=== PATIENT | female | born 1955 | race Caucasian/White ===

== ENCOUNTER → 2016-08-30 | Outpatient (CLI) | payer OTHER ==
[~2016-08-30] MED LIST: BACL10TA PO; BUPR100T4 PO; BUPR1TAB29 PO; CHOL50006 PO; DIAZ5TAB PO; DICL50TA PO; DILA2TAB2 PO; DOCU100C PO; ESCI10TA PO; FLUT50SP EACH NARE; GABA100C4 PO; GABA300C5 PO; HYDR-3583 PO; INVA1INJ IV; LACT PO; LOPE2CAP92 PO; LURA40; LURA40 PO; PANT40TA3 PO; PROP10TA6 PO; TIZA2TAB PO
== END ==
LOC: CPRE 14:42
PROVIDERS: ATTEND Neurological Surgery
DX: Z01.812 Encounter for preprocedural laboratory examination (principal)

== ENCOUNTER 2016-09-07 09:01 | Observation (INO) | payer OTHER ==
[~2016-09-07] VITALS: Ht 172.7 cm; Wt 92.1 kg
[~2016-09-07 09:01] MED LIST changes: -BACL10TA PO; +BUPIVACAINE/EPINEPHRINE 0.5% PF 30 ML VIAL ONE; -BUPR100T4 PO; -BUPR1TAB29 PO; -CHOL50006 PO; -DICL50TA PO; -DILA2TAB2 PO; -DOCU100C PO; -FLUT50SP EACH NARE; -GABA100C4 PO; +GELFOAM SIZE 100 ONE; +GENTAMICIN SULFATE 80 MG/2 ML VIAL ONE; -INVA1INJ IV; -LACT PO; -LOPE2CAP92 PO; -LURA40 PO; -PROP10TA6 PO; +THROMBIN (TOPICAL) 5,000 UNIT VIAL ONE; +ceFAZolin 2 GM PREMIX 50 ML ONE; +methylPREDNISolone ACETATE 40 MG/ML VIAL ONE
[2016-09-07] MEDS ORDERED: SODIUM CHLORID 0.9% 500 ML IV PRN (09:45)
[2016-09-07] MEDS ORDERED: INSULIN HUMAN REGULAR 1,000 UNITS/10 ML VIAL SQ PRN (09:45)
[2016-09-07] MEDS ORDERED: VANCOMYCIN HCL 1000 MG ON-CALL/NS 250 ML IV SCH ×2 (09:45)
[2016-09-07] MEDS ORDERED: METOPROLOL TARTRATE 25 MG TAB PO PRN (09:45)
[2016-09-07] MEDS ORDERED: LACTATED RINGER'S 1000 ML IV PRN (09:45)
[2016-09-07] MEDS ORDERED: SODIUM CHLOR 0.9% 1000 ML INJ 1,000 ML IV SCH (09:45)
[2016-09-07] MEDS ORDERED: CHLORHEXIDINE GLUCONATE 2 % 1 PACK (2 CLOTHS) TOPICAL PRN (09:45)
[2016-09-07] MEDS ORDERED: POVIDONE IODINE 5% (ANTISEPSIS KIT) 4 APPLICATIONS EACH NARE PRN (09:45)
[2016-09-07] MEDS ORDERED: CHOL50006 PO (09:53)
[2016-09-07] MEDS ORDERED: LURA40 PO (09:53)
[2016-09-07] MEDS ORDERED: DOCU100C PO (09:53)
[2016-09-07] MEDS ORDERED: FLUT50SP EACH NARE (09:53)
[2016-09-07] MEDS ORDERED: PROP10TA6 PO (09:53)
[2016-09-07 09:54] VITALS: BP 115/83; PULSE 58; RESP 16; TEMP 98.7; O2SAT 95
[2016-09-07] MEDS ORDERED: HYDROmorphone HCL PF 2 MG/ML VIAL ONE ×2 (10:22→11:17)
[2016-09-07] MEDS ORDERED: FAMOTIDINE 20 MG/2 ML VIAL ONE (10:23)
[2016-09-07] MEDS ORDERED: MIDAZOLAM HCL 2 MG/2 ML VIAL ONE (11:12)
[2016-09-07] MEDS ORDERED: fentaNYL CITRATE 250 MCG/5 ML AMP ONE (11:17)
[2016-09-07] MEDS ORDERED: ACETAMINOPHEN 1000 MG/100 ML VIAL IV ONE (11:35)
[2016-09-07] MEDS ORDERED: ePHEDrine/NS 25 MG/5 ML SYR IV ONE (12:00)
[2016-09-07] MEDS ORDERED: LACTATED RINGER'S 1000 ML INJ 1,000 ML IV ONE (12:00)
[2016-09-07] MEDS ORDERED: PROPOFOL 200 MG/20 ML AMP IV ONE (12:00)
[2016-09-07] MEDS ORDERED: ONDANSETRON HCL 4 MG/2 ML VIAL IV PUSH ONE (12:00)
[2016-09-07] MEDS ORDERED: DO NOT ADM ANY ANTICOAGULANT DRUGS PRN (14:08)
[2016-09-07] MEDS ORDERED: ACETAMINOPHEN 325 MG TAB PO PRN (14:15)
[2016-09-07] MEDS ORDERED: SODIUM CHLORIDE 0.9% FLUSH 5 ML FLUSH IVF PRN (14:15)
[2016-09-07] MEDS ORDERED: DIAZEPAM 5 MG TAB PO PRN ×2 (14:15→14:30)
[2016-09-07] MEDS ORDERED: ACETAMINOPHEN/HYDROcodone 325 MG/10 MG TAB PO PRN ×3 (14:15→14:30)
[2016-09-07] MEDS ORDERED: MORPHINE SULFATE 4 MG/ML INJ IV PUSH PRN ×2 (14:15)
[2016-09-07] MEDS ORDERED: *morphine SULFATE 8 MG/ML PERIprocedure ONLY ONE ×2 (14:16→14:25)
[2016-09-07] MEDS ORDERED: HYDR-3583 PO (14:18)
--- NOTE | 2016-09-07 14:32 | PD.OP ---
Operative Report Date of Surgery: September 07, 2016 Preoperative Diagnosis: Lumbar spinal stenosis Postoperative Diagnosis: Lumbar spinal stenosis Procedure: L3-4, L4-5 left hemilaminectomy, mesiofacetectomy, foraminotomy with microsurgical resection of the disk Anesthesia: general Surgeon: London Desouza Supervisor Paint Roller Covers(s): tadeo bliss Operation and Findings: INDICATIONS FOR THE SURGICAL PROCEDURE Ms Smith is a 60 year-old female who presented with intractable mechanical back pain and clinical evidence of left L4 and L5 lower extremity radiculopathy. She was found to have significant focal spinal stenosis with a disk protusion causing stenosis with significant mass effect on the neural structures which correlated with her clinical symptoms. She failed maximum nonsurgical management including multiple modalities of conservative treatment as well as pain management interventions by an interventional pain specialist. A surgical decompression were indicated as a last resort. The [id number] details of the procedure, indications, alternatives, risks and potential complications were fully discussed with the patient. The patient fully understood. All the questions were answered. No guarantees were given. The patient voiced requesting the procedure and signed informed consents. He was offered the alternative of delaying the procedure and continuing with nonsurgical management. DETAILS OF THE SURGICAL PROCEDURE After the induction of general anesthesia, endotracheal intubation was performed. A [place] catheter, bilateral TRACEY hose and sequential compression devices were placed and kept throughout the procedure. The patient was positioned prone on a Guevara table over a Eligio frame. All pressure points were carefully padded with eggcrate mattress. The eyes were tapped shut after ointment was applied by the anesthesiologist to prevent corneal abrasion. A Omi hugger was placed over the exposed lower body to maintain control of the core body temperature. The lower lumbar region was prepped and draped in the usual sterile fashion. A spinal needle was placed for localization and an x- ray performed with a C-arm. A skin incision was made in the midline over the spinous processes L3-L4, L4-L5 with a #10 blade. Small subcutaneous bleeders were controlled with a bipolar and the dissection was carried out through the lumbar fascia exposing the spinous processes. A subperiostial dissection was performed with a Sánchez elevator and a Bovie over the left L3-L4, L4-L5 spinous process lamina and facets. A microdiscectomy self-retaining retractor was placed on the incision and an x-ray was obtained with an instrument placed underneath the lamina. At this point in the procedure the operating microscope was draped in the usual sterile fashion and brought to the field. The rest of the surgical procedure was performed using microsurgical dissection technique with exception of the closure. Once the level was confirmed, a left decompressive laminectomy was performed at L3-L4, L4-L5 using the TPS drill with an 4mm drill bit. A medial facetectomy was performed and the superior free border of the ligamentum flavum was dissected with a ligament dissector and removed with a thin footplate 2 mm Kerrison. The medial facetectomy was done and the L5 nerve root was identified and followed towards its exit in the foramen. Epidural veins located laterally to the dural sac were coagulated with a bipolar and incised with microscissors. Gentle medial retraction of the dural sac allowed inspection of the disc space. The patient had severe facet arthropathy with hypertrhopy of the joint facets and ligamentum flavum resulting in mass effect over the dural sac and nerve roots. In addition, there was a broad-based disc protusion, contributing to the stenosis. The annulus fibrosus at L3-L4, L4-L5 were coagulated with the bipolar and incised with an 11 blade. The disc was carefully dissected from the surrounding tissue and removed with pituitary forceps. Then, a microdiscectomy was carried out at L3-L4, L4-L5 in the standard fashion using straight and up- biting pituitary forceps. A good decompression of the dural sac and nerve root was achieved. The exit of the nerve root was inspected for residual disc fragments and hemostasis was secured with the bipolar. The incision was irrigated with a large amount of saline solution. A Valsalva maneuver failed to show any cerebrospinal fluid leak or bleeding. The decompression was assessed again and found to be satisfactory. The incision was then closed in layers. The fascia was closed with 0 Vicryl sutures in an interrupted fashion. The superficial fascia was closed with 0 Vicryl sutures. The fascia was infiltrated with 0.5% Marcaine with epinephrine 1:100,000 dilution. The subcutaneous tissue was irrigated then closed with 0 Vicryl and 3 -0 Vicryl. The skin was closed with 4-0 running subcuticular Vicryl. A sterile dressing was applied. At the end of the procedure, the sponge, needle and instrument counts were all correct. Estimated blood loss was less than 100 cc. No blood transfusion was given. No intraoperative complications occurred. The patient received prophylactic antibiotics. The patient was then extubated and transferred to the recovery room in stable condition. London Desouza MD September 07, 2016 14:32
[2016-09-07] MEDS ORDERED: *HYDROmorphone PF 1 MG VIAL PERIprocedural Use ONLY ONE (14:45)
[2016-09-07] MEDS: NS + KCL 20 MEQ INJ 1,000 ML IV SCH (14:45)
--- NOTE | 2016-09-07 15:11 | RADRPT ---
EXAM DATE/TIME: 09/07/2016 11:50 [facility] COMPARISON: No previous studies available for comparison. INDICATIONS : Herniated disk, microdiskectomy. MEDICAL HISTORY : SURGICAL HISTORY : None. ENCOUNTER: Initial ACUITY: 1 day PAIN SCORE: 0/10 LOCATION: Right lumbar spine FINDINGS: The examination was hardware entering L4-5 intervertebral disc space. No significant disc space narro wing at L5-S1 also noted. Visualized alignment is grossly satisfactory. CONCLUSION: Hardware L4-5 Jacob Kellogg MD on September 07, 2016 at 15:08 Board Certified Radiologist. This report was verified electronically.
[2016-09-07] MEDS ORDERED: PILL SPLITTER OTHER PRN (15:30)
--- NOTE | 2016-09-07 15:42 | HHI.DCPOC ---
Discharge Care Plan Diagnosis: (1) S/P lumbar laminectomy Goals to Promote Your Health * To prevent worsening of your condition and complications * To maintain your health at the optimal level Directions to Meet Your Goals Take your medications as prescribed Follow your dietary instruction Follow activity as directed Keep your appointments as scheduled Take your immunizations and boosters as scheduled If your symptoms worsen call your PCP, if no PCP go to Urgent Care Center or Emergency Room Smoking is Dangerous to Your Health. Avoid second hand smoke Call the 24-hour hour crisis hotline for domestic abuse at Tania Carrillo September 07, 2016 15:42
[2016-09-07 15:50] VITALS: BP 114/73; PULSE 64; RESP 18; TEMP 97.1; O2SAT 96
[2016-09-07] MEDS: CHOLECALCIFEROL (VIT D3) 5000 UNIT CAP PO SCH (16:03)
[2016-09-07] MEDS: ACETAMINOPHEN/HYDROcodone 325 MG/10 MG TAB PO PRN (17:03)
[2016-09-07] MEDS: GABAPENTIN 300 MG CAP PO SCH (17:51)
[2016-09-07] MEDS ORDERED: GABAPENTIN 300 MG CAP PO SCH (18:00)
[2016-09-07 20:00] VITALS: BP 105/74; PULSE 73; RESP 20; TEMP 96.6; O2SAT 94
[2016-09-07] MEDS ORDERED: LURASIDONE 40 MG TAB PO SCH (21:00)
[2016-09-07] MEDS ORDERED: PROPRANOLOL HCL 10 MG TAB PO SCH (21:00)
[2016-09-07] MEDS ORDERED: DOCUSATE SODIUM 100 MG CAP PO SCH ×2 (21:00)
[2016-09-07] MEDS: PROPRANOLOL HCL 10 MG TAB PO SCH (21:33)
[2016-09-07] MEDS: LURASIDONE 40 MG TAB PO SCH (21:33)
[2016-09-07] MEDS: DOCUSATE SODIUM 100 MG CAP PO SCH (21:33)
[2016-09-07] MEDS: ceFAZolin 2 GM PREMIX 50 ML IV SCH (21:34)
[2016-09-07] MEDS: SODIUM CHLORIDE 0.9% FLUSH 5 ML FLUSH IVF SCH (21:34)
[2016-09-08] VITALS: BP_SYST 137; BP_SYST 98; BP_DIAS 68; BP_DIAS 81; BP_DIAS 82; PULSE 60; PULSE 67; RESP 18; RESP 22; TEMP 96.3; TEMP 96.8; O2SAT 94; O2SAT 96
[2016-09-08] MEDS: NS + KCL 20 MEQ INJ 1,000 ML IV SCH ×2 (00:30→08:26)
[2016-09-08] MEDS: ACETAMINOPHEN/HYDROcodone 325 MG/10 MG TAB PO PRN ×5 (03:43→20:06)
[2016-09-08] MEDS: ceFAZolin 2 GM PREMIX 50 ML IV SCH ×2 (03:44→11:41)
[2016-09-08 04:00] VITALS: BP 99/57; PULSE 72; RESP 20; TEMP 96.7; O2SAT 93
[2016-09-08 07:40] VITALS: BP 117/67; PULSE 72; RESP 18; TEMP 96.9; O2SAT 93
[2016-09-08] MEDS: GABAPENTIN 300 MG CAP PO SCH ×3 (08:22→18:27)
[2016-09-08] MEDS: PANTOPRAZOLE SOD 40 MG DELAYED RELEASE TAB PO SCH (08:22)
[2016-09-08] MEDS: PROPRANOLOL HCL 10 MG TAB PO SCH ×2 (08:22→20:06)
[2016-09-08] MEDS: DOCUSATE SODIUM 100 MG CAP PO SCH ×2 (08:23→20:05)
[2016-09-08] MEDS: SODIUM CHLORIDE 0.9% FLUSH 5 ML FLUSH IVF SCH ×2 (08:23→20:06)
[2016-09-08] MEDS: CHOLECALCIFEROL (VIT D3) 5000 UNIT CAP PO SCH (08:23)
[2016-09-08] MEDS: ESCITALOPRAM OXALATE 10 MG TAB PO SCH (08:23)
[2016-09-08] MEDS: FLUTICASONE PROPIONATE 50 MCG/ACT 16 GM NASAL SPRAY EACH NARE SCH (08:30)
[2016-09-08] MEDS ORDERED: FLUTICASONE PROPIONATE 50 MCG/ACT 16 GM NASAL SPRAY EACH NARE SCH (09:00)
[2016-09-08] MEDS ORDERED: ESCITALOPRAM OXALATE 10 MG TAB PO SCH (09:00)
[2016-09-08] MEDS ORDERED: PANTOPRAZOLE SOD 40 MG DELAYED RELEASE TAB PO SCH ×2 (09:00)
[2016-09-08] MEDS ORDERED: NON-FORMULARY DRUG (Cholecalciferol (Vitamin D) 1 TAB) PO SCH (09:00)
[2016-09-08 11:54] VITALS: BP 100/65; PULSE 59; RESP 18; TEMP 97.4; O2SAT 94
[2016-09-08] MEDS: DEXAMETHASONE SOD PHOS 4 MG/ML VIAL IV PUSH SCH ×2 (12:21→18:28)
--- NOTE | 2016-09-08 12:29 | HHI.DS ---
Discharge Summary Admission Date September 07, 2016 at 14:11 Discharge Date: September 09, 2016 Admitting Diagnosis s/p lumbar laminectomy (1) S/P lumbar laminectomy ICD Code: Z98.890 Brief History Ms Smith is a 60 year-old female who presented with intractable mechanical back pain and clinical evidence of left L4 and L5 lower extremity radiculopathy. She was found to have significant focal spinal stenosis with a disk protrusion causing stenosis with significant mass effect on the neural structures which correlated with her clinical symptoms. She failed maximum nonsurgical management including multiple modalities of conservative treatment as well as pain management interventions by an interventional pain specialist. A surgical decompression were indicated as a last resort. Imaging Last Impressions Lumbar Spine MRI 09/09/16 0000 Signed Impressions: Service Date/Time: Friday, September 09, 2016 11:12 - CONCLUSION: 1. Status post left kristin-laminotomy at the L3-4 and L4-5 levels with mild postsurgical change and small fluid collection in the adjacent overlying subcutaneous fat is normal. 2. Mild disc bulges at the L3-4, L4-5 and L5-S1 levels. 3. Degenerative disc change at the L5-S1 level. 4. Mild degenerative joint changes. Ja Payton MD Lumbar Spine X-Ray 09/07/16 0000 Signed Impressions: Service Date/Time: Wednesday, September 07, 2016 11:50 - CONCLUSION: Hardware L4-5 Jacob Kellogg MD Hospital Course Ms. Smith underwent a L3-4, L4-5 left hemilaminectomy, mesiofacetectomy, foraminotomy with microsurgical resection of the disk on September 07, 2016. Her surgery went well. POD 1 later that morning she had complained of left foot weakness. She underwent an MRI L spine follow up which was reviewed by Dr. Desouza and cleared for discharge. She was sent home with Home Health Care PT. Wound care and activity restrictions were discussed. Pt Condition on Discharge: Stable Discharge Disposition: Disch w/ Home Health Serv Discharge Instructions DIET: Follow Instructions for: Heart Healthy Diet ACTIVITIES You can perform: Weight Bearing As Adria ADDITIONAL Activity Instructio: Avoid strenuous activities, heavy lifting, overhead activities, repetitive bending, twisting, pushing, pulling or any activities which might result in stress over the spine. Avoid situtation that will put at risk for falls. Use assistive device as needed for walking. Wear lumbar brace when out of bed. New Medications: Hydrocodone-Acetaminophen (Hydrocodone-Acetaminophen) 10-325 mg Tab 1 TAB PO Q8HR PRN PAIN SCALE 1 TO 10 #90 Ref 0 TAB Continued Medications: Cholecalciferol (Vitamin D) 5,000 Unit Tab 1 TAB PO DAILY Diazepam (Diazepam) 5 Mg Tab 5 MG PO HS PRN ANXIETY Ref 0 TAB Docusate Sodium (Docusate Sodium) 100 Mg Cap 200 MG PO HS Prevent Constipation #60 Ref 0 CAP Escitalopram (Escitalopram) 10 Mg Tab 10 MG PO DAILY #30 Ref 0 TAB Fluticasone Nasal Spencer (Fluticasone Nasal Spencer) 50 Mcg/Act Naspr 50 MCG EACH NARE DAILY 50 mcg/spray Allergy Management #1 Ref 0 BOTTLE Gabapentin (Gabapentin) 300 Mg Cap 300 MG PO TID #60 Ref 0 CAP Hydrocodone-Acetaminophen (Hydrocodone-Acetaminophen) 10-325 mg Tab 1 TAB PO Q6H PRN PAIN Ref 0 TAB Lurasidone (Latuda) 40 Mg Tab 40 MG PO HS #30 Ref 0 TAB Pantoprazole (Pantoprazole) 40 Mg Tab 40 MG PO DAILY Reflux #30 Ref 0 TAB Propranolol (Propranolol) 10 Mg Tab 10 MG PO Q12HR #60 Ref 0 TAB Tizanidine (Tizanidine) 2 Mg Tab 2 MG PO TID Muscle Spasm Ref 0 TAB Tania Carrillo September 08, 2016 12:29
[2016-09-08 15:50] VITALS: BP 98/58; PULSE 67; RESP 18; TEMP 97.9; O2SAT 95
[2016-09-08] MEDS: LURASIDONE 40 MG TAB PO SCH (20:05)
[2016-09-08 21:48] VITALS: BP 133/75; PULSE 70; RESP 22; TEMP 97; O2SAT 97
[2016-09-09] VITALS: BP 137/82; PULSE 60; RESP 22; TEMP 96.8; O2SAT 96
[2016-09-09] MEDS: DEXAMETHASONE SOD PHOS 4 MG/ML VIAL IV PUSH SCH ×3 (00:04→12:00)
[2016-09-09] MEDS: ACETAMINOPHEN/HYDROcodone 325 MG/10 MG TAB PO PRN ×3 (01:25→09:30)
[2016-09-09 03:13] VITALS: BP 134/81; PULSE 60; RESP 22; TEMP 98.6; O2SAT 96
[2016-09-09 04:00] VITALS: BP 147/83; PULSE 62; RESP 18; TEMP 97.9; O2SAT 98
[2016-09-09] MEDS: NS + KCL 20 MEQ INJ 1,000 ML IV SCH (06:30)
[2016-09-09 08:00] VITALS: BP 134/89; PULSE 70; RESP 18; TEMP 97.7; O2SAT 95
[2016-09-09] MEDS: SODIUM CHLORIDE 0.9% FLUSH 5 ML FLUSH IVF SCH (09:00)
[2016-09-09] MEDS: FLUTICASONE PROPIONATE 50 MCG/ACT 16 GM NASAL SPRAY EACH NARE SCH (09:00)
[2016-09-09] MEDS: CHOLECALCIFEROL (VIT D3) 5000 UNIT CAP PO SCH (09:11)
[2016-09-09] MEDS: ESCITALOPRAM OXALATE 10 MG TAB PO SCH (09:11)
[2016-09-09] MEDS: PROPRANOLOL HCL 10 MG TAB PO SCH (09:11)
[2016-09-09] MEDS: DOCUSATE SODIUM 100 MG CAP PO SCH (09:11)
[2016-09-09] MEDS: PANTOPRAZOLE SOD 40 MG DELAYED RELEASE TAB PO SCH (09:11)
[2016-09-09] MEDS: GABAPENTIN 300 MG CAP PO SCH (09:11)
--- NOTE | 2016-09-09 11:39 | HHI.NSPN ---
(Tania Carrillo) Note Status Status: Progress Note (Tania Carrillo) Interval History Interval History 60 y/o female s/p L3-4, L4-5 left hemilaminectomy, mesiofacetectomy, foraminotomy with microsurgical resection of the disk on 09/07/16. She reported new onset left foot drop yesterday afternoon and discharge was held. (Tania Carrillo) Labs, Micro, & Vital Signs Results Date Time Temp Pulse Resp B/P Pulse Ox O2 Delivery O2 Flow Rate FiO2 09/09/16 08:00 97.7 70 18 134/89 95 09/09/16 04:00 97.9 62 18 147/83 98 09/09/16 00:00 96.8 60 22 137/82 96 09/08/16 21:48 97.0 70 22 133/75 97 09/08/16 15:50 97.9 67 18 98/58 95 09/08/16 11:54 97.4 59 18 100/65 94 09/09/16 07:00 Intake Total 1980 ml Balance 1980 ml Constitutional Vital Signs Date Time Temp Pulse Resp B/P Pulse Ox O2 Delivery O2 Flow Rate FiO2 09/09/16 08:00 97.7 70 18 134/89 95 09/09/16 04:00 97.9 62 18 147/83 98 09/09/16 00:00 96.8 60 22 137/82 96 09/08/16 21:48 97.0 70 22 133/75 97 09/08/16 15:50 97.9 67 18 98/58 95 09/08/16 11:54 97.4 59 18 100/65 94 09/09/16 07:00 Intake Total 1980 ml Balance 1980 ml (Tania Carrillo) Review of Systems/Exam Exam Ms. Smith is alert, awake and oriented to time, place and person. Speech is appropriate. Cranial nerve examination: pupils equal, round and reactive to light. Extra- ocular movements are intact. Facial motor are normal and symmetrical. Neck is soft and supple with a good range of motion without pain. Muscle strength is normal in all muscle groups of both upper extremities and lower extremities except 0/5 left dorsiflexion, 2-3/5 left EHL There is a bilateral plantar flexion response. (Tania Carrillo) Medications Current Medications Current Medications Medications (Trade) Dose Ordered Sig/Sen Route PRN Reason Start Time Stop Time Status Last Admin Dose Admin Potassium Chloride/Sodium Chloride (NS + KCl 20 Meq Inj) 1,000 ml @ 100 mls/hr Q10H IV 09/07/16 14:30 09/07/16 14:45 IV Flush (NS Flush) 2 ml UNSCH PRN IVF FLUSH AFTER USING IV ACCESS 09/07/16 14:15 IV Flush (NS Flush) 2 ml BID IVF 09/07/16 21:00 09/09/16 09:00 Docusate Sodium (Colace) 100 mg BID PO 09/07/16 21:00 09/09/16 09:11 Pantoprazole Sodium (Protonix) 40 mg DAILY PO 09/08/16 09:00 09/09/16 09:11 Acetaminophen/ Hydrocodone Bitart ([place] 10-325 Mg) 1 tab Q4H PRN PO PAIN SCALE 1 TO 5 09/07/16 14:15 09/08/16 16:32 Acetaminophen/ Hydrocodone Bitart ([place] 10-325 Mg) 2 tab Q4H PRN PO PAIN SCALE 6 TO 10 09/07/16 14:15 09/09/16 09:30 Morphine Sulfate (Morphine Inj) 2 mg Q2H PRN IV PUSH PAIN SCALE 1 TO 6 09/07/16 14:15 Morphine Sulfate (Morphine Inj) 4 mg Q2H PRN IV PUSH PAIN SCALE 7 TO 10 09/07/16 14:15 Acetaminophen (Tylenol) 650 mg Q4H PRN PO TEMPERATURE > 101.5 F 09/07/16 14:15 Gabapentin (Neurontin) 300 mg TID PO 09/07/16 18:00 09/09/16 09:11 Diazepam (Valium) 5 mg HS PRN PO ANXIETY 09/07/16 14:30 Escitalopram Oxalate (Lexapro) 10 mg DAILY PO 09/08/16 09:00 09/09/16 09:11 Fluticasone Propionate (Flonase Eagle Spr) 1 spray DAILY EACH NARE 09/08/16 09:00 Lurasidone HCl (Latuda) 40 mg HS PO 09/07/16 21:00 09/08/16 20:05 Propranolol HCl (Inderal) 10 mg Q12HR PO 09/07/16 21:00 09/09/16 09:11 Tizanidine HCl (Zanaflex) 2 mg TID PO 09/07/16 18:00 09/08/16 08:23 Cholecalciferol (Vitamin D3) 5,000 units DAILY PO 09/07/16 16:00 09/09/16 09:11 Miscellaneous (Pill Splitter) 1 ea UNSCH PRN OTHER SEE LABEL COMMENTS 09/07/16 15:30 Dexamethasone Sodium Phosphate (Decadron Inj) 4 mg Q6HR IV PUSH 09/08/16 12:30 09/09/16 05:25 (Tania Carrillo) Medical Decision Making MDM Remarks 60 y/o female s/p L3-4, L4-5 laminectomy and microdiscectomy 09/07/16, new onset left foot drop (Tania Carrillo) Plan Plan Remarks stat MRI L spine, cont physical therapy (Tania Carrillo) Attending Statement MRI was done. No acute pathology The exam, history, and the medical decision-making described in the above note were completed with the assistance of the mid-level provider. I reviewed and agree with the findings presented. I attest that I had a [id number] encounter with the patient on the same day, and personally performed and documented my assessment and findings in the medical record. (London Desouza MD) Tania Carrillo September 09, 2016 11:39 London Desouza MD September 09, 2016 21:41
--- NOTE | 2016-09-09 11:43 | HHI.FF ---
Face to Face Verification Diagnosis: (1) S/P lumbar laminectomy Physical Therapy Order: Improve ambulation, Strength and gait training (left foot drop) Home Health Nursing Order: Signs/symptoms of disease process Wound care and dressing changes I have seen patient Lynn Smith on 09/09/16. My clinical findings support the need for the requested home health care services because: Deconditioned w/ increased weakness High risk of falls I certify that my clinical findings support that this patient is homebound because: Post-op weakness Unsteady gait/balance Tania Carrillo September 09, 2016 11:43
--- NOTE | 2016-09-09 11:52 | RADRPT ---
EXAM DATE/TIME: 09/09/2016 11:12 [facility] COMPARISON: SPINE LUMBAR LATERAL ONLY, September 07, 2016, 11:50. INDICATIONS : Extremity weakness. Left lower extremity weakness s/p L3/4 L4/5 hemilaminectomy 09/07/16. MEDICAL HISTORY : None. SURGICAL HISTORY : Cholecystectomy. Hemorrhoidectomy. Lumbar hemilaminectomy. ENCOUNTER: Subsequent ACUITY: 3 day PAIN SCORE: 2/10 LOCATION: [facility] TECHNIQUE: Multiplanar multisequence MRI of the lumbar spine was performed without contrast. FINDINGS: The most caudal appearing lumbar vertebra is numbered as L5. VERTEBRAE: Homogeneous signal. Normal alignment. DISCS: There is mild desiccation at the L5-S1 level with disc space narrowing and anterior extradural defect . There is a small anterior extradural defect at the L3-4 level noted as well. There are small high-i ntensity zones and both of these regions which could indicate small annular tears. CONUS: Normal level and configuration. T12-L1: The thecal sac has a normal diameter. No evidence of disc bulge or protrusion. The neural foramina are patent bilaterally. L1-L2: The thecal sac has a normal diameter. No evidence of disc bulge or protrusion. The neural foramina are patent bilaterally. L2-L3: The thecal sac has a normal diameter. No evidence of disc bulge or protrusion. The neural foramina are patent bilaterally. L3-L4: Patient is status post left kristin-laminotomy with mild postsurgical change. There is a mild annular di sc bulge with mild flattening of the anterior thecal sac and no focal protrusion. The neural foramina are patent. There are mild degenerative changes involving facets there is a small fluid collection i n the overlying subcutaneous fat. This measures approximately 1.9 x 1.8 cm and contains a fluid heme level. L4-L5: Status post left kristin-laminotomy with mild postsurgical changes. There is mild disc bulge with no foc al protrusion. The neural foramina are patent. There are mild degenerative changes involving the face ts. L5-S1: There is a mild annular disc bulge with mild flattening of the anterior thecal sac. The neural forami na are patent. There are mild degenerative changes involving facets. CONCLUSION: 1. Status post left kristin-laminotomy at the L3-4 and L4-5 levels with mild postsurgical change and sma ll fluid collection in the adjacent overlying subcutaneous fat is normal. 2. Mild disc bulges at the L3-4, L4-5 and L5-S1 levels. 3. Degenerative disc change at the L5-S1 level. 4. Mild degenerative joint changes. Ja Payton MD on September 09, 2016 at 11:34 Board Certified Radiologist. This report was verified electronically.
== END 2016-09-09 12:59 | disposition home health service (06) ==
LOC: HSDC 09:01 → HSDI 14:11 → N06B 15:16
PROVIDERS: ADMIT Neurological Surgery; ATTEND Neurological Surgery
DX: M51.16 Intervertebral disc disorders with radiculopathy, lumbar region (principal); M48.06 Spinal stenosis, lumbar region; K21.9 Gastro-esophageal reflux disease without esophagitis; E66.9 Obesity, unspecified; Z88.2 Allergy status to sulfonamides; Z68.30 Body mass index [BMI] 30.0-30.9, adult
CPT/HCPCS: 63030; 63035; 72020; 72148; 76000; 94150; 97110; 97162; 97530; G0378; J0131; J0690; J1030; J1100; J1170; J1580; J2250; J2270; J2405; J3010; J3370; J3480; J7050; J7120; L0627

== ENCOUNTER 2016-09-14 09:34 | Inpatient (IN) | payer OTHER, MEDICARE ==
[2016-09-14] VITALS (8 sets, daily range): BP systolic 100–136; BP diastolic 61–95; PULSE 64–82; RESP 16–20; TEMP 98.8–102.3; O2SAT 94–96
[~2016-09-14] VITALS: Ht 172.7 cm; Wt 88.5 kg
[~2016-09-14 09:34] MED LIST changes: -BUPIVACAINE/EPINEPHRINE 0.5% PF 30 ML VIAL ONE; +CHOL50006 PO; +DOCU100C PO; +FLUT50SP EACH NARE; -GELFOAM SIZE 100 ONE; -GENTAMICIN SULFATE 80 MG/2 ML VIAL ONE; -LURA40; +LURA40 PO; +PROP10TA6 PO; -THROMBIN (TOPICAL) 5,000 UNIT VIAL ONE; -ceFAZolin 2 GM PREMIX 50 ML ONE; -methylPREDNISolone ACETATE 40 MG/ML VIAL ONE
[2016-09-14] MEDS ORDERED: PIPERACIL-TAZO 3.375 GM PREMIX 50 ML IV ONE (10:30)
[2016-09-14] MEDS ORDERED: VANCOMYCIN INJ 1,000 MG in SODIUM CHLOR 0.9% 250 ML INJ 250 ML IV ONE (10:30)
[2016-09-14 10:50] LABS: AUTOMATED NEUTROPHIL # 6.9 TH/MM3 (1.8-7.7); BASOPHIL % 0.2 % (0.0-2.0); EOSINOPHIL # 0.1 TH/MM3 (0-0.4); EOSINOPHIL % 0.6 % (0.0-4.0); HEMATOCRIT 41.8 % (35.0-46.0); HEMO FLAGS DIFF FINAL; LYMPH % 12.2 % (9.0-44.0); LYMPHOCYTE # 1.2 TH/MM3 (1.0-4.8); MEAN CELL VOLUME 91.2 FL (80.0-100.0); MEAN CORPUSCULAR HGB CONC 32.9 % (32.0-36.0); MONO % 14.7 % (0.0-8.0); NEUT % 72.3 % (16.0-70.0); PLATELET COUNT 111 TH/MM3 (150-450); RED BLOOD COUNT 4.58 MIL/MM3 (4.00-5.30); RED CELL DISTRIBUTION WIDTH 13.6 % (11.6-17.2); WHITE BLOOD COUNT 9.5 TH/MM3 (4.0-11.0)
[2016-09-14 11:08] LABS: BICARBONATE 30.5 MEQ/L (21.0-32.0); POTASSIUM 4.3 MEQ/L (3.5-5.1)
[2016-09-14] MEDS ORDERED: HYDROmorphone HCL PF 1 MG/ML VIAL IV PUSH ONE ×2 (11:15→13:30)
[2016-09-14] MEDS ORDERED: GADODIAMIDE PF 287 MG/ML 20 ML VIAL (for RAD MRI) IV ONE (13:18)
--- NOTE | 2016-09-14 13:53 | PD ---
HPI Chief Complaint: Fever Time Seen by Provider: 10:05 Travel History International Travel<30 days: No Contact w/Intl Traveler<30days: No Traveled to known affect area: No History of Present Illness HPI 60-year-old female complains of pain in the back steadily increasing since yesterday. She underwent left L3-4 and L4 5 hemilaminectomy about [address] Desouza. Yesterday had a fever and felt discharge on her gown. She notes that today her left lower extremity feels weaker than it had been initially following surgery and prior to the surgery. Temperature maximum was well 1. She reports that aspirin was minimally helpful with the fever temporarily. The hemilaminectomy was performed secondary to nerve impingement secondary to an old injury. She denies overflow urinary incontinence. She's had no change in bowel habits. PFSH Past Medical History Arthritis: Yes Cancer: No Cardiovascular Problems: No Diabetes: No Endocrine: No GERD: Yes (GERD) Genitourinary: No Hepatitis: Yes (C) Hiatal Hernia: Yes Immune Disorder: Yes (FIBROMYALGIA) Musculoskeletal: Yes (ARTHRITIS) Neurologic: No Psychiatric: Yes (SCHIZOID AFFECT DISORDER) Reproductive: No Respiratory: No Thyroid Disease: No Past Surgical History Abdominal Surgery: Yes (JOHN.,) AICD: No Genitourinary Surgery: Yes (HEMMORHOIDS,) Gynecologic Surgery: Yes (RIGHT FALLOPIAN TUBE) Joint Replacement: No Pacemaker: No Thoracic Surgery: Yes (RIGHT BREAST BX,) Social History Alcohol Use: No Tobacco Use: Yes Substance Use: Yes Allergies-Medications (Allergen,Severity, Reaction): Coded Allergies: Sulfa (Verified Allergy, Unknown, Swelling, 08/30/16) Reported Meds & Prescriptions Reported Meds & Active Scripts Active Hydrocodone-Acetaminophen 10-325 mg Tab 1 Tab PO Q8HR PRN Reported Vitamin D (Cholecalciferol) 5,000 Unit Tab 1 Tab PO DAILY Fluticasone Nasal [place] 50 Mcg/Act Naspr 50 Mcg EACH NARE DAILY 50 mcg/spray Docusate Sodium 100 Mg Cap 200 Mg PO HS Latuda (Lurasidone) 40 Mg Tab 40 Mg PO HS Propranolol (Propranolol HCl) 10 Mg Tab 10 Mg PO Q12HR Gabapentin 300 Mg Cap 300 Mg PO TID Tizanidine (Tizanidine HCl) 2 Mg Tab 2 Mg PO TID Diazepam 5 Mg Tab 5 Mg PO HS PRN Hydrocodone-Acetaminophen 10-325 mg Tab 1 Tab PO Q6H PRN Escitalopram (Escitalopram Oxalate) 10 Mg Tab 10 Mg PO DAILY Pantoprazole (Pantoprazole Sodium) 40 Mg Tab 40 Mg PO DAILY Review of Systems Except as stated in HPI: all other systems reviewed are Neg General / Constitutional: Positive: Fever Neurologic: Positive: Weakness Physical Exam Narrative GENERAL: 60-year-old female well-nourished well-developed pleasant SKIN: Focused skin assessment warm/dry. Overlying the midline lumbar vertebral bodies there is a 10 cm vertical incision with adjacent swelling and tenderness. There is no discharge with palpation about the area of swelling. HEAD: Atraumatic. Normocephalic. EYES: Pupils equal and round. No scleral icterus. No injection or drainage. ENT: No nasal bleeding or discharge. Mucous membranes pink and moist. NECK: Trachea midline. No JVD. CARDIOVASCULAR: Regular rate and rhythm. No murmur appreciated. RESPIRATORY: No accessory muscle use. Clear to auscultation. Breath sounds equal bilaterally. GASTROINTESTINAL: Abdomen soft, non-tender, nondistended. Hepatic and splenic margins not palpable. MUSCULOSKELETAL: No obvious deformities. No clubbing. No cyanosis. No edema. NEUROLOGICAL: Awake and alert. No obvious cranial nerve deficit. The left lower extremity demonstrates weakness with ankle dorsiflexion and plantarflexion and hip flexion in comparison to the right side. PSYCHIATRIC: Appropriate mood and affect; insight and judgment normal. Data Data Last Documented VS Vital Signs Date Time Temp Pulse Resp B/P Pulse Ox O2 Delivery O2 Flow Rate FiO2 09/14/16 15:03 69 16 101/61 94 Room Air 09/14/16 09:37 98.8 Vital signs reviewed Orders Basic Metabolic Panel (Bmp) (09/14/16 10:17) Complete Blood Count With Diff (09/14/16 10:17) Blood Culture (09/14/16 10:17) Wound Culture And Gram Stain (09/14/16 10:17) Iv Access Insert/Monitor (09/14/16 10:17) Wound Care (09/14/16 10:17) Vancomycin Inj (Vancomycin Inj) (09/14/16 10:30) Piperacil-Tazo 3.375 Gm Premix (Zosyn 3. (09/14/16 10:30) Mri L Spine W&W/O Contrast (09/14/16 ) Hydromorphone Pf Inj (Dilaudid Pf Inj) (09/14/16 11:15) Gadodiamide Pf Inj (Omniscan Pf Inj) (09/14/16 13:18) Hydromorphone Pf Inj (Dilaudid Pf Inj) (09/14/16 13:30) Metronidazole 500 Mg Inj (Flagyl 500 Mg (09/14/16 14:15) Ceftriaxone Inj (Rocephin Inj) (09/14/16 14:15) Ct Guided Aspiration (09/14/16 ) Invasive Rad Dept Consult (09/14/16 ) Act Partial Throm Time (Ptt) (09/14/16 14:25) Prothrombin Time / Inr (Pt) (09/14/16 14:25) Admit To Inpatient (09/14/16 ) Vital Signs (Adult) Q4H (09/14/16 14:33) Activity Oob With Assistance (09/14/16 14:33) Intake + Output BEATA.QSHIFT (09/14/16 14:33) Diet Npo (09/14/16 Dinner) Sodium Chlor 0.9% 1000 Ml Inj (Ns 1000 M (09/14/16 15:00) Sodium Chloride 0.9% Flush (Ns Flush) (09/14/16 14:45) Sodium Chloride 0.9% Flush (Ns Flush) (09/14/16 21:00) Acetaminophen (Tylenol) (09/14/16 14:45) Ondansetron Inj (Zofran Inj) (09/14/16 14:45) Docusate Sodium (Colace) (09/14/16 18:00) Magnesium Hydroxide Liq (Milk Of Magnesi (09/14/16 14:45) Temazepam (Restoril) (09/14/16 14:45) Basic Metabolic Panel (Bmp) (09/15/16 06:00) Complete Blood Count With Diff (09/15/16 06:00) Resp Oxygen [place] C [place] 1-4 L (09/14/16 ) Pt Request For Service (09/14/16 14:33) Ot Request For Service (09/14/16 14:33) Case Management Consult (09/14/16 14:33) Scd Bilateral/Knee High BEATA.BID (09/14/16 14:33) Clarke Bilateral/Knee High BEATA.QSHIFT (09/14/16 14:33) Inpatient Certification (09/14/16 ) Vancomycin Consult Pharmacy (Vancomycin (09/14/16 14:45) Vancomycin Inj (Vancomycin Inj) (09/14/16 14:45) Piperacil-Tazo 4.5 Gm Premix (Zosyn 4.5 (09/14/16 14:45) Consult Infectious Disease (09/14/16 ) Add Patient To Providers List (09/14/16 ) Admit Order (Ed Use Only) (09/14/16 15:09) Labs Laboratory Tests Test 09/14/16 10:30 White Blood Count 9.5 TH/MM3 Red Blood Count 4.58 MIL/MM3 Hemoglobin 13.7 GM/DL Hematocrit 41.8 % Mean Corpuscular Volume 91.2 FL Mean Corpuscular Hemoglobin 30.0 PG Mean Corpuscular Hemoglobin 32.9 % Concent Red Cell Distribution Width 13.6 % Platelet Count 111 TH/MM3 Mean Platelet Volume 7.6 FL Neutrophils (%) (Auto) 72.3 % Lymphocytes (%) (Auto) 12.2 % Monocytes (%) (Auto) 14.7 % Eosinophils (%) (Auto) 0.6 % Basophils (%) (Auto) 0.2 % Neutrophils # (Auto) 6.9 TH/MM3 Lymphocytes # (Auto) 1.2 TH/MM3 Monocytes # (Auto) 1.4 TH/MM3 Eosinophils # (Auto) 0.1 TH/MM3 Basophils # (Auto) 0.0 TH/MM3 CBC Comment DIFF FINAL Differential Comment Sodium Level 138 MEQ/L Potassium Level 4.3 MEQ/L Chloride Level 103 MEQ/L Carbon Dioxide Level 30.5 MEQ/L Anion Gap 5 MEQ/L Blood Urea Nitrogen 13 MG/DL Creatinine 0.68 MG/DL Estimat Glomerular Filtration 89 ML/MIN Rate Random Glucose 87 MG/DL Calcium Level 8.8 MG/DL [facility] Medical Decision Making Medical Screen Exam Complete: Yes Emergency Medical Condition: Yes Medical Record Reviewed: Yes Differential Diagnosis Paraspinal abscess, epidural abscess, cellulitis, osteomyelitis, skin abscess Narrative Course CBC & BMP Diagram 09/14/16 10:30 Antibiotics started on arrival: Vanco and Zosyn followed by Rocephin and Flagyl. Stat MRI ordered which reveals an epidural abscess. Case discussed with of neurosurgery who arrived to the ER at about 15: 15 shortly following our conversation. Case discussed with Dr Stewart for [facility]. Case discussed with Dr. Watson of radiology and also invasive radiology for CT guided aspiration. Diagnosis Primary Impression: Spinal epidural abscess Admitting Information Admitting Physician Requests: Admit Beto Garcia MD September 14, 2016 13:53
--- NOTE | 2016-09-14 13:54 | RADRPT ---
EXAM DATE/TIME: 09/14/2016 12:54 [facility] COMPARISON: No previous studies available for comparison. INDICATIONS : Abscess. CONTRAST: 18 cc Omniscan (gadodiamide) IV MEDICAL HISTORY : None. SURGICAL HISTORY : Discectomy, lumbar. ENCOUNTER: Initial ACUITY: 2 day PAIN SCORE: 6/10 LOCATION: Paraspinal TECHNIQUE: Multiplanar multisequence MRI of the lumbar spine was performed with and without contrast. FINDINGS: There is a large subcutaneous fluid collection present measuring 4.5 cm. There is enhancement in the subcutaneous tissues. On the post contrast images there is a small epidural component at L3-4 causi ng minimal impression on the thecal sac. Marrow signal appears homogeneous and normal. There is marked loss of disc space height at L5-S1. T here is nothing to suggest an diskitis or osteomyelitis at this point. CONCLUSION: Fluid collection as described above showing intense enhancement with an epidural component at the L3- 4 level. This is suspicious for an inflammatory process with an epidural component. Best seen on im age 6, series 28. Vishal Watson MD FACR on September 14, 2016 at 13:37 Board Certified Radiologist. This report was verified electronically.
[2016-09-14] MEDS ORDERED: cefTRIAXone INJ 1,000 MG in SODIUM CHLORIDE 0.9% INJ 100 ML IV ONE (14:15)
[2016-09-14] MEDS ORDERED: metroNIDAZOLE 500 MG INJ 100 ML IV ONE (14:15)
[2016-09-14] MEDS ORDERED: ONDANSETRON HCL 4 MG/2 ML VIAL IVP PRN (14:45)
[2016-09-14] MEDS ORDERED: Vancomycin Consult Pharmacy 1 EA OTHER SCH (14:45)
[2016-09-14] MEDS ORDERED: ACETAMINOPHEN 325 MG TAB PO PRN (14:45)
[2016-09-14] MEDS ORDERED: SODIUM CHLORIDE 0.9% FLUSH 10 ML FLUSH IV FLUSH PRN (14:45)
[2016-09-14] MEDS ORDERED: PIPERACIL-TAZO 4.5 GM PREMIX 100 ML IV SCH (14:45)
[2016-09-14] MEDS ORDERED: MAGNESIUM HYDROXIDE SUSP 30 ML CUP PO PRN (14:45)
[2016-09-14] MEDS ORDERED: VANCOMYCIN INJ 1,000 MG in SODIUM CHLOR 0.9% 250 ML INJ 250 ML IV SCH (14:45)
[2016-09-14] MEDS ORDERED: TEMAZEPAM 15 MG CAP PO PRN (14:45)
--- NOTE | 2016-09-14 14:55 | HHI.HP ---
HPI Service [facility] Primary Care Physician Claribel Rebollar M.D. Admission Diagnosis Diagnoses: Chief Complaint: worsening wound discharge and worsening back pain at the surgical site Travel History International Travel<30 Days: No Contact w/Intl Traveler <30 Da: No Traveled to Known Affected Are: No History of Present Illness Pleasant 60 y/o female s/p L3-4, L4-5 left hemilaminectomy, medial facetectomy, foraminotomy with microsurgical resection of the disk on 09/07/[address] Desouza. The patient came to the emergency room for evaluation of worsening back pain and increasing warmth discharge. She is complaining of fevers, spikes 101 at home. He had left from foods after the surgery no new motor or sensory deficit. There is no bowel or bladder incontinence. She reported new onset left foot drop immediately postoperatively and was monitored for a few days as of his postoperative MRI scan lumbar spine without contrast obtained did not show any significant spinal stenosis with postoperative changes and a subcutaneous fluid collection was also noted. She was discharged subsequently and relates that she noticed some bloody and serous serosanguineous drainage of lumbar incision site yesterday along with the low-grade fever. She is brought to [facility] emergency room this morning for further evaluation. MRI scan of the lumbar spine with and without contrast revealed enhancement in the epidural space but no significant spinal stenosis. The subcutaneous lumbar soft tissue fluid collection has enlarged. She denies any incontinence or any right lower extremity symptoms. Was evaluated in the emergency room by Dr. Salinas surgery. He recommends CT guidance incision and drainage. Patient had already IV antibiotics administered in the ED. Preferably patient will have aspiration of fluid first. Patient is started on IV antibiotics, also infectious diseases consulted for further recommendations. Review of Systems Except as stated in HPI: all other systems reviewed are Neg Past Family Social History Past Medical History Hep C cured, was treated Fibromyalgia Schizoid affective disorder Past Surgical History Breast sx Cindi Right fallopian tube removal Fistula repair CBD -stomach Reported Medications Reported Meds & Active Scripts Active Hydrocodone-Acetaminophen 10-325 mg Tab 1 Tab PO Q8HR PRN Reported Vitamin D (Cholecalciferol) 5,000 Unit Tab 1 Tab PO DAILY Fluticasone Nasal [place] 50 Mcg/Act Naspr 50 Mcg EACH NARE DAILY 50 mcg/spray Docusate Sodium 100 Mg Cap 200 Mg PO HS Latuda (Lurasidone) 40 Mg Tab 40 Mg PO HS Propranolol (Propranolol HCl) 10 Mg Tab 10 Mg PO Q12HR Gabapentin 300 Mg Cap 300 Mg PO TID Tizanidine (Tizanidine HCl) 2 Mg Tab 2 Mg PO TID Diazepam 5 Mg Tab 5 Mg PO HS PRN Hydrocodone-Acetaminophen 10-325 mg Tab 1 Tab PO Q6H PRN Escitalopram (Escitalopram Oxalate) 10 Mg Tab 10 Mg PO DAILY Pantoprazole (Pantoprazole Sodium) 40 Mg Tab 40 Mg PO DAILY Allergies: Coded Allergies: Sulfa (Verified Allergy, Unknown, Swelling, 08/30/16) Family History Brother bipolar disorder Mother without mental illness Father dementia Social History Tobacco occasionally 3-5 cig/day No EtOH , illicit drug use. Physical Exam Vital Signs Vital Signs Date Time Temp Pulse Resp B/P Pulse Ox O2 Delivery O2 Flow Rate FiO2 09/14/16 14:20 18 09/14/16 13:58 73 18 111/64 Room Air 09/14/16 12:01 16 09/14/16 11:04 66 16 110/78 94 Room Air 09/14/16 09:52 97 Room Air 09/14/16 09:37 98.8 64 20 100/72 95 Room Air Physical Exam GENERAL: This is a well-nourished, well-developed patient, in no apparent distress. SKIN: No rashes, ecchymoses or lesions. Cool and dry. HEAD: Atraumatic. Normocephalic. No temporal or scalp tenderness. EYES: Pupils equal round and reactive. Extraocular motions intact. No scleral icterus. No injection or drainage. ENT: Nose without bleeding, purulent drainage or septal hematoma. Throat without erythema, tonsillar hypertrophy or exudate. Uvula midline. Airway patent. NECK: Trachea midline. No JVD or lymphadenopathy. Supple, nontender, no meningeal signs. CARDIOVASCULAR: Regular rate and rhythm without murmurs, gallops, or rubs. RESPIRATORY: Clear to auscultation. Breath sounds equal bilaterally. No wheezes , rales, or rhonchi. GASTROINTESTINAL: Abdomen soft, non-tender, nondistended. No hepato-splenomegaly , or palpable masses. No guarding. MUSCULOSKELETAL: Lower back with dressing on semisaturated serosanguinous fluid. Extremities without clubbing, cyanosis, or edema. No joint tenderness, effusion, or edema noted. No calf tenderness. Negative Homans sign bilaterally. NEUROLOGICAL: Awake and alert. Cranial nerves II through XII intact. Motor and sensory grossly within normal limits except left drop foot. Strength normal except weak dorsiflexion left foot. Normal speech. Laboratory Laboratory Tests Test 09/14/16 10:30 White Blood Count 9.5 Red Blood Count 4.58 Hemoglobin 13.7 Hematocrit 41.8 Mean Corpuscular Volume 91.2 Mean Corpuscular Hemoglobin 30.0 Mean Corpuscular Hemoglobin 32.9 Concent Red Cell Distribution Width 13.6 Platelet Count 111 Mean Platelet Volume 7.6 Neutrophils (%) (Auto) 72.3 Lymphocytes (%) (Auto) 12.2 Monocytes (%) (Auto) 14.7 Eosinophils (%) (Auto) 0.6 Basophils (%) (Auto) 0.2 Neutrophils # (Auto) 6.9 Lymphocytes # (Auto) 1.2 Monocytes # (Auto) 1.4 Eosinophils # (Auto) 0.1 Basophils # (Auto) 0.0 CBC Comment DIFF FINAL Differential Comment Sodium Level 138 Potassium Level 4.3 Chloride Level 103 Carbon Dioxide Level 30.5 Anion Gap 5 Blood Urea Nitrogen 13 Creatinine 0.68 Estimat Glomerular Filtration 89 Rate Random Glucose 87 Calcium Level 8.8 Date/Time Procedure Status Source Growth 09/14/16 10:45 Aerobic Blood Culture Received Blood Peripheral Pending 09/14/16 10:45 Anaerobic Blood Culture Received Blood Peripheral Pending 09/14/16 10:20 Gram Stain Received Wound Back Pending 09/14/16 10:20 Wound Culture Received Wound Back Pending Result Diagram: 09/14/16 1030 09/14/16 1030 Assessment and Plan Assessment and Plan Patient is a very pleasant 60-year-old female who is status post a left L3-5 decompressive laminotomy with medial facetectomy and discectomy by Dr. Desouza, now complaining of fevers, pain and increase discharge form surgical site. Poss lumbar spine abscess, postsurgical. Patient is 1 week status post a left L3-5 decompressive laminotomy with medial facetectomy and discectomy by Dr. Desouza MRI of lumbar spine reviewed personally and with Dr Lora ED physician: Lillian large subcutaneous fluid collection 4.5 cm. Small the patient will complement 3 L4 causing minimal impression thecal sac. No discitis or osteomyelitis No fevers or leuk on admission Blood cultures obtained and pending Patient received IV abx in the ED. Continue IV abx after CT guided aspiration is done, will ask ID on consult Neurosurgery is consulted, preferably CT guided before abx administration, however patient already received abx in the ED Plan for CT-guided aspiration of his subcutaneous soft tissue fluid collection to ensure this is not infected and subsequently initiate antibiotics for the possible superficial wound infection. If there is a deeper wound infection then she'll need an incision and debridement. I would also recommend DVT prophylaxis as well as physical therapy and pain management as needed. Neurochecks PT consult Pain meds per pain scale. Might need pain management as OP Chronic medical problems appear stable at this time. Monitor. Restart home meds. DVT prophylaxis SCD/teds Discussed Condition With Patient, nurse, ED physician Physician Certification 2 Midnight Certification Type: Admission for Inpatient Services Order for Inpatient Services The services are ordered in accordance with Medicare regulations or non- Medicare payer requirements, as applicable. In the case of services not specified as inpatient-only, they are appropriately provided as inpatient services in accordance with the 2-midnight benchmark. Estimated LOS (days): 3 days is the estimated time the patient will need to remain in the hospital, assuming treatment plan goals are met and no additional complications. Post-Hospital Plan: Home Brittany Stewart MD September 14, 2016 14:55
--- NOTE | 2016-09-14 15:36 | HHI.NSPN ---
MD London Zhang MD History Interval History 60 y/o female s/p L3-4, L4-5 left hemilaminectomy, medial facetectomy, foraminotomy with microsurgical resection of the disk on 09/07/[address] Desouza. She reported new onset left foot drop immediately postoperatively and was monitored for a few days after a postoperative MRI scan lumbar spine without contrast obtained did not show any significant spinal stenosis with postoperative changes and a subcutaneous fluid collection was also noted. She was discharged subsequently and relates that she noticed some bloody and serous serosanguineous drainage of lumbar incision site yesterday along with the low- grade fever. She is brought to [facility] emergency room this morning. MRI scan of the lumbar spine with and without contrast revealed enhancement in the epidural space but no significant spinal stenosis. The subcutaneous lumbar soft tissue fluid collection has enlarged. She denies any incontinence or any right lower extremity symptoms. Exam Results Vital Signs Date Time Temp Pulse Resp B/P Pulse Ox O2 Delivery O2 Flow Rate FiO2 09/14/16 15:03 69 16 101/61 94 Room Air 09/14/16 09:37 98.8 Physical Examination Lumbar incision site some erythematous areas and small amount of serosanguineous bloody fluid on the dressing. I do not appreciate any fluctuant fluid collection She has a left foot drop 0/5 dorsiflexion along with numbness in the left L5 dermatome but otherwise good strength in the lower extremities. Lab, Micro, Other Results Laboratory Tests Test 09/14/16 10:30 White Blood Count 9.5 Red Blood Count 4.58 Hemoglobin 13.7 Hematocrit 41.8 Mean Corpuscular Volume 91.2 Mean Corpuscular Hemoglobin 30.0 Mean Corpuscular Hemoglobin 32.9 Concent Red Cell Distribution Width 13.6 Platelet Count 111 Mean Platelet Volume 7.6 Neutrophils (%) (Auto) 72.3 Lymphocytes (%) (Auto) 12.2 Monocytes (%) (Auto) 14.7 Eosinophils (%) (Auto) 0.6 Basophils (%) (Auto) 0.2 Neutrophils # (Auto) 6.9 Lymphocytes # (Auto) 1.2 Monocytes # (Auto) 1.4 Eosinophils # (Auto) 0.1 Basophils # (Auto) 0.0 CBC Comment DIFF FINAL Differential Comment Sodium Level 138 Potassium Level 4.3 Chloride Level 103 Carbon Dioxide Level 30.5 Anion Gap 5 Blood Urea Nitrogen 13 Creatinine 0.68 Estimat Glomerular Filtration 89 Rate Random Glucose 87 Calcium Level 8.8 Date/Time Procedure Status Source Growth 09/14/16 10:45 Aerobic Blood Culture Received Blood Peripheral Pending 09/14/16 10:45 Anaerobic Blood Culture Received Blood Peripheral Pending 09/14/16 10:20 Gram Stain Received Wound Back Pending 09/14/16 10:20 Wound Culture Received Wound Back Pending Medical Decision Making Impression and Plan 60-year-old lady who is 1 week status post a left L3-5 decompressive laminotomy with medial facetectomy and discectomy by Dr. Desouza. She is noted to have a immediate postop left foot drop along with the subcutaneous soft tissue fluid collection on MRI scan 5 days ago. On the current MRI scan there is enhancement noticed in the postoperative epidural space but the previous study likely did not show this since it was a noncontrast study. The spinal canal essentially remains patent. The lumbar subcutaneous soft tissue collection does appear to have increased in size. She has no fever currently or any elevation in her white count. I recommended holding off on the antibiotics but unfortunately she has received a few antibiotics prior to neurosurgery consultation. I also recommended a CT-guided aspiration of this subcutaneous soft tissue fluid collection to ensure this is not infected and subsequently initiate antibiotics for the superficial wound infection. If there is a deeper wound infection then she'll need an incision and debridement. I've discussed with the patient and her sister who understand and are in agreement. I would also recommend DVT prophylaxis as well as physical therapy and pain management as needed. Kenny Salinas MD September 14, 2016 15:36
[2016-09-14 15:40] LABS: APTT (PATIENT) 29.5 SEC (24.3-30.1); INTERNATIONAL NORMALIZED RATIO 1.1 RATIO; PROTHROMBIN TIME - PATIENT 12.5 SEC (9.8-11.6)
[2016-09-14] MEDS: SODIUM CHLOR 0.9% 1000 ML INJ 1,000 ML IV SCH (15:53)
[2016-09-14] MEDS ORDERED: LIDOCAINE 1%/EPINEPHrine 1:100,000 SOLN 20 ML VIAL ONE (15:57)
[2016-09-14] MEDS ORDERED: MIDAZOLAM HCL 5 MG/5 ML VIAL ONE (16:08)
[2016-09-14] MEDS ORDERED: fentaNYL CITRATE 250 MCG/5 ML AMP ONE (16:09)
[2016-09-14] MEDS ORDERED: BUPR100T4 PO (17:34)
[2016-09-14] MEDS: DOCUSATE SODIUM 100 MG CAP PO SCH ×2 (19:38→20:23)
[2016-09-14] MEDS: PIPERACIL-TAZO 4.5 GM PREMIX 100 ML IV SCH (19:39)
[2016-09-14] MEDS: SODIUM CHLORIDE 0.9% FLUSH 10 ML FLUSH IV FLUSH SCH (19:42)
[2016-09-14] MEDS ORDERED: DIAZEPAM 5 MG TAB PO PRN (20:00)
[2016-09-14] MEDS ORDERED: PILL SPLITTER OTHER PRN (20:15)
[2016-09-14] MEDS: PROPRANOLOL HCL 10 MG TAB PO SCH (20:43)
[2016-09-14] MEDS: ACETAMINOPHEN/HYDROcodone 325 MG/10 MG TAB PO PRN (20:43)
[2016-09-14] MEDS: LURASIDONE 40 MG TAB PO SCH (22:29)
[2016-09-15] VITALS (7 sets, daily range): BP systolic 87–139; BP diastolic 55–77; PULSE 63–79; RESP 18–20; TEMP 98.9–101.4; O2SAT 92–95
[2016-09-15] MEDS: PIPERACIL-TAZO 4.5 GM PREMIX 100 ML IV SCH ×4 (00:45→17:02)
[2016-09-15] MEDS: SODIUM CHLOR 0.9% 1000 ML INJ 1,000 ML IV SCH ×2 (00:45→11:06)
[2016-09-15] MEDS: ACETAMINOPHEN/HYDROcodone 325 MG/10 MG TAB PO PRN ×4 (03:39→21:43)
[2016-09-15] MEDS: DOCUSATE SODIUM 100 MG CAP PO SCH ×3 (05:29→21:46)
--- NOTE | 2016-09-15 07:22 | RADRPT ---
EXAM DATE/TIME: 09/14/2016 16:30 [facility] COMPARISON: No previous studies available for comparison. INDICATIONS : Fluid around lumbar area; postsurgical fluid collection SEDATION TIME: 10 minutes MEDICATION(S): 1.) 100 mcg fentanyl (Sublimaze) IV DEVICE(S): 1.) 18 gauge Shannon blunt needle Total volume of 18 cc of clear, red fluid was removed. Fluid was sent for laboratory ordered studies. MEDICAL HISTORY : Arthritis. Hernia, hiatal. Hepatitis C. fibromyalgia SURGICAL HISTORY : Hemorrhoidectomy. Cholecystectomy. Right fallopian tube removed ENCOUNTER: Initial ACUITY: 1 week PAIN SCORE: 3/10 LOCATION: Lumbar PROCEDURE : CT guided aspiration of fluid in the posterior soft tissues posterior to lumbar spine at L34 level The risks, benefits and alternatives to the procedure were explained and verbal and written consent w as obtained. Using automated exposure control and adjustment of the mA and/or kV according to patien t size, radiation dose was kept as low as reasonably achievable to obtain optimal diagnostic quality images. The site was prepped in sterile fashion. Full sterile technique was used, including cap, ma sk, sterile gloves and gown and a large sterile sheet. Hand hygiene and 2% chlorhexidine and/or beta dine/alcohol prep was utilized per protocol for cutaneous antisepsis. The skin and subcutaneous tiss ues were infiltrated with local anesthetic solution. Shannon needle was placed within the fluid collection in the posterior soft tissues at L3-4 level. Ap proximately 20 cc of serosanguineous fluid aspirated. No drain placed. Fluid sent to laboratory for e valuation. CONCLUSION: Uncomplicated aspiration as above. Osman Antonio MD on September 15, 2016 at 7:18 Board Certified Radiologist. This report was verified electronically.
[2016-09-15] MEDS: GABAPENTIN 300 MG CAP PO SCH ×3 (08:28→17:01)
[2016-09-15] MEDS: SODIUM CHLORIDE 0.9% FLUSH 10 ML FLUSH IV FLUSH SCH ×2 (08:29→21:00)
[2016-09-15] MEDS: PANTOPRAZOLE SOD 40 MG DELAYED RELEASE TAB PO SCH (08:29)
[2016-09-15] MEDS: buPROPion HCL 100 MG TAB PO SCH (08:29)
[2016-09-15] MEDS: ESCITALOPRAM OXALATE 10 MG TAB PO SCH (08:29)
[2016-09-15] MEDS: PROPRANOLOL HCL 10 MG TAB PO SCH ×2 (08:29→21:42)
--- NOTE | 2016-09-15 09:29 | HHI.PR ---
Subjective Remarks Patient is medicines back pain has improved significantly after aspiration yesterday. She doesn't have any fever or chills. Denies nausea or vomiting. No constipation. Feels improved today. Complaints of dry mouth and painfull , als there is some white discharge Objective Vitals Vital Signs Date Time Temp Pulse Resp B/P Pulse Ox O2 Delivery O2 Flow Rate FiO2 09/15/16 08:18 98.9 65 18 121/76 95 09/15/16 04:00 99.7 66 20 115/68 92 09/15/16 00:49 93 09/15/16 00:00 100.5 65 20 103/66 92 09/15/16 00:00 100.5 65 20 103/66 92 09/14/16 20:00 102.3 82 20 125/70 94 09/14/16 20:00 102.3 82 20 125/70 94 09/14/16 18:17 99.6 82 18 127/72 95 09/14/16 17:03 80 16 136/95 95 Room Air 09/14/16 15:31 96 21 09/14/16 15:03 69 16 101/61 94 Room Air 09/14/16 14:20 18 09/14/16 13:58 73 18 111/64 Room Air 09/14/16 12:01 16 09/14/16 11:04 66 16 110/78 94 Room Air 09/14/16 09:52 97 Room Air 09/14/16 09:37 98.8 64 20 100/72 95 Room Air I/O 09/14/16 09/14/16 09/14/16 09/15/16 09/15/16 09/15/16 07:00 15:00 23:00 07:00 15:00 23:00 Intake Total 120 ml Balance 120 ml Intake Oral 120 ml # Voids 1 1 # Bowel Movements 0 0 Result Diagram: 09/14/16 1030 09/14/16 1030 Imaging Last Impressions Needle Aspiration CT 09/14/16 0000 Signed Impressions: Service Date/Time: Wednesday, September 14, 2016 16:30 - CONCLUSION: Uncomplicated aspiration as above. Osman Antonio MD Lumbar Spine MRI 09/14/16 0000 Signed Impressions: Service Date/Time: Wednesday, September 14, 2016 12:54 - CONCLUSION: Fluid collection as described above showing intense enhancement with an epidural component at the L3-4 level. This is suspicious for an inflammatory process with an epidural component. Best seen on image 5, series 28. Vishal Watson MD FACR Objective Remarks GENERAL: This is a well-nourished, well-developed patient, in no apparent distress. SKIN: No rashes, ecchymoses or lesions. Cool and dry. HEAD: Atraumatic. Normocephalic. No temporal or scalp tenderness. EYES: Pupils equal round and reactive. Extraocular motions intact. No scleral icterus. No injection or drainage. ENT: Thrush. Nose without bleeding, purulent drainage or septal hematoma. Throat without erythema, tonsillar hypertrophy or exudate. Uvula midline. Airway patent. NECK: Trachea midline. No JVD or lymphadenopathy. Supple, nontender, no meningeal signs. CARDIOVASCULAR: Regular rate and rhythm without murmurs, gallops, or rubs. RESPIRATORY: Clear to auscultation. Breath sounds equal bilaterally. No wheezes , rales, or rhonchi. GASTROINTESTINAL: Abdomen soft, non-tender, nondistended. No hepato-splenomegaly , or palpable masses. No guarding. MUSCULOSKELETAL: Lower back with dressing on semisaturated serosanguinous fluid. Extremities without clubbing, cyanosis, or edema. No joint tenderness, effusion, or edema noted. No calf tenderness. Negative Homans sign bilaterally. NEUROLOGICAL: Awake and alert. Cranial nerves II through XII intact. Motor and sensory grossly within normal limits except left drop foot. Strength normal except weak dorsiflexion left foot. Normal speech. A/P Assessment and Plan Patient is a very pleasant 60-year-old female who is status post a left L3-5 decompressive laminotomy with medial facetectomy and discectomy by Dr. Desouza, now complaining of fevers, pain and increase discharge form surgical site. Poss lumbar spine abscess, postsurgical. Patient is 1 week status post a left L3-5 decompressive laminotomy with medial facetectomy and discectomy by Dr. Desouza MRI of lumbar spine reviewed personally and with Dr Lora ED physician: Lillian large subcutaneous fluid collection 4.5 cm. Small the patient will complement 3 L4 causing minimal impression thecal sac. No discitis or osteomyelitis No fevers or leuk on admission Blood cultures obtained and pending Patient received IV abx in the ED. Continue IV abx after CT guided aspiration is done, will ask ID on consult Neurosurgery is consulted, seen by Dr Salinas, preferably CT guided before abx administration, however patient already received abx in the ED. Continue IV abx after aspiration of fluid S/p CT-guided aspiration of subcutaneous soft tissue fluid collection. ~ 100cc fluid sent for analysis, pending. If there is a deeper wound infection then she'll need an incision and debridement. Neurochecks PT consult Pain meds per pain scale. Might need pain management as OP Oral Candidiasis/Thrush: [place] wash qid Chronic medical problems appear stable at this time. Monitor. Restart home meds. DVT prophylaxis SCD/teds, lovenox Discussed Condition With Patient, nurse Brittany Stewart MD September 15, 2016 09:29
--- NOTE | 2016-09-15 09:57 | HHI.NSPN ---
(Osman Mcclellan) History Chief Complaint: lumbar wound dehiscence and possible seroma. (Osman Mcclellan) Interval History 60 y/o female s/p L3-4, L4-5 left hemilaminectomy, medial facetectomy, foraminotomy with microsurgical resection of the disk on 09/07/[address] Desouza. She reported new onset left foot drop immediately postoperatively and was monitored for a few days after a postoperative MRI scan lumbar spine without contrast obtained did not show any significant spinal stenosis with postoperative changes and a subcutaneous fluid collection was also noted. She was discharged subsequently and relates that she noticed some bloody and serous serosanguineous drainage of lumbar incision site yesterday along with the low- grade fever. She is brought to [facility] emergency room this morning. MRI scan of the lumbar spine with and without contrast revealed enhancement in the epidural space but no significant spinal stenosis. The subcutaneous lumbar soft tissue fluid collection has enlarged. She denies any incontinence or any right lower extremity symptoms. 09/15/16: Patient awake and alert. She states her lumbar pain is slightly improved today after her aspiration. She denies any fever or chills. He states she has weakness in her left foot but this is stable. (Osman Mcclellan) Review of Systems General: Negative for: fever, chills, insomnia Respiratory: Negative for: shortness of breath, cough, sputum Cardiovascular: Negative for: chest pain Gastrointestinal: Negative for: nausea, vomitting, diarrhea, constipation ( Osman Mcclellan) Exam Results Vital Signs Date Time Temp Pulse Resp B/P Pulse Ox O2 Delivery O2 Flow Rate FiO2 09/15/16 08:18 98.9 65 18 121/76 95 09/14/16 17:03 Room Air 09/14/16 15:31 21 Intake and Output 09/14/16 09/14/16 09/15/16 08:00 16:00 00:00 Intake Total 120 ml Balance 120 ml (Osman Mcclellan) Physical Examination Resp: CTA bilaterally Heart: NSR no murmurs Abd: Soft positive bs Skin: Incision with wound dehiscence and mild drainage on bandage. Muscle: Pt moves all 4 extremities. She has some EHL strength today 2/5 but has dorsiflexion foot weakness 1-2/5. Neuro: Pt awake and alert. Follows commands well. Speech clear and appropriate. (Osman Mcclellan) Lab, Micro, Other Results Last Impressions Needle Aspiration CT 09/14/16 0000 Signed Impressions: Service Date/Time: Wednesday, September 14, 2016 16:30 - CONCLUSION: Uncomplicated aspiration as above. Osman Antonio MD Lumbar Spine MRI 09/14/16 0000 Signed Impressions: Service Date/Time: Wednesday, September 14, 2016 12:54 - CONCLUSION: Fluid collection as described above showing intense enhancement with an epidural component at the L3-4 level. This is suspicious for an inflammatory process with an epidural component. Best seen on image 5, series 28. Vishal Watson MD FACR Laboratory Tests Test 09/14/16 09/14/16 10:30 14:45 White Blood Count 9.5 TH/MM3 Red Blood Count 4.58 MIL/MM3 Hemoglobin 13.7 GM/DL Hematocrit 41.8 % Mean Corpuscular Volume 91.2 FL Mean Corpuscular Hemoglobin 30.0 PG Mean Corpuscular Hemoglobin 32.9 % Concent Red Cell Distribution Width 13.6 % Platelet Count 111 TH/MM3 Mean Platelet Volume 7.6 FL Neutrophils (%) (Auto) 72.3 % Lymphocytes (%) (Auto) 12.2 % Monocytes (%) (Auto) 14.7 % Eosinophils (%) (Auto) 0.6 % Basophils (%) (Auto) 0.2 % Neutrophils # (Auto) 6.9 TH/MM3 Lymphocytes # (Auto) 1.2 TH/MM3 Monocytes # (Auto) 1.4 TH/MM3 Eosinophils # (Auto) 0.1 TH/MM3 Basophils # (Auto) 0.0 TH/MM3 CBC Comment DIFF FINAL Differential Comment Sodium Level 138 MEQ/L Potassium Level 4.3 MEQ/L Chloride Level 103 MEQ/L Carbon Dioxide Level 30.5 MEQ/L Anion Gap 5 MEQ/L Blood Urea Nitrogen 13 MG/DL Creatinine 0.68 MG/DL Estimat Glomerular Filtration 89 ML/MIN Rate Random Glucose 87 MG/DL Calcium Level 8.8 MG/DL Prothrombin Time 12.5 SEC Prothromb Time International 1.1 RATIO Ratio Activated Partial 29.5 SEC Thromboplast Time 09/14/16 09/14/16 09/15/16 15:00 23:00 07:00 Intake Total 120 ml Balance 120 ml Intake Oral 120 ml # Voids 1 1 # Bowel Movements 0 0 (Osman Mcclellan) Medical Decision Making Impression and Plan A: 60-year-old lady who is 1 week status post a left L3-5 decompressive laminotomy with medial facetectomy and discectomy by Dr. Desouza. She is noted to have a immediate postop left foot drop along with the subcutaneous soft tissue fluid collection on MRI scan 5 days ago. On the current MRI scan there is enhancement noticed in the postoperative epidural space but the previous study likely did not show this since it was a noncontrast study. The spinal canal essentially remains patent. The lumbar subcutaneous soft tissue collection does appear to have increased in size. She has no fever currently or any elevation in her white count. P: Follow cultures if there is a deeper wound infection then she'll need an incision and debridement. continue with pain control Continue with PT. (Osman Mcclellan) Attending Statement The exam, history, and the medical decision-making described in the above note were completed with the assistance of the mid-level provider. I reviewed and agree with the findings presented. I attest that I had a [id number] encounter with the patient on the same day, and personally performed and documented my assessment and findings in the medical record. Lumbar subcutaneous fluid aspiration by radiology revealed serosanguineous fluid and Gram stain is negative for organisms. Continue with antibiotics and monitor cultures. Pain control and increased activity with physical therapy involvement. (Kenny Salinas MD) Osman Mcclellan September 15, 2016 09:57 Kenny Salinas MD September 16, 2016 10:23
[2016-09-15 11:06] LABS: AUTOMATED NEUTROPHIL # 4.9 TH/MM3 (1.8-7.7); BASOPHIL % 0.6 % (0.0-2.0); EOSINOPHIL % 0.4 % (0.0-4.0); HEMATOCRIT 37.3 % (35.0-46.0); LYMPH % 12.6 % (9.0-44.0); LYMPHOCYTE # 0.9 TH/MM3 (1.0-4.8); MEAN CELL VOLUME 91.2 FL (80.0-100.0); MEAN CORPUSCULAR HEMOGLOBIN 30.8 PG (27.0-34.0); MEAN CORPUSCULAR HGB CONC 33.8 % (32.0-36.0); MONO % 18.6 % (0.0-8.0); NEUT % 67.8 % (16.0-70.0); PLATELET COUNT 96 TH/MM3 (150-450); RED BLOOD COUNT 4.09 MIL/MM3 (4.00-5.30); RED CELL DISTRIBUTION WIDTH 13.4 % (11.6-17.2); WHITE BLOOD COUNT 7.3 TH/MM3 (4.0-11.0)
[2016-09-15 11:09] LABS: HEMO FLAGS AUTO DIFF
[2016-09-15] MEDS: VANCOMYCIN INJ 1,000 MG in SODIUM CHLOR 0.9% 250 ML INJ 250 ML IV SCH (11:55)
[2016-09-15 12:07] LABS: BICARBONATE 27.5 MEQ/L (21.0-32.0); POTASSIUM 3.6 MEQ/L (3.5-5.1)
[2016-09-15 12:20] LABS: PLATELET ESTIMATE SMEAR LOW (NORMAL); PLATELET MORPHOLOGY NORMAL (NORMAL); SCAN/DIFF AUTO DIFF CONFIRMED
--- NOTE | 2016-09-15 14:39 | MB ---
cc: LOUIE PALMA MD DATE OF CONSULTATION: 09/15/2016. REASON FOR CONSULTATION: Spinal abscess. REQUESTING PHYSICIAN: Dr. Stewart. HISTORY OF PRESENT ILLNESS: This is a 60-year-old white female who presented to the emergency department with fever yesterday, 09/14/2016. The patient underwent lumbar spine surgery on Sep 07 2016. This consisted of L3-L4, L4-L5 left hemilaminectomy, medial facetectomy, foraminotomy. The patient noted drainage coming from the wound which observed by her sister when there was a wet area on her gown and she states that she was having fevers on a daily basis over the past few days. She also notes that she was having pain at the lower back as well. She was evaluated in the emergency department and an MRI was performed of the lumbar spine and it showed a fluid collection with intense enhancement suspicious for inflammatory process. She underwent aspiration of fluid from the lumbar spine region and a culture was sent. The gram stain showed moderate white blood cells and no organisms. The patient had temperature up to 102 degrees yesterday evening. Blood cultures were also taken yesterday and have no growth in one day. This consultation is requested for infectious diseases evaluation and management. PAST MEDICAL HISTORY: 1. Fibromyalgia. 2. Schizoaffective disorder. 3. Hepatitis C. 4. Cholecystectomy. 5. Right fallopian tube resection. 6. Fistula repair at the common bile duct. ALLERGIES: SULFA CAUSES HIVES. MEDICATIONS: 1. Vancomycin. 2. Tazobactam / piperacillin 2. Wellbutrin. 3. Lexapro. 4. Neurontin. 5. Protonix. 6. Zanaflex. 7. Colace. 8. Latuda. 9. Inderal. SOCIAL HISTORY The patient smokes five cigarettes a day. No alcohol. No illicit drugs. FAMILY HISTORY: Noncontributory. REVIEW OF SYSTEMS: Negative on ten-point review except for pain in the lower back and fever and sweats. PHYSICAL EXAMINATION: GENERAL: This is a pleasant moderately obese female who is in no acute distress. She is awake and alert and oriented. VITAL SIGNS: Include temperature 99.4, blood pressure 100/63, respirations 18, heart rate 63. HEAD, EYES, EARS, NOSE, THROAT: Extraocular movements grossly intact, pupils reactive to light. No icterus. Oropharynx has no visible lesions. NECK: The neck is supple. No adenopathy. LUNGS: Clear breath sounds bilateral which are slightly diminished. HEART: Regular rate and rhythm. No murmurs, rubs or gallops. ABDOMEN: Bowel sounds present, soft, nontender. BACK: There is an area where the surgical incision is located at the lower back, which has erythema surrounding the surgical incision. The bandage is soaked with clear fluid. RECTAL: Not performed. EXTREMITIES: No clubbing or cyanosis or edema. NEUROLOGIC: No gross focal findings. PSYCHIATRIC: The patient is calm and cooperative and pleasant. LABORATORY DATA: WBC 7.3, platelets 96,000, hemoglobin 12.6, 18% monocytes, 12% lymphocytes, 67% neutrophils. Creatinine 0.64, estimated GFR of 95. Liver function tests normal. IMPRESSION 1. Epidural abscess. 2. Status post lumbar laminectomy via microsurgical resection at L3-L4, L4-L5. 3. Fever secondary to infection. 4. Cultures pending. RECOMMENDATIONS 1. Continue vancomycin. 2. Continue piperacillin / tazobactam. 3. Monitor cultures for antibiotic adjustments. 4. Monitor clinical status. 5. Monitor temperature. 6. Monitor blood cultures. Thank you this consultation. The patient's progress will be monitored and further recommendations will be given on followup. Louie Palma MD FD/JOSLYN /1:52 PM /2:07 PM
[2016-09-15] MEDS: NYSTAT/DIPHENHY/LIDO MOUTHWASH (Adult) 120ML SWISH-SWAL SCH (17:36)
[2016-09-15] MEDS: LURASIDONE 40 MG TAB PO SCH (21:46)
[2016-09-16] MEDS: PIPERACIL-TAZO 4.5 GM PREMIX 100 ML IV SCH ×4 (00:31→17:25)
[2016-09-16] MEDS: SODIUM CHLOR 0.9% 1000 ML INJ 1,000 ML IV SCH ×3 (00:31→17:28)
[2016-09-16] MEDS: NYSTAT/DIPHENHY/LIDO MOUTHWASH (Adult) 120ML SWISH-SWAL SCH ×5 (00:31→20:12)
[2016-09-16 00:46] VITALS: BP 102/66; PULSE 59; RESP 18; TEMP 97.6; O2SAT 95
[2016-09-16] MEDS: ACETAMINOPHEN/HYDROcodone 325 MG/10 MG TAB PO PRN ×3 (04:06→17:26)
[2016-09-16] MEDS: DOCUSATE SODIUM 100 MG CAP PO SCH ×3 (04:06→20:11)
[2016-09-16 05:34] VITALS: BP 100/58; PULSE 62; RESP 16; TEMP 97.7; O2SAT 91
[2016-09-16 08:00] VITALS: BP 109/73; PULSE 76; RESP 16; TEMP 99.8; O2SAT 97
[2016-09-16] MEDS: ESCITALOPRAM OXALATE 10 MG TAB PO SCH (08:46)
[2016-09-16] MEDS: PROPRANOLOL HCL 10 MG TAB PO SCH ×2 (08:46→20:12)
[2016-09-16] MEDS: buPROPion HCL 100 MG TAB PO SCH (08:46)
[2016-09-16] MEDS: PANTOPRAZOLE SOD 40 MG DELAYED RELEASE TAB PO SCH (08:46)
[2016-09-16] MEDS: GABAPENTIN 300 MG CAP PO SCH ×3 (08:46→17:25)
[2016-09-16] MEDS: HYDROmorphone HCL PF 1 MG/ML VIAL IV PUSH PRN ×3 (08:54→20:46)
[2016-09-16] MEDS: SODIUM CHLORIDE 0.9% FLUSH 10 ML FLUSH IV FLUSH SCH ×2 (08:57→20:12)
--- NOTE | 2016-09-16 10:01 | HHI.NSPN ---
(Osman Mcclellan) History Chief Complaint: lumbar wound dehiscence and possible seroma. (Osman Mcclellan) Interval History 60 y/o female s/p L3-4, L4-5 left hemilaminectomy, medial facetectomy, foraminotomy with microsurgical resection of the disk on 09/07/[address] Desouza. She reported new onset left foot drop immediately postoperatively and was monitored for a few days after a postoperative MRI scan lumbar spine without contrast obtained did not show any significant spinal stenosis with postoperative changes and a subcutaneous fluid collection was also noted. She was discharged subsequently and relates that she noticed some bloody and serous serosanguineous drainage of lumbar incision site yesterday along with the low- grade fever. She is brought to [facility] emergency room this morning. MRI scan of the lumbar spine with and without contrast revealed enhancement in the epidural space but no significant spinal stenosis. The subcutaneous lumbar soft tissue fluid collection has enlarged. She denies any incontinence or any right lower extremity symptoms. 09/15/16: Patient awake and alert. She states her lumbar pain is slightly improved today after her aspiration. She denies any fever or chills. He states she has weakness in her left foot but this is stable. 09/16/16: Patient awake and alert. Complains of lumbar back pain. States the area started to swell this morning and drained making her bedding wet. (Osman Mcclellan) Review of Systems General: Negative for: fever, chills, insomnia Respiratory: Negative for: shortness of breath, cough, sputum Cardiovascular: Negative for: chest pain Gastrointestinal: Negative for: nausea, vomitting, diarrhea, constipation ( Osman Mcclellan) Exam Results Vital Signs Date Time Temp Pulse Resp B/P Pulse Ox O2 Delivery O2 Flow Rate FiO2 09/16/16 08:00 99.8 76 16 109/73 97 09/14/16 17:03 Room Air 09/14/16 15:31 21 (Osman Mcclellan) Physical Examination Resp: CTA bilaterally Heart: NSR no murmurs Abd: Soft positive bs Skin: Incision with wound dehiscence and mild drainage on bandage. Muscle: Pt moves all 4 extremities. She has some EHL strength today 2/5 but has dorsiflexion foot weakness 1-2/5. Neuro: Pt awake and alert. Follows commands well. Speech clear and appropriate. (Osman Mcclellan) Lab, Micro, Other Results Last Impressions Needle Aspiration CT 09/14/16 0000 Signed Impressions: Service Date/Time: Wednesday, September 14, 2016 16:30 - CONCLUSION: Uncomplicated aspiration as above. Osman Antonio MD Lumbar Spine MRI 09/14/16 0000 Signed Impressions: Service Date/Time: Wednesday, September 14, 2016 12:54 - CONCLUSION: Fluid collection as described above showing intense enhancement with an epidural component at the L3-4 level. This is suspicious for an inflammatory process with an epidural component. Best seen on image 5, series 28. Vishal Watson MD FACR Laboratory Tests Test 09/14/16 09/15/16 10:30 10:51 White Blood Count 9.5 TH/MM3 7.3 TH/MM3 Red Blood Count 4.58 MIL/MM3 4.09 MIL/MM3 Hemoglobin 13.7 GM/DL 12.6 GM/DL Hematocrit 41.8 % 37.3 % Mean Corpuscular Volume 91.2 FL 91.2 FL Mean Corpuscular Hemoglobin 30.0 PG 30.8 PG Mean Corpuscular Hemoglobin 32.9 % 33.8 % Concent Red Cell Distribution Width 13.6 % 13.4 % Platelet Count 111 TH/MM3 96 TH/MM3 Mean Platelet Volume 7.6 FL 8.1 FL Neutrophils (%) (Auto) 72.3 % 67.8 % Lymphocytes (%) (Auto) 12.2 % 12.6 % Monocytes (%) (Auto) 14.7 % 18.6 % Eosinophils (%) (Auto) 0.6 % 0.4 % Basophils (%) (Auto) 0.2 % 0.6 % Neutrophils # (Auto) 6.9 TH/MM3 4.9 TH/MM3 Lymphocytes # (Auto) 1.2 TH/MM3 0.9 TH/MM3 Monocytes # (Auto) 1.4 TH/MM3 1.4 TH/MM3 Eosinophils # (Auto) 0.1 TH/MM3 0.0 TH/MM3 Basophils # (Auto) 0.0 TH/MM3 0.0 TH/MM3 CBC Comment DIFF FINAL AUTO DIFF Differential Comment AUTO DIFF CONFIRMED Platelet Estimate LOW Platelet Morphology Comment NORMAL Laboratory Tests Test 09/14/16 09/15/16 10:30 10:51 Sodium Level 138 MEQ/L 139 MEQ/L Potassium Level 4.3 MEQ/L 3.6 MEQ/L Chloride Level 103 MEQ/L 105 MEQ/L Carbon Dioxide Level 30.5 MEQ/L 27.5 MEQ/L Anion Gap 5 MEQ/L 7 MEQ/L Blood Urea Nitrogen 13 MG/DL 12 MG/DL Creatinine 0.68 MG/DL 0.64 MG/DL Estimat Glomerular Filtration 89 ML/MIN 95 ML/MIN Rate Random Glucose 87 MG/DL 106 MG/DL Calcium Level 8.8 MG/DL 8.1 MG/DL Microbiology Date/Time Procedure Status Source Growth 09/14/16 10:20 Gram Stain - Final Complete Wound Back 09/14/16 10:20 Wound Culture - Final Complete Enterobacter Cloacae 09/14/16 10:30 Aerobic Blood Culture - Preliminary Resulted Blood Peripheral NO GROWTH IN 1 DAY 09/14/16 10:30 Anaerobic Blood Culture - Preliminary Resulted Blood Peripheral NO GROWTH IN 1 DAY 09/14/16 10:45 Aerobic Blood Culture - Preliminary Resulted Blood Peripheral NO GROWTH IN 1 DAY 09/14/16 10:45 Anaerobic Blood Culture - Preliminary Resulted Blood Peripheral NO GROWTH IN 1 DAY 09/14/16 16:43 Gram Stain - Final Resulted Abscess Back 09/14/16 16:43 Wound Culture - Preliminary Resulted Gram Negative Bassam 09/14/16 16:43 Fungal Smear - Final Resulted Abscess Back NO FUNGAL ELEMENTS SEEN. 09/14/16 16:43 Fungal Culture Resulted Abscess Back Pending 09/15/16 09/15/16 09/16/16 15:00 23:00 07:00 # Voids 4 2 # Bowel Movements 1 0 (Osman Mcclellan) Medical Decision Making Impression and Plan A: 60-year-old lady who is 1 week status post a left L3-5 decompressive laminotomy with medial facetectomy and discectomy by Dr. Desouza. She is noted to have a immediate postop left foot drop along with the subcutaneous soft tissue fluid collection on MRI scan 5 days ago. On the current MRI scan there is enhancement noticed in the postoperative epidural space but the previous study likely did not show this since it was a noncontrast study. The spinal canal essentially remains patent. The lumbar subcutaneous soft tissue collection does appear to have increased in size. She has no fever currently or any elevation in her white count. P: Follow cultures if there is a deeper wound infection then she'll need an incision and debridement. continue with pain control Continue with PT. (Osman Mcclellan) Attending Statement The exam, history, and the medical decision-making described in the above note were completed with the assistance of the mid-level provider. I reviewed and agree with the findings presented. I attest that I had a [id number] encounter with the patient on the same day, and personally performed and documented my assessment and findings in the medical record. She complains of headaches but is unclear whether these are positional. Lumbar soft tissue fluid collection aspiration cultures are positive for Enterobacter. Discussed with the patient and family the option of continued to IV antibiotics since the fluid collection has been drained versus surgical I and D. She is requesting to proceed with I and D and accordingly we will undertake this tomorrow morning. (Kenny Salinas MD) Osman Mcclellan September 16, 2016 10:01 Kenny Salinas MD September 16, 2016 15:12
--- NOTE | 2016-09-16 10:52 | HHI.PR ---
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 Says she doesn't have any discharge form the surgical site. No n/v/d/c. No n/v. No fever or chills. Patient denies chest pain. Asking for nicotine patch however explained slow healing with nicotine patch she expressed understanding. Objective Vitals Vital Signs Date Time Temp Pulse Resp B/P Pulse Ox O2 Delivery O2 Flow Rate FiO2 09/16/16 08:00 99.8 76 16 109/73 97 09/16/16 05:34 97.7 62 16 100/58 91 09/16/16 00:46 97.6 59 18 102/66 95 09/15/16 20:53 100.1 66 18 87/55 94 09/15/16 16:00 101.4 79 19 139/77 95 09/15/16 12:00 99.4 63 18 100/63 95 I/O 09/15/16 09/15/16 09/15/16 09/16/16 09/16/16 09/16/16 07:00 15:00 23:00 07:00 15:00 23:00 Intake Total 480 ml Balance 480 ml Intake Oral 480 ml # Voids 1 4 2 4 # Bowel Movements 0 1 0 Result Diagram: 09/15/16 1051 09/15/16 1051 Imaging Last Impressions Needle Aspiration CT 09/14/16 0000 Signed Impressions: Service Date/Time: Wednesday, September 14, 2016 16:30 - CONCLUSION: Uncomplicated aspiration as above. Osman Antonio MD Lumbar Spine MRI 09/14/16 0000 Signed Impressions: Service Date/Time: Wednesday, September 14, 2016 12:54 - CONCLUSION: Fluid collection as described above showing intense enhancement with an epidural component at the L3-4 level. This is suspicious for an inflammatory process with an epidural component. Best seen on image 5, series 28. Vishal Watson MD FACR Objective Remarks GENERAL: This is a well-nourished, well-developed patient, in no apparent distress. SKIN: No rashes, ecchymoses or lesions. Cool and dry. HEAD: Atraumatic. Normocephalic. No temporal or scalp tenderness. EYES: Pupils equal round and reactive. Extraocular motions intact. No scleral icterus. No injection or drainage. ENT: Thrush. Nose without bleeding, purulent drainage or septal hematoma. Throat without erythema, tonsillar hypertrophy or exudate. Uvula midline. Airway patent. NECK: Trachea midline. No JVD or lymphadenopathy. Supple, nontender, no meningeal signs. CARDIOVASCULAR: Regular rate and rhythm without murmurs, gallops, or rubs. RESPIRATORY: Clear to auscultation. Breath sounds equal bilaterally. No wheezes , rales, or rhonchi. GASTROINTESTINAL: Abdomen soft, non-tender, nondistended. No hepato-splenomegaly , or palpable masses. No guarding. MUSCULOSKELETAL: Lower back with dressing on semisaturated serosanguinous fluid. Extremities without clubbing, cyanosis, or edema. No joint tenderness, effusion, or edema noted. No calf tenderness. Negative Homans sign bilaterally. NEUROLOGICAL: Awake and alert. Cranial nerves II through XII intact. Motor and sensory grossly within normal limits except left drop foot. Strength normal except weak dorsiflexion left foot. Normal speech. A/P Assessment and Plan Patient is a very pleasant 60-year-old female who is status post a left L3-5 decompressive laminotomy with medial facetectomy and discectomy by Dr. Desouza, now complaining of fevers, pain and increase discharge form surgical site. Poss lumbar spine abscess, postsurgical. Patient is 1 week status post a left L3-5 decompressive laminotomy with medial facetectomy and discectomy by Dr. Desouza MRI of lumbar spine reviewed personally and with Dr Lora ED physician: Lillian large subcutaneous fluid collection 4.5 cm. Small the patient will complement 3 L4 causing minimal impression thecal sac. No discitis or osteomyelitis No fevers or leuk on admission Blood cultures obtained and pending Patient received IV abx in the ED. Continue IV abx after CT guided aspiration is done, will ask ID on consult Neurosurgery is consulted, seen by Dr Salinas, preferably CT guided before abx administration, however patient already received abx in the ED. Continue IV abx after aspiration of fluid S/p CT-guided aspiration of subcutaneous soft tissue fluid collection. ~ 100cc fluid sent for analysis, pending. If there is a deeper wound infection then she'll need an incision and debridement. Neurochecks PT consult Pain meds per pain scale. Might need pain management as OP Oral Candidiasis/Thrush: [place] wash qid Chronic medical problems appear stable at this time. Monitor. Restart home meds. DVT prophylaxis SCD/teds, lovenox Discussed Condition With Patient, nurse Brittany Stewart MD September 16, 2016 10:52
[2016-09-16 12:25] VITALS: BP_SYST 64; PULSE 58; RESP 16; TEMP 98.2; O2SAT 96
[2016-09-16] MEDS: VANCOMYCIN INJ 1,000 MG in SODIUM CHLOR 0.9% 250 ML INJ 250 ML IV SCH (14:17)
[2016-09-16 16:00] VITALS: BP 91/57; PULSE 60; RESP 18; TEMP 99.1; O2SAT 95
[2016-09-16 20:00] VITALS: BP 99/62; PULSE 59; RESP 20; TEMP 97.1; O2SAT 99
[2016-09-16] MEDS: LURASIDONE 40 MG TAB PO SCH (20:11)
[2016-09-17] MEDS: PIPERACIL-TAZO 4.5 GM PREMIX 100 ML IV SCH ×5 (00:09→22:32)
[2016-09-17 01:00] VITALS: BP 131/67; PULSE 100; RESP 20; TEMP 97.2; O2SAT 98
[2016-09-17] MEDS: SODIUM CHLOR 0.9% 1000 ML INJ 1,000 ML IV SCH ×3 (03:12→22:33)
[2016-09-17 04:00] VITALS: BP 118/69; PULSE 69; RESP 18; TEMP 100; O2SAT 96
[2016-09-17] MEDS ORDERED: CHLORHEXIDINE GLUCONATE 2 % 1 PACK (2 CLOTHS) TOPICAL PRN (05:00)
[2016-09-17] MEDS ORDERED: POVIDONE IODINE 5% (ANTISEPSIS KIT) 4 APPLICATIONS EACH NARE PRN (05:00)
[2016-09-17] MEDS ORDERED: LACTATED RINGER'S 1000 ML IV PRN (05:00)
[2016-09-17] MEDS ORDERED: SODIUM CHLORID 0.9% 500 ML IV PRN (05:00)
[2016-09-17] MEDS ORDERED: INSULIN HUMAN REGULAR 1,000 UNITS/10 ML VIAL SQ PRN (05:00)
[2016-09-17] MEDS: DOCUSATE SODIUM 100 MG CAP PO SCH ×2 (05:31→22:31)
[2016-09-17 08:20] VITALS: BP 119/70; PULSE 67; RESP 17; TEMP 99.8; O2SAT 98
[2016-09-17] MEDS: PROPRANOLOL HCL 10 MG TAB PO SCH ×2 (08:47→21:00)
[2016-09-17] MEDS: buPROPion HCL 100 MG TAB PO SCH (09:00)
[2016-09-17] MEDS: ESCITALOPRAM OXALATE 10 MG TAB PO SCH (09:00)
[2016-09-17] MEDS: PANTOPRAZOLE SOD 40 MG DELAYED RELEASE TAB PO SCH (09:00)
[2016-09-17] MEDS: SODIUM CHLORIDE 0.9% FLUSH 10 ML FLUSH IV FLUSH SCH ×2 (09:00→22:33)
[2016-09-17] MEDS: NYSTAT/DIPHENHY/LIDO MOUTHWASH (Adult) 120ML SWISH-SWAL SCH ×4 (09:00→22:30)
[2016-09-17] MEDS: GABAPENTIN 300 MG CAP PO SCH ×3 (09:00→18:03)
--- NOTE | 2016-09-17 09:39 | HHI.PR ---
Subjective Remarks Patient went for debridement in OR, seen after the surgery today. She says she has back pain , nonradiating, pain is improving. No fever or chills. No n/v/d/c. Eating well. Objective Vitals Vital Signs Date Time Temp Pulse Resp B/P Pulse Ox O2 Delivery O2 Flow Rate FiO2 09/17/16 04:00 100.0 69 18 118/69 96 09/17/16 01:00 97.2 100 20 131/67 98 09/16/16 20:00 97.1 59 20 99/62 99 09/16/16 16:00 99.1 60 18 91/57 95 09/16/16 12:25 98.2 58 16 64/ 96 I/O 09/16/16 09/16/16 09/16/16 09/17/16 09/17/16 09/17/16 07:00 15:00 23:00 07:00 15:00 23:00 Intake Total 480 ml 1350 ml Balance 480 ml 1350 ml Intake Oral 480 ml IV Total 1350 ml # Voids 2 4 4 # Bowel Movements 0 Result Diagram: 09/15/16 1051 09/15/16 1051 Other Results Microbiology Date/Time Procedure Status Source Growth 09/14/16 16:43 Gram Stain - Final Complete Abscess Back 09/14/16 16:43 Wound Culture - Final Complete Enterobacter Cloacae 09/14/16 16:43 Fungal Smear - Final Resulted Abscess Back NO FUNGAL ELEMENTS SEEN. 09/14/16 16:43 Fungal Culture Resulted Abscess Back Pending 09/14/16 10:45 Aerobic Blood Culture - Preliminary Resulted Blood Peripheral NO GROWTH IN 2 DAYS 09/14/16 10:45 Anaerobic Blood Culture - Preliminary Resulted Blood Peripheral NO GROWTH IN 2 DAYS Imaging Last Impressions Needle Aspiration CT 09/14/16 0000 Signed Impressions: Service Date/Time: Wednesday, September 14, 2016 16:30 - CONCLUSION: Uncomplicated aspiration as above. Osman Antonio MD Lumbar Spine MRI 09/14/16 0000 Signed Impressions: Service Date/Time: Wednesday, September 14, 2016 12:54 - CONCLUSION: Fluid collection as described above showing intense enhancement with an epidural component at the L3-4 level. This is suspicious for an inflammatory process with an epidural component. Best seen on image 5, series 28. Vishal Watson MD FACR Objective Remarks GENERAL: This is a well-nourished, well-developed patient, in no apparent distress. SKIN: No rashes, ecchymoses or lesions. Cool and dry. HEAD: Atraumatic. Normocephalic. No temporal or scalp tenderness. EYES: Pupils equal round and reactive. Extraocular motions intact. No scleral icterus. No injection or drainage. ENT: Thrush. Nose without bleeding, purulent drainage or septal hematoma. Throat without erythema, tonsillar hypertrophy or exudate. Uvula midline. Airway patent. NECK: Trachea midline. No JVD or lymphadenopathy. Supple, nontender, no meningeal signs. CARDIOVASCULAR: Regular rate and rhythm without murmurs, gallops, or rubs. RESPIRATORY: Clear to auscultation. Breath sounds equal bilaterally. No wheezes , rales, or rhonchi. GASTROINTESTINAL: Abdomen soft, non-tender, nondistended. No hepato-splenomegaly , or palpable masses. No guarding. MUSCULOSKELETAL: Lower back with dressing on and drain in place with serosanguinous fluid in the darining bag. Dresssin gis C/D/I. . Extremities without clubbing, cyanosis, or edema. No joint tenderness, effusion, or edema noted. No calf tenderness. Negative Homans sign bilaterally. NEUROLOGICAL: Awake and alert. Cranial nerves II through XII intact. Motor and sensory grossly within normal limits except left drop foot. Strength normal except weak dorsiflexion left foot. Normal speech. Procedures S/p CT-guided aspiration of subcutaneous soft tissue fluid collection. ~ 100cc fluid sent for analysis, pending. If there is a deeper wound infection then she'll need an incision and debridement. 09/17/[address] Salinas S./P Redo left L3, L4 and L5 hemilaminotomies with L3-4 and L4-5 medial facetectomy and foraminotomy; L4-5 microdiscectomy; lumbar wound incision and debridement with subcutaneous abscess evacuation A/P Assessment and Plan Patient is a very pleasant 60-year-old female who is status post a left L3-5 decompressive laminotomy with medial facetectomy and discectomy by Dr. Desouza, now complaining of fevers, pain and increase discharge form surgical site. Poss lumbar spine abscess, postsurgical. Patient is 1 week status post a left L3-5 decompressive laminotomy with medial facetectomy and discectomy by Dr. Desouza MRI of lumbar spine reviewed personally and with Dr Lora ED physician: Lillian large subcutaneous fluid collection 4.5 cm. Small the patient will complement 3 L4 causing minimal impression thecal sac. No discitis or osteomyelitis No fevers or leuk on admission Blood cultures obtained and NTD Wound cultures Enterobacter Cloacae Abscess cultures Patient received IV abx in the ED. Continue IV abx after CT guided aspiration is done, will ask ID on consult Neurosurgery is consulted, seen by Dr Salinas, preferably CT guided before abx administration, however patient already received abx in the ED. Continue IV abx after aspiration of fluid S/p CT-guided aspiration of subcutaneous soft tissue fluid collection. ~ 100cc fluid sent for analysis, pending. If there is a deeper wound infection then she'll need an incision and debridement. 09/17/[address] Salinas S./P Redo left L3, L4 and L5 hemilaminotomies with L3-4 and L4-5 medial facetectomy and foraminotomy; L4-5 microdiscectomy; lumbar wound incision and debridement with subcutaneous abscess evacuation Neurochecks PT consult Pain meds per pain scale. Might need pain management as OP Oral Candidiasis/Thrush: [place] wash qid Chronic medical problems appear stable at this time. Monitor. Restart home meds. DVT prophylaxis SCD/teds, lovenox Discussed Condition With Patient, nurse, Dr Dumas ID specialist Brittany Stewart MD September 17, 2016 09:39
[2016-09-17] MEDS ORDERED: MIDAZOLAM HCL 2 MG/2 ML VIAL ONE (09:57)
[2016-09-17] MEDS ORDERED: FAMOTIDINE 20 MG/2 ML VIAL ONE (09:57)
[2016-09-17] MEDS ORDERED: BUPIVACAINE/EPINEPHRINE 0.5% 50 ML VIAL ONE (10:21)
[2016-09-17] MEDS ORDERED: VANCOMYCIN HCL 1000 MG VIAL ONE (10:21)
[2016-09-17] MEDS ORDERED: THROMBIN (TOPICAL) 5,000 UNIT VIAL ONE (10:21)
[2016-09-17] MEDS ORDERED: GELFOAM SIZE 100 ONE (10:21)
[2016-09-17] MEDS ORDERED: ACETAMINOPHEN 1000 MG/100 ML VIAL IV ONE (11:15)
[2016-09-17] MEDS ORDERED: ePHEDrine/NS 25 MG/5 ML SYR IV ONE (12:00)
[2016-09-17] MEDS ORDERED: ALUMINUM/MAGNESIUM/SIMETH 30 ML CUP PO PRN (12:00)
[2016-09-17] MEDS ORDERED: NEOSTIGMINE 3 MG/3 ML SYR IV ONE (12:00)
[2016-09-17] MEDS ORDERED: PROPOFOL 200 MG/20 ML AMP IV ONE (12:00)
[2016-09-17] MEDS ORDERED: cloNIDine HCL 0.1 MG TAB PO PRN (12:00)
[2016-09-17] MEDS ORDERED: ONDANSETRON HCL 4 MG/2 ML VIAL IV PRN (12:00)
[2016-09-17] MEDS ORDERED: DO NOT ADM ANY ANTICOAGULANT DRUGS PRN (12:00)
[2016-09-17] MEDS ORDERED: ONDANSETRON HCL 4 MG/2 ML VIAL IV PUSH ONE (12:00)
[2016-09-17] MEDS ORDERED: LACTATED RINGER'S 1000 ML INJ 1,000 ML IV ONE (12:00)
[2016-09-17] MEDS ORDERED: SODIUM CHLORIDE 0.9% FLUSH 10 ML FLUSH IV FLUSH PRN (12:00)
[2016-09-17] MEDS ORDERED: RESP: ALBUTEROL 2.5 MG/3 ML NEB (PRN) NEB (12:00)
--- NOTE | 2016-09-17 12:16 | PD.OP ---
MD Ethan Zhang MD Operative Report Date of Surgery: September 17, 2016 Preoperative Diagnosis: Lumbar wound infection with abscess; L3-4 and L4-5 inflammatory tissue versus infection with facet hypertrophy and left foraminal stenosis; intractable back pain with left L5 radiculopathy with numbness and foot drop Postoperative Diagnosis: Same Procedure: Redo left L3, L4 and L5 hemilaminotomies with L3-4 and L4-5 medial facetectomy and foraminotomy; L4-5 microdiscectomy; lumbar wound incision and debridement with subcutaneous abscess evacuation Anesthesia: Gen. endotracheal by Feroz Grover Surgeon: Kenny Salinas M.D. Sand Cutting Machine Operator(s): None Operation and Findings: Following administration of general endotracheal anesthesia, patient received vancomycin 1 g intravenously. Sequential compression devices were placed for DVT prophylaxis. She was then turned in prone position on Eligio frame and the Guevara table and all pressure points adequately padded. The lumbar region was then shaved and prepped with a Betadine and ChloraPrep. Sterile draping undertaken with Ioban. There was partial wound dehiscence with the erythematous edges and some eschar at the previous incision site. Midline incision overlying the L3-5 level was then made after infiltrating the skin with 0.5% Marcaine with epinephrine solution. The skin incision was made extending down through subcutaneous region over serosanguineous and somewhat bloody infected fluid collection was identified. This was evacuated and the soft tissue debrided until more vascular onto the fascia. Subcutaneous Vicryl stitches were removed along with the multiple fascial stitches. Self-retaining retractors were used for exposure. Further dissection undertaken using microtechnique with microscope magnification. There was some hematoma with Gelfoam time material and the L3-4 epidural space as well as L4-5 space which was removed. The underlying dura and the exiting nerve roots identified no CSF leak was noted. There was a fair amount of inflammatory tissue also noted which was dissected out and removed. There was a left L4-5 foraminal stenosis noted from facet hypertrophy along with residual L4 lamina which was resected with a Kerrison. There was as small disc fragments also extruded laterally at the L4-5 level on the left side removed. Epidural soft tissue as well as subcutaneous soft tissue specimen sent for cultures and subsequently the area thoroughly irrigated with vancomycin solution. Bipolar cautery used for hemostasis. The fascia approximated with 2-0 Vicryl interrupted stitches and a subcutaneous 4 mm drain placed which was exited through a separate site and secured with a 2-0 nylon tie. Final skin closure was with the #2 Prolene interrupted mattress stitches. A sterile dressing was then applied and the patient then turned in the supine position and extubated and taken to recovery room in stable condition. There were no intraoperative complications and all sponge and needle count was correct at the end of the procedure. Estimated blood loss about 100 ml. Kenny Salinas MD September 17, 2016 12:16
[2016-09-17] MEDS ORDERED: *morphine SULFATE 8 MG/ML PERIprocedure ONLY ONE ×2 (12:21→12:51)
[2016-09-17] MEDS ORDERED: fentaNYL CITRATE 250 MCG/5 ML AMP ONE (13:03)
[2016-09-17] MEDS: ACETAMINOPHEN/HYDROcodone 325 MG/10 MG TAB PO PRN ×2 (14:29→18:43)
--- NOTE | 2016-09-17 14:46 | EKG ---
Date Performed: 09/17/2016 Time Performed: 07:20:31 PTAGE: 60 years EKG: Sinus rhythm NORMAL ECG NO PREVIOUS TRACING DOCTOR: Solitario Jones Interpretating Date/Time 09/17/2016 14:42:02
[2016-09-17 15:00] VITALS: BP 89/59; PULSE 63; RESP 17; TEMP 98.2; O2SAT 98
--- NOTE | 2016-09-17 17:02 | HHI.IDPN ---
Note Infectious Disease Note Patient is post op redo lumbar laminectomy and evacuation of subcutaneous abscess and wound debridement. No complaints. Afebrile. Wound drainage culture from 09/14 has Enterobacter cloacae. Drainage catheter has seros sanguinous fluid. The patient underwent lumbar spine surgery on Sep 07 2016. This consisted of L3-L4, L4-L5 left hemilaminectomy, medial facetectomy, foraminotomy. PAST MEDICAL HISTORY: 1. Fibromyalgia. 2. Schizoaffective disorder. 3. Hepatitis C. 4. Cholecystectomy. 5. Right fallopian tube resection. 6. Fistula repair at the common bile duct. ALLERGIES: SULFA CAUSES HIVES. ANTIBIOTICS: Tazobactam / piperacillin SOCIAL HISTORY The patient smokes five cigarettes a day. No alcohol. No illicit drugs. OBJECTIVE: Vital Signs Date Time Temp Pulse Resp B/P Pulse Ox O2 Delivery O2 Flow Rate FiO2 09/17/16 13:00 98.0 62 16 115/70 97 Nasal Cannula 2 09/17/16 12:45 60 16 103/71 97 Nasal Cannula 2 09/17/16 12:30 60 16 122/74 95 Nasal Cannula 2 09/17/16 12:15 64 16 122/74 98 Nasal Cannula 2 09/17/16 12:10 98.0 63 16 115/64 97 Nasal Cannula 2 09/17/16 08:20 99.8 67 17 119/70 98 09/17/16 04:00 100.0 69 18 118/69 96 09/17/16 01:00 97.2 100 20 131/67 98 09/16/16 20:00 97.1 59 20 99/62 99 09/16/16 09/16/16 09/17/16 15:00 23:00 07:00 Intake Total 480 ml 1350 ml Balance 480 ml 1350 ml Intake Oral 480 ml IV Total 1350 ml # Voids 4 4 Microbiology Date/Time Procedure Status Source Growth 09/17/16 11:30 Gram Stain Worksheet Wound Other Pending 09/17/16 11:30 Wound Culture Worksheet Wound Other Pending 09/17/16 11:30 Acid Fast Stain Received Wound Other Pending 09/17/16 11:30 Mycobacterial Culture Received Wound Other Pending 09/17/16 11:30 Fungal Smear Received Wound Other Pending 09/17/16 11:30 Fungal Culture Received Wound Other Pending 09/17/16 11:30 Gram Stain Worksheet Wound Other Pending 09/17/16 11:30 Wound Culture Worksheet Wound Other Pending 09/17/16 11:30 Acid Fast Stain Received Wound Other Pending 09/17/16 11:30 Mycobacterial Culture Received Wound Other Pending 09/17/16 11:30 Fungal Smear Received Wound Other Pending 09/17/16 11:30 Fungal Culture Received Wound Other Pending IMAGING: Needle Aspiration CT 09/14/16 0000 Signed Impressions: Service Date/Time: Wednesday, September 14, 2016 16:30 - CONCLUSION: Uncomplicated aspiration as above. Osman Antonio MD Lumbar Spine MRI 09/14/16 0000 Signed Impressions: Service Date/Time: Wednesday, September 14, 2016 12:54 - CONCLUSION: Fluid collection as described above showing intense enhancement with an epidural component at the L3-4 level. This is suspicious for an inflammatory process with an epidural component. Best seen on image 5, series 28. Vishal Watson MD FACR PHYSICAL EXAMINATION: GENERAL: No acute distress. HEENT: No icterus. Oropharynx has no visible lesions. NECK: The neck is supple. No adenopathy. LUNGS: Clear breath sounds bilateral which are slightly diminished. HEART: Regular rate and rhythm. No murmurs, rubs or gallops. ABDOMEN: Bowel sounds present, soft, nontender. BACK: Post op wound. Serous sanguinous drainage in the drainage catheter. EXTREMITIES: No clubbing or cyanosis or edema. NEUROLOGIC: No gross focal findings. PSYCHIATRIC: Calm and cooperative and pleasant. IMPRESSION 1. Epidural abscess. 2. Surgical wound infection. Status post lumbar laminectomy via microsurgical resection at L3-L4, L4-L5. 3. Fever secondary to infection. Improved. 4. Repeat cultures pending. RECOMMENDATIONS 1. Continue piperacillin / tazobactam. 2. Monitor cultures for antibiotic adjustments. 3. Monitor clinical status. 4. Monitor temperature. 5. Monitor blood cultures. Eitan Yoon MD September 17, 2016 17:02
[2016-09-17 20:00] VITALS: BP 106/62; PULSE 59; RESP 20; TEMP 96.9; O2SAT 97
[2016-09-17] MEDS: KETOCONAZOLE 2% CREAM 15 GM TOPICAL SCH (22:30)
[2016-09-17] MEDS: LURASIDONE 40 MG TAB PO SCH (22:31)
[2016-09-18] VITALS (8 sets, daily range): BP systolic 91–120; BP diastolic 50–77; PULSE 50–60; RESP 16–21; TEMP 97.2–98.9; O2SAT 93–99
[2016-09-18] MEDS: PIPERACIL-TAZO 4.5 GM PREMIX 100 ML IV SCH ×3 (05:00→17:46)
[2016-09-18] MEDS: ACETAMINOPHEN/HYDROcodone 325 MG/10 MG TAB PO PRN ×4 (05:01→21:49)
[2016-09-18] MEDS: HYDROmorphone HCL PF 1 MG/ML VIAL IV PUSH PRN ×3 (06:32→17:46)
[2016-09-18 07:42] LABS: AUTOMATED NEUTROPHIL # 6.3 TH/MM3 (1.8-7.7); BASOPHIL % 0.2 % (0.0-2.0); EOSINOPHIL % 0.1 % (0.0-4.0); HEMATOCRIT 36.6 % (35.0-46.0); HEMO FLAGS DIFF FINAL; LYMPH % 10.1 % (9.0-44.0); LYMPHOCYTE # 0.8 TH/MM3 (1.0-4.8); MEAN CELL VOLUME 91.1 FL (80.0-100.0); MEAN CORPUSCULAR HEMOGLOBIN 30.1 PG (27.0-34.0); MEAN CORPUSCULAR HGB CONC 33.1 % (32.0-36.0); MONO % 9.7 % (0.0-8.0); NEUT % 79.9 % (16.0-70.0); PLATELET COUNT 110 TH/MM3 (150-450); RED BLOOD COUNT 4.02 MIL/MM3 (4.00-5.30); RED CELL DISTRIBUTION WIDTH 13.2 % (11.6-17.2); WHITE BLOOD COUNT 7.9 TH/MM3 (4.0-11.0)
[2016-09-18 08:01] LABS: BICARBONATE 27.6 MEQ/L (21.0-32.0); POTASSIUM 3.7 MEQ/L (3.5-5.1)
[2016-09-18] MEDS: NYSTAT/DIPHENHY/LIDO MOUTHWASH (Adult) 120ML SWISH-SWAL SCH ×4 (08:41→21:48)
[2016-09-18] MEDS: buPROPion HCL 100 MG TAB PO SCH (08:42)
[2016-09-18] MEDS: GABAPENTIN 300 MG CAP PO SCH ×3 (08:43→17:45)
[2016-09-18] MEDS: PROPRANOLOL HCL 10 MG TAB PO SCH ×2 (08:43→21:00)
[2016-09-18] MEDS: ESCITALOPRAM OXALATE 10 MG TAB PO SCH (08:43)
[2016-09-18] MEDS: DOCUSATE SODIUM 100 MG CAP PO SCH ×2 (08:43→21:49)
[2016-09-18] MEDS: KETOCONAZOLE 2% CREAM 15 GM TOPICAL SCH ×2 (08:44→21:50)
[2016-09-18] MEDS: SODIUM CHLORIDE 0.9% FLUSH 10 ML FLUSH IV FLUSH SCH ×2 (08:44→21:00)
[2016-09-18] MEDS: PANTOPRAZOLE SOD 40 MG DELAYED RELEASE TAB PO SCH (08:44)
--- NOTE | 2016-09-18 11:55 | HHI.PR ---
Subjective Remarks Patient in nad. Says she has more pain today. Says PO pain meds last for 4 hrs . Says the drain was changed already twice. No efevr or chills. She is able to ambulate with the walker. No n/v/d/c. Objective Vitals Vital Signs Date Time Temp Pulse Resp B/P Pulse Ox O2 Delivery O2 Flow Rate FiO2 09/18/16 08:00 98.5 59 18 119/77 95 09/18/16 04:00 97.3 51 20 120/72 94 09/18/16 00:00 97.5 50 20 91/50 93 09/17/16 20:00 96.9 59 20 106/62 97 09/17/16 15:00 98.2 63 17 89/59 98 09/17/16 13:00 98.0 62 16 115/70 97 Nasal Cannula 2 09/17/16 12:45 60 16 103/71 97 Nasal Cannula 2 09/17/16 12:30 60 16 122/74 95 Nasal Cannula 2 09/17/16 12:15 64 16 122/74 98 Nasal Cannula 2 09/17/16 12:10 98.0 63 16 115/64 97 Nasal Cannula 2 I/O 09/17/16 09/17/16 09/17/16 09/18/16 09/18/16 09/18/16 07:00 15:00 23:00 07:00 15:00 23:00 Intake Total 1100 ml Output Total 105 ml 25 ml 15 ml Balance 995 ml -25 ml -15 ml IV Total 100 ml Other 1000 ml Output Drainage Total 5 ml 25 ml 15 ml Estimated Blood Loss 100 ml # Voids 4 3 1 1 # Bowel Movements 0 0 0 Result Diagram: 09/18/16 0658 09/18/16 0654 Imaging Last Impressions Needle Aspiration CT 09/14/16 0000 Signed Impressions: Service Date/Time: Wednesday, September 14, 2016 16:30 - CONCLUSION: Uncomplicated aspiration as above. Osman Antonio MD Lumbar Spine MRI 09/14/16 0000 Signed Impressions: Service Date/Time: Wednesday, September 14, 2016 12:54 - CONCLUSION: Fluid collection as described above showing intense enhancement with an epidural component at the L3-4 level. This is suspicious for an inflammatory process with an epidural component. Best seen on image 5, series 28. Vishal Watson MD FACR Objective Remarks GENERAL: This is a well-nourished, well-developed patient, in no apparent distress. SKIN: Facial rash , appears like red pimples. No ecchymoses or lesions. Cool and dry. HEAD: Atraumatic. Normocephalic. No temporal or scalp tenderness. EYES: Pupils equal round and reactive. Extraocular motions intact. No scleral icterus. No injection or drainage. ENT: Thrush. Nose without bleeding, purulent drainage or septal hematoma. Throat without erythema, tonsillar hypertrophy or exudate. Uvula midline. Airway patent. NECK: Trachea midline. No JVD or lymphadenopathy. Supple, nontender, no meningeal signs. CARDIOVASCULAR: Regular rate and rhythm without murmurs, gallops, or rubs. RESPIRATORY: Clear to auscultation. Breath sounds equal bilaterally. No wheezes , rales, or rhonchi. GASTROINTESTINAL: Abdomen soft, non-tender, nondistended. No hepato-splenomegaly , or palpable masses. No guarding. MUSCULOSKELETAL: Lower back with dressing on and drain in place with serosanguinous fluid in the darining bag. Dresssin gis C/D/I. . Extremities without clubbing, cyanosis, or edema. No joint tenderness, effusion, or edema noted. No calf tenderness. Negative Homans sign bilaterally. NEUROLOGICAL: Awake and alert. Cranial nerves II through XII intact. Motor and sensory grossly within normal limits except left drop foot. Strength normal except weak dorsiflexion left foot. Normal speech. Procedures S/p CT-guided aspiration of subcutaneous soft tissue fluid collection. ~ 100cc fluid sent for analysis, pending. If there is a deeper wound infection then she'll need an incision and debridement. 09/17/[address] Salinas S./P Redo left L3, L4 and L5 hemilaminotomies with L3-4 and L4-5 medial facetectomy and foraminotomy; L4-5 microdiscectomy; lumbar wound incision and debridement with subcutaneous abscess evacuation A/P Assessment and Plan Patient is a very pleasant 60-year-old female who is status post a left L3-5 decompressive laminotomy with medial facetectomy and discectomy by Dr. Desouza, now complaining of fevers, pain and increase discharge form surgical site. Poss lumbar spine abscess, postsurgical. Patient is 1 week status post a left L3-5 decompressive laminotomy with medial facetectomy and discectomy by Dr. Desouza MRI of lumbar spine reviewed personally and with Dr Lora ED physician: Lillian large subcutaneous fluid collection 4.5 cm. Small the patient will complement 3 L4 causing minimal impression thecal sac. No discitis or osteomyelitis No fevers or leuk on admission Blood cultures obtained and NTD Wound cultures Enterobacter Cloacae Abscess cultures Patient received IV abx in the ED. Continue IV abx after CT guided aspiration is done, will ask ID on consult Neurosurgery is consulted, seen by Dr Salinas, preferably CT guided before abx administration, however patient already received abx in the ED. Continue IV abx after aspiration of fluid S/p CT-guided aspiration of subcutaneous soft tissue fluid collection. ~ 100cc fluid sent for analysis, pending. If there is a deeper wound infection then she'll need an incision and debridement. 09/17/[address] Salinas S./P Redo left L3, L4 and L5 hemilaminotomies with L3-4 and L4-5 medial facetectomy and foraminotomy; L4-5 microdiscectomy; lumbar wound incision and debridement with subcutaneous abscess evacuation Neurochecks PT consult Pain meds per pain scale. change PO narcotic to Q4 hrs and use dilaudid for breakthrough pain. Might need pain management as OP Oral Candidiasis/Thrush: [place] wash qid Chronic medical problems appear stable at this time. Monitor. Restart home meds. Rash on the cface: improved with ketocomnazole cream. DVT prophylaxis SCD/teds, lovenox Discussed Condition With Patient, nurse DC plan: DC when improved and cleared by consultants. Patient s/p debridement of lumbar abscess by Dr Salinas, Dr Yoon also to give recommendations for DC of abx Brittany Stewart MD September 18, 2016 11:55
[2016-09-18] MEDS: SODIUM CHLOR 0.9% 1000 ML INJ 1,000 ML IV SCH ×2 (14:11→21:50)
[2016-09-18] MEDS: LURASIDONE 40 MG TAB PO SCH (21:49)
[2016-09-18] MEDS ORDERED: ACETAMINOPHEN/HYDROcodone 325 MG/10 MG TAB PO PRN (22:00)
[2016-09-19] MEDS: PIPERACIL-TAZO 4.5 GM PREMIX 100 ML IV SCH ×3 (00:29→12:25)
[2016-09-19 00:43] VITALS: BP 97/64; PULSE 54; RESP 16; TEMP 97; O2SAT 98
[2016-09-19] MEDS: ACETAMINOPHEN/HYDROcodone 325 MG/10 MG TAB PO PRN ×5 (02:00→20:11)
[2016-09-19] MEDS: SODIUM CHLOR 0.9% 1000 ML INJ 1,000 ML IV SCH ×3 (04:35→23:46)
[2016-09-19 05:38] VITALS: BP 100/60; PULSE 49; RESP 16; TEMP 97; O2SAT 96
[2016-09-19 08:00] VITALS: BP 140/87; PULSE 54; RESP 19; TEMP 97.7; O2SAT 99
[2016-09-19] MEDS: KETOCONAZOLE 2% CREAM 15 GM TOPICAL SCH ×2 (09:00→20:11)
[2016-09-19] MEDS: SODIUM CHLORIDE 0.9% FLUSH 10 ML FLUSH IV FLUSH SCH ×2 (09:00→20:11)
[2016-09-19] MEDS: PROPRANOLOL HCL 10 MG TAB PO SCH ×2 (09:04→20:11)
[2016-09-19] MEDS: ESCITALOPRAM OXALATE 10 MG TAB PO SCH (09:04)
[2016-09-19] MEDS: GABAPENTIN 300 MG CAP PO SCH ×3 (09:04→18:14)
[2016-09-19] MEDS: DOCUSATE SODIUM 100 MG CAP PO SCH ×2 (09:04→20:10)
[2016-09-19] MEDS: buPROPion HCL 100 MG TAB PO SCH (09:04)
[2016-09-19] MEDS: PANTOPRAZOLE SOD 40 MG DELAYED RELEASE TAB PO SCH (09:04)
[2016-09-19] MEDS: NYSTAT/DIPHENHY/LIDO MOUTHWASH (Adult) 120ML SWISH-SWAL SCH ×4 (09:05→20:11)
[2016-09-19] MEDS: HYDROmorphone HCL PF 1 MG/ML VIAL IV PUSH PRN (10:06)
[2016-09-19 12:00] VITALS: BP 103/65; PULSE 68; RESP 18; TEMP 96.7; O2SAT 98
--- NOTE | 2016-09-19 12:20 | HHI.PR ---
Subjective Remarks Follow-up epidural abscess. Patient states that her pain is well controlled with current pain medication. She has ambulated twice with physical therapy today. Denies chest pain, dyspnea, nausea, vomiting, diarrhea, constipation. Objective Vitals Vital Signs Date Time Temp Pulse Resp B/P Pulse Ox O2 Delivery O2 Flow Rate FiO2 09/19/16 08:00 97.7 54 19 140/87 99 09/19/16 05:38 97.0 49 16 100/60 96 09/19/16 00:43 97.0 54 16 97/64 98 09/18/16 20:24 97.2 53 16 97/55 99 09/18/16 18:16 17 09/18/16 18:13 98 21 09/18/16 16:00 98.6 60 21 112/71 98 09/18/16 12:17 19 09/18/16 12:00 98.9 56 18 118/75 97 I/O 09/18/16 09/18/16 09/18/16 09/19/16 09/19/16 09/19/16 07:00 15:00 23:00 07:00 15:00 23:00 Intake Total 480 ml Output Total 15 ml 15 ml Balance -15 ml 480 ml -15 ml Intake Oral 480 ml Output Drainage Total 15 ml 15 ml # Voids 1 6 # Bowel Movements 0 Result Diagram: 09/18/16 0658 09/18/16 0654 Imaging Last Impressions Needle Aspiration CT 09/14/16 0000 Signed Impressions: Service Date/Time: Wednesday, September 14, 2016 16:30 - CONCLUSION: Uncomplicated aspiration as above. Osman Antonio MD Lumbar Spine MRI 09/14/16 0000 Signed Impressions: Service Date/Time: Wednesday, September 14, 2016 12:54 - CONCLUSION: Fluid collection as described above showing intense enhancement with an epidural component at the L3-4 level. This is suspicious for an inflammatory process with an epidural component. Best seen on image 5, series 28. Vishal Watson MD FACR Objective Remarks General: No acute distress. Heart: Regular rate and rhythm. No murmur. Lungs: Clear to auscultation bilaterally. No wheezes, rales, or rhonchi. Breathing is nonlabored. Abdomen: Soft, nontender, nondistended. Extremities: No lower extremity edema. Psych: Alert and oriented. Procedures S/p CT-guided aspiration of subcutaneous soft tissue fluid collection. ~ 100cc fluid sent for analysis, pending. If there is a deeper wound infection then she'll need an incision and debridement. 09/17/[address] Rita Solomon./P Redo left L3, L4 and L5 hemilaminotomies with L3-4 and L4-5 medial facetectomy and foraminotomy; L4-5 microdiscectomy; lumbar wound incision and debridement with subcutaneous abscess evacuation Urinary Catheter: No Vascular Central Line Catheter: No A/P Problem List: (1) Spinal epidural abscess ICD Code: G06.1 Status: Acute (2) Oral thrush ICD Code: B37.0 Status: Acute Assessment and Plan 1. Epidural abscess: Appreciate neurosurgery, infectious disease recommendations. Status post L3 L4 L5 hemilaminotomies with L3-L4 and L4-L5 medial facetectomy and foraminotomy, L4-L5 microdiscectomy, lumbar wound incision and debridement subcutaneous abscess evacuation. Continue IV antibiotics. Continue neuro checks, physical therapy. Drain is in place. Continue pain control. 2. Oral thrush: Magic mouthwash. 3. DVT prophylaxis: SCDs, TRACEY dunn Lovenox. Discharge Planning Plan for discharge home when cleared by neurosurgery, infectious disease. Arias Baltazar MD September 19, 2016 11:48
[2016-09-19 16:00] VITALS: BP 88/59; PULSE 49; RESP 19; TEMP 96.7; O2SAT 98
--- NOTE | 2016-09-19 16:04 | HHI.IDPN ---
Note Infectious Disease Note Patient is post op redo lumbar laminectomy and evacuation of subcutaneous abscess and wound debridement. Repeat wound culture has Enterobacter. No complaints. Afebrile. Wound drainage culture from 09/14 has Enterobacter cloacae. Drainage catheter has seros sanguinous fluid. Decreased quantity. The patient underwent lumbar spine surgery on Sep 07 2016. This consisted of L3-L4, L4-L5 left hemilaminectomy, medial facetectomy, foraminotomy. PAST MEDICAL HISTORY: 1. Fibromyalgia. 2. Schizoaffective disorder. 3. Hepatitis C. 4. Cholecystectomy. 5. Right fallopian tube resection. 6. Fistula repair at the common bile duct. ALLERGIES: SULFA CAUSES HIVES. ANTIBIOTICS: Tazobactam / piperacillin SOCIAL HISTORY The patient smokes five cigarettes a day. No alcohol. No illicit drugs. OBJECTIVE: Vital Signs Date Time Temp Pulse Resp B/P Pulse Ox O2 Delivery O2 Flow Rate FiO2 09/19/16 12:00 96.7 68 18 103/65 98 09/19/16 08:00 97.7 54 19 140/87 99 09/19/16 05:38 97.0 49 16 100/60 96 09/19/16 00:43 97.0 54 16 97/64 98 09/18/16 20:24 97.2 53 16 97/55 99 09/18/16 18:16 17 09/18/16 18:13 98 21 09/18/16 16:00 98.6 60 21 112/71 98 Laboratory Tests Test 09/18/16 06:58 White Blood Count 7.9 TH/MM3 Red Blood Count 4.02 MIL/MM3 Hemoglobin 12.1 GM/DL Hematocrit 36.6 % Mean Corpuscular Volume 91.1 FL Mean Corpuscular Hemoglobin 30.1 PG Mean Corpuscular Hemoglobin 33.1 % Concent Red Cell Distribution Width 13.2 % Platelet Count 110 TH/MM3 Mean Platelet Volume 8.0 FL Neutrophils (%) (Auto) 79.9 % Lymphocytes (%) (Auto) 10.1 % Monocytes (%) (Auto) 9.7 % Eosinophils (%) (Auto) 0.1 % Basophils (%) (Auto) 0.2 % Neutrophils # (Auto) 6.3 TH/MM3 Lymphocytes # (Auto) 0.8 TH/MM3 Monocytes # (Auto) 0.8 TH/MM3 Eosinophils # (Auto) 0.0 TH/MM3 Basophils # (Auto) 0.0 TH/MM3 CBC Comment DIFF FINAL Differential Comment Laboratory Tests Test 09/18/16 06:54 Sodium Level 139 MEQ/L Potassium Level 3.7 MEQ/L Chloride Level 106 MEQ/L Carbon Dioxide Level 27.6 MEQ/L Anion Gap 5 MEQ/L Blood Urea Nitrogen 11 MG/DL Creatinine 0.62 MG/DL Estimat Glomerular Filtration 99 ML/MIN Rate Random Glucose 132 MG/DL Calcium Level 8.6 MG/DL Microbiology Date/Time Procedure Status Source Growth 09/17/16 11:30 Gram Stain - Final Complete Wound Other 09/17/16 11:30 Wound Culture - Final Complete Enterobacter Cloacae 09/17/16 11:30 Acid Fast Stain - Final Resulted Wound Other NO ACID FAST BACILLI SEEN 09/17/16 11:30 Mycobacterial Culture Resulted Wound Other Pending 09/17/16 11:30 Fungal Smear - Final Resulted Wound Other NO FUNGAL ELEMENTS SEEN. 09/17/16 11:30 Fungal Culture Resulted Wound Other Pending 09/17/16 11:30 Gram Stain - Final Complete Wound Other 09/17/16 11:30 Wound Culture - Final Complete Enterobacter Cloacae 09/17/16 11:30 Acid Fast Stain - Final Resulted Wound Other NO ACID FAST BACILLI SEEN 09/17/16 11:30 Mycobacterial Culture Resulted Wound Other Pending 09/17/16 11:30 Fungal Smear - Final Resulted Wound Other NO FUNGAL ELEMENTS SEEN. 09/17/16 11:30 Fungal Culture Resulted Wound Other Pending IMAGING: Needle Aspiration CT 09/14/16 0000 Signed Impressions: Service Date/Time: Wednesday, September 14, 2016 16:30 - CONCLUSION: Uncomplicated aspiration as above. Osman Antonio MD Lumbar Spine MRI 09/14/16 0000 Signed Impressions: Service Date/Time: Wednesday, September 14, 2016 12:54 - CONCLUSION: Fluid collection as described above showing intense enhancement with an epidural component at the L3-4 level. This is suspicious for an inflammatory process with an epidural component. Best seen on image 5, series 28. Vishal Watson MD FACR PHYSICAL EXAMINATION: GENERAL: No acute distress. HEENT: No icterus. Oropharynx has no visible lesions. NECK: The neck is supple. No adenopathy. LUNGS: Clear breath sounds. HEART: Regular rate and rhythm. No murmurs, rubs or gallops. ABDOMEN: Bowel sounds present, soft, nontender. BACK: Post op wound. Serous sanguinous drainage in the drainage catheter. Incision is intact. EXTREMITIES: No clubbing or cyanosis or edema. NEUROLOGIC: No gross focal findings. PSYCHIATRIC: Calm and cooperative and pleasant. IMPRESSION 1. Epidural abscess. Enterobacter cloacae. 2. Surgical wound infection. Status post lumbar laminectomy via microsurgical resection at L3-L4, L4-L5. I&D of wound and redo laminectomy. 3. Fever secondary to infection. Improved. RECOMMENDATIONS 1. Stop piperacillin / tazobactam. 2. Ceftriaxone IV X 6 weeks. IV antibiotic referral infusion form filled out. 3. PIC line ordered. 4. Case management to arrange for outpatient antibiotics. 5. Okay to discharge from my standpoint when cleared by neurosurgery. Eitan Yoon MD September 19, 2016 16:04
--- NOTE | 2016-09-19 16:12 | HHI.FF ---
Infusion Therapy Location of Infusion Therapy: Home Health Care IV Infusion Order Patient Information Patient Weight 87.4 kg Diagnosis: (1) Spinal epidural abscess Coded Allergies: Sulfa (Verified Allergy, Unknown, Swelling, 08/30/16) Administer Medication Ceftriaxone 2 grams IV q 24 hours Stop Treatment: Oct 30, 2016 Additional Information Venous access: PICC Line Additional Instructions [x] Peripheral flush and dressing changes per protocol [x] Implanted port and central cell liner: * Implanted port: 10 ml Normal Saline followed by 5 ml Heparin 100 units/ml Heparin flush after each use and monthly to maintain. [] May leave port accessed during therapy. [] May leave peripheral site accessed for duration of therapy. [x] If patient has SOB or respiratory distress, check oxygen saturation. If less than 90% or clinical signs of respiratory distress, administer oxygen at 2 L/min. via nasal cannula and notify physician. [x] Anaphylaxis/Reaction orders: * Stop infusion. * Keep IV line open with saline flush. * Notify physician. * Monitor vital signs every 15 minutes until symptoms resolve. * Check Oxygen saturation; Oxygen at 2 L/min. via nasal cannula if less than 90% or clinical signs of respiratory distress. * Administer diphenhydramine (Benadryl) 25 mg IV STAT, (unless patient has received as pre-med). May repeat once, if necessary. * Solu-Cortef 250 mg IVP over 30-60 seconds, use 100 mg vials for each dissolution. * Epinephrine (1mg/1 ml) 0.3 mg subcutaneously or IVP now with any signs of respiratory distress. * Check with physician for new additional pre-med orders if patient is re- challenged or re-treated. [x] May remove PICC line when treatment complete, after confirming with Physician. [x] If the patient is admitted to the hospital, the ED, or transferred via [facility] , complete transfer form including medication reconciliation order sheet. Laboratory Tests Additional Information BMP weekly x 3. Eitan Yoon MD September 19, 2016 16:12
[2016-09-19] MEDS: cefTRIAXone INJ 2,000 MG in SODIUM CHLORIDE 0.9% INJ 100 ML IV SCH (16:21)
[2016-09-19 20:00] VITALS: BP 104/67; PULSE 59; RESP 18; TEMP 96.6; O2SAT 98
[2016-09-19] MEDS: LURASIDONE 40 MG TAB PO SCH (20:10)
[2016-09-19] MEDS: MAGNESIUM HYDROXIDE SUSP 30 ML CUP PO PRN (21:30)
[2016-09-20] VITALS: BP 95/65; PULSE 60; RESP 18; TEMP 97.9; O2SAT 96
[2016-09-20] MEDS: ACETAMINOPHEN/HYDROcodone 325 MG/10 MG TAB PO PRN ×4 (00:37→15:15)
[2016-09-20 04:00] VITALS: BP 111/67; PULSE 61; RESP 18; TEMP 97.9; O2SAT 98
[2016-09-20 08:00] VITALS: BP 144/91; PULSE 62; RESP 16; TEMP 98.5; O2SAT 95
[2016-09-20] MEDS: MAGNESIUM HYDROXIDE SUSP 30 ML CUP PO PRN (08:22)
[2016-09-20] MEDS: ESCITALOPRAM OXALATE 10 MG TAB PO SCH (08:23)
[2016-09-20] MEDS: GABAPENTIN 300 MG CAP PO SCH ×3 (08:23→17:08)
[2016-09-20] MEDS: PANTOPRAZOLE SOD 40 MG DELAYED RELEASE TAB PO SCH (08:23)
[2016-09-20] MEDS: buPROPion HCL 100 MG TAB PO SCH (08:23)
[2016-09-20] MEDS: DOCUSATE SODIUM 100 MG CAP PO SCH (08:23)
[2016-09-20] MEDS: SODIUM CHLORIDE 0.9% FLUSH 10 ML FLUSH IV FLUSH SCH (08:24)
[2016-09-20] MEDS: NYSTAT/DIPHENHY/LIDO MOUTHWASH (Adult) 120ML SWISH-SWAL SCH ×3 (08:28→17:08)
[2016-09-20] MEDS: KETOCONAZOLE 2% CREAM 15 GM TOPICAL SCH (09:00)
[2016-09-20] MEDS: PROPRANOLOL HCL 10 MG TAB PO SCH (09:06)
--- NOTE | 2016-09-20 09:54 | HHI.PR ---
Subjective Remarks Follow-up epidural abscess. No complaints at this time. Denies chest pain, dyspnea, nausea, vomiting. No BM last 3 days. Wants to go home. Objective Vitals Vital Signs Date Time Temp Pulse Resp B/P Pulse Ox O2 Delivery O2 Flow Rate FiO2 09/20/16 08:00 98.5 62 16 144/91 95 09/20/16 04:00 97.9 61 18 111/67 98 09/20/16 01:44 18 09/20/16 00:00 97.9 60 18 95/65 96 09/19/16 20:00 96.6 59 18 104/67 98 09/19/16 16:00 96.7 49 19 88/59 98 09/19/16 12:00 96.7 68 18 103/65 98 I/O 09/19/16 09/19/16 09/19/16 09/20/16 09/20/16 09/20/16 07:00 15:00 23:00 07:00 15:00 23:00 Intake Total 480 ml 480 ml 1480 ml 720 ml Output Total 15 ml 12 ml 10 ml Balance 480 ml 465 ml 1468 ml 710 ml Intake Oral 480 ml 480 ml 780 ml 720 ml IV Total 700 ml Output Drainage Total 15 ml 12 ml 10 ml # Voids 6 2 1 2 # Bowel Movements 0 Result Diagram: 09/18/16 0658 09/18/16 0654 Imaging Last Impressions Needle Aspiration CT 09/14/16 0000 Signed Impressions: Service Date/Time: Wednesday, September 14, 2016 16:30 - CONCLUSION: Uncomplicated aspiration as above. Osman Antonio MD Lumbar Spine MRI 09/14/16 0000 Signed Impressions: Service Date/Time: Wednesday, September 14, 2016 12:54 - CONCLUSION: Fluid collection as described above showing intense enhancement with an epidural component at the L3-4 level. This is suspicious for an inflammatory process with an epidural component. Best seen on image 5, series 28. Vishal Watson MD FACR Objective Remarks General: No acute distress. Heart: Regular rate and rhythm. No murmur. Lungs: Clear to auscultation bilaterally. No wheezes, rales, or rhonchi. Breathing is nonlabored. Abdomen: Soft, nontender, nondistended. Extremities: No lower extremity edema. Psych: Alert and oriented. Procedures S/p CT-guided aspiration of subcutaneous soft tissue fluid collection. ~ 100cc fluid sent for analysis, pending. If there is a deeper wound infection then she'll need an incision and debridement. 09/17/[address] Rita Gibson/P Redo left L3, L4 and L5 hemilaminotomies with L3-4 and L4-5 medial facetectomy and foraminotomy; L4-5 microdiscectomy; lumbar wound incision and debridement with subcutaneous abscess evacuation Urinary Catheter: No Vascular Central Line Catheter: No A/P Problem List: (1) Spinal epidural abscess ICD Code: G06.1 Status: Acute (2) Oral thrush ICD Code: B37.0 Status: Acute Assessment and Plan 1. Epidural abscess: Appreciate neurosurgery, infectious disease recommendations. Status post L3 L4 L5 hemilaminotomies with L3-L4 and L4-L5 medial facetectomy and foraminotomy, L4-L5 microdiscectomy, lumbar wound incision and debridement subcutaneous abscess evacuation. Continue IV antibiotics. Continue neuro checks, physical therapy. Continue pain control. PICC line to be placed today for ongoing IV antibiotics. 2. Oral thrush: Magic mouthwash. 3. DVT prophylaxis: SCDs, TRACEY dunn, Lovenox. Discharge Planning Plan for discharge home when cleared by neurosurgery and arrangements are made for outpatient antibiotics. Arias Baltazar MD September 20, 2016 09:54
--- NOTE | 2016-09-20 10:41 | RADRPT ---
EXAM DATE/TIME: 09/20/2016 10:31 This report includes an Addendum and supersedes previous reports for this exam. [facility] COMPARISON: No previous studies available for comparison. INDICATIONS : PICC line placement. Patient had lumbar surgery on 09/07 and again on 09/14 for infection. MEDICAL HISTORY : None. SURGICAL HISTORY : Discectomy, lumbar. ENCOUNTER: Subsequent ACUITY: 3 days PAIN SCORE: 0/10 LOCATION: Bilateral chest FINDINGS: A single view of the chest demonstrates the lungs to be symmetrically aerated without evidence of mas s, infiltrate or effusion. The cardiomediastinal contours are unremarkable. Osseous structures are intact. CONCLUSION: 1. No acute cardiopulmonary disease. Jean Marie Rodriguez MD on September 20, 2016 at 10:39 Board Certified Radiologist. This report was verified electronically. ADDENDUM: A PICC line is in place via right-sided approach with its tip in the region of the superior vena cava . Jean Marie Rodriguez MD on September 20, 2016 at 15:08 Board Certified Radiologist. This report was verified electronically.
[2016-09-20] MEDS: SODIUM CHLOR 0.9% 1000 ML INJ 1,000 ML IV SCH (10:48)
[2016-09-20] MEDS ORDERED: SODIUM CHLORIDE 0.9% FLUSH 10 ML FLUSH IV FLUSH PRN (11:00)
[2016-09-20 12:00] VITALS: BP 121/76; PULSE 58; RESP 16; TEMP 98.4; O2SAT 98
[2016-09-20] MEDS ORDERED: HYDR-3583 PO (12:43)
--- NOTE | 2016-09-20 13:06 | HHI.NSPN ---
(Tania Carrillo) Note Status Status: Progress Note (Tania Carrillo) Interval History Interval History s/p redo L3-5 lami with I&D of wound. pt doing well, stable lumbar pain with pain medications. ambulating with rolling walker. PICC placed, ready for discharge. (Tania Carrillo) Labs, Micro, & Vital Signs Results Date Time Temp Pulse Resp B/P Pulse Ox O2 Delivery O2 Flow Rate FiO2 09/20/16 12:00 98.4 58 16 121/76 98 09/20/16 08:00 98.5 62 16 144/91 95 09/20/16 04:00 97.9 61 18 111/67 98 09/20/16 01:44 18 09/20/16 00:00 97.9 60 18 95/65 96 09/19/16 20:00 96.6 59 18 104/67 98 09/19/16 16:00 96.7 49 19 88/59 98 09/20/16 07:00 Intake Total 2680 ml Output Total 37 ml Balance 2643 ml Constitutional Vital Signs Date Time Temp Pulse Resp B/P Pulse Ox O2 Delivery O2 Flow Rate FiO2 09/20/16 12:00 98.4 58 16 121/76 98 09/20/16 08:00 98.5 62 16 144/91 95 09/20/16 04:00 97.9 61 18 111/67 98 09/20/16 01:44 18 09/20/16 00:00 97.9 60 18 95/65 96 09/19/16 20:00 96.6 59 18 104/67 98 09/19/16 16:00 96.7 49 19 88/59 98 09/20/16 07:00 Intake Total 2680 ml Output Total 37 ml Balance 2643 ml (Tania Carrillo) Review of Systems/Exam Exam Alert, and oriented. Conversing well and appropriate. Wound: incision closed with sutures intact, there is wound dehiscence with drainage noted on bandage. New dressing place. JOSAFAT drain intact with minimal drainage. CN: pupils equal, facial motor symmetric. Motor: 1-2/5 left dorsiflexion, 2/5 left EHL, moves other extremities well Gait: ambulating with rolling walker with left steppage gait (Tania Carrillo) Medications Current Medications Current Medications Medications (Trade) Dose Ordered Sig/Sen Route PRN Reason Start Time Stop Time Status Last Admin Dose Admin Sodium Chloride (NS 1000 ml Inj) 1,000 ml @ 100 mls/hr Q10H IV 09/14/16 15:00 09/20/16 10:48 Acetaminophen (Tylenol) 650 mg Q4H PRN PO TEMP > 100.4 09/14/16 14:45 09/15/16 19:11 Temazepam (Restoril) 15 mg HS PRN PO INSOMNIA 09/14/16 14:45 Bupropion HCl (Wellbutrin) 100 mg DAILY PO 09/15/16 09:00 09/20/16 08:23 Diazepam (Valium) 5 mg HS PRN PO ANXIETY 09/14/16 20:00 09/16/16 17:26 Escitalopram Oxalate (Lexapro) 10 mg DAILY PO 09/15/16 09:00 09/20/16 08:23 Gabapentin (Neurontin) 300 mg TID PO 09/15/16 09:00 09/20/16 08:23 Lurasidone HCl (Latuda) 40 mg HS PO 09/14/16 21:00 09/19/16 20:10 Pantoprazole Sodium (Protonix) 40 mg DAILY PO 09/15/16 09:00 09/20/16 08:23 Propranolol HCl (Inderal) 10 mg Q12HR PO 09/14/16 21:00 09/20/16 09:06 Tizanidine HCl (Zanaflex) 2 mg TID PO 09/15/16 09:00 09/20/16 08:23 Miscellaneous (Pill Splitter) 1 ea UNSCH PRN OTHER SEE LABEL COMMENTS 09/14/16 20:15 Multi-Ingredient Mouthwash/Gargle (Magic Mouthwash Adult Liq) 5 ml QID SWISH-SWAL 09/15/16 18:00 09/20/16 08:28 Hydromorphone HCl (Dilaudid Pf Inj) 1 mg Q4H PRN IV PUSH breakthrough pain 09/16/16 08:30 09/19/16 10:06 Sodium Chloride (NS Flush) 2 ml UNSCH PRN IV FLUSH FLUSH AFTER USING IV ACCESS 09/17/16 12:00 Sodium Chloride (NS Flush) 2 ml BID IV FLUSH 09/17/16 21:00 09/17/16 22:33 Docusate Sodium (Colace) 100 mg BID PO 09/17/16 21:00 09/20/16 08:23 Magnesium Hydroxide (Milk Of Magnesia Liq) 30 ml DAILY PRN PO CONSTIPATION 09/17/16 12:00 09/20/16 08:22 Al Hydrox/Mg Hydrox/Simethicone (Mag-Al Plus Susp Liq) 30 ml Q6H PRN PO DYSPEPSIA 09/17/16 12:00 Ondansetron HCl (Zofran Inj) 4 mg Q6H PRN IV NAUSEA OR VOMITING 09/17/16 12:00 Acetaminophen/ Hydrocodone Bitart ([place] 10-325 Mg) 2 tab Q4H PRN PO PAIN SCALE 6 TO 10 09/17/16 12:00 09/20/16 10:46 Clonidine (Catapres) 0.1 mg Q6H PRN PO SYS BP GREATER THAN 170 MMHG 09/17/16 12:00 Ketoconazole (Nizoral 2% Cream) 1 applic Q12HR TOPICAL 09/17/16 21:00 09/27/16 20:59 09/19/16 20:11 Acetaminophen/ Hydrocodone Bitart 1 tab 1 tab Q4H PRN PO PAIN 1-5 09/18/16 22:00 Ceftriaxone Sodium/Sodium Chloride (Rocephin Inj/NS Inj) 100 ml @ 200 mls/hr Q24H IV 09/19/16 16:00 09/19/16 16:21 Sodium Chloride (NS Flush) See Protocol DAILY IV FLUSH 09/21/16 09:00 Sodium Chloride (NS Flush) See Protocol UNSCH PRN IV FLUSH SEE PROTOCOL TABLE 09/20/16 11:00 Heparin Sodium (Porcine) (Heparin Central Flush) See Protocol DAILY IV FLUSH 09/21/16 09:00 Heparin Sodium (Porcine) (Heparin Central Flush) See Protocol UNSCH PRN IV FLUSH SEE PROTOCOL TABLE 09/20/16 11:00 Sodium Chloride (NS Flush) UNSCH PRN IV FLUSH SEE PROTOCOL TABLE 09/20/16 11:00 (Tania Carrillo) Medical Decision Making MDM Remarks 60 y/o female s/p L3-5 redo laminectomy with irrigation and debridement of lumbar wound (Tania Carrillo) Plan Plan Remarks dc JOSAFAT drain clear to dc from NRS standpoint f/u in office 2 weeks postop for suture removal cont IV ABX per ID discussed activity restrictions and wound care (Tania Carrillo) Attending Statement The exam, history, and the medical decision-making described in the above note were completed with the assistance of the mid-level provider. I reviewed and agree with the findings presented. I attest that I had a [id number] encounter with the patient on the same day, and personally performed and documented my assessment and findings in the medical record. (London Desouza MD) Tania Carrillo September 20, 2016 13:06 London Desouza MD September 23, 2016 20:30
--- NOTE | 2016-09-20 13:16 | HHI.DCPOC ---
Discharge Care Plan Diagnosis: (1) Spinal epidural abscess (2) Oral thrush Goals to Promote Your Health * To prevent worsening of your condition and complications * To maintain your health at the optimal level Directions to Meet Your Goals Take your medications as prescribed Follow your dietary instruction Follow activity as directed Keep your appointments as scheduled Take your immunizations and boosters as scheduled If your symptoms worsen call your PCP, if no PCP go to Urgent Care Center or Emergency Room Smoking is Dangerous to Your Health. Avoid second hand smoke Call the 24-hour hour crisis hotline for domestic abuse at Arias Baltazar MD September 20, 2016 13:16
[2016-09-20 16:00] VITALS: BP 128/84; PULSE 63; RESP 17; TEMP 98.9; O2SAT 98
[2016-09-20] MEDS: cefTRIAXone INJ 2,000 MG in SODIUM CHLORIDE 0.9% INJ 100 ML IV SCH (17:05)
--- NOTE | 2016-09-21 08:55 | HHI.FF ---
Face to Face Verification Diagnosis: (1) Spinal epidural abscess Physical Therapy Order: Evaluate and Treat I have seen patient Lynn Smith on 09/21/16. My clinical findings support the need for the requested home health care services because: Deconditioned w/ increased weakness Infection w/ risk of complications I certify that my clinical findings support that this patient is homebound because: Unsteady gait/balance Arias Baltazar MD September 21, 2016 08:55
[2016-09-21] MEDS ORDERED: SODIUM CHLORIDE 0.9% FLUSH 10 ML FLUSH IV FLUSH SCH (09:00)
--- NOTE | 2016-09-21 09:51 | HHI.FF ---
Face to Face Verification Diagnosis: (1) Spinal epidural abscess Physical Therapy Order: Evaluate and Treat Home Health Nursing Order: Nursing assessment with vital signs IV medication administration I have seen patient Lynn Smith on 09/21/16. My clinical findings support the need for the requested home health care services because: Deconditioned w/ increased weakness Infection w/ risk of complications I certify that my clinical findings support that this patient is homebound because: Unsteady gait/balance Arias Baltazar MD September 21, 2016 09:51
--- NOTE | 2016-10-16 14:40 | HHI.DS ---
Discharge Summary Admission Date September 14, 2016 at 15:10 Discharge Date: September 20, 2016 Admitting Diagnosis Back pain, fever; lumbar spine abscess (1) Spinal epidural abscess ICD Code: G06.1 (2) Oral thrush ICD Code: B37.0 Procedures S/p CT-guided aspiration of subcutaneous soft tissue fluid collection. ~ 100cc fluid sent for analysis, pending. If there is a deeper wound infection then she'll need an incision and debridement. 09/17/[address] Salinas S./P Redo left L3, L4 and L5 hemilaminotomies with L3-4 and L4-5 medial facetectomy and foraminotomy; L4-5 microdiscectomy; lumbar wound incision and debridement with subcutaneous abscess evacuation Brief History - From Admission Pleasant 60 y/o female s/p L3-4, L4-5 left hemilaminectomy, medial facetectomy, foraminotomy with microsurgical resection of the disk on 09/07/[address] Desouza. The patient came to the emergency room for evaluation of worsening back pain and increasing warmth discharge. She is complaining of fevers, spikes 101 at home. He had left from foods after the surgery no new motor or sensory deficit. There is no bowel or bladder incontinence. She reported new onset left foot drop immediately postoperatively and was monitored for a few days as of his postoperative MRI scan lumbar spine without contrast obtained did not show any significant spinal stenosis with postoperative changes and a subcutaneous fluid collection was also noted. She was discharged subsequently and relates that she noticed some bloody and serous serosanguineous drainage of lumbar incision site yesterday along with the low-grade fever. She is brought to [facility] emergency room this morning for further evaluation. MRI scan of the lumbar spine with and without contrast revealed enhancement in the epidural space but no significant spinal stenosis. The subcutaneous lumbar soft tissue fluid collection has enlarged. She denies any incontinence or any right lower extremity symptoms. Was evaluated in the emergency room by Dr. Salinas surgery. He recommends CT guidance incision and drainage. Patient had already IV antibiotics administered in the ED. Preferably patient will have aspiration of fluid first. Patient is started on IV antibiotics, also infectious diseases consulted for further recommendations. Imaging Last Impressions Chest X-Ray 09/20/16 Signed Impressions: Service Date/Time: September 10:31 - CONCLUSION: 1. No acute cardiopulmonary disease. Jean Marie Rodriguez MD ADDENDUM: A PICC line is in place via right-sided approach with its tip in the region of the superior vena cava. Jean Marie Rodriguez MD Needle Aspiration CT 09/14/16 Signed Impressions: Service Date/Time: Wednesday, September 14, 2016 16:30 - CONCLUSION: Uncomplicated aspiration as above. Osman Antonio MD Lumbar Spine MRI 09/14/16 Signed Impressions: Service Date/Time: Wednesday, September 14, 2016 12:54 - CONCLUSION: Fluid collection as described above showing intense enhancement with an epidural component at the L3-4 level. This is suspicious for an inflammatory process with an epidural component. Best seen on image 5, series 28. Vishal Watson MD FACR PE at Discharge General: No acute distress. Heart: Regular rate and rhythm. No murmur. Lungs: Clear to auscultation bilaterally. No wheezes, rales, or rhonchi. Breathing is nonlabored. Abdomen: Soft, nontender, nondistended. Extremities: No lower extremity edema. Psych: Alert and oriented. Hospital Course The patient was admitted for evaluation of possible lumbar spine abscess. Neurosurgery was consulted. She was started on IV antibiotics. CT-guided aspiration was done. Infectious disease was consulted. Cultures were positive for Enterobacter Cloacae. The patient continued to improve clinically. JOSAFAT drain was removed. She was cleared by neurosurgery for discharge. PICC line was placed and infectious disease made recommendations for outpatient IV antibiotics. Pt Condition on Discharge: Stable Discharge Disposition: Disch w/ Home Health Serv Discharge Time: > 30 minutes Discharge Instructions DIET: Follow Instructions for: As Tolerated, No Restrictions Activities you can perform: Regular-No Restrictions Follow up Referrals: Neurosurgery - 2 Weeks with London Desouza MD PCP Follow-up - 1 Week Continued Medications: Bupropion HCl (Bupropion HCl) 100 Mg Tab 100 MG PO DAILY Ref 0 TAB Cholecalciferol (Vitamin D) 5,000 Unit Tab 5000 UNITS PO DAILY Diazepam (Diazepam) 5 Mg Tab 5 MG PO HS PRN ANXIETY Ref 0 TAB Docusate Sodium (Docusate Sodium) 100 Mg Cap 200 MG PO HS Prevent Constipation #60 Ref 0 CAP Escitalopram (Escitalopram) 10 Mg Tab 10 MG PO DAILY #30 Ref 0 TAB Fluticasone Nasal [place] (Fluticasone Nasal [place]) 50 Mcg/Act Naspr 2 SPR EACH NARE DAILY 50 mcg/spray Allergy Management #1 Ref 0 BOTTLE Gabapentin (Gabapentin) 300 Mg Cap 300 MG PO TID #60 Ref 0 CAP Lurasidone (Latuda) 40 Mg Tab 40 MG PO HS #30 Ref 0 TAB Pantoprazole (Pantoprazole) 40 Mg Tab 40 MG PO DAILY Reflux #30 Ref 0 TAB Propranolol (Propranolol) 10 Mg Tab 10 MG PO Q12HR #60 Ref 0 TAB Tizanidine (Tizanidine) 2 Mg Tab 2 MG PO TID Muscle Spasm Ref 0 TAB Discontinued Medications: Hydrocodone-Acetaminophen (Hydrocodone-Acetaminophen) 10-325 mg Tab 1 TAB PO Q6H PRN PAIN Ref 0 TAB Arias Baltazar MD Oct 16, 2016 14:40
== END 2016-09-20 20:17 | disposition home health service (06) | DRG 856 ==
LOC: NEPC 09:34 → NEDA 15:10 → N05B 18:33
PROVIDERS: ADMIT Family Medicine; ATTEND Family Medicine
PROC: 0W9L3ZX Drainage of Lower Back, Percutaneous Approach, Diagnostic (ICD-10-PCS; 2016-09-14)
PROC: 00C30ZZ Extirpation of Matter from Intracranial Epidural Space, Open Approach (ICD-10-PCS; 2016-09-17)
PROC: 0JB70ZZ Excision of Back Subcutaneous Tissue and Fascia, Open Approach (ICD-10-PCS; 2016-09-17)
PROC: 0SB20ZZ Excision of Lumbar Vertebral Disc, Open Approach (ICD-10-PCS; principal; 2016-09-17 10:15)
DX: T81.4XXA Infection following a procedure, initial encounter (principal); G06.1 Intraspinal abscess and granuloma; B37.0 Candidal stomatitis; T81.31XA Disruption of external operation (surgical) wound, not elsewhere classified, initial encounter; M21.372 Foot drop, left foot; K21.9 Gastro-esophageal reflux disease without esophagitis; B96.89 Other specified bacterial agents as the cause of diseases classified elsewhere; R21 Rash and other nonspecific skin eruption; M48.06 Spinal stenosis, lumbar region; M19.90 Unspecified osteoarthritis, unspecified site; M79.7 Fibromyalgia; F25.9 Schizoaffective disorder, unspecified; F17.210 Nicotine dependence, cigarettes, uncomplicated; Z86.19 Personal history of other infectious and parasitic diseases; Z88.2 Allergy status to sulfonamides
CPT/HCPCS: 36569; 50390; 71010; 72158; 76937; 77012; 80048; 85025; 85610; 85730; 86403; 87015; 87040; 87070; 87077; 87102; 87116; 87176; 87186; 87205; 87206; 93005; 94150; 96365; 96366; 96375; 96376; A9579; J0131; J0696; J1170; J2250; J2270; J2405; J2543; J2710; J3010; J3370; J7030; J7050; J7120

== ENCOUNTER 2016-09-24 13:52 | Inpatient (IN) | payer OTHER, MEDICARE ==
[~2016-09-24] VITALS: Ht 170.2 cm; Wt 95.5 kg
[~2016-09-24 13:52] MED LIST changes: +BUPR100T4 PO
[2016-09-24 13:56] VITALS: BP 119/87; TEMP 98; O2SAT 98
--- NOTE | 2016-09-24 14:44 | PD ---
Physical Exam Date Seen by Provider: September 24, 2016 Time Seen by Provider: 14:41 Narrative 60 y/o female patient of Dr. Jackson/Deo presents to ED with Hx Laminectomy on September 07 with secondary infection and recent hospitalization for infection. Patient recently discharged 4 days ago with IV ABX and PICC line in place. Patient states fevers of 100 for the past 2 days with increased drainage noted. V/S Stable Awaiting Bed Placement. Data Data Last Documented VS Vital Signs Date Time Temp Pulse Resp B/P Pulse Ox O2 Delivery O2 Flow Rate FiO2 09/24/16 13:56 98.0 64 16 119/87 98 [facility] Medical Record Reviewed: Yes Supervised Visit with ZARI: Yes Condition: Stable Valentino Mckinney September 24, 2016 14:44
--- NOTE | 2016-09-24 14:48 | PD ---
HPI Chief Complaint: Fever Time Seen by Provider: 14:47 Travel History International Travel<30 days: No Contact w/Intl Traveler<30days: No Traveled to known affect area: No History of Present Illness HPI 60-year-old female came to the emergency room with history of fever since yesterday that she describes as low-grade intermittent 100 as measured at home. Patient was concerned because she was recently discharged less than a week ago from the hospital for epidural abscess status post laminectomy. She was discharged home with PICC line and gets IV antibiotic one time a day. She went to see her primary care doctor and let her know about the fever. Her primary care doctor sent and emergency let her to the infectious disease specialist Dr. Yoon. Patient says she came home and noticed that there was copious amount of discharge coming out from the back from the surgical incision site. Just when she decided to come to the emergency room. She is also experiencing some back pain. Patient is afebrile in triage and vital signs otherwise stable. She is awake and answering questions appropriately. [facility] Past Medical History Narrative Medical List of her past medical, surgical, social and family history was reviewed from the nursing note. Arthritis: Yes Cancer: No Cardiovascular Problems: No Diabetes: No Endocrine: No Gastrointestinal Disorders: No GERD: Yes (GERD) Genitourinary: No Hepatitis: Yes (C) Hiatal Hernia: Yes Hypertension: No Immune Disorder: Yes (FIBROMYALGIA) Medical other: No Musculoskeletal: Yes (ARTHRITIS) Neurologic: No Psychiatric: Yes (SCHIZOID AFFECT DISORDER) Reproductive: No Respiratory: No Thyroid Disease: No ?: Not Past Surgical History Abdominal Surgery: Yes (JOHN.,) AICD: No Genitourinary Surgery: Yes (HEMMORHOIDS,) Gynecologic Surgery: Yes (RIGHT FALLOPIAN TUBE) Joint Replacement: No Neurologic Surgery: Yes (LAMI) Pacemaker: No Thoracic Surgery: Yes (RIGHT BREAST BX,) Other Surgery: Yes Social History Alcohol Use: No Tobacco Use: Yes Substance Use: No Allergies-Medications (Allergen,Severity, Reaction): Coded Allergies: Sulfa (Verified Allergy, Unknown, Swelling, 09/24/16) Comments List of her allergies reviewed from the nursing note. Reported Meds & Prescriptions Reported Meds & Active Scripts Active Hydrocodone-Acetaminophen 10-325 mg Tab 2 Tab PO Q4HR PRN Reported Bupropion HCl 100 Mg Tab 100 Mg PO DAILY Vitamin D (Cholecalciferol) 5,000 Unit Tab 5,000 Units PO DAILY Fluticasone Nasal Jackson 50 Mcg/Act Naspr 2 Spr EACH NARE DAILY 50 mcg/spray Docusate Sodium 100 Mg Cap 200 Mg PO HS Latuda (Lurasidone) 40 Mg Tab 40 Mg PO HS Propranolol (Propranolol HCl) 10 Mg Tab 10 Mg PO Q12HR Gabapentin 300 Mg Cap 300 Mg PO TID Tizanidine (Tizanidine HCl) 2 Mg Tab 2 Mg PO TID Diazepam 5 Mg Tab 5 Mg PO HS PRN Escitalopram (Escitalopram Oxalate) 10 Mg Tab 10 Mg PO DAILY Pantoprazole (Pantoprazole Sodium) 40 Mg Tab 40 Mg PO DAILY Narrative Medication List of her home medications reviewed from the nursing note. Review of Systems Except as stated in HPI: all other systems reviewed are Neg Physical Exam Narrative GENERAL: Awake, alert, anxious, moderate distress SKIN: Focused skin assessment warm/dry. Surgical incision on the floor mid back from the laminectomy has some surrounding redness and swelling but no discharge. The dressing appears to be dry HEAD: Atraumatic. Normocephalic. EYES: Pupils equal and round. No scleral icterus. No injection or drainage. ENT: No nasal bleeding or discharge. Mucous membranes pink and moist. NECK: Trachea midline. No JVD. CARDIOVASCULAR: Regular rate and rhythm. No murmur appreciated. RESPIRATORY: No accessory muscle use. Clear to auscultation. Breath sounds equal bilaterally. GASTROINTESTINAL: Abdomen soft, non-tender, nondistended. Hepatic and splenic margins not palpable. MUSCULOSKELETAL: No obvious deformities. No clubbing. No cyanosis. No edema. NEUROLOGICAL: Awake and alert. No obvious cranial nerve deficits. Motor grossly within normal limits. Normal speech. PSYCHIATRIC: Appropriate mood and affect; insight and judgment normal. Data Data Last Documented VS Vital Signs Date Time Temp Pulse Resp B/P Pulse Ox O2 Delivery O2 Flow Rate FiO2 09/24/16 14:53 66 17 146/92 95 Room Air 09/24/16 13:56 98.0 Orders Basic Metabolic Panel (Bmp) (09/24/16 14:56) Complete Blood Count With Diff (09/24/16 14:56) Blood Culture (09/24/16 14:56) C-Reactive Protein (Crp) (09/24/16 14:56) Westergren Sedimentation Rate (09/24/16 14:56) Morphine Inj (Morphine Inj) (09/24/16 15:00) Ketorolac Inj (Toradol Inj) (09/24/16 15:00) Mri L Spine W&W/O Contrast (09/24/16 ) Consult Neurosurgery (09/24/16 ) Admit Order (Ed Use Only) (09/24/16 16:05) Labs Laboratory Tests Test 09/24/16 15:05 White Blood Count 6.5 TH/MM3 Red Blood Count 4.51 MIL/MM3 Hemoglobin 13.4 GM/DL Hematocrit 40.8 % Mean Corpuscular Volume 90.4 FL Mean Corpuscular Hemoglobin 29.7 PG Mean Corpuscular Hemoglobin 32.9 % Concent Red Cell Distribution Width 13.2 % Platelet Count 201 TH/MM3 Mean Platelet Volume 7.7 FL Neutrophils (%) (Auto) 59.6 % Lymphocytes (%) (Auto) 26.8 % Monocytes (%) (Auto) 11.6 % Eosinophils (%) (Auto) 1.5 % Basophils (%) (Auto) 0.5 % Neutrophils # (Auto) 3.9 TH/MM3 Lymphocytes # (Auto) 1.7 TH/MM3 Monocytes # (Auto) 0.8 TH/MM3 Eosinophils # (Auto) 0.1 TH/MM3 Basophils # (Auto) 0.0 TH/MM3 CBC Comment DIFF FINAL Differential Comment Erythrocyte Sedimentation Rate 57 mm/hr Sodium Level 136 MEQ/L Potassium Level 4.0 MEQ/L Chloride Level 101 MEQ/L Carbon Dioxide Level 28.7 MEQ/L Anion Gap 6 MEQ/L Blood Urea Nitrogen 9 MG/DL Creatinine 0.65 MG/DL Estimat Glomerular Filtration 93 ML/MIN Rate Random Glucose 90 MG/DL Calcium Level 9.2 MG/DL C-Reactive Protein 1.11 MG/DL [facility] Medical Decision Making Medical Screen Exam Complete: Yes Emergency Medical Condition: Yes Medical Record Reviewed: Yes Differential Diagnosis Postsurgical infection, recurrent epidural abscess, indwelling line sepsis Narrative Course 3:19 PM awaiting for the blood test results. I've ordered an MRI to rule out recurrent epidural abscess. Patient will not get any IV antibiotics and she received 2 g of IV ceftriaxone today and the bacteria namely Enterobacter cloacae that 2 out of the abscess drainage is sensitive to. I discussed the case with Thais who is the PA for Dr. Desouza and she agreed with the workup and admission. As per her Dr. Desouaz will consult on the patient. I have let the patient know about this plan. She is agreeable to the admission. She was medicated for her pain as well. 4:06 PM CRP and sedimentation rate both are elevated. Patient is admitted to the hospitalist. Procedures EKG Prior to Arrival: No Physician Communication Physician Communication Dr. Desouza's PA Diagnosis Primary Impression: History of surgical site infection Additional Impression: status post epidural abscess Admitting Information Admitting Physician Requests: Admit Condition: Stable Kirit Overton MD September 24, 2016 14:48
[2016-09-24 14:53] VITALS: BP 146/92; PULSE 66; RESP 17; O2SAT 95
[2016-09-24] MEDS ORDERED: MORPHINE SULFATE 4 MG/ML INJ IV PUSH ONE (15:00)
[2016-09-24] MEDS ORDERED: KETOROLAC TROMETHAMINE 30 MG/ML (IVP) VIAL IV PUSH ONE (15:00)
[2016-09-24 15:39] LABS: BICARBONATE 28.7 MEQ/L (21.0-32.0)
[2016-09-24 15:45] LABS: AUTOMATED NEUTROPHIL # 3.9 TH/MM3 (1.8-7.7); BASOPHIL % 0.5 % (0.0-2.0); EOSINOPHIL # 0.1 TH/MM3 (0-0.4); EOSINOPHIL % 1.5 % (0.0-4.0); HEMATOCRIT 40.8 % (35.0-46.0); HEMO FLAGS DIFF FINAL; LYMPH % 26.8 % (9.0-44.0); LYMPHOCYTE # 1.7 TH/MM3 (1.0-4.8); MEAN CELL VOLUME 90.4 FL (80.0-100.0); MEAN CORPUSCULAR HEMOGLOBIN 29.7 PG (27.0-34.0); MEAN CORPUSCULAR HGB CONC 32.9 % (32.0-36.0); MONO % 11.6 % (0.0-8.0); NEUT % 59.6 % (16.0-70.0); PLATELET COUNT 201 TH/MM3 (150-450); RED BLOOD COUNT 4.51 MIL/MM3 (4.00-5.30); RED CELL DISTRIBUTION WIDTH 13.2 % (11.6-17.2); WHITE BLOOD COUNT 6.5 TH/MM3 (4.0-11.0)
[2016-09-24] MEDS ORDERED: MAGNESIUM HYDROXIDE SUSP 30 ML CUP PO PRN (17:15)
[2016-09-24] MEDS ORDERED: ONDANSETRON HCL 4 MG/2 ML VIAL IVP PRN (17:15)
[2016-09-24] MEDS ORDERED: oxyCODONE/ACETAMINOPHEN 5 MG/325 MG TAB PO PRN (17:15)
[2016-09-24] MEDS ORDERED: NALOXONE HCL 0.4 MG/ML AMP IV PRN (17:15)
[2016-09-24] MEDS ORDERED: SODIUM CHLORIDE 0.9% FLUSH 10 ML FLUSH IV FLUSH PRN (17:15)
[2016-09-24] MEDS ORDERED: ACETAMINOPHEN 325 MG TAB PO PRN ×2 (17:15)
[2016-09-24] MEDS ORDERED: MORPHINE SULFATE 4 MG/ML INJ IV PRN (17:15)
--- NOTE | 2016-09-24 17:32 | HHI.NSPN ---
Note Status Status: Progress Note Interval History Interval History Ms. Smith is a 60 y/o female who initially underwent a L3-4, L4-5 left hemilaminectomy and microdiscectomy on 09/07/16. She presented to the ED two weeks ago due to wound drainage. Cultures positive for Enterobacter Colace, and she underwent a redo laminectomy with irrigation and debridement with Dr. Salinas on 09/17/16. A PICC line was placed and the patient was subsequently discharged on IV antibiotics. She was doing well until she noted recurrent wound drainage and fevers and returned to the Emergency Room for evaluation. She also reports of moderate lumbar and pain in the left hamstrings. Labs, Micro, & Vital Signs Results Date Time Temp Pulse Resp B/P Pulse Ox O2 Delivery O2 Flow Rate FiO2 09/24/16 14:53 66 17 146/92 95 Room Air 09/24/16 13:56 98.0 64 16 119/87 98 Constitutional Vital Signs Date Time Temp Pulse Resp B/P Pulse Ox O2 Delivery O2 Flow Rate FiO2 09/24/16 14:53 66 17 146/92 95 Room Air 09/24/16 13:56 98.0 64 16 119/87 98 Review of Systems/Exam Exam Wound is currently dry, there is an area of small dehiscence, sutures intact. Alert, and oriented. Conversing well and appropriate. CN: pupils equal, facial motor symmetric. Neck: soft, supple. Motor: 1-2/5 left dorsiflexion, 2/5 left EHL, moves other extremities well Gait: ambulating with rolling walker with left steppage gait Medications Current Medications Current Medications Medications (Trade) Dose Ordered Sig/Sen Route PRN Reason Start Time Stop Time Status Last Admin Dose Admin Sodium Chloride (NS Flush) 2 ml UNSCH PRN IV FLUSH FLUSH AFTER USING IV ACCESS 09/24/16 17:15 Sodium Chloride (NS Flush) 2 ml BID IV FLUSH 09/24/16 21:00 Acetaminophen (Tylenol) 650 mg Q4H PRN PO TEMP > 100.4 09/24/16 17:15 Ondansetron HCl (Zofran Inj) 4 mg Q6H PRN IVP NAUSEA OR VOMITING 09/24/16 17:15 Magnesium Hydroxide (Milk Of Magnesia Liq) 30 ml Q12H PRN PO CONSTIPATION 09/24/16 17:15 Acetaminophen (Tylenol) 650 mg Q6H PRN PO PAIN SCALE 1 TO 2 09/24/16 17:15 Oxycodone/ Acetaminophen (Percocet 5-325 Mg) 1 tab Q6H PRN PO PAIN SCALE 3 TO 5 09/24/16 17:15 Morphine Sulfate (Morphine Inj) 4 mg Q3H PRN IV Pain 6-10;if unable to take PO 09/24/16 17:15 Naloxone HCl (Narcan Inj) 0.4 mg UNSCH PRN IV SEE LABEL COMMENTS 09/24/16 17:15 Medical Decision Making MDM Remarks 60 y/o female with wound drainage, r/o recurrent abscess Plan Plan Remarks recommend MRI Lumbar spine w/wo contrast which is pending cont antibiotics Tania Carrillo September 24, 2016 17:32
[2016-09-24] MEDS ORDERED: GADODIAMIDE PF 287 MG/ML 20 ML VIAL (for RAD MRI) IV ONE (18:00)
[2016-09-24 18:23] VITALS: BP 122/78; PULSE 56; RESP 18; TEMP 98; O2SAT 92
--- NOTE | 2016-09-24 19:18 | RADRPT ---
EXAM DATE/TIME: 09/24/2016 17:36 [place] COMPARISON: No previous studies available for comparison. INDICATIONS : Evaluate for post surgery fever and pain. CONTRAST: 18 cc Omniscan (gadodiamide) IV MEDICAL HISTORY : None. SURGICAL HISTORY : Cholecystectomy. Hemorrhoidectomy. Fusion, lumbar. Breast sx, Right tube removed be/c of ectopic preg haylee, Endoscopic sx. ENCOUNTER: Initial ACUITY: 1 day PAIN SCORE: 8/10 LOCATION: Bilateral lower back region. TECHNIQUE: Multiplanar multisequence MRI of the lumbar spine was performed with and without contrast. FINDINGS: Comparison is September 14. Again seen is an enhancing fluid collection posteriorly at the L3 and L4 level just to the left of midline. This extends along the medial aspect of the left erector spinae musculat ure into an area of the left laminectomy defect. Enhancing epidural component does appear to be sligh tly decreased at L3-4 level compared with September 14. No new fluid collections are present. On today's ex am fluid collection dorsally measures about 4.9 cm in maximal diameter. There is normal alignment of the lumbar spine. There is some fluid signal in the L3-or disc interspac e which doesn't appear to be contiguous with fluid dorsally and could be related to postoperative jane nge.CONCLUSION: 1. Relatively stable size of enhancing fluid collection in the dorsal soft tissues just to the left o f midline. 2. Enhancing epidural component at L3-4 dorsally does appear to be slightly decreased from September 14. 3. Stable to slight increase in fluid within the L3-4 disc interspace which could be related to posto perative change. No significant adjacent marrow signal abnormalities to suggest discitis or osteomyel itis. Conus intact. Shayne Penn MD on September 24, 2016 at 19:06 Board Certified Radiologist. This report was verified electronically.
[2016-09-24] MEDS: SODIUM CHLORIDE 0.9% FLUSH 10 ML FLUSH IV FLUSH SCH (21:00)
[2016-09-24 21:58] VITALS: BP 112/64; PULSE 63; RESP 18; TEMP 97; O2SAT 94
[2016-09-24] MEDS ORDERED: cefTRIAXone INJ 2,000 MG in SODIUM CHLORIDE 0.9% INJ 100 ML IV SCH (22:00)
--- NOTE | 2016-09-24 22:01 | HHI.HP ---
HPI Service [facility] Primary Care Physician Claribel Rebollar M.D. Admission Diagnosis postsurgical fever, status post laminectomy Diagnoses: Chief Complaint: Fever, increased draiange Travel History International Travel<30 Days: No Contact w/Intl Traveler <30 Da: No Traveled to Known Affected Are: No History of Present Illness The patient is a 60-year-old female with past medical history of bulging disks status post back surgery and infection who is presenting to the hospital with fevers and increased drainage from the surgical site. The patient says that many years ago she sustained bulging disks from lifting too heavy objects. Over the years and got worse and she can do activities such as mopping and vacuuming. She decided to do something about it and went for surgery on September 07. She returned to the hospital on September 14 with an infection. She had further surgery on the and was eventually discharged with a 6 weeks course of ceftriaxone per infectious disease. The patient noted over the past few days she had fevers up to 101. She has also had drainage at the site of her surgical wound. She went to her PCP today. She was referred to the hospital. The patient mentions that she has had foot drop in the left foot since the first surgery. She says she is still able to walk with a walker. She has not been working with physical therapy as an outpatient. Review of Systems Except as stated in HPI: all other systems reviewed are Neg Past Family Social History Past Medical History Hep C, cured Cirrhosis Fibromyalgia Schizoaffective disorder OA Epidural abscess Past Surgical History Breast sx Cholecystectomy Right fallopian tube removal Fistula repair (CBD-stomach) Back surgeries Allergies: Coded Allergies: Sulfa (Verified Allergy, Unknown, Swelling, 09/24/16) Active Ordered Medications Current Medications Medications (Trade) Dose Ordered Sig/Sen Route Start Time Stop Time Status Last Admin (NS Flush) 2 ml UNSCH PRN IV FLUSH 09/24/16 17:15 (NS Flush) 2 ml BID IV FLUSH 09/24/16 21:00 (Tylenol) 650 mg Q4H PRN PO 09/24/16 17:15 (Zofran Inj) 4 mg Q6H PRN IVP 09/24/16 17:15 (Milk Of Magnesia Liq) 30 ml Q12H PRN PO 09/24/16 17:15 (Tylenol) 650 mg Q6H PRN PO 09/24/16 17:15 (Percocet 5-325 Mg) 1 tab Q6H PRN PO 09/24/16 17:15 (Morphine Inj) 4 mg Q3H PRN IV 09/24/16 17:15 09/24/16 17:35 Naloxone HCl 0.4 mg 0.4 mg UNSCH PRN IV 09/24/16 17:15 (Rocephin Inj/NS Inj) 100 ml @ 200 mls/hr Q24H IV 09/24/16 22:00 (Wellbutrin) 100 mg DAILY PO 09/25/16 09:00 (Valium) 5 mg HS PRN PO 09/24/16 21:45 (Colace) 200 mg HS PO 09/24/16 21:45 (Lexapro) 10 mg DAILY PO 09/25/16 09:00 (Flonase Eagle Spr) 2 spray DAILY EACH NARE 09/25/16 09:00 (Neurontin) 300 mg TID PO 09/25/16 09:00 (Latuda) 40 mg HS PO 09/24/16 21:45 (Protonix) 40 mg DAILY PO 09/25/16 09:00 (Inderal) 10 mg Q12HR PO 09/25/16 09:00 Family History Mental illness Social History The patient smokes 5 cigarettes daily. She does not drink or use illicit substances. Physical Exam Vital Signs Vital Signs Date Time Temp Pulse Resp B/P Pulse Ox O2 Delivery O2 Flow Rate FiO2 09/24/16 18:23 98.0 56 18 122/78 92 09/24/16 14:53 66 17 146/92 95 Room Air 09/24/16 13:56 98.0 64 16 119/87 98 Physical Exam GENERAL: NAD, resting comfortably. SKIN: Focused skin assessment warm/dry. Surgical incision on the lower mid back from the laminectomy has some surrounding redness and swelling but no discharge. The dressing appears to be dry. HEAD: Atraumatic. Normocephalic. EYES: Pupils equal and round. No scleral icterus. No injection or drainage. ENT: No nasal bleeding or discharge. Mucous membranes pink and moist. NECK: Trachea midline. No JVD. CARDIOVASCULAR: Regular rate and rhythm. No murmur appreciated. RESPIRATORY: No accessory muscle use. Clear to auscultation. Breath sounds equal bilaterally. GASTROINTESTINAL: Abdomen soft, non-tender, nondistended. Hepatic and splenic margins not palpable. MUSCULOSKELETAL: No obvious deformities. No clubbing. No cyanosis. No edema. NEUROLOGICAL: Awake and alert. No obvious cranial nerve deficits. Normal speech. Inability to dorsiflex left foot. PSYCHIATRIC: Appropriate mood and affect; insight and judgment normal. Laboratory Laboratory Tests Test 09/24/16 15:05 White Blood Count 6.5 Red Blood Count 4.51 Hemoglobin 13.4 Hematocrit 40.8 Mean Corpuscular Volume 90.4 Mean Corpuscular Hemoglobin 29.7 Mean Corpuscular Hemoglobin 32.9 Concent Red Cell Distribution Width 13.2 Platelet Count 201 Mean Platelet Volume 7.7 Neutrophils (%) (Auto) 59.6 Lymphocytes (%) (Auto) 26.8 Monocytes (%) (Auto) 11.6 Eosinophils (%) (Auto) 1.5 Basophils (%) (Auto) 0.5 Neutrophils # (Auto) 3.9 Lymphocytes # (Auto) 1.7 Monocytes # (Auto) 0.8 Eosinophils # (Auto) 0.1 Basophils # (Auto) 0.0 CBC Comment DIFF FINAL Differential Comment Erythrocyte Sedimentation Rate 57 Sodium Level 136 Potassium Level 4.0 Chloride Level 101 Carbon Dioxide Level 28.7 Anion Gap 6 Blood Urea Nitrogen 9 Creatinine 0.65 Estimat Glomerular Filtration 93 Rate Random Glucose 90 Calcium Level 9.2 C-Reactive Protein 1.11 Date/Time Procedure Status Source Growth 09/24/16 15:05 Aerobic Blood Culture Received Blood Peripheral Pending 09/24/16 15:05 Anaerobic Blood Culture Received Blood Peripheral Pending Result Diagram: 09/24/16 1505 09/24/16 1505 Imaging Last Impressions Lumbar Spine MRI 09/24/16 0000 Signed Impressions: Service Date/Time: Saturday, September 24, 2016 17:36 - CONCLUSION: 1. Relatively stable size of enhancing fluid collection in the dorsal soft tissues just to the left of midline. 2. Enhancing epidural component at L3-4 dorsally does appear to be slightly decreased from September 14. 3. Stable to slight increase in fluid within the L3-4 disc interspace which could be related to postoperative change. No significant adjacent marrow signal abnormalities to suggest discitis or osteomyelitis. Conus intact. Shayne Penn MD Assessment and Plan Assessment and Plan Epidural abscess The pt is status post L3 L4 L5 hemilaminotomies with L3-L4 and L4-L5 medial facetectomy and foraminotomy, L4-L5 microdiscectomy, lumbar wound incision and debridement subcutaneous abscess evacuation. She returns to the hospital for leakage from the surgical site as well as fevers. Neurosurgery consult appreciated. MRI showed: Relatively stable size of enhancing fluid collection in the dorsal soft tissues just to the left of midline; Enhancing epidural component at L3-4 dorsally does appear to be slightly decreased from September 14; Stable to slight increase in fluid within the L3-4 disc interspace which could be related to postoperative change; No significant adjacent marrow signal abnormalities to suggest discitis or osteomyelitis; Conus intact. - Continue IV antibiotics. On ceftriaxone 2 g IV daily. - follow blood cultures. - follow up with neurosurgery. - ID consult requested. - physical therapy. - pain control with a bowel regimen. Foot drop The patient complained of left foot drop secondary to the initial surgery. - Follow up with neurosurgery. - Continue physical therapy. Schizoaffective disorder Mood is stable at this time. - continue home meds. PPx: SCDs. Code Status Full. Discussed Condition With Pt. Physician Certification 2 Midnight Certification Type: Admission for Inpatient Services Order for Inpatient Services The services are ordered in accordance with Medicare regulations or non- Medicare payer requirements, as applicable. In the case of services not specified as inpatient-only, they are appropriately provided as inpatient services in accordance with the 2-midnight benchmark. Estimated LOS (days): 2 days is the estimated time the patient will need to remain in the hospital, assuming treatment plan goals are met and no additional complications. Post-Hospital Plan: Home Ja Mak DO September 24, 2016 22:01
[2016-09-24] MEDS ORDERED: ACETAMINOPHEN/HYDROcodone 325 MG/5 MG TAB PO PRN (22:15)
[2016-09-24] MEDS: MORPHINE SULFATE 4 MG/ML INJ IV PRN (23:08)
[2016-09-25] VITALS (7 sets, daily range): BP systolic 119–132; BP diastolic 66–97; PULSE 64–76; RESP 15–20; TEMP 97.7–98.6; O2SAT 92–95
[2016-09-25] MEDS: DOCUSATE SODIUM 100 MG CAP PO SCH ×2 (00:58→20:58)
[2016-09-25] MEDS: LURASIDONE 40 MG TAB PO SCH ×2 (00:58→21:00)
[2016-09-25] MEDS: MORPHINE SULFATE 4 MG/ML INJ IV PRN ×4 (04:11→17:31)
[2016-09-25] MEDS: GABAPENTIN 300 MG CAP PO SCH ×3 (08:11→17:31)
[2016-09-25] MEDS: PANTOPRAZOLE SOD 40 MG DELAYED RELEASE TAB PO SCH (08:11)
[2016-09-25] MEDS: buPROPion HCL 100 MG TAB PO SCH (08:11)
[2016-09-25] MEDS: ESCITALOPRAM OXALATE 10 MG TAB PO SCH (08:11)
[2016-09-25] MEDS: SENNOSIDES 8.6 MG TAB PO SCH (08:11)
[2016-09-25] MEDS: PROPRANOLOL HCL 10 MG TAB PO SCH ×2 (08:11→21:00)
[2016-09-25] MEDS: cefTRIAXone INJ 2,000 MG in SODIUM CHLORIDE 0.9% INJ 100 ML IV SCH (08:12)
[2016-09-25] MEDS: FLUTICASONE PROPIONATE 50 MCG/ACT 16 GM NASAL SPRAY EACH NARE SCH (08:12)
[2016-09-25] MEDS: SODIUM CHLORIDE 0.9% FLUSH 10 ML FLUSH IV FLUSH SCH ×2 (08:13→21:00)
[2016-09-25 08:19] LABS: AUTOMATED NEUTROPHIL # 2.6 TH/MM3 (1.8-7.7); BASOPHIL % 0.4 % (0.0-2.0); EOSINOPHIL # 0.1 TH/MM3 (0-0.4); HEMATOCRIT 39.6 % (35.0-46.0); HEMO FLAGS DIFF FINAL; LYMPH % 26.3 % (9.0-44.0); LYMPHOCYTE # 1.2 TH/MM3 (1.0-4.8); MEAN CELL VOLUME 90.4 FL (80.0-100.0); MEAN CORPUSCULAR HEMOGLOBIN 31.1 PG (27.0-34.0); MEAN CORPUSCULAR HGB CONC 34.4 % (32.0-36.0); MONO % 11.9 % (0.0-8.0); NEUT % 59.4 % (16.0-70.0); PLATELET COUNT 173 TH/MM3 (150-450); RED BLOOD COUNT 4.38 MIL/MM3 (4.00-5.30); RED CELL DISTRIBUTION WIDTH 13.4 % (11.6-17.2); WHITE BLOOD COUNT 4.4 TH/MM3 (4.0-11.0)
--- NOTE | 2016-09-25 11:56 | HHI.NSPN ---
(Tania Carrillo) Note Status Status: Progress Note (Tania Carrillo) Interval History Interval History Ms. Smith is a 60 y/o female who initially underwent a L3-4, L4-5 left hemilaminectomy and microdiscectomy on 09/07/16. She presented to the ED two weeks ago due to wound drainage. Cultures positive for Enterobacter Colace, and she underwent a redo laminectomy with irrigation and debridement with Dr. Salinas on 09/17/16. A PICC line was placed and the patient was subsequently discharged on IV antibiotics. She was doing well until she noted recurrent wound drainage and fevers and returned to the Emergency Room for evaluation. She also reports of moderate lumbar and pain in the left hamstrings. 09/25: MRI L spine w/wo contrast completed. Afebrile, normal WBCs. (Tania Carrillo) Labs, Micro, & Vital Signs Results Date Time Temp Pulse Resp B/P Pulse Ox O2 Delivery O2 Flow Rate FiO2 09/25/16 08:31 98.6 76 15 127/74 94 09/25/16 05:59 97.7 67 18 125/89 92 09/25/16 04:17 18 09/25/16 00:35 97.8 64 20 119/66 93 09/24/16 21:58 97.0 63 18 112/64 94 09/24/16 18:23 98.0 56 18 122/78 92 09/24/16 14:53 66 17 146/92 95 Room Air 09/24/16 13:56 98.0 64 16 119/87 98 Constitutional Vital Signs Date Time Temp Pulse Resp B/P Pulse Ox O2 Delivery O2 Flow Rate FiO2 09/25/16 08:31 98.6 76 15 127/74 94 09/25/16 05:59 97.7 67 18 125/89 92 09/25/16 04:17 18 09/25/16 00:35 97.8 64 20 119/66 93 09/24/16 21:58 97.0 63 18 112/64 94 09/24/16 18:23 98.0 56 18 122/78 92 09/24/16 14:53 66 17 146/92 95 Room Air 09/24/16 13:56 98.0 64 16 119/87 98 (Tania Carrillo) Review of Systems/Exam Exam Awake, alert. Resting comfortably. Neck: soft, supple. Motor: 1-2/5 left dorsiflexion, 2/5 left EHL, moves other extremities well (Tania Carrillo) Medications Current Medications Current Medications Medications (Trade) Dose Ordered Sig/Sen Route PRN Reason Start Time Stop Time Status Last Admin Dose Admin Sodium Chloride (NS Flush) 2 ml UNSCH PRN IV FLUSH FLUSH AFTER USING IV ACCESS 09/24/16 17:15 Sodium Chloride (NS Flush) 2 ml BID IV FLUSH 09/24/16 21:00 09/25/16 08:13 Acetaminophen (Tylenol) 650 mg Q4H PRN PO TEMP > 100.4 09/24/16 17:15 Ondansetron HCl (Zofran Inj) 4 mg Q6H PRN IVP NAUSEA OR VOMITING 09/24/16 17:15 Magnesium Hydroxide (Milk Of Magnarsenio Liq) 30 ml Q12H PRN PO CONSTIPATION 09/24/16 17:15 Acetaminophen (Tylenol) 650 mg Q6H PRN PO PAIN SCALE 1 TO 2 09/24/16 17:15 Naloxone HCl (Narcan Inj) 0.4 mg UNSCH PRN IV SEE LABEL COMMENTS 09/24/16 17:15 Bupropion HCl (Wellbutrin) 100 mg DAILY PO 09/25/16 09:00 09/25/16 08:11 Diazepam (Valium) 5 mg HS PRN PO ANXIETY 09/24/16 21:45 Docusate Sodium (Colace) 200 mg HS PO 09/24/16 21:45 09/25/16 00:58 Escitalopram Oxalate (Lexapro) 10 mg DAILY PO 09/25/16 09:00 09/25/16 08:11 Fluticasone Propionate (Flonase Eagle Spr) 2 spray DAILY EACH NARE 09/25/16 09:00 09/25/16 08:12 Lurasidone HCl (Latuda) 40 mg HS PO 09/24/16 21:45 09/25/16 00:58 Pantoprazole Sodium (Protonix) 40 mg DAILY PO 09/25/16 09:00 09/25/16 08:11 Propranolol HCl 10 mg 10 mg Q12HR PO 09/25/16 09:00 09/25/16 08:11 Ceftriaxone Sodium/Sodium Chloride (Rocephin Inj/NS Inj) 100 ml @ 200 mls/hr Q24H IV 09/25/16 09:00 09/25/16 08:12 Morphine Sulfate (Morphine Inj) 4 mg Q4H PRN IV Breakthrough pain 09/25/16 00:15 09/25/16 13:11 Acetaminophen/ Hydrocodone Bitart ([place] 5-325 Mg) 1 tab Q4H PRN PO pain 1-5 09/24/16 22:15 Acetaminophen/ Hydrocodone Bitart ([place] 10-325 Mg) 1 tab Q4H PRN PO pain 6-10 09/24/16 22:15 Sennosides (Senokot) 17.2 mg DAILY PO 09/25/16 09:00 09/25/16 08:11 Gabapentin (Neurontin) 600 mg TID PO 09/25/16 18:00 (Tania Carrillo) Medical Decision Making MDM Remarks 60 y/o female with wound drainage, r/o recurrent abscess (Tania Carrillo) Plan Plan Remarks f/u MRI L spine reviewed by Dr. Desouza, recommends CT guided aspiration of fluid collection for repeat cultures cont IV antibiotics SCDs and TEDS for dvt prophylaxis (Tania Carrillo) Attending Statement The exam, history, and the medical decision-making described in the above note were completed with the assistance of the mid-level provider. I reviewed and agree with the findings presented. I attest that I had a [id number] encounter with the patient on the same day, and personally performed and documented my assessment and findings in the medical record. (London Desouza MD) Tania Carrillo September 25, 2016 11:56 London Desouza MD October 01, 2016 12:40
--- NOTE | 2016-09-25 13:38 | HHI.PR ---
Subjective Remarks Patient seen for follow-up post-op fever. 09/25/16-patient seen this afternoon. No acute events overnight. Vitals WNL. Lynn does c/o continued LLE pain. Pain medication does wear off around 1 hour before next dose. She wants to know if she can resume PO regimen. Also wants to know if gabapentin can be increased at night. No other complaints today. Denies any F/C, BRIAN, vision change, N/V, or new numbness/weakness in the extremities. Objective Vitals Vital Signs Date Time Temp Pulse Resp B/P Pulse Ox O2 Delivery O2 Flow Rate FiO2 09/25/16 08:31 98.6 76 15 127/74 94 09/25/16 05:59 97.7 67 18 125/89 92 09/25/16 04:17 18 09/25/16 00:35 97.8 64 20 119/66 93 09/24/16 21:58 97.0 63 18 112/64 94 09/24/16 18:23 98.0 56 18 122/78 92 09/24/16 14:53 66 17 146/92 95 Room Air 09/24/16 13:56 98.0 64 16 119/87 98 I/O 09/24/16 09/24/16 09/24/16 09/25/16 09/25/16 09/25/16 06:59 14:59 22:59 06:59 14:59 22:59 Intake Total 0 ml Balance 0 ml Intake IV Total 0 ml # Voids 1 Result Diagram: 09/25/16 0730 09/24/16 1505 Objective Remarks GENERAL: NAD, resting comfortably. SKIN: Focused skin assessment warm/dry. Surgical incision on the lower mid back from the laminectomy has some surrounding redness and swelling but no discharge. The dressing appears to be dry. HEAD: Atraumatic. Normocephalic. CARDIOVASCULAR: Regular rate and rhythm. No murmur appreciated. RESPIRATORY: No accessory muscle use. Clear to auscultation. Breath sounds equal bilaterally. GASTROINTESTINAL: Abdomen soft, non-tender, nondistended. Hepatic and splenic margins not palpable. MUSCULOSKELETAL: No obvious deformities. No clubbing. No cyanosis. No edema. NEUROLOGICAL: Awake and alert. No obvious cranial nerve deficits. Normal speech. Inability to dorsiflex left foot. PSYCHIATRIC: Appropriate mood and affect; insight and judgment normal. A/P Problem List: (1) Spinal epidural abscess ICD Code: G06.1 Status: Acute (2) Schizoaffective disorder ICD Code: F25.9 Status: Acute (3) Postoperative fever ICD Code: R50.82 Status: Acute (4) Foot drop ICD Code: M21.379 Status: Acute Assessment and Plan The pt is status post L3 L4 L5 hemilaminotomies with L3-L4 and L4-L5 medial facetectomy and foraminotomy, L4-L5 microdiscectomy, lumbar wound incision and debridement subcutaneous abscess evacuation. She returns to the hospital for leakage from the surgical site as well as fevers. Neurosurgery consult appreciated. MRI showed: Relatively stable size of enhancing fluid collection in the dorsal soft tissues just to the left of midline; Enhancing epidural component at L3-4 dorsally does appear to be slightly decreased from September 14; Stable to slight increase in fluid within the L3-4 disc interspace which could be related to postoperative change; No significant adjacent marrow signal abnormalities to suggest discitis or osteomyelitis; Conus intact. - Continue IV antibiotics. On ceftriaxone 2 g IV daily. - follow blood cultures. - neurosurgery consulted. Recommending CT-guided aspiration of spinal fluid for cx. - ID consult requested. - physical therapy has evaluated. Recommend home with no PT. - change to norco for pain control with morphine for breakthrough - increase gabapentin to 600mg TID Foot drop: the patient complained of left foot drop secondary to the initial surgery. - Follow up with neurosurgery. - Continue physical therapy. Schizoaffective disorder: mood is stable at this time. - continue home meds. PPx: Kaila. Cruzito Mosley MD R3 September 25, 2016 13:38
--- NOTE | 2016-09-25 13:55 | MB ---
cc: LOUIE YOON MD, MATTHEW DATE OF CONSULTATION: 09/25/[address] Baltazar REASON FOR CONSULTATION Surgical wound infection, epidural abscess. HISTORY OF PRESENT ILLNESS This is a 60-year-old white female who is known to me from recent hospitalization. The patient was recently discharged from the hospital on IV antibiotics for treatment of epidural abscess. A culture grew out Enterobacter cloacae. She was discharged on IV antibiotics to be given by a PICC catheter. The antibiotics are to be continued until October 30, 2016. The patient followed up with her primary care physician yesterday and after she got home from that visit she noted wetness on her clothing and the chair in which she was sitting at the back. She presented to the emergency department because she said it drained some more after that and she was having low grade fever over the past couple of days. She noted that her temperature was approximately 99.9 degrees at home. She did not have any dizziness and she had very mild pain in the back. She was evaluated in the emergency department and admitted and continued on the antibiotic which she was receiving. Her previous culture from the last hospitalization grew out Enterobacter cloacae. The patient had recent hemilaminectomy and microdiscectomy on 09/07/2016 at the L3-L4 and L4-L5 level. She also had a redo laminectomy with irrigation and debridement on 09/17/2016. Currently she feels okay. She is currently n.p.o. A lumbar spine MRI was performed and it shows stable to slight increase in fluid within the L3-L4 disc interspace. The patient has been afebrile since yesterday afternoon when she was admitted. The white blood cell count is normal. PAST MEDICAL HISTORY 1. Schizoaffective disorder. 2. Hepatitis C. 3. Cholecystectomy. 4. Fibromyalgia. 5. Right fallopian tube resection. 6. Recent L3-L4 and L4-L5 hemilaminectomy with redo hemilaminectomy on 09/17/2016. ALLERGIES SULFA. MEDICATIONS 1. Ceftriaxone. 2. Inderal. 3. Protonix. 4. Neurontin. 5. Flonase. 6. Lexapro. 7. Wellbutrin. 8. Senokot. 9. Morphine sulfate p.r.n. 10.Latuda. 11.Colace. 12.Valium p.r.n. SOCIAL HISTORY Positive tobacco use. No alcohol. No illicit drugs. FAMILY HISTORY Noncontributory. REVIEW OF SYSTEMS GENERAL: Significant for fever. No chills. HEAD, EYES, EARS, NOSE, AND THROAT: No visual blurring or diplopia. No difficulty swallowing or soreness of the throat. NECK: No neck pain or swelling. CARDIOVASCULAR: No palpitation or chest pain. RESPIRATORY: No cough or shortness of breath. GASTROINTESTINAL: No nausea or vomiting, abdominal pain or diarrhea. GENITOURINARY: No urgency, frequency or dysuria. MUSCULOSKELETAL: Significant for mild pain in the lower back. No joint pains. ENDOCRINE: No polyuria or polydipsia. HEMAPOIETIC: No easy bruising or bleeding. NEUROLOGIC: No problems with coordination or gait problems. PSYCHIATRIC: No mood changes. INTEGUMENTARY: No skin rash or itching. PHYSICAL EXAMINATION GENERAL: This is a well-developed female who is in no acute distress. She is awake, alert and oriented. VITAL SIGNS: Temperature 98.6, blood pressure 127/74, respirations 15, heart rate 76. HEENT: Head is atraumatic. Extraocular movements grossly intact. Pupils reactive to light. No icterus. Oropharynx moist mucosa without lesions. NECK: Supple without adenopathy. LUNGS: Clear to auscultation. HEART: Regular rate and rhythm. No murmurs, rubs or gallops. ABDOMEN: Bowel sounds present. Soft. BACK: Surgical incision appears intact. No visible drainage. No erythema at the surgical site. No tenderness. RECTAL: Not performed. EXTREMITIES: No clubbing, cyanosis or edema. SKIN: No rash. PSYCHIATRIC: Patient calm and cooperative. LABORATORY WBC 4.4, platelet count 173, hemoglobin 13.6. Sedimentation rate 57. Creatinine 0.65, BUN 9, sodium 136. Blood cultures have no growth in one day. IMPRESSION 1. Lumbar spine epidural abscess. The patient is status post redo laminectomy. Culture grew out Enterobacter cloacae. 2. Recurrence of drainage from the lumbar region. 3. Fever. RECOMMENDATIONS 1. Continue ceftriaxone. 2. Follow-up on the aspiration which has been ordered from the back fluid collection and monitor the cultures to see if any different or additional antibiotics will be necessary. 3. Monitor the patient. Currently she appears stable and she has been afebrile since yesterday. Thank you for this consultation. I will monitor her progress and will make further recommendations if necessary. Louie Yoon MD FD/AMRITA /1:08 PM /1:42 PM
[2016-09-25] MEDS ORDERED: LIDOCAINE 1%/EPINEPHrine 1:100,000 SOLN 20 ML VIAL ONE (14:47)
[2016-09-25] MEDS ORDERED: fentaNYL CITRATE 250 MCG/5 ML AMP ONE (14:53)
[2016-09-25] MEDS ORDERED: MIDAZOLAM HCL 5 MG/5 ML VIAL ONE (14:53)
[2016-09-25] MEDS: ACETAMINOPHEN/HYDROcodone 325 MG/10 MG TAB PO PRN (21:00)
[2016-09-26] VITALS: BP 114/72; PULSE 67; RESP 18; TEMP 97.9; O2SAT 93
[2016-09-26 04:00] VITALS: BP 120/71; PULSE 68; RESP 18; TEMP 97.5; O2SAT 92
[2016-09-26] MEDS: MORPHINE SULFATE 4 MG/ML INJ IV PRN ×3 (06:23→18:27)
[2016-09-26 07:57] LABS: AUTOMATED NEUTROPHIL # 2.6 TH/MM3 (1.8-7.7); BASOPHIL % 0.5 % (0.0-2.0); EOSINOPHIL # 0.1 TH/MM3 (0-0.4); EOSINOPHIL % 1.8 % (0.0-4.0); HEMATOCRIT 40.3 % (35.0-46.0); HEMO FLAGS DIFF FINAL; LYMPH % 24.6 % (9.0-44.0); LYMPHOCYTE # 1.1 TH/MM3 (1.0-4.8); MEAN CELL VOLUME 90.6 FL (80.0-100.0); MEAN CORPUSCULAR HGB CONC 34.2 % (32.0-36.0); MONO % 12.2 % (0.0-8.0); NEUT % 60.9 % (16.0-70.0); PLATELET COUNT 182 TH/MM3 (150-450); RED BLOOD COUNT 4.44 MIL/MM3 (4.00-5.30); RED CELL DISTRIBUTION WIDTH 13.4 % (11.6-17.2); WHITE BLOOD COUNT 4.3 TH/MM3 (4.0-11.0)
[2016-09-26 08:00] VITALS: BP 119/81; PULSE 72; RESP 18; TEMP 99.1; O2SAT 95
[2016-09-26 08:16] LABS: BICARBONATE 31.5 MEQ/L (21.0-32.0); POTASSIUM 4.3 MEQ/L (3.5-5.1)
[2016-09-26] MEDS: PANTOPRAZOLE SOD 40 MG DELAYED RELEASE TAB PO SCH (08:45)
[2016-09-26] MEDS: buPROPion HCL 100 MG TAB PO SCH (08:45)
[2016-09-26] MEDS: ESCITALOPRAM OXALATE 10 MG TAB PO SCH (08:46)
[2016-09-26] MEDS: GABAPENTIN 300 MG CAP PO SCH ×3 (08:46→17:00)
[2016-09-26] MEDS: PROPRANOLOL HCL 10 MG TAB PO SCH ×2 (08:46→21:00)
[2016-09-26] MEDS: SENNOSIDES 8.6 MG TAB PO SCH (08:46)
[2016-09-26] MEDS: FLUTICASONE PROPIONATE 50 MCG/ACT 16 GM NASAL SPRAY EACH NARE SCH (08:47)
[2016-09-26] MEDS: SODIUM CHLORIDE 0.9% FLUSH 10 ML FLUSH IV FLUSH SCH ×2 (08:47→21:08)
[2016-09-26] MEDS: cefTRIAXone INJ 2,000 MG in SODIUM CHLORIDE 0.9% INJ 100 ML IV SCH (08:47)
--- NOTE | 2016-09-26 08:47 | RADRPT ---
EXAM DATE/TIME: 09/25/2016 15:00 [facility] COMPARISON: CT GUIDED ASPIRATION, September 14, 2016, 16:30. INDICATIONS : Lumbar abscess. SEDATION TIME: 30 minutes MEDICATION(S): 1.) 3 mg midazolam (Versed) IV 2.) 150 mcg fentanyl (Sublimaze) IV DEVICE(S): 1.) 8 Fr Skater FLUID: Total volume of 10 cc of clear, red fluid was removed. Fluid was sent for laboratory ordered studies. MEDICAL HISTORY : None. SURGICAL HISTORY : Tubal ligation. Cholecystecomy. ENCOUNTER: Subsequent ACUITY: 1 month PAIN SCORE: 0/10 LOCATION: lower back PROCEDURE: 1.) Conscious sedation with continuous EKG and oximetry monitoring. 2.) EKG and oximetry remained stable throughout the procedure. PROCEDURE : 1. CT guided drainage of the paraspinal abscess 2. Conscious sedation with continuous EKG and oximetry monitoring. The risks, benefits and alternatives to the procedure were explained and verbal and written consent w as obtained. Using automated exposure control and adjustment of the mA and/or kV according to patient size, radiation dose was kept as low as reasonably achievable to obtain optimal diagnostic quality i mages. The site was prepped in sterile fashion. Full sterile technique was used, including cap, ma sk, sterile gloves and gown and a large sterile sheet. Hand hygiene and 2% chlorhexidine and/or beta dine/alcohol prep was utilized per protocol for cutaneous antisepsis. The skin and subcutaneous tiss ues were infiltrated with local anesthetic solution. Using CT guidance the prescribed site was localized. Drainage was performed using the prescribed cat heter The patient tolerated the procedure well and there were no complications. Conscious sedation was per formed with the prescribed dosages and duration as above in the presence of an independent trained ra diology nurse to assist in the monitoring of the patient. EKG and oximetry remained stable throughou t the procedure. The patient tolerated the procedure well and there were no complications. The patient was sent to pos t anesthesia recovery in stable condition. CONCLUSION: Uncomplicated CT guided drainage of paraspinal abscess. Osman Antonio MD on September 26, 2016 at 8:44 Board Certified Radiologist. This report was verified electronically.
[2016-09-26] MEDS: ACETAMINOPHEN/HYDROcodone 325 MG/10 MG TAB PO PRN ×3 (10:45→21:09)
[2016-09-26 12:00] VITALS: BP 136/87; PULSE 65; RESP 18; TEMP 98.9; O2SAT 95
--- NOTE | 2016-09-26 12:50 | RADRPT ---
EXAM DATE/TIME: 09/26/2016 11:49 [facility] COMPARISON: No previous studies available for comparison. INDICATIONS : Post epidural abscess drain, fever and drainage from site. RADIATION DOSE: 35.86 CTDIvol (mGy) MEDICAL HISTORY : None SURGICAL HISTORY : Laminectomy ENCOUNTER: Initial ACUITY: 3 days PAIN SCALE: 2/10 LOCATION: Paraspinal TECHNIQUE: Volumetric scanning of the lumbar spine was performed. Multiplanar reconstructions in the sagittal, coronal and oblique axial planes were performed. Using automated exposure control and adjustment of the mA and/or kV according to patient size, radiation dose was kept as low as reasonably achievable t o obtain optimal diagnostic quality images. FINDINGS: Postsurgical changes of a left laminotomy at L3 and a left laminectomy at L4-5. Tract of air is seen from the laminectomy site and left epidural space around L4 extending posteriorly to the skin surface and is most characteristic of the prior tube tract. There is a very small, 1.7 cm fluid collection p osterior to the spinous process of L3 which shows adjacent air and was likely included in the acute t ract. I don't believe that this is sufficient time to warrant repeat drainage. Vacuum disc phenomenon at the lumbosacral junction. Small, 2 mm nonobstructing calculus in the collecting system of the lef t kidney. Detail axial images as follows: T12-L1: The thecal sac has a normal diameter. No evidence of disc bulge or protrusion. The neural foramina are patent bilaterally. L1-L2: The thecal sac has a normal diameter. No evidence of disc bulge or protrusion. The neural foramina are patent bilaterally. L2-L3: The thecal sac has a normal diameter. No evidence of disc bulge or protrusion. The neural foramina are patent bilaterally. L3-L4: Left laminotomy at L3 with a laminectomy leftward L4. Tract of air extends into the left L4 epidural space and there is some haziness of the epidural fat around the left L4 nerve root which is almost ce rtainly postsurgical. Spinal canal remains patent. L4-L5: The thecal sac has a normal diameter. No evidence of disc bulge or protrusion. The neural foramina are patent bilaterally. L5-S1: The thecal sac has a normal diameter. No evidence of disc bulge or protrusion. The neural foramina are patent bilaterally. CONCLUSION: 1. Postsurgical changes with a laminotomy left of L3 and a left-sided laminectomy at L4. 2. Tract of air in the soft tissues of the back extending from the left epidural space of L4 posterio rly to the skin surface is characteristic of the previous tube tract. 3. Very small, 1.7 cm fluid collection posterior to the L3 spinous process. I don't believe that this is sufficient enough to warrant further drainage. 4. Haziness of the epidural fat around the left L4 nerve root is almost certainly postsurgical. 5. Spinal canal and neural foramina are otherwise patent at all remaining levels. Jacob Mccollum MD on September 26, 2016 at 12:36 Board Certified Radiologist. This report was verified electronically.
--- NOTE | 2016-09-26 13:13 | HHI.IDPN ---
Note Infectious Disease Note Patient notes pain in the r. hip after ambulating. Also has pain in the back. Drainage catheter was placed into lumbar region yesterday. Little serous drainage. Drainage catheter fell out. Afebrile. Notes vaginal itching. Wound culture pending. PAST MEDICAL HISTORY 1. Schizoaffective disorder. 2. Hepatitis C. 3. Cholecystectomy. 4. Fibromyalgia. 5. Right fallopian tube resection. 6. Recent L3-L4 and L4-L5 hemilaminectomy with redo hemilaminectomy on 09/17/2016. ALLERGIES SULFA. ANTIBIOTICS Ceftriaxone. OBJECTIVE: Vital Signs Date Time Temp Pulse Resp B/P Pulse Ox O2 Delivery O2 Flow Rate FiO2 09/26/16 12:00 98.9 65 18 136/87 95 09/26/16 08:00 99.1 72 18 119/81 95 09/26/16 06:30 18 09/26/16 04:00 97.5 68 18 120/71 92 09/26/16 00:00 97.9 67 18 114/72 93 09/25/16 22:13 19 09/25/16 20:00 98.1 75 18 119/83 94 09/25/16 16:30 98.0 66 17 132/97 95 09/25/16 16:25 66 17 124/72 92 09/25/16 16:10 98.6 68 18 126/85 94 09/25/16 09/25/16 09/26/16 15:00 23:00 07:00 Intake Total 100 ml 960 ml 720 ml Output Total 4 ml Balance 100 ml 960 ml 716 ml Intake Oral 960 ml 720 ml IV Total 100 ml Output Drainage Total 4 ml # Voids 3 4 3 # Bowel Movements 1 Laboratory Tests Test 09/24/16 09/25/16 09/26/16 15:05 07:30 06:31 White Blood Count 6.5 TH/MM3 4.4 TH/MM3 4.3 TH/MM3 Red Blood Count 4.51 MIL/MM3 4.38 MIL/MM3 4.44 MIL/MM3 Hemoglobin 13.4 GM/DL 13.6 GM/DL 13.7 GM/DL Hematocrit 40.8 % 39.6 % 40.3 % Mean Corpuscular Volume 90.4 FL 90.4 FL 90.6 FL Mean Corpuscular Hemoglobin 29.7 PG 31.1 PG 31.0 PG Mean Corpuscular Hemoglobin 32.9 % 34.4 % 34.2 % Concent Red Cell Distribution Width 13.2 % 13.4 % 13.4 % Platelet Count 201 TH/MM3 173 TH/MM3 182 TH/MM3 Mean Platelet Volume 7.7 FL 7.5 FL 7.4 FL Neutrophils (%) (Auto) 59.6 % 59.4 % 60.9 % Lymphocytes (%) (Auto) 26.8 % 26.3 % 24.6 % Monocytes (%) (Auto) 11.6 % 11.9 % 12.2 % Eosinophils (%) (Auto) 1.5 % 2.0 % 1.8 % Basophils (%) (Auto) 0.5 % 0.4 % 0.5 % Neutrophils # (Auto) 3.9 TH/MM3 2.6 TH/MM3 2.6 TH/MM3 Lymphocytes # (Auto) 1.7 TH/MM3 1.2 TH/MM3 1.1 TH/MM3 Monocytes # (Auto) 0.8 TH/MM3 0.5 TH/MM3 0.5 TH/MM3 Eosinophils # (Auto) 0.1 TH/MM3 0.1 TH/MM3 0.1 TH/MM3 Basophils # (Auto) 0.0 TH/MM3 0.0 TH/MM3 0.0 TH/MM3 CBC Comment DIFF FINAL DIFF FINAL DIFF FINAL Differential Comment Erythrocyte Sedimentation Rate 57 mm/hr Laboratory Tests Test 09/24/16 09/26/16 15:05 06:31 Sodium Level 136 MEQ/L 142 MEQ/L Potassium Level 4.0 MEQ/L 4.3 MEQ/L Chloride Level 101 MEQ/L 105 MEQ/L Carbon Dioxide Level 28.7 MEQ/L 31.5 MEQ/L Anion Gap 6 MEQ/L 6 MEQ/L Blood Urea Nitrogen 9 MG/DL 9 MG/DL Creatinine 0.65 MG/DL 0.63 MG/DL Estimat Glomerular Filtration 93 ML/MIN 97 ML/MIN Rate Random Glucose 90 MG/DL 119 MG/DL Calcium Level 9.2 MG/DL 9.8 MG/DL C-Reactive Protein 1.11 MG/DL Microbiology Date/Time Procedure Status Source Growth 09/24/16 15:00 Aerobic Blood Culture - Preliminary Resulted Blood Peripheral NO GROWTH IN 2 DAYS 09/24/16 15:00 Anaerobic Blood Culture - Preliminary Resulted Blood Peripheral NO GROWTH IN 2 DAYS 09/24/16 15:05 Aerobic Blood Culture - Preliminary Resulted Blood Peripheral NO GROWTH IN 2 DAYS 09/24/16 15:05 Anaerobic Blood Culture - Preliminary Resulted Blood Peripheral NO GROWTH IN 2 DAYS 09/25/16 15:40 Gram Stain - Final Resulted Wound Back 09/25/16 15:40 Wound Culture - Preliminary Resulted Wound Back NO GROWTH IN 24 HOURS. IMAGING: Abscess Drainage CT 09/25/16 0000 Signed Impressions: Service Date/Time: Sunday, September 25, 2016 15:00 - CONCLUSION: Uncomplicated CT guided drainage of paraspinal abscess. Osman Antonio MD Lumbar Spine MRI 09/24/16 0000 Signed Impressions: Service Date/Time: Saturday, September 24, 2016 17:36 - CONCLUSION: 1. Relatively stable size of enhancing fluid collection in the dorsal soft tissues just to the left of midline. 2. Enhancing epidural component at L3-4 dorsally does appear to be slightly decreased from September 14. 3. Stable to slight increase in fluid within the L3-4 disc interspace which could be related to postoperative change. No significant adjacent marrow signal abnormalities to suggest discitis or osteomyelitis. Conus intact. Shayne Penn MD PHYSICAL EXAMINATION GENERAL: This is a well-developed female who is in no acute distress. She is awake, alert and oriented. HEENT: No icterus. Oropharynx moist mucosa without lesions. NECK: Supple without adenopathy. LUNGS: Clear to auscultation. HEART: Regular rate and rhythm. No murmurs, rubs or gallops. ABDOMEN: Bowel sounds present. Soft. BACK: Surgical incision appears intact. No visible drainage. No erythema at the surgical site. No tenderness. EXTREMITIES: No clubbing, cyanosis or edema. SKIN: No rash. PSYCHIATRIC: Patient calm and cooperative. IMPRESSION 1. Lumbar spine epidural abscess. The patient is status post redo laminectomy. Culture grew out Enterobacter cloacae. 2. Recurrence of drainage from the lumbar region/wound. 3. Fever. RECOMMENDATIONS 1. Continue ceftriaxone. 2. Monitor wound culture. 3. Monitor clinically. 4. Once culture become final, outpatient IV antibiotics can be arranged. Eitan Yoon MD September 26, 2016 13:13
[2016-09-26] MEDS: FLUCONAZOLE 100 MG TAB PO SCH (15:44)
[2016-09-26 16:00] VITALS: BP 111/73; PULSE 68; RESP 17; TEMP 97.9; O2SAT 93
--- NOTE | 2016-09-26 16:35 | HHI.NSPN ---
(Tania Carrillo) Note Status Status: Progress Note (Tania Carrillo) Interval History Interval History Ms. Smith is a 60 y/o female who initially underwent a L3-4, L4-5 left hemilaminectomy and microdiscectomy on 09/07/16. She presented to the ED two weeks ago due to wound drainage. Cultures positive for Enterobacter Colace, and she underwent a redo laminectomy with irrigation and debridement with Dr. Salinas on 09/17/16. A PICC line was placed and the patient was subsequently discharged on IV antibiotics. She was doing well until she noted recurrent wound drainage and fevers and returned to the Emergency Room for evaluation. She also reports of moderate lumbar and pain in the left hamstrings. 09/25: MRI L spine w/wo contrast completed. Afebrile, normal WBCs. 09/26: Lumbar drain was pulled earlier this morning, follow up CT L-spine completed. So far repeat cultures of fluid collection shows no growth. (Tania Carrillo) Labs, Micro, & Vital Signs Results Date Time Temp Pulse Resp B/P Pulse Ox O2 Delivery O2 Flow Rate FiO2 09/26/16 16:00 97.9 68 17 111/73 93 09/26/16 12:00 98.9 65 18 136/87 95 09/26/16 08:00 99.1 72 18 119/81 95 09/26/16 06:30 18 09/26/16 04:00 97.5 68 18 120/71 92 09/26/16 00:00 97.9 67 18 114/72 93 09/25/16 22:13 19 09/25/16 20:00 98.1 75 18 119/83 94 09/26/16 07:00 Intake Total 1780 ml Output Total 4 ml Balance 1776 ml Constitutional Vital Signs Date Time Temp Pulse Resp B/P Pulse Ox O2 Delivery O2 Flow Rate FiO2 09/26/16 16:00 97.9 68 17 111/73 93 09/26/16 12:00 98.9 65 18 136/87 95 09/26/16 08:00 99.1 72 18 119/81 95 09/26/16 06:30 18 09/26/16 04:00 97.5 68 18 120/71 92 09/26/16 00:00 97.9 67 18 114/72 93 09/25/16 22:13 19 09/25/16 20:00 98.1 75 18 119/83 94 09/26/16 07:00 Intake Total 1780 ml Output Total 4 ml Balance 1776 ml (Tania Carrillo) Review of Systems/Exam Exam Area of small dehiscence along the incision, sutures intact. Her current dressing was removed, the gauze was noted to be wet. No active drainage seen from incision site. Alert, and oriented. Conversing well and appropriate. CN: pupils equal, facial motor symmetric. Neck: soft, supple. Motor: 1-2/5 left dorsiflexion, 2/5 left EHL, moves other extremities well (Tania Carrillo) Medications Current Medications Current Medications Medications (Trade) Dose Ordered Sig/Sen Route PRN Reason Start Time Stop Time Status Last Admin Dose Admin Sodium Chloride (NS Flush) 2 ml UNSCH PRN IV FLUSH FLUSH AFTER USING IV ACCESS 09/24/16 17:15 Sodium Chloride (NS Flush) 2 ml BID IV FLUSH 09/24/16 21:00 09/26/16 08:47 Acetaminophen (Tylenol) 650 mg Q4H PRN PO TEMP > 100.4 09/24/16 17:15 Ondansetron HCl (Zofran Inj) 4 mg Q6H PRN IVP NAUSEA OR VOMITING 09/24/16 17:15 Magnesium Hydroxide (Milk Of Magnesia Liq) 30 ml Q12H PRN PO CONSTIPATION 09/24/16 17:15 Acetaminophen (Tylenol) 650 mg Q6H PRN PO PAIN SCALE 1 TO 2 09/24/16 17:15 Naloxone HCl (Narcan Inj) 0.4 mg UNSCH PRN IV SEE LABEL COMMENTS 09/24/16 17:15 Bupropion HCl (Wellbutrin) 100 mg DAILY PO 09/25/16 09:00 09/26/16 08:45 Diazepam (Valium) 5 mg HS PRN PO ANXIETY 09/24/16 21:45 Docusate Sodium (Colace) 200 mg HS PO 09/24/16 21:45 09/25/16 20:58 Escitalopram Oxalate (Lexapro) 10 mg DAILY PO 09/25/16 09:00 09/26/16 08:46 Fluticasone Propionate (Flonase [place] Spr) 2 spray DAILY EACH NARE 09/25/16 09:00 09/26/16 08:47 Lurasidone HCl (Latuda) 40 mg HS PO 09/24/16 21:45 09/25/16 21:00 Pantoprazole Sodium (Protonix) 40 mg DAILY PO 09/25/16 09:00 09/26/16 08:45 Propranolol HCl 10 mg 10 mg Q12HR PO 09/25/16 09:00 09/26/16 08:46 Ceftriaxone Sodium/Sodium Chloride (Rocephin Inj/NS Inj) 100 ml @ 200 mls/hr Q24H IV 09/25/16 09:00 09/26/16 08:47 Morphine Sulfate (Morphine Inj) 4 mg Q4H PRN IV Breakthrough pain 09/25/16 00:15 09/26/16 12:46 Acetaminophen/ Hydrocodone Bitart ([place] 5-325 Mg) 1 tab Q4H PRN PO pain 1-5 09/24/16 22:15 Acetaminophen/ Hydrocodone Bitart ([place] 10-325 Mg) 1 tab Q4H PRN PO pain 6-10 09/24/16 22:15 09/26/16 10:45 Sennosides (Senokot) 17.2 mg DAILY PO 09/25/16 09:00 09/26/16 08:46 Gabapentin (Neurontin) 600 mg TID PO 09/25/16 18:00 09/26/16 12:46 Fluconazole (Diflucan) 100 mg Q24H PO 09/26/16 14:00 09/26/16 15:44 (Tania Carrillo) Medical Decision Making MDM Remarks 60 y/o female with wound drainage, r/o recurrent abscess s/p repeat CT guided aspiration of lumbar fluid collection, so far no growth 24 hours (Tania Carrillo) Plan Plan Remarks Discussed with patient regarding wound cultures Continue her antibiotics Continue dressing changes daily (Tania Carrillo) Attending Statement The exam, history, and the medical decision-making described in the above note were completed with the assistance of the mid-level provider. I reviewed and agree with the findings presented. I attest that I had a [id number] encounter with the patient on the same day, and personally performed and documented my assessment and findings in the medical record. (London Desouza MD) Tania Carrillo September 26, 2016 16:35 London Desouza MD October 01, 2016 12:39
--- NOTE | 2016-09-26 17:08 | HHI.PR ---
Subjective Remarks Patient evaluated earlier this afternoon. She states that she was going for a walk. Complains of right hip pain however she thinks that it may be related to sitting down for long periods of time. Denies any chest pain, shortness of breath, nausea or vomiting. Denies any palpitations. Objective Vitals Vital Signs Date Time Temp Pulse Resp B/P Pulse Ox O2 Delivery O2 Flow Rate FiO2 09/26/16 16:00 97.9 68 17 111/73 93 09/26/16 12:00 98.9 65 18 136/87 95 09/26/16 08:00 99.1 72 18 119/81 95 09/26/16 06:30 18 09/26/16 04:00 97.5 68 18 120/71 92 09/26/16 00:00 97.9 67 18 114/72 93 09/25/16 22:13 19 09/25/16 20:00 98.1 75 18 119/83 94 I/O 09/25/16 09/25/16 09/25/16 09/26/16 09/26/16 09/26/16 07:00 15:00 23:00 07:00 15:00 23:00 Intake Total 100 ml 960 ml 720 ml 480 ml Output Total 4 ml Balance 100 ml 960 ml 716 ml 480 ml Intake Oral 960 ml 720 ml 480 ml IV Total 100 ml Output Drainage Total 4 ml # Voids 1 3 4 3 5 # Bowel Movements 1 2 Result Diagram: 09/26/16 0631 09/26/16 0631 Imaging Last Impressions Lumbar Spine CT 09/26/16 1039 Signed Impressions: Service Date/Time: Monday, September 26, 2016 11:49 - CONCLUSION: 1. Postsurgical changes with a laminotomy left of L3 and a left-sided laminectomy at L4. 2. Tract of air in the soft tissues of the back extending from the left epidural space of L4 posteriorly to the skin surface is characteristic of the previous tube tract. 3. Very small, 1.7 cm fluid collection posterior to the L3 spinous process. I don't believe that this is sufficient enough to warrant further drainage. 4. Haziness of the epidural fat around the left L4 nerve root is almost certainly postsurgical. 5. Spinal canal and neural foramina are otherwise patent at all remaining levels. Jacob Mccollum MD Abscess Drainage CT 09/25/16 0000 Signed Impressions: Service Date/Time: Sunday, September 25, 2016 15:00 - CONCLUSION: Uncomplicated CT guided drainage of paraspinal abscess. Osman Antonio MD Lumbar Spine MRI 09/24/16 0000 Signed Impressions: Service Date/Time: Saturday, September 24, 2016 17:36 - CONCLUSION: 1. Relatively stable size of enhancing fluid collection in the dorsal soft tissues just to the left of midline. 2. Enhancing epidural component at L3-4 dorsally does appear to be slightly decreased from September 14. 3. Stable to slight increase in fluid within the L3-4 disc interspace which could be related to postoperative change. No significant adjacent marrow signal abnormalities to suggest discitis or osteomyelitis. Conus intact. Shayne Penn MD Objective Remarks GENERAL: NAD, resting comfortably. SKIN: Dressing over Surgical incision on the lower mid back dry clean and intact CARDIOVASCULAR: Regular rate and rhythm. No murmur appreciated. RESPIRATORY: No accessory muscle use. Clear to auscultation. Breath sounds equal bilaterally. GASTROINTESTINAL: Abdomen soft, non-tender, nondistended. MUSCULOSKELETAL: No obvious deformities. No edema. NEUROLOGICAL: Awake and alert. No obvious cranial nerve deficits. Normal speech. Inability to dorsiflex left foot. Sensation decreased on the left foot PSYCHIATRIC: Appropriate mood and affect; insight and judgment normal. A/P Problem List: (1) Spinal epidural abscess ICD Code: G06.1 Status: Acute (2) Schizoaffective disorder ICD Code: F25.9 Status: Acute (3) Postoperative fever ICD Code: R50.82 Status: Acute (4) Foot drop ICD Code: M21.379 Status: Acute Assessment and Plan The pt is status post L3 L4 L5 hemilaminotomies with L3-L4 and L4-L5 medial facetectomy and foraminotomy, L4-L5 microdiscectomy, lumbar wound incision and debridement subcutaneous abscess evacuation. She returns to the hospital for leakage from the surgical site as well as fevers. Neurosurgery following. MRI showed: Relatively stable size of enhancing fluid collection in the dorsal soft tissues just to the left of midline; Enhancing epidural component at L3-4 dorsally does appear to be slightly decreased from September 14; Stable to slight increase in fluid within the L3-4 disc interspace which could be related to postoperative change; No significant adjacent marrow signal abnormalities to suggest discitis or osteomyelitis; Conus intact. - Continue IV antibiotics. On ceftriaxone 2 g IV daily. - blood cultures negative x2 days. - neurosurgery recommended CT-guided aspiration of spinal fluid for cx. - ID following and recommends continuing Rocephin. Once cultures finalized, she 'll be set up for outpatient IV antibiotics - physical therapy has evaluated. Recommend home with no PT. - on norco for pain control with morphine for breakthrough - gabapentin 600mg TID Foot drop: the patient complained of left foot drop secondary to the initial surgery. - Follow up with neurosurgery. - Continue physical therapy. Schizoaffective disorder: mood is stable at this time. - continue home meds. PPx: SCDs. Discharge Planning Discharge pending blood culture results Jeaneth Laureano MD September 26, 2016 17:08
[2016-09-26 20:00] VITALS: BP 108/64; PULSE 65; RESP 20; TEMP 98.5; O2SAT 94
[2016-09-26] MEDS: LURASIDONE 40 MG TAB PO SCH (21:07)
[2016-09-26] MEDS: DOCUSATE SODIUM 100 MG CAP PO SCH (21:07)
[2016-09-27] VITALS (9 sets, daily range): BP systolic 88–129; BP diastolic 57–83; PULSE 66–93; RESP 19–20; TEMP 97.7–100.4; O2SAT 93–95
[2016-09-27] MEDS: ACETAMINOPHEN/HYDROcodone 325 MG/10 MG TAB PO PRN ×6 (01:10→21:43)
[2016-09-27] MEDS: ESCITALOPRAM OXALATE 10 MG TAB PO SCH (09:46)
[2016-09-27] MEDS: GABAPENTIN 300 MG CAP PO SCH ×3 (09:46→17:42)
[2016-09-27] MEDS: PANTOPRAZOLE SOD 40 MG DELAYED RELEASE TAB PO SCH (09:46)
[2016-09-27] MEDS: buPROPion HCL 100 MG TAB PO SCH (09:46)
[2016-09-27] MEDS: SENNOSIDES 8.6 MG TAB PO SCH (09:46)
[2016-09-27] MEDS: SODIUM CHLORIDE 0.9% FLUSH 10 ML FLUSH IV FLUSH SCH ×2 (09:47→21:42)
[2016-09-27] MEDS: PROPRANOLOL HCL 10 MG TAB PO SCH ×2 (09:47→21:42)
[2016-09-27] MEDS: cefTRIAXone INJ 2,000 MG in SODIUM CHLORIDE 0.9% INJ 100 ML IV SCH (09:48)
[2016-09-27] MEDS: FLUTICASONE PROPIONATE 50 MCG/ACT 16 GM NASAL SPRAY EACH NARE SCH (09:48)
--- NOTE | 2016-09-27 12:37 | HHI.IDPN ---
Note Infectious Disease Note Patient notes intermittent pain in the r. hip after ambulating. Says she feels okay. Afebrile. Notes vaginal itching. Wound culture has no growth at 48 hours. PAST MEDICAL HISTORY 1. Schizoaffective disorder. 2. Hepatitis C. 3. Cholecystectomy. 4. Fibromyalgia. 5. Right fallopian tube resection. 6. Recent L3-L4 and L4-L5 hemilaminectomy with redo hemilaminectomy on 09/17/2016. ALLERGIES SULFA. ANTIBIOTICS Ceftriaxone. OBJECTIVE: Vital Signs Date Time Temp Pulse Resp B/P Pulse Ox O2 Delivery O2 Flow Rate FiO2 09/27/16 12:00 97.8 85 19 111/79 95 09/27/16 08:00 97.7 69 19 126/79 95 09/27/16 04:00 98.1 68 20 96/59 93 09/27/16 01:30 102/64 09/27/16 00:00 98.8 66 20 88/57 94 09/26/16 20:00 98.5 65 20 108/64 94 09/26/16 16:00 97.9 68 17 111/73 93 09/26/16 09/26/16 09/27/16 15:00 23:00 07:00 Intake Total 480 ml 240 ml 240 ml Balance 480 ml 240 ml 240 ml Intake Oral 480 ml 240 ml 240 ml # Voids 5 1 3 # Bowel Movements 2 0 0 Laboratory Tests Test 09/26/16 06:31 White Blood Count 4.3 TH/MM3 Red Blood Count 4.44 MIL/MM3 Hemoglobin 13.7 GM/DL Hematocrit 40.3 % Mean Corpuscular Volume 90.6 FL Mean Corpuscular Hemoglobin 31.0 PG Mean Corpuscular Hemoglobin 34.2 % Concent Red Cell Distribution Width 13.4 % Platelet Count 182 TH/MM3 Mean Platelet Volume 7.4 FL Neutrophils (%) (Auto) 60.9 % Lymphocytes (%) (Auto) 24.6 % Monocytes (%) (Auto) 12.2 % Eosinophils (%) (Auto) 1.8 % Basophils (%) (Auto) 0.5 % Neutrophils # (Auto) 2.6 TH/MM3 Lymphocytes # (Auto) 1.1 TH/MM3 Monocytes # (Auto) 0.5 TH/MM3 Eosinophils # (Auto) 0.1 TH/MM3 Basophils # (Auto) 0.0 TH/MM3 CBC Comment DIFF FINAL Differential Comment Laboratory Tests Test 09/26/16 06:31 Sodium Level 142 MEQ/L Potassium Level 4.3 MEQ/L Chloride Level 105 MEQ/L Carbon Dioxide Level 31.5 MEQ/L Anion Gap 6 MEQ/L Blood Urea Nitrogen 9 MG/DL Creatinine 0.63 MG/DL Estimat Glomerular Filtration 97 ML/MIN Rate Random Glucose 119 MG/DL Calcium Level 9.8 MG/DL Microbiology Date/Time Procedure Status Source Growth 09/24/16 15:00 Aerobic Blood Culture - Preliminary Resulted Blood Peripheral NO GROWTH IN 3 DAYS 09/24/16 15:00 Anaerobic Blood Culture - Preliminary Resulted Blood Peripheral NO GROWTH IN 3 DAYS 09/24/16 15:05 Aerobic Blood Culture - Preliminary Resulted Blood Peripheral NO GROWTH IN 3 DAYS 09/24/16 15:05 Anaerobic Blood Culture - Preliminary Resulted Blood Peripheral NO GROWTH IN 3 DAYS 09/25/16 15:40 Gram Stain - Final Resulted Wound Back 09/25/16 15:40 Wound Culture - Preliminary Resulted Wound Back NO GROWTH IN 48 HOURS. IMAGING: Lumbar Spine CT 09/26/16 1039 Signed Impressions: Service Date/Time: Monday, September 26, 2016 11:49 - CONCLUSION: 1. Postsurgical changes with a laminotomy left of L3 and a left-sided laminectomy at L4. 2. Tract of air in the soft tissues of the back extending from the left epidural space of L4 posteriorly to the skin surface is characteristic of the previous tube tract. 3. Very small, 1.7 cm fluid collection posterior to the L3 spinous process. I don't believe that this is sufficient enough to warrant further drainage. 4. Haziness of the epidural fat around the left L4 nerve root is almost certainly postsurgical. 5. Spinal canal and neural foramina are otherwise patent at all remaining levels. Jacob Mccollum MD Abscess Drainage CT 09/25/16 0000 Signed Impressions: Service Date/Time: Sunday, September 25, 2016 15:00 - CONCLUSION: Uncomplicated CT guided drainage of paraspinal abscess. Osman Antonio MD Lumbar Spine MRI 09/24/16 0000 Signed Impressions: Service Date/Time: Saturday, September 24, 2016 17:36 - CONCLUSION: 1. Relatively stable size of enhancing fluid collection in the dorsal soft tissues just to the left of midline. 2. Enhancing epidural component at L3-4 dorsally does appear to be slightly decreased from September 12. 3. Stable to slight increase in fluid within the L3-4 disc interspace which could be related to postoperative change. No significant adjacent marrow signal abnormalities to suggest discitis or osteomyelitis. Conus intact. Shayne Penn MD PHYSICAL EXAMINATION GENERAL: This is a well-developed female who is in no acute distress. She is awake, alert and oriented. HEENT: No icterus. Oropharynx moist mucosa without lesions. NECK: Supple without adenopathy. LUNGS: Clear to auscultation. HEART: Regular rate and rhythm. No murmurs, rubs or gallops. ABDOMEN: Bowel sounds present. Soft. BACK: Surgical incision appears intact. No visible drainage. EXTREMITIES: No clubbing, cyanosis or edema. SKIN: No rash. PSYCHIATRIC: Patient calm and cooperative. IMPRESSION 1. Lumbar spine epidural abscess. The patient is status post redo laminectomy. Culture grew out Enterobacter cloacae. 2. Recurrence of drainage from the lumbar region/wound. 3. Fever prior to admission. No fever since admission. RECOMMENDATIONS 1. Continue ceftriaxone until October 30 as previous treatment plan for epidural abscess. 2. Monitor wound culture until finalized tomorrow. 3. Outpatient IV antibiotics written for discharge. See Infusion form. If cultures are negative she can be discharged. If positive with organism other than Enterobacter, the antibiotic will probably have to be changed. Eitan Yoon MD September 27, 2016 12:37
--- NOTE | 2016-09-27 12:38 | HHI.FF ---
Infusion Therapy Location of Infusion Therapy: Home [facility] IV Infusion Order Patient Information Patient Weight 95 kg Diagnosis: (1) Spinal epidural abscess Coded Allergies: Sulfa (Verified Allergy, Unknown, Swelling, 09/24/16) Administer Medication Ceftriaxone 2 grams IV q 24 hours Stop Treatment: Oct 30, 2016 Additional Information Venous access: PICC Line Additional Instructions [x] Peripheral flush and dressing changes per protocol [x] Implanted port and central casing in line setter: * Implanted port: 10 ml Normal Saline followed by 5 ml Heparin 100 units/ml Heparin flush after each use and monthly to maintain. [] May leave port accessed during therapy. [] May leave peripheral site accessed for duration of therapy. [x] If patient has SOB or respiratory distress, check oxygen saturation. If less than 90% or clinical signs of respiratory distress, administer oxygen at 2 L/min. via nasal cannula and notify physician. [x] Anaphylaxis/Reaction orders: * Stop infusion. * Keep IV line open with saline flush. * Notify physician. * Monitor vital signs every 15 minutes until symptoms resolve. * Check Oxygen saturation; Oxygen at 2 L/min. via nasal cannula if less than 90% or clinical signs of respiratory distress. * Administer diphenhydramine (Benadryl) 25 mg IV STAT, (unless patient has received as pre-med). May repeat once, if necessary. * Solu-Cortef 250 mg IVP over 30-60 seconds, use 100 mg vials for each dissolution. * Epinephrine (1mg/1 ml) 0.3 mg subcutaneously or IVP now with any signs of respiratory distress. * Check with physician for new additional pre-med orders if patient is re- challenged or re-treated. [x] May remove PICC line when treatment complete, after confirming with Physician. [x] If the patient is admitted to the hospital, the ED, or transferred via [facility] , complete transfer form including medication reconciliation order sheet. Laboratory Tests Weekly Labs: Eitan Hilton MD September 27, 2016 12:38
[2016-09-27] MEDS: FLUCONAZOLE 100 MG TAB PO SCH (12:51)
--- NOTE | 2016-09-27 13:31 | HHI.NSPN ---
(Tania Carrillo) Note Status Status: Progress Note (Tania Carrillo) Interval History Interval History Ms. Smith is a 60 y/o female who initially underwent a L3-4, L4-5 left hemilaminectomy and microdiscectomy on 09/07/16. She presented to the ED two weeks ago due to wound drainage. Cultures positive for Enterobacter Colace, and she underwent a redo laminectomy with irrigation and debridement with Dr. Salinas on 09/17/16. A PICC line was placed and the patient was subsequently discharged on IV antibiotics. She was doing well until she noted recurrent wound drainage and fevers and returned to the Emergency Room for evaluation. She also reports of moderate lumbar and pain in the left hamstrings. 09/25: MRI L spine w/wo contrast completed. Afebrile, normal WBCs. 09/26: Lumbar drain was pulled earlier this morning, follow up CT L-spine completed. So far repeat cultures of fluid collection shows no growth. 09/27: lumbar wound dry, wound cx no growth x 48 hours, minimal lumbar pain (Tania Carrillo) Labs, Micro, & Vital Signs Results Date Time Temp Pulse Resp B/P Pulse Ox O2 Delivery O2 Flow Rate FiO2 09/27/16 12:00 97.8 85 19 111/79 95 09/27/16 08:00 97.7 69 19 126/79 95 09/27/16 04:00 98.1 68 20 96/59 93 09/27/16 01:30 102/64 09/27/16 00:00 98.8 66 20 88/57 94 09/26/16 20:00 98.5 65 20 108/64 94 09/26/16 16:00 97.9 68 17 111/73 93 09/27/16 07:00 Intake Total 960 ml Balance 960 ml Constitutional Vital Signs Date Time Temp Pulse Resp B/P Pulse Ox O2 Delivery O2 Flow Rate FiO2 09/27/16 12:00 97.8 85 19 111/79 95 09/27/16 08:00 97.7 69 19 126/79 95 09/27/16 04:00 98.1 68 20 96/59 93 09/27/16 01:30 102/64 09/27/16 00:00 98.8 66 20 88/57 94 09/26/16 20:00 98.5 65 20 108/64 94 09/26/16 16:00 97.9 68 17 111/73 93 09/27/16 07:00 Intake Total 960 ml Balance 960 ml (Tania Carrillo) Review of Systems/Exam Exam Awake, alert. Resting comfortably. Neck: soft, supple. Motor: 1-2/5 left dorsiflexion, 2/5 left EHL, moves other extremities well CN: Pupils equal, facial motor symmetric. Lumbar wound is dry. (Tania Carrillo) Medications Current Medications Current Medications Medications (Trade) Dose Ordered Sig/Sen Route PRN Reason Start Time Stop Time Status Last Admin Dose Admin Sodium Chloride (NS Flush) 2 ml UNSCH PRN IV FLUSH FLUSH AFTER USING IV ACCESS 09/24/16 17:15 Sodium Chloride (NS Flush) 2 ml BID IV FLUSH 09/24/16 21:00 09/27/16 09:47 Acetaminophen (Tylenol) 650 mg Q4H PRN PO TEMP > 100.4 09/24/16 17:15 Ondansetron HCl (Zofran Inj) 4 mg Q6H PRN IVP NAUSEA OR VOMITING 09/24/16 17:15 Magnesium Hydroxide (Milk Of Magnesia Liq) 30 ml Q12H PRN PO CONSTIPATION 09/24/16 17:15 Acetaminophen (Tylenol) 650 mg Q6H PRN PO PAIN SCALE 1 TO 2 09/24/16 17:15 Naloxone HCl (Narcan Inj) 0.4 mg UNSCH PRN IV SEE LABEL COMMENTS 09/24/16 17:15 Bupropion HCl (Wellbutrin) 100 mg DAILY PO 09/25/16 09:00 09/27/16 09:46 Diazepam (Valium) 5 mg HS PRN PO ANXIETY 09/24/16 21:45 Docusate Sodium (Colace) 200 mg HS PO 09/24/16 21:45 09/26/16 21:07 Escitalopram Oxalate (Lexapro) 10 mg DAILY PO 09/25/16 09:00 09/27/16 09:46 Fluticasone Propionate (Flonase [place] Spr) 2 spray DAILY EACH NARE 09/25/16 09:00 09/27/16 09:48 Lurasidone HCl (Latuda) 40 mg HS PO 09/24/16 21:45 09/26/16 21:07 Pantoprazole Sodium (Protonix) 40 mg DAILY PO 09/25/16 09:00 09/27/16 09:46 Propranolol HCl 10 mg 10 mg Q12HR PO 09/25/16 09:00 09/27/16 09:47 Ceftriaxone Sodium/Sodium Chloride (Rocephin Inj/NS Inj) 100 ml @ 200 mls/hr Q24H IV 09/25/16 09:00 09/27/16 09:48 Morphine Sulfate (Morphine Inj) 4 mg Q4H PRN IV Breakthrough pain 09/25/16 00:15 09/26/16 18:27 Acetaminophen/ Hydrocodone Bitart ([place] 5-325 Mg) 1 tab Q4H PRN PO pain 1-5 09/24/16 22:15 Acetaminophen/ Hydrocodone Bitart ([place] 10-325 Mg) 1 tab Q4H PRN PO pain 6-10 09/24/16 22:15 09/27/16 09:48 Sennosides (Senokot) 17.2 mg DAILY PO 09/25/16 09:00 09/27/16 09:46 Gabapentin (Neurontin) 600 mg TID PO 09/25/16 18:00 09/27/16 12:51 Fluconazole (Diflucan) 100 mg Q24H PO 09/26/16 14:00 09/27/16 12:51 (Tania Carrillo) Medical Decision Making MDM Remarks 60 y/o female with wound drainage, r/o recurrent abscess s/p repeat CT guided aspiration of lumbar fluid collection, no growth 48 hours (Tania Carrillo) Plan Plan Remarks cont f/u wound cultures continue her antibiotics Continue dressing changes daily ok to shower with wound covered, if cultures remains neg tomorrow, ok for discharge lumbar sutures dc 10/02 (Tania Carrillo) Attending Statement The exam, history, and the medical decision-making described in the above note were completed with the assistance of the mid-level provider. I reviewed and agree with the findings presented. I attest that I had a [id number] encounter with the patient on the same day, and personally performed and documented my assessment and findings in the medical record. (London Desouza MD) Tania Carrillo September 27, 2016 13:31 London Desouza MD October 01, 2016 12:46
--- NOTE | 2016-09-27 14:55 | HHI.PR ---
Subjective Remarks Pt has some back pain but states that she has a high pain tolerance due to her chronic use of pain meds. denies any CP/SOB/N/V states she has been ambulating Objective Vitals Vital Signs Date Time Temp Pulse Resp B/P Pulse Ox O2 Delivery O2 Flow Rate FiO2 09/27/16 12:00 97.8 85 19 111/79 95 09/27/16 08:00 97.7 69 19 126/79 95 09/27/16 04:00 98.1 68 20 96/59 93 09/27/16 01:30 102/64 09/27/16 00:00 98.8 66 20 88/57 94 09/26/16 20:00 98.5 65 20 108/64 94 09/26/16 16:00 97.9 68 17 111/73 93 I/O 09/26/16 09/26/16 09/26/16 09/27/16 09/27/16 09/27/16 06:59 14:59 22:59 06:59 14:59 22:59 Intake Total 720 ml 480 ml 240 ml 240 ml Output Total 4 ml Balance 716 ml 480 ml 240 ml 240 ml Intake Oral 720 ml 480 ml 240 ml 240 ml Output Drainage Total 4 ml # Voids 3 5 1 3 # Bowel Movements 2 0 0 Result Diagram: 09/26/16 0631 09/26/16 0631 Imaging Last Impressions Lumbar Spine CT 09/26/16 1039 Signed Impressions: Service Date/Time: Monday, September 26, 2016 11:49 - CONCLUSION: 1. Postsurgical changes with a laminotomy left of L3 and a left-sided laminectomy at L4. 2. Tract of air in the soft tissues of the back extending from the left epidural space of L4 posteriorly to the skin surface is characteristic of the previous tube tract. 3. Very small, 1.7 cm fluid collection posterior to the L3 spinous process. I don't believe that this is sufficient enough to warrant further drainage. 4. Haziness of the epidural fat around the left L4 nerve root is almost certainly postsurgical. 5. Spinal canal and neural foramina are otherwise patent at all remaining levels. Jacob Mccollum MD Abscess Drainage CT 09/25/16 0000 Signed Impressions: Service Date/Time: Sunday, September 25, 2016 15:00 - CONCLUSION: Uncomplicated CT guided drainage of paraspinal abscess. Osman Antonio MD Lumbar Spine MRI 09/24/16 0000 Signed Impressions: Service Date/Time: Saturday, September 24, 2016 17:36 - CONCLUSION: 1. Relatively stable size of enhancing fluid collection in the dorsal soft tissues just to the left of midline. 2. Enhancing epidural component at L3-4 dorsally does appear to be slightly decreased from September 14. 3. Stable to slight increase in fluid within the L3-4 disc interspace which could be related to postoperative change. No significant adjacent marrow signal abnormalities to suggest discitis or osteomyelitis. Conus intact. Shayne Penn MD Objective Remarks GENERAL: NAD, sitting up, RN about to change dressing SKIN: incision noted, no drainage, sutures in place. CARDIOVASCULAR: Regular rate and rhythm. No murmur appreciated. RESPIRATORY: No accessory muscle use. Clear to auscultation. Breath sounds equal bilaterally. MUSCULOSKELETAL: No obvious deformities. No edema. NEUROLOGICAL: Awake and alert. No obvious cranial nerve deficits. Normal speech. PSYCHIATRIC: Appropriate mood and affect; insight and judgment normal. A/P Problem List: (1) Spinal epidural abscess ICD Code: G06.1 Status: Acute (2) Schizoaffective disorder ICD Code: F25.9 Status: Acute (3) Postoperative fever ICD Code: R50.82 Status: Acute (4) Foot drop ICD Code: M21.379 Status: Acute Assessment and Plan The pt is status post L3 L4 L5 hemilaminotomies with L3-L4 and L4-L5 medial facetectomy and foraminotomy, L4-L5 microdiscectomy, lumbar wound incision and debridement subcutaneous abscess evacuation. She returns to the hospital for leakage from the surgical site as well as fevers. Neurosurgery following. MRI showed: Relatively stable size of enhancing fluid collection in the dorsal soft tissues just to the left of midline; Enhancing epidural component at L3-4 dorsally does appear to be slightly decreased from September 14; Stable to slight increase in fluid within the L3-4 disc interspace which could be related to postoperative change; No significant adjacent marrow signal abnormalities to suggest discitis or osteomyelitis; Conus intact. - Continue IV antibiotics. On ceftriaxone 2 g IV daily. - blood cultures negative x2 days. - neurosurgery recommended CT-guided aspiration of spinal fluid for cx. - ID following and recommends continuing Rocephin. Once cultures finalized at 72hours, she'll be set up for outpatient IV antibiotics - physical therapy has evaluated. Recommend home with no PT. - on norco for pain control with morphine for breakthrough - gabapentin 600mg TID Foot drop: the patient complained of left foot drop secondary to the initial surgery. - Follow up with neurosurgery. - Continue physical therapy. Schizoaffective disorder: mood is stable at this time. - continue home meds. PPx: SCDs. Discharge Planning anticipate d/c tomorrow if wound cx neg x 72 hours Jeaneth Laureano MD September 27, 2016 14:55
[2016-09-27] MEDS: LURASIDONE 40 MG TAB PO SCH (21:42)
[2016-09-27] MEDS: DOCUSATE SODIUM 100 MG CAP PO SCH (21:43)
[2016-09-28] VITALS (7 sets, daily range): BP systolic 100–112; BP diastolic 60–74; PULSE 69–85; RESP 17–20; TEMP 98.1–101; O2SAT 93–96
[2016-09-28] MEDS: ACETAMINOPHEN/HYDROcodone 325 MG/10 MG TAB PO PRN ×5 (01:58→20:22)
[2016-09-28] MEDS: PANTOPRAZOLE SOD 40 MG DELAYED RELEASE TAB PO SCH (08:16)
[2016-09-28] MEDS: ESCITALOPRAM OXALATE 10 MG TAB PO SCH (08:16)
[2016-09-28] MEDS: PROPRANOLOL HCL 10 MG TAB PO SCH ×2 (08:16→20:21)
[2016-09-28] MEDS: GABAPENTIN 300 MG CAP PO SCH ×3 (08:16→16:52)
[2016-09-28] MEDS: buPROPion HCL 100 MG TAB PO SCH (08:16)
[2016-09-28] MEDS: SENNOSIDES 8.6 MG TAB PO SCH (08:16)
[2016-09-28] MEDS: cefTRIAXone INJ 2,000 MG in SODIUM CHLORIDE 0.9% INJ 100 ML IV SCH (08:17)
[2016-09-28] MEDS: SODIUM CHLORIDE 0.9% FLUSH 10 ML FLUSH IV FLUSH SCH ×2 (08:18→21:00)
[2016-09-28] MEDS: FLUTICASONE PROPIONATE 50 MCG/ACT 16 GM NASAL SPRAY EACH NARE SCH (09:00)
--- NOTE | 2016-09-28 10:18 | HHI.NSPN ---
Note Status Status: Progress Note Interval History Interval History Ms. Smith is a 60 y/o female who initially underwent a L3-4, L4-5 left hemilaminectomy and microdiscectomy on 09/07/16. She presented to the ED two weeks ago due to wound drainage. Cultures positive for Enterobacter Colace, and she underwent a redo laminectomy with irrigation and debridement with Dr. Salinas on 09/17/16. A PICC line was placed and the patient was subsequently discharged on IV antibiotics. She was doing well until she noted recurrent wound drainage and fevers and returned to the Emergency Room for evaluation. She also reports of moderate lumbar and pain in the left hamstrings. 09/25: MRI L spine w/wo contrast completed. Afebrile, normal WBCs. 09/26: Lumbar drain was pulled earlier this morning, follow up CT L-spine completed. So far repeat cultures of fluid collection shows no growth. 09/27: lumbar wound dry, wound cx no growth x 48 hours, minimal lumbar pain 09/28: febrile last night, cultures neg x 72 hours. Labs, Micro, & Vital Signs Results Date Time Temp Pulse Resp B/P Pulse Ox O2 Delivery O2 Flow Rate FiO2 09/28/16 08:23 98.1 77 20 100/74 95 09/28/16 04:00 98.4 70 20 100/60 96 09/28/16 01:57 99.9 09/28/16 00:00 101.0 85 20 106/67 93 09/27/16 20:00 99.1 93 20 126/83 93 09/27/16 17:56 100.4 09/27/16 16:30 100.3 09/27/16 16:00 99.5 80 19 129/83 94 09/27/16 12:00 97.8 85 19 111/79 95 09/28/16 07:00 Intake Total 960 ml Balance 960 ml Constitutional Vital Signs Date Time Temp Pulse Resp B/P Pulse Ox O2 Delivery O2 Flow Rate FiO2 09/28/16 08:23 98.1 77 20 100/74 95 09/28/16 04:00 98.4 70 20 100/60 96 09/28/16 01:57 99.9 09/28/16 00:00 101.0 85 20 106/67 93 09/27/16 20:00 99.1 93 20 126/83 93 09/27/16 17:56 100.4 09/27/16 16:30 100.3 09/27/16 16:00 99.5 80 19 129/83 94 09/27/16 12:00 97.8 85 19 111/79 95 09/28/16 07:00 Intake Total 960 ml Balance 960 ml Review of Systems/Exam Exam Awake, alert. Resting comfortably. Neck: soft, supple. Motor: 1-2/5 left dorsiflexion, 2/5 left EHL, moves other extremities well CN: Pupils equal, facial motor symmetric. Lumbar wound is dry. Medications Current Medications Current Medications Medications (Trade) Dose Ordered Sig/Sen Route PRN Reason Start Time Stop Time Status Last Admin Dose Admin Sodium Chloride (NS Flush) 2 ml UNSCH PRN IV FLUSH FLUSH AFTER USING IV ACCESS 09/24/16 17:15 Sodium Chloride (NS Flush) 2 ml BID IV FLUSH 09/24/16 21:00 09/28/16 08:18 Acetaminophen (Tylenol) 650 mg Q4H PRN PO TEMP > 100.4 09/24/16 17:15 09/28/16 00:28 Ondansetron HCl (Zofran Inj) 4 mg Q6H PRN IVP NAUSEA OR VOMITING 09/24/16 17:15 Magnesium Hydroxide (Milk Of Magnesia Liq) 30 ml Q12H PRN PO CONSTIPATION 09/24/16 17:15 Acetaminophen (Tylenol) 650 mg Q6H PRN PO PAIN SCALE 1 TO 2 09/24/16 17:15 Naloxone HCl (Narcan Inj) 0.4 mg UNSCH PRN IV SEE LABEL COMMENTS 09/24/16 17:15 Bupropion HCl (Wellbutrin) 100 mg DAILY PO 09/25/16 09:00 09/28/16 08:16 Diazepam (Valium) 5 mg HS PRN PO ANXIETY 09/24/16 21:45 Docusate Sodium (Colace) 200 mg HS PO 09/24/16 21:45 09/27/16 21:43 Escitalopram Oxalate (Lexapro) 10 mg DAILY PO 09/25/16 09:00 09/28/16 08:16 Fluticasone Propionate (Flonase [place] Spr) 2 spray DAILY EACH NARE 09/25/16 09:00 09/28/16 09:00 Lurasidone HCl (Latuda) 40 mg HS PO 09/24/16 21:45 09/27/16 21:42 Pantoprazole Sodium (Protonix) 40 mg DAILY PO 09/25/16 09:00 09/28/16 08:16 Propranolol HCl 10 mg 10 mg Q12HR PO 09/25/16 09:00 09/28/16 08:16 Ceftriaxone Sodium/Sodium Chloride (Rocephin Inj/NS Inj) 100 ml @ 200 mls/hr Q24H IV 09/25/16 09:00 09/28/16 08:17 Morphine Sulfate (Morphine Inj) 4 mg Q4H PRN IV Breakthrough pain 09/25/16 00:15 09/26/16 18:27 Acetaminophen/ Hydrocodone Bitart ([place] 5-325 Mg) 1 tab Q4H PRN PO pain 1-5 09/24/16 22:15 Acetaminophen/ Hydrocodone Bitart ([place] 10-325 Mg) 1 tab Q4H PRN PO pain 6-10 09/24/16 22:15 09/28/16 12:37 Sennosides (Senokot) 17.2 mg DAILY PO 09/25/16 09:00 09/28/16 08:16 Gabapentin (Neurontin) 600 mg TID PO 09/25/16 18:00 09/28/16 12:37 Fluconazole (Diflucan) 100 mg Q24H PO 09/26/16 14:00 09/28/16 13:49 Ciprofloxacin (Cipro) 500 mg Q12H PO 09/28/16 14:00 09/28/16 13:49 Medical Decision Making MDM Remarks 60 y/o female with wound drainage, r/o recurrent abscess s/p repeat CT guided aspiration of lumbar fluid collection, no growth 72 hours Plan Plan Remarks continue her antibiotics continue dressing changes daily ok to shower with wound covered, lumbar sutures dc 10/02 cont monitor next couple days for fevers dw Dr. Laureano and Tania Neil September 28, 2016 10:18
--- NOTE | 2016-09-28 13:14 | HHI.IDPN ---
Note Infectious Disease Note Patient notes some back pain. Had profuse night sweats last night. Afebrile. (+) chills. No nausea, CP, dysuria. Cough or sputum production. Wound culture has no growth. PAST MEDICAL HISTORY 1. Schizoaffective disorder. 2. Hepatitis C. 3. Cholecystectomy. 4. Fibromyalgia. 5. Right fallopian tube resection. 6. Recent L3-L4 and L4-L5 hemilaminectomy with redo hemilaminectomy on 09/17/2016. ALLERGIES SULFA. ANTIBIOTICS Ceftriaxone. Diflucan. OBJECTIVE: Vital Signs Date Time Temp Pulse Resp B/P Pulse Ox O2 Delivery O2 Flow Rate FiO2 09/28/16 12:00 98.3 69 20 108/65 95 09/28/16 08:23 98.1 77 20 100/74 95 09/28/16 04:00 98.4 70 20 100/60 96 09/28/16 01:57 99.9 09/28/16 00:00 101.0 85 20 106/67 93 09/27/16 20:00 99.1 93 20 126/83 93 09/27/16 17:56 100.4 09/27/16 16:30 100.3 09/27/16 16:00 99.5 80 19 129/83 94 09/27/16 09/27/16 09/28/16 15:00 23:00 07:00 Intake Total 480 ml 240 ml 240 ml Balance 480 ml 240 ml 240 ml Intake Oral 480 ml 240 ml 240 ml # Voids 6 3 4 # Bowel Movements 1 0 0 Microbiology Date/Time Procedure Status Source Growth 09/25/16 15:40 Gram Stain - Final Complete Wound Back 09/25/16 15:40 Wound Culture - Final Complete Wound Back NO GROWTH IN 72 HRS.--AEROBICALLY OR ... 09/27/16 20:47 Aerobic Blood Culture - Preliminary Resulted Blood Peripheral NO GROWTH IN 1 DAY 09/27/16 20:47 Anaerobic Blood Culture - Preliminary Resulted Blood Peripheral NO GROWTH IN 1 DAY 09/27/16 20:53 Aerobic Blood Culture - Preliminary Resulted Blood Peripheral NO GROWTH IN 1 DAY 09/27/16 20:53 Anaerobic Blood Culture - Preliminary Resulted Blood Peripheral NO GROWTH IN 1 DAY Microbiology Date/Time Procedure Status Source Growth 09/24/16 15:00 Aerobic Blood Culture - Preliminary Resulted Blood Peripheral NO GROWTH IN 3 DAYS 09/24/16 15:00 Anaerobic Blood Culture - Preliminary Resulted Blood Peripheral NO GROWTH IN 3 DAYS 09/24/16 15:05 Aerobic Blood Culture - Preliminary Resulted Blood Peripheral NO GROWTH IN 3 DAYS 09/24/16 15:05 Anaerobic Blood Culture - Preliminary Resulted Blood Peripheral NO GROWTH IN 3 DAYS 09/25/16 15:40 Gram Stain - Final Resulted Wound Back 09/25/16 15:40 Wound Culture - Preliminary Resulted Wound Back NO GROWTH IN 48 HOURS. IMAGING: Lumbar Spine CT 09/26/16 1039 Signed Impressions: Service Date/Time: Monday, September 26, 2016 11:49 - CONCLUSION: 1. Postsurgical changes with a laminotomy left of L3 and a left-sided laminectomy at L4. 2. Tract of air in the soft tissues of the back extending from the left epidural space of L4 posteriorly to the skin surface is characteristic of the previous tube tract. 3. Very small, 1.7 cm fluid collection posterior to the L3 spinous process. I don't believe that this is sufficient enough to warrant further drainage. 4. Haziness of the epidural fat around the left L4 nerve root is almost certainly postsurgical. 5. Spinal canal and neural foramina are otherwise patent at all remaining levels. Jacob Mccollum MD Lumbar Spine CT 09/26/16 1039 Signed Impressions: Service Date/Time: Monday, September 26, 2016 11:49 - CONCLUSION: 1. Postsurgical changes with a laminotomy left of L3 and a left-sided laminectomy at L4. 2. Tract of air in the soft tissues of the back extending from the left epidural space of L4 posteriorly to the skin surface is characteristic of the previous tube tract. 3. Very small, 1.7 cm fluid collection posterior to the L3 spinous process. I don't believe that this is sufficient enough to warrant further drainage. 4. Haziness of the epidural fat around the left L4 nerve root is almost certainly postsurgical. 5. Spinal canal and neural foramina are otherwise patent at all remaining levels. Jacob Mccollum MD Abscess Drainage CT 09/25/16 0000 Signed Impressions: Service Date/Time: Sunday, September 25, 2016 15:00 - CONCLUSION: Uncomplicated CT guided drainage of paraspinal abscess. Osman Antonio MD Lumbar Spine MRI 09/24/16 0000 Signed Impressions: Service Date/Time: Saturday, September 24, 2016 17:36 - CONCLUSION: 1. Relatively stable size of enhancing fluid collection in the dorsal soft tissues just to the left of midline. 2. Enhancing epidural component at L3-4 dorsally does appear to be slightly decreased from September 14. 3. Stable to slight increase in fluid within the L3-4 disc interspace which could be related to postoperative change. No significant adjacent marrow signal abnormalities to suggest discitis or osteomyelitis. Conus intact. Shayne Penn MD PHYSICAL EXAMINATION GENERAL: No acute distress. Awake, alert and oriented. HEENT: No icterus. Oropharynx moist mucosa without lesions. NECK: Supple without adenopathy. LUNGS: Clear to auscultation. HEART: Regular rate and rhythm. No murmurs, rubs or gallops. ABDOMEN: Bowel sounds present. Soft. BACK: Surgical incision appears intact. No visible drainage. EXTREMITIES: No clubbing, cyanosis or edema. PIC site has no sign of infection. SKIN: No rash. PSYCHIATRIC: Patient calm and cooperative. IMPRESSION 1. Lumbar spine epidural abscess. The patient is status post redo laminectomy. Culture grew out Enterobacter cloacae. 2. Recurrence of drainage from the lumbar region/wound. 3. New fever. ? etiology. RECOMMENDATIONS 1. Continue ceftriaxone until October 30 as previous treatment plan for epidural abscess. 2. Monitor blood cultures. 3. CXR. 4. Urinalysis. 5. Add ciprofloxacin. 6. Consider drug fever if negative cultures. 7 Call ID on weekend for any positive cultures. Outpatient IV antibiotics written for discharge. See Infusion form. Not ready for discharge because of new fever. Eitan Yoon MD September 28, 2016 13:14
--- NOTE | 2016-09-28 13:39 | HHI.PR ---
Subjective Remarks continues to have back pain, had fevers overnight and currently having chills no coughing, SOB, nausea or vomitting, denies any burning w urination Objective Vitals Vital Signs Date Time Temp Pulse Resp B/P Pulse Ox O2 Delivery O2 Flow Rate FiO2 09/28/16 12:00 98.3 69 20 108/65 95 09/28/16 08:23 98.1 77 20 100/74 95 09/28/16 04:00 98.4 70 20 100/60 96 09/28/16 01:57 99.9 09/28/16 00:00 101.0 85 20 106/67 93 09/27/16 20:00 99.1 93 20 126/83 93 09/27/16 17:56 100.4 09/27/16 16:30 100.3 09/27/16 16:00 99.5 80 19 129/83 94 I/O 09/27/16 09/27/16 09/27/16 09/28/16 09/28/16 09/28/16 07:00 15:00 23:00 07:00 15:00 23:00 Intake Total 240 ml 480 ml 240 ml 240 ml 0 ml Balance 240 ml 480 ml 240 ml 240 ml 0 ml Intake Oral 240 ml 480 ml 240 ml 240 ml IV Total 0 ml # Voids 3 6 3 4 # Bowel Movements 0 1 0 0 Result Diagram: 09/26/16 0631 09/26/16 0631 Imaging Last Impressions Lumbar Spine CT 09/26/16 1039 Signed Impressions: Service Date/Time: Monday, September 26, 2016 11:49 - CONCLUSION: 1. Postsurgical changes with a laminotomy left of L3 and a left-sided laminectomy at L4. 2. Tract of air in the soft tissues of the back extending from the left epidural space of L4 posteriorly to the skin surface is characteristic of the previous tube tract. 3. Very small, 1.7 cm fluid collection posterior to the L3 spinous process. I don't believe that this is sufficient enough to warrant further drainage. 4. Haziness of the epidural fat around the left L4 nerve root is almost certainly postsurgical. 5. Spinal canal and neural foramina are otherwise patent at all remaining levels. Jacob Mccollum MD Abscess Drainage CT 09/25/16 0000 Signed Impressions: Service Date/Time: Sunday, September 25, 2016 15:00 - CONCLUSION: Uncomplicated CT guided drainage of paraspinal abscess. Osman Antonio MD Lumbar Spine MRI 09/24/16 0000 Signed Impressions: Service Date/Time: Saturday, September 24, 2016 17:36 - CONCLUSION: 1. Relatively stable size of enhancing fluid collection in the dorsal soft tissues just to the left of midline. 2. Enhancing epidural component at L3-4 dorsally does appear to be slightly decreased from September 14. 3. Stable to slight increase in fluid within the L3-4 disc interspace which could be related to postoperative change. No significant adjacent marrow signal abnormalities to suggest discitis or osteomyelitis. Conus intact. Shayne Penn MD Objective Remarks GENERAL: NAD, sitting up, RN about to change dressing SKIN: dressing over incision d/c/i CARDIOVASCULAR: Regular rate and rhythm. No murmur appreciated. RESPIRATORY: No accessory muscle use. Clear to auscultation. Breath sounds equal bilaterally. MUSCULOSKELETAL: No obvious deformities. No edema. NEUROLOGICAL: Awake and alert. No obvious cranial nerve deficits. Normal speech. PSYCHIATRIC: Appropriate mood and affect; insight and judgment normal. A/P Problem List: (1) Spinal epidural abscess ICD Code: G06.1 Status: Acute (2) Schizoaffective disorder ICD Code: F25.9 Status: Acute (3) Postoperative fever ICD Code: R50.82 Status: Acute (4) Foot drop ICD Code: M21.379 Status: Acute Assessment and Plan The pt is status post L3 L4 L5 hemilaminotomies with L3-L4 and L4-L5 medial facetectomy and foraminotomy, L4-L5 microdiscectomy, lumbar wound incision and debridement subcutaneous abscess evacuation. She returns to the hospital for leakage from the surgical site as well as fevers. Neurosurgery following. MRI showed: Relatively stable size of enhancing fluid collection in the dorsal soft tissues just to the left of midline; Enhancing epidural component at L3-4 dorsally does appear to be slightly decreased from September 14; Stable to slight increase in fluid within the L3-4 disc interspace which could be related to postoperative change; No significant adjacent marrow signal abnormalities to suggest discitis or osteomyelitis; Conus intact. - Continue IV antibiotics. On ceftriaxone 2 g IV daily. - blood cultures negative x2 days. Pt was febrile overnight Tmax 101. repeat blood cx neg x 1 - neurosurgery recommended CT-guided aspiration of spinal fluid for cx. - ID following and recommends continuing Rocephin until October 30 as previous treatment plan for epidural abscess. Monitor blood cultures. CXR ordered. Urinalysis ordered. ID Added ciprofloxacin. Consider drug fever if negative cultures. . wound cultures neg 72hours - physical therapy has evaluated. Recommend home with no PT. - on norco for pain control with morphine for breakthrough - gabapentin 600mg TID Foot drop: the patient complained of left foot drop secondary to the initial surgery. - Follow up with neurosurgery. - Continue physical therapy. Schizoaffective disorder: mood is stable at this time. - continue home meds. PPx: SCDs. Discharge Planning awaiting final blood cx results. Notify ID if pt continues to spike fevers Jeaneth Laureano MD September 28, 2016 13:39
[2016-09-28] MEDS: CIPROFLOXACIN 500 MG TAB PO SCH (13:49)
[2016-09-28] MEDS: FLUCONAZOLE 100 MG TAB PO SCH (13:49)
[2016-09-28 14:16] LABS: BASOPHIL % 0.6 % (0.0-2.0); EOSINOPHIL % 0.2 % (0.0-4.0); HEMATOCRIT 38.8 % (35.0-46.0); HEMO FLAGS DIFF FINAL; LYMPH % 14.3 % (9.0-44.0); LYMPHOCYTE # 0.6 TH/MM3 (1.0-4.8); MEAN CELL VOLUME 90.2 FL (80.0-100.0); MEAN CORPUSCULAR HEMOGLOBIN 30.2 PG (27.0-34.0); MEAN CORPUSCULAR HGB CONC 33.5 % (32.0-36.0); MONO % 10.8 % (0.0-8.0); NEUT % 74.1 % (16.0-70.0); PLATELET COUNT 133 TH/MM3 (150-450); RED CELL DISTRIBUTION WIDTH 13.1 % (11.6-17.2); WHITE BLOOD COUNT 4.1 TH/MM3 (4.0-11.0)
--- NOTE | 2016-09-28 14:38 | RADRPT ---
EXAM DATE/TIME: 09/28/2016 13:23 [facility] COMPARISON: CHEST SINGLE AP, September 20, 2016, 10:31. INDICATIONS : Pneumonia with fevers MEDICAL HISTORY : None. SURGICAL HISTORY : Discectomy, lumbar. ENCOUNTER: Subsequent ACUITY: 4 - 6 days PAIN SCORE: 0/10 LOCATION: Bilateral chest FINDINGS: A single view of the chest demonstrates the lungs to be symmetrically aerated without evidence of mas s, infiltrate or effusion. Right-sided PICC line in good position. The cardiomediastinal contours are unremarkable. Osseous structures are intact. CONCLUSION: No acute disease. Osman Antonio MD on September 28, 2016 at 14:36 Board Certified Radiologist. This report was verified electronically.
[2016-09-28] MEDS: LURASIDONE 40 MG TAB PO SCH (20:21)
[2016-09-28] MEDS: DIAZEPAM 5 MG TAB PO PRN (20:21)
[2016-09-28] MEDS: DOCUSATE SODIUM 100 MG CAP PO SCH (20:23)
[2016-09-29] VITALS: BP 110/67; PULSE 80; RESP 18; TEMP 99; O2SAT 94
[2016-09-29] MEDS: CIPROFLOXACIN 500 MG TAB PO SCH ×2 (02:27→12:20)
[2016-09-29] MEDS: ACETAMINOPHEN/HYDROcodone 325 MG/10 MG TAB PO PRN ×5 (02:27→20:10)
[2016-09-29 05:40] VITALS: BP 108/69; PULSE 70; RESP 18; TEMP 98.2; O2SAT 94
--- NOTE | 2016-09-29 07:46 | HHI.PR ---
Subjective Remarks At the margin of the bed. Had fever yesterday. No n/v/d/c. Denies chest pain, sob. Pain is fairly controlled by meds. Objective Vitals Vital Signs Date Time Temp Pulse Resp B/P Pulse Ox O2 Delivery O2 Flow Rate FiO2 09/29/16 05:40 98.2 70 18 108/69 94 09/29/16 00:00 99.0 80 18 110/67 94 09/28/16 20:00 100.3 82 17 108/72 94 09/28/16 16:15 98.5 74 20 112/69 95 09/28/16 12:00 98.3 69 20 108/65 95 09/28/16 08:23 98.1 77 20 100/74 95 I/O 09/28/16 09/28/16 09/28/16 09/29/16 09/29/16 09/29/16 07:00 15:00 23:00 07:00 15:00 23:00 Intake Total 240 ml 1000 ml 800 ml 1000 ml Balance 240 ml 1000 ml 800 ml 1000 ml Intake Oral 240 ml 900 ml 800 ml 1000 ml IV Total 100 ml # Voids 4 4 1 4 # Bowel Movements 0 1 0 1 Result Diagram: 09/28/16 1410 09/26/16 0631 Imaging Last Impressions Chest X-Ray 09/28/16 0000 Signed Impressions: Service Date/Time: Wednesday, September 28, 2016 13:23 - CONCLUSION: No acute disease. Osman Antonio MD Lumbar Spine CT 09/26/16 1039 Signed Impressions: Service Date/Time: Monday, September 26, 2016 11:49 - CONCLUSION: 1. Postsurgical changes with a laminotomy left of L3 and a left-sided laminectomy at L4. 2. Tract of air in the soft tissues of the back extending from the left epidural space of L4 posteriorly to the skin surface is characteristic of the previous tube tract. 3. Very small, 1.7 cm fluid collection posterior to the L3 spinous process. I don't believe that this is sufficient enough to warrant further drainage. 4. Haziness of the epidural fat around the left L4 nerve root is almost certainly postsurgical. 5. Spinal canal and neural foramina are otherwise patent at all remaining levels. Jacob Mccollum MD Abscess Drainage CT 09/25/16 0000 Signed Impressions: Service Date/Time: Sunday, September 25, 2016 15:00 - CONCLUSION: Uncomplicated CT guided drainage of paraspinal abscess. Osman Antonio MD Lumbar Spine MRI 09/24/16 0000 Signed Impressions: Service Date/Time: Saturday, September 24, 2016 17:36 - CONCLUSION: 1. Relatively stable size of enhancing fluid collection in the dorsal soft tissues just to the left of midline. 2. Enhancing epidural component at L3-4 dorsally does appear to be slightly decreased from September 14. 3. Stable to slight increase in fluid within the L3-4 disc interspace which could be related to postoperative change. No significant adjacent marrow signal abnormalities to suggest discitis or osteomyelitis. Conus intact. Shayne Penn MD Objective Remarks GENERAL: NAD, sitting up, RN about to change dressing SKIN: dressing over incision d/c/i CARDIOVASCULAR: Regular rate and rhythm. No murmur appreciated. RESPIRATORY: No accessory muscle use. Clear to auscultation. Breath sounds equal bilaterally. MUSCULOSKELETAL: No obvious deformities. No edema. NEUROLOGICAL: Awake and alert. No obvious cranial nerve deficits. Normal speech. PSYCHIATRIC: Appropriate mood and affect; insight and judgment normal. A/P Problem List: (1) Spinal epidural abscess ICD Code: G06.1 Status: Acute (2) Schizoaffective disorder ICD Code: F25.9 Status: Acute (3) Postoperative fever ICD Code: R50.82 Status: Acute (4) Foot drop ICD Code: M21.379 Status: Acute Assessment and Plan The pt is status post L3 L4 L5 hemilaminotomies with L3-L4 and L4-L5 medial facetectomy and foraminotomy, L4-L5 microdiscectomy, lumbar wound incision and debridement subcutaneous abscess evacuation. She returns to the hospital for leakage from the surgical site as well as fevers. Neurosurgery following. MRI showed: Relatively stable size of enhancing fluid collection in the dorsal soft tissues just to the left of midline; Enhancing epidural component at L3-4 dorsally does appear to be slightly decreased from September 14; Stable to slight increase in fluid within the L3-4 disc interspace which could be related to postoperative change; No significant adjacent marrow signal abnormalities to suggest discitis or osteomyelitis; Conus intact. - Continue IV antibiotics. On ceftriaxone 2 g IV daily. - blood cultures negative x2 days. Pt was febrile overnight Tmax 101. repeat blood cx neg x 1 - neurosurgery recommended CT-guided aspiration of spinal fluid for cx. - ID following and recommends continuing Rocephin until October 30 as previous treatment plan for epidural abscess. Monitor blood cultures. CXR ordered. Urinalysis ordered. ID Added ciprofloxacin. Consider drug fever if negative cultures. wound cultures neg 72hours. Patient had spike of fevers 101 on 09/28. Repeat blood cx NTD. - physical therapy has evaluated. Recommend home with no PT. - on norco for pain control with morphine for breakthrough - gabapentin 600mg TID Foot drop: the patient complained of left foot drop secondary to the initial surgery. - Follow up with neurosurgery. - Continue physical therapy. Schizoaffective disorder: mood is stable at this time. - continue home meds. PPx: SCDs. Discharge Planning awaiting final blood cx results. Notify ID if pt continues to spike fevers. Patient with spike of fevers on 09/28 ( 101), repeat blood cx 09/28 NTD Brittany Stewart MD September 29, 2016 07:46
[2016-09-29 08:04] LABS: BASOPHIL % 0.5 % (0.0-2.0); EOSINOPHIL % 0.6 % (0.0-4.0); HEMATOCRIT 39.2 % (35.0-46.0); HEMO FLAGS DIFF FINAL; LYMPH % 20.5 % (9.0-44.0); LYMPHOCYTE # 0.6 TH/MM3 (1.0-4.8); MEAN CELL VOLUME 89.6 FL (80.0-100.0); MEAN CORPUSCULAR HEMOGLOBIN 29.8 PG (27.0-34.0); MEAN CORPUSCULAR HGB CONC 33.2 % (32.0-36.0); NEUT % 64.4 % (16.0-70.0); PLATELET COUNT 127 TH/MM3 (150-450); RED BLOOD COUNT 4.37 MIL/MM3 (4.00-5.30); RED CELL DISTRIBUTION WIDTH 13.5 % (11.6-17.2); WHITE BLOOD COUNT 3.2 TH/MM3 (4.0-11.0)
[2016-09-29 08:26] LABS: BICARBONATE 32.1 MEQ/L (21.0-32.0); POTASSIUM 3.9 MEQ/L (3.5-5.1)
[2016-09-29 08:42] VITALS: BP 109/70; PULSE 65; RESP 19; TEMP 97.2; O2SAT 94
[2016-09-29] MEDS: PROPRANOLOL HCL 10 MG TAB PO SCH ×2 (09:29→20:11)
[2016-09-29] MEDS: ESCITALOPRAM OXALATE 10 MG TAB PO SCH (09:29)
[2016-09-29] MEDS: SENNOSIDES 8.6 MG TAB PO SCH (09:30)
[2016-09-29] MEDS: PANTOPRAZOLE SOD 40 MG DELAYED RELEASE TAB PO SCH (09:30)
[2016-09-29] MEDS: GABAPENTIN 300 MG CAP PO SCH ×3 (09:30→17:38)
[2016-09-29] MEDS: buPROPion HCL 100 MG TAB PO SCH (09:30)
[2016-09-29] MEDS: cefTRIAXone INJ 2,000 MG in SODIUM CHLORIDE 0.9% INJ 100 ML IV SCH (09:31)
[2016-09-29] MEDS: SODIUM CHLORIDE 0.9% FLUSH 10 ML FLUSH IV FLUSH SCH ×2 (09:31→20:16)
[2016-09-29 10:47] LABS: BACTERIA, URINE RARE /hpf; BLOOD, URINE NEG (NEG); GLUCOSE,URINE NEG (NEG); HYALINE CAST, URINE 1 /lpf (RARE); KETONE, URINE NEG (NEG); MUCUS URINE FEW /lpf (OCC); NITRITE,URINE NEG (NEG); PH, URINE 6.5 (5.0-8.5); SQUAMOUS EPITHELIAL CELL URINE 6 /hpf (0-5); URINE COLOR YELLOW (YELLW/STRAW)
[2016-09-29 10:50] LABS: COMMENT (UR) CULT NOT INDICATED; CULTURE IF INDICATED CULT NOT INDICATED
[2016-09-29] MEDS: FLUTICASONE PROPIONATE 50 MCG/ACT 16 GM NASAL SPRAY EACH NARE SCH (11:45)
[2016-09-29 12:03] VITALS: BP 107/70; PULSE 74; RESP 19; TEMP 97.6; O2SAT 95
[2016-09-29] MEDS: FLUCONAZOLE 100 MG TAB PO SCH (12:20)
[2016-09-29 16:08] VITALS: BP 98/69; PULSE 73; RESP 18; TEMP 97.7; O2SAT 95
[2016-09-29 20:00] VITALS: BP 108/64; PULSE 72; RESP 18; TEMP 98.9; O2SAT 94
[2016-09-29] MEDS: DOCUSATE SODIUM 100 MG CAP PO SCH (20:11)
[2016-09-29] MEDS: LURASIDONE 40 MG TAB PO SCH (20:11)
--- NOTE | 2016-09-29 23:05 | HHI.NSPN ---
History Chief Complaint: fever, back pain Interval History 60-year-old female status post laminectomy, L3 4 and L4 5. Subsequent recent I&D 09/17/16, evacuation of epidural abscess. Cultures positive Enterobacter Exam Results Vital Signs Date Time Temp Pulse Resp B/P Pulse Ox O2 Delivery O2 Flow Rate FiO2 09/29/16 20:00 98.9 72 18 108/64 94 Intake and Output 09/28/16 09/28/16 09/29/16 08:00 16:00 00:00 Intake Total 240 ml 1000 ml 800 ml Balance 240 ml 1000 ml 800 ml Physical Examination Awake, alert. Resting comfortably. Sitting up in chair. Neck: Mild edema at the incision site. No significant erythema. No drainage. Dressing dry. Motor: 1-2/5 left dorsiflexion, 2/5 left EHL, moves other extremities well No significant lower extremity edema Lab, Micro, Other Results Laboratory Tests Test 09/29/16 09/29/16 07:30 10:09 White Blood Count 3.2 TH/MM3 Red Blood Count 4.37 MIL/MM3 Hemoglobin 13.0 GM/DL Hematocrit 39.2 % Mean Corpuscular Volume 89.6 FL Mean Corpuscular Hemoglobin 29.8 PG Mean Corpuscular Hemoglobin 33.2 % Concent Red Cell Distribution Width 13.5 % Platelet Count 127 TH/MM3 Mean Platelet Volume 7.7 FL Neutrophils (%) (Auto) 64.4 % Lymphocytes (%) (Auto) 20.5 % Monocytes (%) (Auto) 14.0 % Eosinophils (%) (Auto) 0.6 % Basophils (%) (Auto) 0.5 % Neutrophils # (Auto) 2.0 TH/MM3 Lymphocytes # (Auto) 0.6 TH/MM3 Monocytes # (Auto) 0.4 TH/MM3 Eosinophils # (Auto) 0.0 TH/MM3 Basophils # (Auto) 0.0 TH/MM3 CBC Comment DIFF FINAL Differential Comment Sodium Level 141 MEQ/L Potassium Level 3.9 MEQ/L Chloride Level 104 MEQ/L Carbon Dioxide Level 32.1 MEQ/L Anion Gap 5 MEQ/L Blood Urea Nitrogen 8 MG/DL Creatinine 0.62 MG/DL Estimat Glomerular Filtration 99 ML/MIN Rate Random Glucose 95 MG/DL Calcium Level 8.9 MG/DL Urine Color YELLOW Urine Turbidity HAZY Urine pH 6.5 Urine Specific [place] 1.013 Urine Protein NEG mg/dL Urine Glucose (UA) NEG mg/dL Urine Ketones NEG mg/dL Urine Occult Blood NEG Urine Nitrite NEG Urine Bilirubin NEG Urine Urobilinogen LESS THAN 2.0 MG/DL Urine Leukocyte Esterase TRACE Urine RBC 1 /hpf Urine WBC 7 /hpf Urine Squamous Epithelial 6 /hpf Cells Urine Bacteria RARE /hpf Urine Hyaline Casts 1 /lpf Urine Mucus FEW /lpf Microscopic Urinalysis Comment CULT NOT INDICATED Medical Decision Making Impression and Plan Impression: 1. Stable neurologic exam. Plan: Continue to monitor 09/27/16 blood cultures-no growth so far 09/25/16 wound culture negative 72 hours. Additional month of antibiotic treatment per infectious disease. Discussed with patient Francisco Paredes MD September 29, 2016 23:05
[2016-09-30] VITALS: BP 110/80; PULSE 79; RESP 22; TEMP 98.7; O2SAT 95
[2016-09-30] MEDS: CIPROFLOXACIN 500 MG TAB PO SCH ×2 (02:48→13:39)
[2016-09-30] MEDS: ACETAMINOPHEN/HYDROcodone 325 MG/10 MG TAB PO PRN ×4 (02:51→21:15)
[2016-09-30 04:00] VITALS: BP 100/57; PULSE 75; RESP 20; TEMP 99.1; O2SAT 90
[2016-09-30 08:03] VITALS: BP 106/75; PULSE 66; RESP 19; TEMP 98.3; O2SAT 96
[2016-09-30] MEDS: GABAPENTIN 300 MG CAP PO SCH ×3 (08:07→17:31)
[2016-09-30] MEDS: PANTOPRAZOLE SOD 40 MG DELAYED RELEASE TAB PO SCH (08:07)
[2016-09-30] MEDS: cefTRIAXone INJ 2,000 MG in SODIUM CHLORIDE 0.9% INJ 100 ML IV SCH (08:07)
[2016-09-30] MEDS: buPROPion HCL 100 MG TAB PO SCH (08:07)
[2016-09-30] MEDS: FLUTICASONE PROPIONATE 50 MCG/ACT 16 GM NASAL SPRAY EACH NARE SCH (08:07)
[2016-09-30] MEDS: SODIUM CHLORIDE 0.9% FLUSH 10 ML FLUSH IV FLUSH SCH ×2 (08:08→21:14)
[2016-09-30] MEDS: SENNOSIDES 8.6 MG TAB PO SCH (08:08)
[2016-09-30] MEDS: ESCITALOPRAM OXALATE 10 MG TAB PO SCH (08:08)
[2016-09-30] MEDS: PROPRANOLOL HCL 10 MG TAB PO SCH ×2 (08:08→21:00)
--- NOTE | 2016-09-30 09:59 | HHI.PR ---
Subjective Remarks Patient at the margin of the bed. She was ambulating in the hallways. Says pain is controlled by meds. Says she has noticed a bulge in her back. No fever or chills. No n/v/d/c. Objective Vitals Vital Signs Date Time Temp Pulse Resp B/P Pulse Ox O2 Delivery O2 Flow Rate FiO2 09/30/16 08:03 98.3 66 19 106/75 96 09/30/16 04:00 99.1 75 20 100/57 90 09/30/16 00:00 98.7 79 22 110/80 95 09/29/16 20:00 98.9 72 18 108/64 94 09/29/16 17:20 20 09/29/16 16:08 97.7 73 18 98/69 95 09/29/16 12:03 97.6 74 19 107/70 95 I/O 09/29/16 09/29/16 09/29/16 09/30/16 09/30/16 09/30/16 07:00 15:00 23:00 07:00 15:00 23:00 Intake Total 1000 ml 100 ml Output Total 2 ml Balance 1000 ml 98 ml Intake Oral 1000 ml IV Total 100 ml Output Stool Total 2 ml # Voids 5 1 4 3 # Bowel Movements 1 1 Result Diagram: 09/29/16 0730 09/29/16 0730 Imaging Last Impressions Chest X-Ray 09/28/16 0000 Signed Impressions: Service Date/Time: Wednesday, September 28, 2016 13:23 - CONCLUSION: No acute disease. Osman Antonio MD Lumbar Spine CT 09/26/16 1039 Signed Impressions: Service Date/Time: Monday, September 26, 2016 11:49 - CONCLUSION: 1. Postsurgical changes with a laminotomy left of L3 and a left-sided laminectomy at L4. 2. Tract of air in the soft tissues of the back extending from the left epidural space of L4 posteriorly to the skin surface is characteristic of the previous tube tract. 3. Very small, 1.7 cm fluid collection posterior to the L3 spinous process. I don't believe that this is sufficient enough to warrant further drainage. 4. Haziness of the epidural fat around the left L4 nerve root is almost certainly postsurgical. 5. Spinal canal and neural foramina are otherwise patent at all remaining levels. Jacob Mccollum MD Abscess Drainage CT 09/25/16 0000 Signed Impressions: Service Date/Time: Sunday, September 25, 2016 15:00 - CONCLUSION: Uncomplicated CT guided drainage of paraspinal abscess. Osman Antonio MD Lumbar Spine MRI 09/24/16 0000 Signed Impressions: Service Date/Time: Saturday, September 24, 2016 17:36 - CONCLUSION: 1. Relatively stable size of enhancing fluid collection in the dorsal soft tissues just to the left of midline. 2. Enhancing epidural component at L3-4 dorsally does appear to be slightly decreased from September 14. 3. Stable to slight increase in fluid within the L3-4 disc interspace which could be related to postoperative change. No significant adjacent marrow signal abnormalities to suggest discitis or osteomyelitis. Conus intact. Shayne Penn MD Objective Remarks GENERAL: NAD, sitting up, RN about to change dressing SKIN: dressing over incision d/c/i, 3-4 cm fluid collection on her back. CARDIOVASCULAR: Regular rate and rhythm. No murmur appreciated. RESPIRATORY: No accessory muscle use. Clear to auscultation. Breath sounds equal bilaterally. MUSCULOSKELETAL: Back with dressing on, small fluid collectin on her back, covered by dressing c/d/di. No LE edema. NEUROLOGICAL: Awake and alert. No obvious cranial nerve deficits. Normal speech. PSYCHIATRIC: Appropriate mood and affect; insight and judgment normal. A/P Problem List: (1) Spinal epidural abscess ICD Code: G06.1 Status: Acute (2) Schizoaffective disorder ICD Code: F25.9 Status: Acute (3) Postoperative fever ICD Code: R50.82 Status: Acute (4) Foot drop ICD Code: M21.379 Status: Acute Assessment and Plan The pt is status post L3 L4 L5 hemilaminotomies with L3-L4 and L4-L5 medial facetectomy and foraminotomy, L4-L5 microdiscectomy, lumbar wound incision and debridement subcutaneous abscess evacuation. She returns to the hospital for leakage from the surgical site as well as fevers. Neurosurgery following. MRI showed: Relatively stable size of enhancing fluid collection in the dorsal soft tissues just to the left of midline; Enhancing epidural component at L3-4 dorsally does appear to be slightly decreased from September 14; Stable to slight increase in fluid within the L3-4 disc interspace which could be related to postoperative change; No significant adjacent marrow signal abnormalities to suggest discitis or osteomyelitis; Conus intact. - Continue IV antibiotics. On ceftriaxone 2 g IV daily. - blood cultures negative x2 days. Pt was febrile overnight Tmax 101. repeat blood cx neg x 1 - neurosurgery recommended CT-guided aspiration of spinal fluid for cx. - ID following and recommends continuing Rocephin until October 30 as previous treatment plan for epidural abscess. Monitor blood cultures. CXR ordered. Urinalysis ordered. ID Added ciprofloxacin. Consider drug fever if negative cultures. wound cultures neg 72hours. Patient had spike of fevers 101 on 09/28. Repeat blood cx NTD. - physical therapy has evaluated. Recommend home with no PT. - on norco for pain control with morphine for breakthrough - gabapentin 600mg TID Foot drop: the patient complained of left foot drop secondary to the initial surgery. - Follow up with neurosurgery. - Continue physical therapy. Schizoaffective disorder: mood is stable at this time. - continue home meds. PPx: SCDs. Discharge Planning awaiting final blood cx results. Notify ID if pt continues to spike fevers. Patient with spike of fevers on 09/28 ( 101), repeat blood cx 09/28 NTD Brittany Stewart MD September 30, 2016 09:59
[2016-09-30 11:56] VITALS: BP 96/68; PULSE 66; RESP 18; TEMP 98; O2SAT 96
[2016-09-30] MEDS: FLUCONAZOLE 100 MG TAB PO SCH (13:39)
[2016-09-30 16:19] VITALS: BP 100/61; PULSE 64; RESP 18; TEMP 98.3; O2SAT 95
--- NOTE | 2016-09-30 17:40 | HHI.NSPN ---
History Chief Complaint: fever, back pain Interval History 60-year-old female status post laminectomy, L3 4 and L4 5. Subsequent recent I&D 09/17/16, evacuation of epidural abscess. Cultures positive Enterobacter Exam Results Vital Signs Date Time Temp Pulse Resp B/P Pulse Ox O2 Delivery O2 Flow Rate FiO2 09/30/16 16:19 98.3 64 18 100/61 95 Intake and Output 09/29/16 09/29/16 09/30/16 08:00 16:00 00:00 Intake Total 1000 ml 100 ml Output Total 2 ml Balance 1000 ml 98 ml Physical Examination Awake, alert. Resting comfortably in bed Neck: Mild edema at the upper incision site. Stable versus 09/29/16 . No drainage. Dressing dry. Sutures remain in place with some erythema around the sutures. Motor: 1-2/5 left dorsiflexion, 2/5 left EHL, moves other extremities well No significant lower extremity edema Medical Decision Making Impression and Plan Impression: 1. Stable neurologic exam. Plan: Continue to monitor 09/27/16 blood cultures-no growth so far 09/25/16 wound culture negative 72 hours. Additional month of antibiotic treatment per infectious disease. Discussed with patient There is some subcutaneous tissue or fluid palpable below the upper incision site, but this appears stable in not unexpected postoperatively. Discontinue sutures Francisco Paredes MD September 30, 2016 17:40
[2016-09-30 20:00] VITALS: BP 99/71; PULSE 75; RESP 20; TEMP 99.3; O2SAT 96
[2016-09-30] MEDS: LURASIDONE 40 MG TAB PO SCH (21:14)
[2016-09-30] MEDS: DOCUSATE SODIUM 100 MG CAP PO SCH (21:14)
[2016-10-01] VITALS: BP 98/69; PULSE 76; RESP 22; TEMP 98; O2SAT 95
[2016-10-01] MEDS: CIPROFLOXACIN 500 MG TAB PO SCH ×2 (02:33→12:42)
[2016-10-01] MEDS: ACETAMINOPHEN/HYDROcodone 325 MG/10 MG TAB PO PRN ×5 (02:34→20:53)
[2016-10-01 04:00] VITALS: BP 95/51; PULSE 70; RESP 18; TEMP 97.6; O2SAT 94
[2016-10-01] MEDS: SODIUM CHLORIDE 0.9% FLUSH 10 ML FLUSH IV FLUSH SCH ×2 (08:12→20:54)
[2016-10-01] MEDS: buPROPion HCL 100 MG TAB PO SCH (08:12)
[2016-10-01] MEDS: SENNOSIDES 8.6 MG TAB PO SCH (08:13)
[2016-10-01] MEDS: ESCITALOPRAM OXALATE 10 MG TAB PO SCH (08:13)
[2016-10-01] MEDS: GABAPENTIN 300 MG CAP PO SCH ×3 (08:13→17:08)
[2016-10-01] MEDS: PANTOPRAZOLE SOD 40 MG DELAYED RELEASE TAB PO SCH (08:13)
[2016-10-01] MEDS: cefTRIAXone INJ 2,000 MG in SODIUM CHLORIDE 0.9% INJ 100 ML IV SCH (08:14)
[2016-10-01] MEDS: FLUTICASONE PROPIONATE 50 MCG/ACT 16 GM NASAL SPRAY EACH NARE SCH (08:23)
[2016-10-01 08:37] VITALS: BP 119/75; PULSE 61; RESP 18; TEMP 97.5; O2SAT 95
[2016-10-01] MEDS: PROPRANOLOL HCL 10 MG TAB PO SCH ×2 (08:37→20:52)
--- NOTE | 2016-10-01 11:50 | HHI.PR ---
Subjective Remarks In the chair. Took a shower. Says bulge in the back is the same. She has associated pain. Says had low grade fevers overnight. No n/v/d/c. Objective Vitals Vital Signs Date Time Temp Pulse Resp B/P Pulse Ox O2 Delivery O2 Flow Rate FiO2 10/01/16 08:37 97.5 61 18 119/75 95 10/01/16 08:08 18 10/01/16 04:00 97.6 70 18 95/51 94 10/01/16 00:00 98.0 76 22 98/69 95 09/30/16 20:00 99.3 75 20 99/71 96 09/30/16 16:19 98.3 64 18 100/61 95 09/30/16 11:56 98.0 66 18 96/68 96 I/O 09/30/16 09/30/16 09/30/16 10/01/16 10/01/16 10/01/16 07:00 15:00 23:00 07:00 15:00 23:00 Intake Total 480 ml Balance 480 ml Intake Oral 480 ml # Voids 3 3 Result Diagram: 09/29/16 0730 09/29/16 0730 Imaging Last Impressions Chest X-Ray 09/28/16 0000 Signed Impressions: Service Date/Time: Wednesday, September 28, 2016 13:23 - CONCLUSION: No acute disease. Osman Antonio MD Lumbar Spine CT 09/26/16 1039 Signed Impressions: Service Date/Time: Monday, September 26, 2016 11:49 - CONCLUSION: 1. Postsurgical changes with a laminotomy left of L3 and a left-sided laminectomy at L4. 2. Tract of air in the soft tissues of the back extending from the left epidural space of L4 posteriorly to the skin surface is characteristic of the previous tube tract. 3. Very small, 1.7 cm fluid collection posterior to the L3 spinous process. I don't believe that this is sufficient enough to warrant further drainage. 4. Haziness of the epidural fat around the left L4 nerve root is almost certainly postsurgical. 5. Spinal canal and neural foramina are otherwise patent at all remaining levels. Jacob Mccollum MD Abscess Drainage CT 09/25/16 0000 Signed Impressions: Service Date/Time: Sunday, September 25, 2016 15:00 - CONCLUSION: Uncomplicated CT guided drainage of paraspinal abscess. Osman Antonio MD Lumbar Spine MRI 09/24/16 0000 Signed Impressions: Service Date/Time: Saturday, September 24, 2016 17:36 - CONCLUSION: 1. Relatively stable size of enhancing fluid collection in the dorsal soft tissues just to the left of midline. 2. Enhancing epidural component at L3-4 dorsally does appear to be slightly decreased from September 14. 3. Stable to slight increase in fluid within the L3-4 disc interspace which could be related to postoperative change. No significant adjacent marrow signal abnormalities to suggest discitis or osteomyelitis. Conus intact. Shayne Penn MD Objective Remarks GENERAL: NAD, sitting up, RN about to change dressing SKIN: dressing over incision d/c/i, 3-4 cm fluid collection on her back. CARDIOVASCULAR: Regular rate and rhythm. No murmur appreciated. RESPIRATORY: No accessory muscle use. Clear to auscultation. Breath sounds equal bilaterally. MUSCULOSKELETAL: Back with dressing on, small fluid collectin on her back, dry, no surrounding srythema, no drainage noted. No LE edema. NEUROLOGICAL: Awake and alert. No obvious cranial nerve deficits. Normal speech. PSYCHIATRIC: Appropriate mood and affect; insight and judgment normal. Has left foot drop at baseline. A/P Problem List: (1) Spinal epidural abscess ICD Code: G06.1 Status: Acute (2) Schizoaffective disorder ICD Code: F25.9 Status: Acute (3) Postoperative fever ICD Code: R50.82 Status: Acute (4) Foot drop ICD Code: M21.379 Status: Acute Assessment and Plan The pt is status post L3 L4 L5 hemilaminotomies with L3-L4 and L4-L5 medial facetectomy and foraminotomy, L4-L5 microdiscectomy, lumbar wound incision and debridement subcutaneous abscess evacuation. She returns to the hospital for leakage from the surgical site as well as fevers. Neurosurgery following. MRI showed: Relatively stable size of enhancing fluid collection in the dorsal soft tissues just to the left of midline; Enhancing epidural component at L3-4 dorsally does appear to be slightly decreased from September 14; Stable to slight increase in fluid within the L3-4 disc interspace which could be related to postoperative change; No significant adjacent marrow signal abnormalities to suggest discitis or osteomyelitis; Conus intact. - Continue IV antibiotics. On ceftriaxone 2 g IV daily. - blood cultures negative x2 days. Pt was febrile overnight Tmax 101. repeat blood cx neg x 1 - neurosurgery recommended CT-guided aspiration of spinal fluid for cx. - ID following and recommends continuing Rocephin until October 30 as previous treatment plan for epidural abscess. Monitor blood cultures. CXR ordered. Urinalysis ordered. ID Added ciprofloxacin. Consider drug fever if negative cultures. wound cultures neg 72hours. Patient had spike of fevers 101 on 09/28. Repeat blood cx NTD. - physical therapy has evaluated. Recommend home with no PT. - on norco for pain control with morphine for breakthrough - gabapentin 600mg TID Foot drop: the patient complained of left foot drop secondary to the initial surgery. - Follow up with neurosurgery. - Continue physical therapy. Schizoaffective disorder: mood is stable at this time. - continue home meds. PPx: SCDs. Discharge Planning awaiting final blood cx results. Notify ID if pt continues to spike fevers. Patient with spike of fevers on 09/28 ( 101), repeat blood cx 09/28 NTD Brittany Stewart MD October 01, 2016 11:50
--- NOTE | 2016-10-01 12:12 | HHI.NSPN ---
History Chief Complaint: Incisional infection. Interval History 10/01/16: Pt not complaining of much back pain some soreness. No radiculopathy in LEs. She has chronic numbness from the left knee to toes and medial calf area. She states she has episodes of fever mostly occurring at night but review of vitals stable without fever. She denies any drainage from the incision. She states there is a lump at the incision that has gotten bigger. Review of Systems General: Positive for: fever (Intermittenlty. Pt states at night.), Negative for: chills, insomnia Respiratory: Negative for: shortness of breath, cough, sputum Cardiovascular: Negative for: chest pain, palpitations, orthopnea Gastrointestinal: Negative for: nausea, vomitting, diarrhea, constipation Exam Results Vital Signs Date Time Temp Pulse Resp B/P Pulse Ox O2 Delivery O2 Flow Rate FiO2 10/01/16 08:37 97.5 61 18 119/75 95 Physical Examination General: Awake, alert. Resting comfortably in bed Resp: CTA bilaterally Heart: NSR no murmurs Abd: Soft positive bs Skin: Mild wound dehiscence. Motor: 1-2/5 left dorsiflexion, 2/5 left EHL, moves other extremities well. Ambulates well and gets up from bed independently. Neuro: Pt awake and alert. Follows commands well. Speech clear and appropriate. Numbness in left anterior and medical erwin Lab, Micro, Other Results Last Impressions Chest X-Ray 09/28/16 0000 Signed Impressions: Service Date/Time: Wednesday, September 28, 2016 13:23 - CONCLUSION: No acute disease. Osman Antonio MD Lumbar Spine CT 09/26/16 1039 Signed Impressions: Service Date/Time: Monday, September 26, 2016 11:49 - CONCLUSION: 1. Postsurgical changes with a laminotomy left of L3 and a left-sided laminectomy at L4. 2. Tract of air in the soft tissues of the back extending from the left epidural space of L4 posteriorly to the skin surface is characteristic of the previous tube tract. 3. Very small, 1.7 cm fluid collection posterior to the L3 spinous process. I don't believe that this is sufficient enough to warrant further drainage. 4. Haziness of the epidural fat around the left L4 nerve root is almost certainly postsurgical. 5. Spinal canal and neural foramina are otherwise patent at all remaining levels. Jcaob Mccollum MD Abscess Drainage CT 09/25/16 0000 Signed Impressions: Service Date/Time: Sunday, September 25, 2016 15:00 - CONCLUSION: Uncomplicated CT guided drainage of paraspinal abscess. Osman Antonio MD Lumbar Spine MRI 09/24/16 0000 Signed Impressions: Service Date/Time: Saturday, September 24, 2016 17:36 - CONCLUSION: 1. Relatively stable size of enhancing fluid collection in the dorsal soft tissues just to the left of midline. 2. Enhancing epidural component at L3-4 dorsally does appear to be slightly decreased from September 14. 3. Stable to slight increase in fluid within the L3-4 disc interspace which could be related to postoperative change. No significant adjacent marrow signal abnormalities to suggest discitis or osteomyelitis. Conus intact. Shayne Penn MD 09/30/16 09/30/16 10/01/16 15:00 23:00 07:00 # Voids 3 Medical Decision Making Impression and Plan A: 60 y/o FM s/p incision and drainage of lumbar wound. P: Continue with antibiotics. continue to monitor subcutaneous fluid collection. no incisional drainage currently. Dr. Desouza returns tomorrow. Encourage incentive spirometry. Osman Mcclellan October 01, 2016 12:12
[2016-10-01] MEDS: FLUCONAZOLE 100 MG TAB PO SCH (12:43)
[2016-10-01 12:54] VITALS: BP 106/77; PULSE 70; RESP 18; TEMP 98.6; O2SAT 95
[2016-10-01 16:19] VITALS: BP 93/63; PULSE 80; RESP 18; TEMP 98.1; O2SAT 94
--- NOTE | 2016-10-01 16:29 | HHI.IDPN ---
Note Infectious Disease Note Patient describes burning pain at the back incision. Has new bulge at the back wound. Afebrile. Up in chair. No nausea, CP, dysuria. Cough or sputum production. Wound culture has no growth. PAST MEDICAL HISTORY 1. Schizoaffective disorder. 2. Hepatitis C. 3. Cholecystectomy. 4. Fibromyalgia. 5. Right fallopian tube resection. 6. Recent L3-L4 and L4-L5 hemilaminectomy with redo hemilaminectomy on 09/17/2016. ALLERGIES SULFA. ANTIBIOTICS Ceftriaxone. Cipor floxacin. Diflucan. OBJECTIVE: Vital Signs Date Time Temp Pulse Resp B/P Pulse Ox O2 Delivery O2 Flow Rate FiO2 10/01/16 16:19 98.1 80 18 93/63 94 10/01/16 12:54 98.6 70 18 106/77 95 10/01/16 08:37 97.5 61 18 119/75 95 10/01/16 08:08 18 10/01/16 04:00 97.6 70 18 95/51 94 10/01/16 00:00 98.0 76 22 98/69 95 09/30/16 20:00 99.3 75 20 99/71 96 09/30/16 09/30/16 10/01/16 15:00 23:00 07:00 # Voids 3 IMAGING: Lumbar Spine CT 09/26/16 1039 Signed Impressions: Service Date/Time: Monday, September 26, 2016 11:49 - CONCLUSION: 1. Postsurgical changes with a laminotomy left of L3 and a left-sided laminectomy at L4. 2. Tract of air in the soft tissues of the back extending from the left epidural space of L4 posteriorly to the skin surface is characteristic of the previous tube tract. 3. Very small, 1.7 cm fluid collection posterior to the L3 spinous process. I don't believe that this is sufficient enough to warrant further drainage. 4. Haziness of the epidural fat around the left L4 nerve root is almost certainly postsurgical. 5. Spinal canal and neural foramina are otherwise patent at all remaining levels. Jacob Mccollum MD Abscess Drainage CT 09/25/16 0000 Signed Impressions: Service Date/Time: Sunday, September 25, 2016 15:00 - CONCLUSION: Uncomplicated CT guided drainage of paraspinal abscess. Osman Antonio MD Lumbar Spine MRI 5/22/17 0000 Signed Impressions: Service Date/Time: Saturday, September 24, 2016 17:36 - CONCLUSION: 1. Relatively stable size of enhancing fluid collection in the dorsal soft tissues just to the left of midline. 2. Enhancing epidural component at L3-4 dorsally does appear to be slightly decreased from September 14. 3. Stable to slight increase in fluid within the L3-4 disc interspace which could be related to postoperative change. No significant adjacent marrow signal abnormalities to suggest discitis or osteomyelitis. Conus intact. Shayne Penn MD PHYSICAL EXAMINATION GENERAL: No acute distress. Awake, alert and oriented. HEENT: No icterus. Oropharynx moist mucosa without lesions. NECK: Supple without adenopathy. LUNGS: Clear to auscultation. HEART: Regular rate and rhythm. No murmurs, rubs or gallops. ABDOMEN: Bowel sounds present. Soft. BACK: swelling over surgical incision at the lumbar. No erythema. No visible drainage. EXTREMITIES: No clubbing, cyanosis or edema. PIC site has no sign of infection. SKIN: No rash. PSYCHIATRIC: Patient calm and cooperative. IMPRESSION 1. Lumbar spine epidural abscess. The patient is status post redo laminectomy. Culture grew out Enterobacter cloacae. 2. Recurrence of drainage from the lumbar region/wound. Appears to have fluid reaccumulation. 3. New fever. ? etiology. Improved. RECOMMENDATIONS 1. Continue ceftriaxone. Previous plan until October 30 for epidural abscess. 2. Continue Ciprofloxacin. 3. Continue Fluconazole. 4. Neurosurgical eval of the wound. Probably repeat drainage. Eitan Yoon MD October 01, 2016 16:29
[2016-10-01] MEDS: MORPHINE SULFATE 4 MG/ML INJ IV PRN (17:54)
[2016-10-01 20:00] VITALS: BP 112/77; PULSE 74; RESP 16; TEMP 97.9; O2SAT 95
[2016-10-01] MEDS: DOCUSATE SODIUM 100 MG CAP PO SCH (20:52)
[2016-10-01] MEDS: LURASIDONE 40 MG TAB PO SCH (20:52)
[2016-10-02 01:05] VITALS: BP 98/68; PULSE 76; RESP 16; TEMP 97.9; O2SAT 94
[2016-10-02] MEDS: CIPROFLOXACIN 500 MG TAB PO SCH ×2 (01:07→14:37)
[2016-10-02 04:00] VITALS: BP 101/72; PULSE 63; RESP 20; TEMP 98.4; O2SAT 94
[2016-10-02] MEDS: ACETAMINOPHEN/HYDROcodone 325 MG/10 MG TAB PO PRN ×3 (05:52→18:24)
[2016-10-02 05:56] LABS: HEMATOCRIT 34.6 % (35.0-46.0); MEAN CELL VOLUME 89.5 FL (80.0-100.0); MEAN CORPUSCULAR HEMOGLOBIN 30.8 PG (27.0-34.0); MEAN CORPUSCULAR HGB CONC 34.4 % (32.0-36.0); PLATELET COUNT 112 TH/MM3 (150-450); RED BLOOD COUNT 3.86 MIL/MM3 (4.00-5.30); RED CELL DISTRIBUTION WIDTH 13.6 % (11.6-17.2); WHITE BLOOD COUNT 2.7 TH/MM3 (4.0-11.0)
[2016-10-02 06:01] LABS: HEMO FLAGS AUTO DIFF
[2016-10-02 06:15] LABS: BICARBONATE 33.7 MEQ/L (21.0-32.0); POTASSIUM 3.8 MEQ/L (3.5-5.1)
--- NOTE | 2016-10-02 07:34 | HHI.PR ---
Subjective Remarks Appears in nad. Says she has more pain in her back. No fever or chills. No n/v/d /c. Objective Vitals Vital Signs Date Time Temp Pulse Resp B/P Pulse Ox O2 Delivery O2 Flow Rate FiO2 10/02/16 04:00 98.4 63 20 101/72 94 10/02/16 01:05 97.9 76 16 98/68 94 10/01/16 20:00 97.9 74 16 112/77 95 10/01/16 16:19 98.1 80 18 93/63 94 10/01/16 12:54 98.6 70 18 106/77 95 10/01/16 08:37 97.5 61 18 119/75 95 10/01/16 08:08 18 I/O 10/01/16 10/01/16 10/01/16 10/02/16 10/02/16 10/02/16 07:00 15:00 23:00 07:00 15:00 23:00 Intake Total 480 ml 270 ml Balance 480 ml 270 ml Intake Oral 480 ml 120 ml IV Total 150 ml # Voids 3 # Bowel Movements 1 Result Diagram: 10/02/16 0540 10/02/16 0540 Imaging Last Impressions Chest X-Ray 09/28/16 0000 Signed Impressions: Service Date/Time: Wednesday, September 28, 2016 13:23 - CONCLUSION: No acute disease. Osman Antonio MD Lumbar Spine CT 09/26/16 1039 Signed Impressions: Service Date/Time: Monday, September 26, 2016 11:49 - CONCLUSION: 1. Postsurgical changes with a laminotomy left of L3 and a left-sided laminectomy at L4. 2. Tract of air in the soft tissues of the back extending from the left epidural space of L4 posteriorly to the skin surface is characteristic of the previous tube tract. 3. Very small, 1.7 cm fluid collection posterior to the L3 spinous process. I don't believe that this is sufficient enough to warrant further drainage. 4. Haziness of the epidural fat around the left L4 nerve root is almost certainly postsurgical. 5. Spinal canal and neural foramina are otherwise patent at all remaining levels. Jacob Mccollum MD Abscess Drainage CT 09/25/16 0000 Signed Impressions: Service Date/Time: Sunday, September 25, 2016 15:00 - CONCLUSION: Uncomplicated CT guided drainage of paraspinal abscess. Osman Antonio MD Lumbar Spine MRI 09/24/16 0000 Signed Impressions: Service Date/Time: Saturday, September 24, 2016 17:36 - CONCLUSION: 1. Relatively stable size of enhancing fluid collection in the dorsal soft tissues just to the left of midline. 2. Enhancing epidural component at L3-4 dorsally does appear to be slightly decreased from September 14. 3. Stable to slight increase in fluid within the L3-4 disc interspace which could be related to postoperative change. No significant adjacent marrow signal abnormalities to suggest discitis or osteomyelitis. Conus intact. Shayne Penn MD Objective Remarks GENERAL: NAD, sitting up, RN about to change dressing SKIN: dressing over incision d/c/i, 3-4 cm fluid collection on her back. CARDIOVASCULAR: Regular rate and rhythm. No murmur appreciated. RESPIRATORY: No accessory muscle use. Clear to auscultation. Breath sounds equal bilaterally. MUSCULOSKELETAL: Back with dressing on, fluid collection 5x6 cm getting bigger on her back, dry, no surrounding erythema, no drainage noted. No LE edema. NEUROLOGICAL: Awake and alert. No obvious cranial nerve deficits. Normal speech. PSYCHIATRIC: Appropriate mood and affect; insight and judgment normal. Has left foot drop at baseline. A/P Problem List: (1) Spinal epidural abscess ICD Code: G06.1 Status: Acute (2) Schizoaffective disorder ICD Code: F25.9 Status: Acute (3) Postoperative fever ICD Code: R50.82 Status: Acute (4) Foot drop ICD Code: M21.379 Status: Acute Assessment and Plan The pt is status post L3 L4 L5 hemilaminotomies with L3-L4 and L4-L5 medial facetectomy and foraminotomy, L4-L5 microdiscectomy, lumbar wound incision and debridement subcutaneous abscess evacuation. She returns to the hospital for leakage from the surgical site as well as fevers. Neurosurgery following. MRI showed: Relatively stable size of enhancing fluid collection in the dorsal soft tissues just to the left of midline; Enhancing epidural component at L3-4 dorsally does appear to be slightly decreased from September 14; Stable to slight increase in fluid within the L3-4 disc interspace which could be related to postoperative change; No significant adjacent marrow signal abnormalities to suggest discitis or osteomyelitis; Conus intact. - Continue IV antibiotics. On ceftriaxone 2 g IV daily. - blood cultures negative x2 days. Pt was febrile overnight Tmax 101. repeat blood cx neg x 1 - neurosurgery recommended CT-guided aspiration of spinal fluid for cx. - ID following and recommends continuing Rocephin until October 30 as previous treatment plan for epidural abscess. Monitor blood cultures. CXR ordered. Urinalysis ordered. ID Added ciprofloxacin. Consider drug fever if negative cultures. wound cultures neg 72hours. Patient had spike of fevers 101 on 09/28. Repeat blood cx NTD. New fluid collection at the surgical site, neurosurgery to evaluate patient might need drainage again. Dr Desouza will evaluate and decide - physical therapy has evaluated. Recommend home with no PT. - on norco for pain control with morphine for breakthrough - gabapentin 600mg TID Pancytopenia: discussed with Dr Yoon ID. Will consult hem/onc. patient is also on abx Foot drop: the patient complained of left foot drop secondary to the initial surgery. - Follow up with neurosurgery. - Continue physical therapy. Schizoaffective disorder: mood is stable at this time. - continue home meds. PPx: SCDs. Discharge Planning awaiting final blood cx results. Notify ID if pt continues to spike fevers. Patient with spike of fevers on 09/28 ( 101), repeat blood cx 09/28 NTD. Patient is noted with new fluid collection , continue abx per IDF. Patient might need repeat drainage. Dr Desouza to evaluate Also noted pancytopenia consult hem/onc Brittany Stewart MD October 02, 2016 07:34
[2016-10-02 08:00] VITALS: BP 102/69; PULSE 68; RESP 18; TEMP 99.2; O2SAT 96
[2016-10-02 08:05] LABS: BANDS 15 % (0-6); EOSINOPHILS 3 % (0-4); METAMYELOCYTES 1 % (0-1); NEUTROPHIL # MANUAL DIFF 1.4 TH/MM3 (1.8-7.7); PLATELET ESTIMATE SMEAR LOW (NORMAL); PLATELET MORPHOLOGY NORMAL (NORMAL); POLYS (SEG NEUTROPHILS) 36 % (16-70); SCAN/DIFF FINAL DIFF MANUAL; WBC DIFF SAMPLE 100
[2016-10-02] MEDS: SODIUM CHLORIDE 0.9% FLUSH 10 ML FLUSH IV FLUSH SCH ×2 (09:00→20:39)
[2016-10-02] MEDS: SENNOSIDES 8.6 MG TAB PO SCH (09:00)
[2016-10-02] MEDS: PROPRANOLOL HCL 10 MG TAB PO SCH ×2 (09:00→20:39)
[2016-10-02] MEDS: MORPHINE SULFATE 4 MG/ML INJ IV PRN ×2 (09:56→20:40)
[2016-10-02] MEDS: buPROPion HCL 100 MG TAB PO SCH (09:59)
[2016-10-02] MEDS: cefTRIAXone INJ 2,000 MG in SODIUM CHLORIDE 0.9% INJ 100 ML IV SCH (09:59)
[2016-10-02] MEDS: GABAPENTIN 300 MG CAP PO SCH ×3 (10:00→18:24)
[2016-10-02] MEDS: ESCITALOPRAM OXALATE 10 MG TAB PO SCH (10:01)
[2016-10-02] MEDS: PANTOPRAZOLE SOD 40 MG DELAYED RELEASE TAB PO SCH (10:02)
[2016-10-02] MEDS: FLUTICASONE PROPIONATE 50 MCG/ACT 16 GM NASAL SPRAY EACH NARE SCH (10:02)
[2016-10-02 12:00] VITALS: BP 100/73; PULSE 73; RESP 18; TEMP 99; O2SAT 95
[2016-10-02] MEDS: FLUCONAZOLE 100 MG TAB PO SCH (14:36)
--- NOTE | 2016-10-02 15:36 | HHI.IDPN ---
Note Infectious Disease Note Patient describes burning pain at the back incision. Bulge at the back wound. Incision is intact. Afebrile. No nausea, CP, dysuria. Cough or sputum production. Decreased appetite. Current SBP 92. Denies dizziness. PAST MEDICAL HISTORY 1. Schizoaffective disorder. 2. Hepatitis C. 3. Cholecystectomy. 4. Fibromyalgia. 5. Right fallopian tube resection. 6. Recent L3-L4 and L4-L5 hemilaminectomy with redo hemilaminectomy on 09/17/2016. ALLERGIES SULFA. ANTIBIOTICS Ceftriaxone. Ciprofloxacin. Diflucan. OBJECTIVE: Vital Signs Date Time Temp Pulse Resp B/P Pulse Ox O2 Delivery O2 Flow Rate FiO2 10/02/16 12:00 99.0 73 18 100/73 95 10/02/16 08:00 99.2 68 18 102/69 96 10/02/16 04:00 98.4 63 20 101/72 94 10/02/16 01:05 97.9 76 16 98/68 94 10/01/16 20:00 97.9 74 16 112/77 95 10/01/16 16:19 98.1 80 18 93/63 94 10/01/16 10/01/16 10/02/16 15:00 23:00 07:00 Intake Total 480 ml 270 ml Balance 480 ml 270 ml Intake Oral 480 ml 120 ml IV Total 150 ml # Voids 3 # Bowel Movements 1 Laboratory Tests Test 10/02/16 05:40 White Blood Count 2.7 TH/MM3 Red Blood Count 3.86 MIL/MM3 Hemoglobin 11.9 GM/DL Hematocrit 34.6 % Mean Corpuscular Volume 89.5 FL Mean Corpuscular Hemoglobin 30.8 PG Mean Corpuscular Hemoglobin 34.4 % Concent Red Cell Distribution Width 13.6 % Platelet Count 112 TH/MM3 Mean Platelet Volume 8.0 FL Neutrophils (%) (Auto) % Lymphocytes (%) (Auto) % Monocytes (%) (Auto) % Eosinophils (%) (Auto) % Basophils (%) (Auto) % Neutrophils # (Auto) TH/MM3 Lymphocytes # (Auto) TH/MM3 Monocytes # (Auto) TH/MM3 Eosinophils # (Auto) TH/MM3 Basophils # (Auto) TH/MM3 CBC Comment AUTO DIFF Differential Total Cells 100 Counted Neutrophils % (Manual) 36 % Band Neutrophils % 15 % Lymphocytes % 28 % Monocytes % 17 % Eosinophils % 3 % Neutrophils # (Manual) 1.4 TH/MM3 Metamyelocytes 1 % Differential Comment FINAL DIFF MANUAL Atypical Lymphocytes % Platelet Estimate LOW Platelet Morphology Comment NORMAL Red Cell Morphology Comment NORMAL Laboratory Tests Test 10/02/16 05:40 Sodium Level 142 MEQ/L Potassium Level 3.8 MEQ/L Chloride Level 103 MEQ/L Carbon Dioxide Level 33.7 MEQ/L Anion Gap 5 MEQ/L Blood Urea Nitrogen 8 MG/DL Creatinine 0.54 MG/DL Estimat Glomerular Filtration 116 ML/MIN Rate Random Glucose 97 MG/DL Calcium Level 8.8 MG/DL IMAGING: Lumbar Spine CT 09/26/16 1039 Signed Impressions: Service Date/Time: Monday, September 26, 2016 11:49 - CONCLUSION: 1. Postsurgical changes with a laminotomy left of L3 and a left-sided laminectomy at L4. 2. Tract of air in the soft tissues of the back extending from the left epidural space of L4 posteriorly to the skin surface is characteristic of the previous tube tract. 3. Very small, 1.7 cm fluid collection posterior to the L3 spinous process. I don't believe that this is sufficient enough to warrant further drainage. 4. Haziness of the epidural fat around the left L4 nerve root is almost certainly postsurgical. 5. Spinal canal and neural foramina are otherwise patent at all remaining levels. Jacob Mccollum MD Abscess Drainage CT 09/25/16 0000 Signed Impressions: Service Date/Time: Sunday, September 25, 2016 15:00 - CONCLUSION: Uncomplicated CT guided drainage of paraspinal abscess. Osman Antonio MD Lumbar Spine MRI 09/24/16 0000 Signed Impressions: Service Date/Time: Saturday, September 24, 2016 17:36 - CONCLUSION: 1. Relatively stable size of enhancing fluid collection in the dorsal soft tissues just to the left of midline. 2. Enhancing epidural component at L3-4 dorsally does appear to be slightly decreased from September 14. 3. Stable to slight increase in fluid within the L3-4 disc interspace which could be related to postoperative change. No significant adjacent marrow signal abnormalities to suggest discitis or osteomyelitis. Conus intact. Shayne Penn MD PHYSICAL EXAMINATION GENERAL: No acute distress. Awake, alert and oriented. HEENT: No icterus. Oropharynx moist mucosa without lesions. NECK: Supple without adenopathy. LUNGS: Clear to auscultation. HEART: Regular rate and rhythm. No murmurs, rubs or gallops. ABDOMEN: Bowel sounds present. Soft. BACK: swelling over surgical incision at the lumbar. No erythema. No visible drainage. EXTREMITIES: No clubbing, cyanosis or edema. PIC site has no sign of infection. SKIN: No rash. PSYCHIATRIC: Patient calm and cooperative. IMPRESSION 1. Lumbar spine epidural abscess. The patient is status post redo laminectomy. Culture grew out Enterobacter cloacae. 2. Recurrence of drainage from the lumbar region/wound. Now with visible bulge at the area of incision. 3. Fever. ? etiology. Improved. 4. Leukopenia and thrombocytopenia. ? med related. RECOMMENDATIONS 1. Continue ceftriaxone. Previous plan until October 30 for epidural abscess. 2. Stop Ciprofloxacin. 3. Stop Fluconazole. 4. Repeat aspirate of the lumbar area. 5. Hematology consult for leukopenia. Eitan Yoon MD October 02, 2016 15:36
[2016-10-02 16:00] VITALS: BP 92/61; PULSE 61; RESP 16; TEMP 97.9; O2SAT 95
--- NOTE | 2016-10-02 16:49 | HHI.NSPN ---
(Tania Carrillo) Note Status Status: Progress Note (Tania Carrillo) Interval History Interval History Ms. Smith is a 60 y/o female who initially underwent a L3-4, L4-5 left hemilaminectomy and microdiscectomy on 09/07/16. She presented to the ED two weeks ago due to wound drainage. Cultures positive for Enterobacter Colace, and she underwent a redo laminectomy with irrigation and debridement with Dr. Salinsa on 09/17/16. A PICC line was placed and the patient was subsequently discharged on IV antibiotics. She was doing well until she noted recurrent wound drainage and fevers and returned to the Emergency Room for evaluation. She also reports of moderate lumbar and pain in the left hamstrings. 09/25: MRI L spine w/wo contrast completed. Afebrile, normal WBCs. 09/26: Lumbar drain was pulled earlier this morning, follow up CT L-spine completed. So far repeat cultures of fluid collection shows no growth. 09/27: lumbar wound dry, wound cx no growth x 48 hours, minimal lumbar pain 09/28: febrile last night, cultures neg x 72 hours. 10/02: not feeling well, reported new swelling to left side of incision. (Tania Carrillo) Labs, Micro, & Vital Signs Results Date Time Temp Pulse Resp B/P Pulse Ox O2 Delivery O2 Flow Rate FiO2 10/02/16 16:00 97.9 61 16 92/61 95 10/02/16 12:00 99.0 73 18 100/73 95 10/02/16 08:00 99.2 68 18 102/69 96 10/02/16 04:00 98.4 63 20 101/72 94 10/02/16 01:05 97.9 76 16 98/68 94 10/01/16 20:00 97.9 74 16 112/77 95 10/02/16 07:00 Intake Total 750 ml Balance 750 ml Constitutional Vital Signs Date Time Temp Pulse Resp B/P Pulse Ox O2 Delivery O2 Flow Rate FiO2 10/02/16 16:00 97.9 61 16 92/61 95 10/02/16 12:00 99.0 73 18 100/73 95 10/02/16 08:00 99.2 68 18 102/69 96 10/02/16 04:00 98.4 63 20 101/72 94 10/02/16 01:05 97.9 76 16 98/68 94 10/01/16 20:00 97.9 74 16 112/77 95 10/02/16 07:00 Intake Total 750 ml Balance 750 ml (Tania Carrillo) Review of Systems/Exam Exam Awake, alert. Resting comfortably. Speech is fluent. Wound is healing well, closed. Sutures removed. No erythema, warmth, drainage seen. Wound is dry. There is a new swelling noted to left side of incision. Dressing replaced. Neck: soft, supple. Motor: 1-2/5 left dorsiflexion, 2/5 left EHL, moves other extremities well CN: Pupils equal, facial motor symmetric. (Tania Carrillo) Medications Current Medications Current Medications Medications (Trade) Dose Ordered Sig/Sen Route PRN Reason Start Time Stop Time Status Last Admin Dose Admin Sodium Chloride (NS Flush) 2 ml UNSCH PRN IV FLUSH FLUSH AFTER USING IV ACCESS 09/24/16 17:15 Sodium Chloride (NS Flush) 2 ml BID IV FLUSH 09/24/16 21:00 10/02/16 09:00 Acetaminophen (Tylenol) 650 mg Q4H PRN PO TEMP > 100.4 09/24/16 17:15 09/28/16 00:28 Ondansetron HCl (Zofran Inj) 4 mg Q6H PRN IVP NAUSEA OR VOMITING 09/24/16 17:15 Magnesium Hydroxide (Milk Of Magnesia Liq) 30 ml Q12H PRN PO CONSTIPATION 09/24/16 17:15 Acetaminophen (Tylenol) 650 mg Q6H PRN PO PAIN SCALE 1 TO 2 09/24/16 17:15 Naloxone HCl (Narcan Inj) 0.4 mg UNSCH PRN IV SEE LABEL COMMENTS 09/24/16 17:15 Bupropion HCl (Wellbutrin) 100 mg DAILY PO 09/25/16 09:00 10/02/16 09:59 Diazepam (Valium) 5 mg HS PRN PO ANXIETY 09/24/16 21:45 09/28/16 20:21 Docusate Sodium (Colace) 200 mg HS PO 09/24/16 21:45 10/01/16 20:52 Escitalopram Oxalate (Lexapro) 10 mg DAILY PO 09/25/16 09:00 10/02/16 10:01 Fluticasone Propionate (Flonase [place] Spr) 2 spray DAILY EACH NARE 09/25/16 09:00 10/02/16 10:02 Lurasidone HCl (Latuda) 40 mg HS PO 09/24/16 21:45 10/01/16 20:52 Pantoprazole Sodium (Protonix) 40 mg DAILY PO 09/25/16 09:00 10/02/16 10:02 Propranolol HCl 10 mg 10 mg Q12HR PO 09/25/16 09:00 10/01/16 20:52 Ceftriaxone Sodium/Sodium Chloride (Rocephin Inj/NS Inj) 100 ml @ 200 mls/hr Q24H IV 09/25/16 09:00 10/02/16 09:59 Morphine Sulfate (Morphine Inj) 4 mg Q4H PRN IV Breakthrough pain 09/25/16 00:15 10/02/16 09:56 Acetaminophen/ Hydrocodone Bitart ([place] 5-325 Mg) 1 tab Q4H PRN PO pain 1-5 09/24/16 22:15 10/02/16 11:32 Acetaminophen/ Hydrocodone Bitart ([place] 10-325 Mg) 1 tab Q4H PRN PO pain 6-10 09/24/16 22:15 10/02/16 14:36 Sennosides (Senokot) 17.2 mg DAILY PO 09/25/16 09:00 10/01/16 08:13 Gabapentin (Neurontin) 600 mg TID PO 09/25/16 18:00 10/02/16 14:36 (Tania Carrillo) Medical Decision Making MDM Remarks 60 y/o female with wound drainage, improved, no further drainage seen. s/p repeat CT guided aspiration of lumbar fluid collection 09/25/16, no growth 72 hours new subcutaneous swelling to left side of wound, (Tania Carrillo) Plan Plan Remarks Dr. Desouza recommend repeat CT guided aspiration and have drain put in place, cont antibiotics per ID dw Dr. Yoon (Tania Carrillo) Attending Statement The exam, history, and the medical decision-making described in the above note were completed with the assistance of the mid-level provider. I reviewed and agree with the findings presented. I attest that I had a [id number] encounter with the patient on the same day, and personally performed and documented my assessment and findings in the medical record. (London Desouza MD) Tania Carrillo October 02, 2016 16:49 London Desouza MD Oct 06, 2016 14:41
[2016-10-02 19:13] LABS: INTERNATIONAL NORMALIZED RATIO 1.1 RATIO; PROTHROMBIN TIME - PATIENT 12.4 SEC (9.8-11.6)
[2016-10-02 20:02] VITALS: BP 107/71; PULSE 73; RESP 16; TEMP 97.1; O2SAT 96
[2016-10-02] MEDS: DOCUSATE SODIUM 100 MG CAP PO SCH (20:39)
[2016-10-02] MEDS: LURASIDONE 40 MG TAB PO SCH (20:39)
--- NOTE | 2016-10-02 22:32 | MB ---
cc: NARCISO DYE DATE OF CONSULTATION 10/02/2016 REASON FOR CONSULTATION Falling white cell count. PATIENT PROFILE The patient is a 60-year-old white female. She was but is from her . The patient has one son. She was born in [place]. She lives with her mother and sister. She is currently smoking five cigarettes a day. In the past she smoked a pack of cigarettes a day for 30 years. She does not drink alcohol. She is disabled from schizophrenia which developed in her late 20s. HISTORY OF THE PRESENT ILLNESS The patient is a 60-year-old female who underwent an L3-L4, L4-L5 left hemilaminectomy with microsurgical resection of the disk for a lumbar spinal stenosis on September 07, 2016. She developed a lumbar wound infection with an abscess and required a second surgery on September 17, 2016 involving the L3-L4 and L4-L5 area. She had lumbar wound incision and debridement and she a redo of left L3-L4 and L5 hemilaminectomy. She was initially treated with piperacillin and tazobactam but on approximately 09/21/2016 was started on ceftriaxone with the goal being to give her 6 weeks of treatment. Unfortunately she required readmission for leakage from the surgical site and fevers on 09/24/2016 and was felt to have a surgical wound infection. The patient continues to receive ceftriaxone. On 09/28/2016, hemoglobin 13, white count 4100, platelets 133,000. On 10/02/2016 hemoglobin 11.9, white count 2700 and platelets 112,000. She has 36% neutrophils, 15% bands, 28% lymphocytes, 17% monocytes, 3% eosinophils. A total neutrophil count is 1400. The first low white cell count was on 09/29 which was 3200. She remains afebrile with her last documented temperature on 09/28/2016. PAST SURGICAL HISTORY 1. Cholecystectomy. 2. L3-L4, L4-L5 left hemilaminectomy and microsurgical resection of the disk on September 07, 2016. 3. Due to postoperative wound infection with abscess formation, the patient required redo left L3-L4 and L5 hemilaminectomies with lumbar wound incision and debridement of soft tissue abscess. 4. Right fallopian tube removed due to ectopic . 5. Breast biopsies. 6. Hemorrhoidectomy. 7. Repair of fistula involving common bile duct done endoscopically. PAST MEDICAL HISTORY 1. Schizophrenia occurring in her late 20s. 2. Hepatitis C. treated in past and she states no active disease 3. Chronic back pain. 4. Fibromyalgia. ALLERGIES SULFA. MEDICATIONS Current medications: 1. Neurontin 600 t.i.d. 2. Wellbutrin. 3. Lexapro. 4. Protonix. 5. Propranolol. 6. Ceftriaxone 2000 mg daily. 7. Latuda. FAMILY HISTORY Noncontributory. REVIEW OF SYSTEMS No change in vision or hearing. No chest pain, palpitations. No shortness of breath. No abdominal or pelvic pain. No melena or hematochezia. No dysuria or frequency. Mild discomfort lower back. Neurological, left leg weakness, left foot drop. PHYSICAL EXAMINATION GENERAL: Reveals a pleasant female. She is an excellent historian. VITAL SIGNS: Blood pressure is 110/70, respiratory rate 18, pulse 80. The patient has been afebrile since 09/28/2016. HEENT: The head is normocephalic. Sclerae and conjunctive are normal. HEART: Regular rhythm. LUNGS: Are clear. ABDOMEN: Soft. No hepatosplenomegaly. EXTREMITIES: Trace edema. MUSCULOSKELETAL: Slight tenderness over the surgical site in the back with minimal fullness. NEUROLOGIC: Left foot weakness. PSYCHIATRIC: Normal in spite of history of schizophrenia. ASSESSMENT The patient is a 60-year-old female who developed a postoperative infection. She was started on ceftriaxone on approximately September 19, 2016 with the intention of giving her 6 weeks of treatment. Her white cell count is falling, neutropenia is common with cephalosporins. Latuda can cause neutropenia but the timing suggests that is due to the ceftriaxone. RECOMMENDATIONS 1. Repeat CBC and platelet count. 2. If the neutropenia is persistent, then I would recommend discontinuing the Rocephin and finding another appropriate antibiotic. 3. I texted the message to Dr. Yoon who is her infectious disease doctor and he indicated that he would make these arrangements in the morning pending review of the CBC and platelet count. Thank you very much for the consultation. MD DORIS Beltre/ROEL /9:44 PM /10:14 PM [facility]ENT[facility]odri
[2016-10-03] VITALS (9 sets, daily range): BP systolic 94–134; BP diastolic 60–85; PULSE 64–79; RESP 16–20; TEMP 96.6–98.6; O2SAT 91–99
[2016-10-03] MEDS: ACETAMINOPHEN/HYDROcodone 325 MG/10 MG TAB PO PRN ×3 (06:01→21:32)
[2016-10-03] MEDS: FLUTICASONE PROPIONATE 50 MCG/ACT 16 GM NASAL SPRAY EACH NARE SCH (08:01)
[2016-10-03] MEDS: PANTOPRAZOLE SOD 40 MG DELAYED RELEASE TAB PO SCH (08:02)
[2016-10-03] MEDS: buPROPion HCL 100 MG TAB PO SCH (08:02)
[2016-10-03] MEDS: SENNOSIDES 8.6 MG TAB PO SCH (08:03)
[2016-10-03] MEDS: GABAPENTIN 300 MG CAP PO SCH ×3 (08:03→18:09)
[2016-10-03] MEDS: ESCITALOPRAM OXALATE 10 MG TAB PO SCH (08:03)
[2016-10-03] MEDS: PROPRANOLOL HCL 10 MG TAB PO SCH ×2 (08:03→21:00)
[2016-10-03] MEDS: SODIUM CHLORIDE 0.9% FLUSH 10 ML FLUSH IV FLUSH SCH ×2 (08:05→21:31)
[2016-10-03] MEDS: cefTRIAXone INJ 2,000 MG in SODIUM CHLORIDE 0.9% INJ 100 ML IV SCH (08:05)
[2016-10-03 08:28] LABS: AUTOMATED NEUTROPHIL # 1.6 TH/MM3 (1.8-7.7); BASOPHIL % 0.4 % (0.0-2.0); EOSINOPHIL % 1.5 % (0.0-4.0); HEMATOCRIT 38.4 % (35.0-46.0); HEMO FLAGS DIFF FINAL; LYMPH % 32.5 % (9.0-44.0); MEAN CORPUSCULAR HEMOGLOBIN 30.6 PG (27.0-34.0); NEUT % 49.6 % (16.0-70.0); PLATELET COUNT 146 TH/MM3 (150-450); RED BLOOD COUNT 4.27 MIL/MM3 (4.00-5.30); RED CELL DISTRIBUTION WIDTH 13.3 % (11.6-17.2); WHITE BLOOD COUNT 3.2 TH/MM3 (4.0-11.0)
--- NOTE | 2016-10-03 09:26 | HHI.PR ---
Subjective Remarks Patient says she has more pain now in her back, plan for CT guided drainage today. She denies having fever or chills. No n/v/d/c. No chest pain or sob. Objective Vitals Vital Signs Date Time Temp Pulse Resp B/P Pulse Ox O2 Delivery O2 Flow Rate FiO2 10/03/16 08:24 98.6 71 20 115/74 95 10/03/16 04:08 97.0 72 16 96/60 95 10/03/16 00:02 97.1 70 16 94/65 99 10/02/16 20:02 97.1 73 16 107/71 96 10/02/16 16:00 97.9 61 16 92/61 95 10/02/16 12:00 99.0 73 18 100/73 95 I/O 10/02/16 10/02/16 10/02/16 10/03/16 10/03/16 10/03/16 07:00 15:00 23:00 07:00 15:00 23:00 Intake Total 1200 ml 120 ml 0 ml Balance 1200 ml 120 ml 0 ml Intake Oral 1200 ml 120 ml 0 ml # Voids 5 2 2 # Bowel Movements 2 Result Diagram: 10/03/16 0713 10/02/16 0540 Imaging Last Impressions Chest X-Ray 09/28/16 0000 Signed Impressions: Service Date/Time: Wednesday, September 28, 2016 13:23 - CONCLUSION: No acute disease. Omsan Antonio MD Lumbar Spine CT 09/26/16 1039 Signed Impressions: Service Date/Time: Monday, September 26, 2016 11:49 - CONCLUSION: 1. Postsurgical changes with a laminotomy left of L3 and a left-sided laminectomy at L4. 2. Tract of air in the soft tissues of the back extending from the left epidural space of L4 posteriorly to the skin surface is characteristic of the previous tube tract. 3. Very small, 1.7 cm fluid collection posterior to the L3 spinous process. I don't believe that this is sufficient enough to warrant further drainage. 4. Haziness of the epidural fat around the left L4 nerve root is almost certainly postsurgical. 5. Spinal canal and neural foramina are otherwise patent at all remaining levels. Jacob Mccollum MD Abscess Drainage CT 09/25/16 0000 Signed Impressions: Service Date/Time: Sunday, September 25, 2016 15:00 - CONCLUSION: Uncomplicated CT guided drainage of paraspinal abscess. Osman Antonio MD Lumbar Spine MRI 09/24/16 0000 Signed Impressions: Service Date/Time: Saturday, September 24, 2016 17:36 - CONCLUSION: 1. Relatively stable size of enhancing fluid collection in the dorsal soft tissues just to the left of midline. 2. Enhancing epidural component at L3-4 dorsally does appear to be slightly decreased from September 14. 3. Stable to slight increase in fluid within the L3-4 disc interspace which could be related to postoperative change. No significant adjacent marrow signal abnormalities to suggest discitis or osteomyelitis. Conus intact. Shayne Penn MD Objective Remarks GENERAL: NAD, sitting up, RN about to change dressing SKIN: dressing over incision d/c/i, 3-4 cm fluid collection on her back. CARDIOVASCULAR: Regular rate and rhythm. No murmur appreciated. RESPIRATORY: No accessory muscle use. Clear to auscultation. Breath sounds equal bilaterally. MUSCULOSKELETAL: Back with dressing on, fluid collection 5x6 cm getting bigger on her back, dry, no surrounding erythema, no drainage noted. No LE edema. NEUROLOGICAL: Awake and alert. No obvious cranial nerve deficits. Normal speech. PSYCHIATRIC: Appropriate mood and affect; insight and judgment normal. Has left foot drop at baseline. A/P Problem List: (1) Spinal epidural abscess ICD Code: G06.1 Status: Acute (2) Schizoaffective disorder ICD Code: F25.9 Status: Acute (3) Postoperative fever ICD Code: R50.82 Status: Acute (4) Foot drop ICD Code: M21.379 Status: Acute Assessment and Plan The pt is status post L3 L4 L5 hemilaminectomies with L3-L4 and L4-L5 medial facetectomy and foraminotomy, L4-L5 microdiscectomy, lumbar wound incision and debridement subcutaneous abscess evacuation. She returns to the hospital for leakage from the surgical site as well as fevers. Neurosurgery following. MRI showed: Relatively stable size of enhancing fluid collection in the dorsal soft tissues just to the left of midline; Enhancing epidural component at L3-4 dorsally does appear to be slightly decreased from September 14; Stable to slight increase in fluid within the L3-4 disc interspace which could be related to postoperative change; No significant adjacent marrow signal abnormalities to suggest discitis or osteomyelitis; Conus intact. - Continue IV antibiotics. On ceftriaxone 2 g IV daily. - blood cultures negative x2 days. Pt was febrile overnight Tmax 101. repeat blood cx neg x 1 - neurosurgery recommended CT-guided aspiration of spinal fluid for cx. - ID following and recommends continuing Rocephin until October 30 as previous treatment plan for epidural abscess. Monitor blood cultures. CXR ordered. Urinalysis ordered. ID Added ciprofloxacin. Consider drug fever if negative cultures. wound cultures neg 72hours. Patient had spike of fevers 101 on 09/28. Repeat blood cx NTD. New fluid collection at the surgical site, neurosurgery Dr Desouza evaluated the patient CT guided aspiration and drain placed 10/03/16 - physical therapy has evaluated. Recommend home with no PT. - on norco for pain control with morphine for breakthrough - gabapentin 600mg TID Pancytopenia: discussed with Dr Yoon ID. Will consult hem/onc. patient is also on abx Foot drop: the patient complained of left foot drop secondary to the initial surgery. - Follow up with neurosurgery. - Continue physical therapy. Schizoaffective disorder: mood is stable at this time. - continue home meds. PPx: SCDs. Discharge Planning awaiting final blood cx results. Notify ID if pt continues to spike fevers. Patient with spike of fevers on 09/28 ( 101), repeat blood cx 09/28 NTD. Patient is noted with new fluid collection , continue abx per IDF. Dr. Desouza neurosurgery ff, CT guided aspiration and to keep drain in place 10/03/16 Also noted pancytopenia consulted hem/onc ff Brittany Stewart MD October 03, 2016 09:26
--- NOTE | 2016-10-03 09:30 | PD.ONC.PN ---
Subjective Subjective Remarks feeling well, no back pain Objective Data Date Time Temp Pulse Resp B/P Pulse Ox O2 Delivery O2 Flow Rate FiO2 10/03/16 08:24 98.6 71 20 115/74 95 10/03/16 04:08 97.0 72 16 96/60 95 10/03/16 00:02 97.1 70 16 94/65 99 10/02/16 20:02 97.1 73 16 107/71 96 10/02/16 16:00 97.9 61 16 92/61 95 10/02/16 12:00 99.0 73 18 100/73 95 10/03/16 10/03/16 10/03/16 07:00 15:00 23:00 Intake Total 0 ml Balance 0 ml Result Diagram: 10/03/16 0713 10/02/16 0540 Laboratory Results Laboratory Tests Test 10/02/16 10/03/16 18:19 07:13 Prothrombin Time 12.4 SEC Prothromb Time International 1.1 RATIO Ratio Activated Partial 28.0 SEC Thromboplast Time White Blood Count 3.2 TH/MM3 Red Blood Count 4.27 MIL/MM3 Hemoglobin 13.1 GM/DL Hematocrit 38.4 % Mean Corpuscular Volume 90.0 FL Mean Corpuscular Hemoglobin 30.6 PG Mean Corpuscular Hemoglobin 34.0 % Concent Red Cell Distribution Width 13.3 % Platelet Count 146 TH/MM3 Mean Platelet Volume 8.3 FL Neutrophils (%) (Auto) 49.6 % Lymphocytes (%) (Auto) 32.5 % Monocytes (%) (Auto) 16.0 % Eosinophils (%) (Auto) 1.5 % Basophils (%) (Auto) 0.4 % Neutrophils # (Auto) 1.6 TH/MM3 Lymphocytes # (Auto) 1.0 TH/MM3 Monocytes # (Auto) 0.5 TH/MM3 Eosinophils # (Auto) 0.0 TH/MM3 Basophils # (Auto) 0.0 TH/MM3 CBC Comment DIFF FINAL Differential Comment Administered Medications Medications (Trade) Dose Ordered Sig/Sen Route PRN Reason Start Time Stop Time Status Last Admin Dose Admin Sodium Chloride (NS Flush) 2 ml BID IV FLUSH 09/24/16 21:00 10/03/16 08:05 Acetaminophen (Tylenol) 650 mg Q4H PRN PO TEMP > 100.4 09/24/16 17:15 09/28/16 00:28 Bupropion HCl (Wellbutrin) 100 mg DAILY PO 09/25/16 09:00 10/03/16 08:02 Diazepam (Valium) 5 mg HS PRN PO ANXIETY 09/24/16 21:45 09/28/16 20:21 Docusate Sodium (Colace) 200 mg HS PO 09/24/16 21:45 10/01/16 20:52 Escitalopram Oxalate (Lexapro) 10 mg DAILY PO 09/25/16 09:00 10/03/16 08:03 Fluticasone Propionate (Flonase Eagle Spr) 2 spray DAILY EACH NARE 09/25/16 09:00 10/03/16 08:01 Lurasidone HCl (Latuda) 40 mg HS PO 09/24/16 21:45 10/02/16 20:39 Pantoprazole Sodium (Protonix) 40 mg DAILY PO 09/25/16 09:00 10/03/16 08:02 Propranolol HCl 10 mg 10 mg Q12HR PO 09/25/16 09:00 10/01/16 20:52 Ceftriaxone Sodium/Sodium Chloride (Rocephin Inj/NS Inj) 100 ml @ 200 mls/hr Q24H IV 09/25/16 09:00 10/03/16 08:05 Morphine Sulfate (Morphine Inj) 4 mg Q4H PRN IV Breakthrough pain 09/25/16 00:15 10/02/16 20:40 Acetaminophen/ Hydrocodone Bitart ([place] 5-325 Mg) 1 tab Q4H PRN PO pain 1-5 09/24/16 22:15 10/02/16 11:32 Acetaminophen/ Hydrocodone Bitart ([place] 10-325 Mg) 1 tab Q4H PRN PO pain 6-10 09/24/16 22:15 10/03/16 06:01 Sennosides (Senokot) 17.2 mg DAILY PO 09/25/16 09:00 10/01/16 08:13 Gabapentin (Neurontin) 600 mg TID PO 09/25/16 18:00 10/03/16 08:03 Objective Remarks GENERAL: Well-nourished, well-developed patient. SKIN: Warm and dry. HEAD: Normocephalic. EYES: No scleral icterus. No injection or drainage. NECK: Supple, trachea midline. No JVD or lymphadenopathy. LYMPHATIC: No adenopathy. CARDIOVASCULAR: Regular rate and rhythm without murmurs. RESPIRATORY: Breath sounds equal bilaterally. No accessory muscle use. GASTROINTESTINAL: Abdomen soft, non-tender, nondistended. EXTREMITIES: No cyanosis, or edema. MUSCULOSKELETAL: no back tenderness NEUROLOGICAL: No obvious focal deficit. Awake, alert, and oriented x3. PSYCHIATRIC: Appropriate mood and affect; insight and judgment normal. Assessment/Plan Assessment 1: suspect neutropenia may be secondary to Rocephin but both WBC and Platelets are increasing. At this point can continue Rocephin and if neutrophil count drops to <1,200 would stop Rocephin and substitute another antibiotic. Latuda can cause neutropenia but timing not right and she has take this medicine for 6 months. Would recommend cbc plat daily for a short time. Nothing further to add and will see prn. Call if problems or questions. Thanks. Rosendo Smart MD October 03, 2016 09:30
[2016-10-03 09:49] LABS: INDIRECT BILIRUBIN 0.3 MG/DL (0.0-0.8); TOTAL BILIRUBIN ADULT 0.4 MG/DL (0.2-1.0)
[2016-10-03] MEDS ORDERED: HYDROmorphone HCL PF 2 MG/ML VIAL IV ONE (15:00)
[2016-10-03] MEDS ORDERED: fentaNYL CITRATE 250 MCG/5 ML AMP IV ONE (15:00)
--- NOTE | 2016-10-03 17:00 | RADRPT ---
EXAM DATE/TIME: 10/03/2016 14:25 [facility] COMPARISON: CT GUIDED ASPIRATION, September 14, 2016, 16:30. INDICATIONS : Fluid collection lumbar area SEDATION TIME: 30 minutes MEDICATION(S): 1.) 2 mg midazolam (Versed) IV 2.) 250 mcg fentanyl (Sublimaze) IV DEVICE(S): 1.) 6 Fr Skater Total volume of 20 cc of mildly hemorrhagic fluid were removed. red fluid was removed. Fluid was sent for laboratory ordered studies. MEDICAL HISTORY : None. SURGICAL HISTORY : Laminectomy ENCOUNTER: Initial ACUITY: 2 weeks PAIN SCORE: 5/10 LOCATION: lumbar aspiration PROCEDURE: 1.) Conscious sedation with continuous EKG and oximetry monitoring. PROCEDURE : CT guided small fluid collection subcutis tissues dorsal to the operative site. The risks, benefits and alternatives to the procedure were explained and verbal and written consent w as obtained. Using automated exposure control and adjustment of the mA and/or kV according to patien t size, radiation dose was kept as low as reasonably achievable to obtain optimal diagnostic quality images. The site was prepped in sterile fashion. Full sterile technique was used, including cap, ma sk, sterile gloves and gown and a large sterile sheet. Hand hygiene and 2% chlorhexidine and/or beta dine/alcohol prep was utilized per protocol for cutaneous antisepsis. The skin and subcutaneous tiss ues were infiltrated with local anesthetic solution. Under CT guidance 6-Maori catheter was placed in the small fluid collection just dorsal to L4 in the subcutaneous tissues.. 20 cc of mildly hemorrhagic fluid removed and sent for culture and glucose. Serum glucose was also ordered. Patient an intermediate headache procedure. This thought to be CS F. CONCLUSION: Uncomplicated with small fluid collection dorsal to the operative site. Vishal Watson MD FACR on October 03, 2016 at 16:57 Board Certified Radiologist. This report was verified electronically.
--- NOTE | 2016-10-03 17:04 | RADRPT ---
EXAM DATE/TIME: 10/03/2016 14:25 [facility] COMPARISON: CT LUMBAR SPINE W/O CONTRAST, September 26, 2016, 11:49. INDICATIONS : Evaluate lumbar fluid collection around lumbar area. RADIATION DOSE: 38.53 CTDIvol (mGy) MEDICAL HISTORY : None SURGICAL HISTORY : Laminectomy ENCOUNTER: Initial ACUITY: 2 weeks PAIN SCALE: 5/10 LOCATION: Lumbar TECHNIQUE: Volumetric scanning of the lumbar spine was performed. Multiplanar reconstructions in the sagittal, coronal and oblique axial planes were performed. Using automated exposure control and adjustment of the mA and/or kV according to patient size, radiation dose was kept as low as reasonab ly achievable to obtain optimal diagnostic quality images. FINDINGS: CT scan of the lumbar spine was performed. The patient has had a laminectomy at L4. There is a small residual fluid collection posteriorly to the operative site. Plan is to aspirate this out under CT guidance. Vacuum disc is seen at L5-S1, unchanged in the interval. There is no evidence for a psoas component. CONCLUSION: 1. Small residual fluid collection sitting above the operative site in the subcutaneous tissues. Thi s will be aspirated out under CT guidance. 2. There has been no other interval change from 09/26/2016. Vishal Watson MD FACR on October 03, 2016 at 16:54 Board Certified Radiologist. This report was verified electronically.
--- NOTE | 2016-10-03 17:25 | HHI.IDPN ---
Note Infectious Disease Note Patient went for aspiration of the lumbar. Had developed bulge at the surgical site lumbar area. Developed BRIAN immediately after the procedure. Afebrile. No nausea. No dizziness. Seen by Hematology for Leukopenia/thrombocytopenia. PAST MEDICAL HISTORY 1. Schizoaffective disorder. 2. Hepatitis C. 3. Cholecystectomy. 4. Fibromyalgia. 5. Right fallopian tube resection. 6. Recent L3-L4 and L4-L5 hemilaminectomy with redo hemilaminectomy on 09/17/2016. ALLERGIES SULFA. ANTIBIOTICS Ceftriaxone. OBJECTIVE: Vital Signs Date Time Temp Pulse Resp B/P Pulse Ox O2 Delivery O2 Flow Rate FiO2 10/03/16 17:16 96.6 65 18 134/81 99 10/03/16 16:20 75 18 110/74 95 10/03/16 15:50 68 18 118/85 95 10/03/16 15:35 98.2 64 18 117/75 91 10/03/16 12:23 98.3 69 20 103/70 93 10/03/16 08:24 98.6 71 20 115/74 95 10/03/16 04:08 97.0 72 16 96/60 95 10/03/16 00:02 97.1 70 16 94/65 99 10/02/16 20:02 97.1 73 16 107/71 96 10/02/16 10/02/16 10/03/16 15:00 23:00 07:00 Intake Total 1200 ml 120 ml 0 ml Balance 1200 ml 120 ml 0 ml Intake Oral 1200 ml 120 ml 0 ml # Voids 5 2 2 # Bowel Movements 2 Laboratory Tests Test 10/02/16 10/03/16 05:40 07:13 White Blood Count 2.7 TH/MM3 3.2 TH/MM3 Red Blood Count 3.86 MIL/MM3 4.27 MIL/MM3 Hemoglobin 11.9 GM/DL 13.1 GM/DL Hematocrit 34.6 % 38.4 % Mean Corpuscular Volume 89.5 FL 90.0 FL Mean Corpuscular Hemoglobin 30.8 PG 30.6 PG Mean Corpuscular Hemoglobin 34.4 % 34.0 % Concent Red Cell Distribution Width 13.6 % 13.3 % Platelet Count 112 TH/MM3 146 TH/MM3 Mean Platelet Volume 8.0 FL 8.3 FL Neutrophils (%) (Auto) % 49.6 % Lymphocytes (%) (Auto) % 32.5 % Monocytes (%) (Auto) % 16.0 % Eosinophils (%) (Auto) % 1.5 % Basophils (%) (Auto) % 0.4 % Neutrophils # (Auto) TH/MM3 1.6 TH/MM3 Lymphocytes # (Auto) TH/MM3 1.0 TH/MM3 Monocytes # (Auto) TH/MM3 0.5 TH/MM3 Eosinophils # (Auto) TH/MM3 0.0 TH/MM3 Basophils # (Auto) TH/MM3 0.0 TH/MM3 CBC Comment AUTO DIFF DIFF FINAL Differential Total Cells 100 Counted Neutrophils % (Manual) 36 % Band Neutrophils % 15 % Lymphocytes % 28 % Monocytes % 17 % Eosinophils % 3 % Neutrophils # (Manual) 1.4 TH/MM3 Metamyelocytes 1 % Differential Comment FINAL DIFF MANUAL Atypical Lymphocytes % Platelet Estimate LOW Platelet Morphology Comment NORMAL Red Cell Morphology Comment NORMAL Laboratory Tests Test 10/02/16 10/03/16 05:40 07:13 Sodium Level 142 MEQ/L Potassium Level 3.8 MEQ/L Chloride Level 103 MEQ/L Carbon Dioxide Level 33.7 MEQ/L Anion Gap 5 MEQ/L Blood Urea Nitrogen 8 MG/DL Creatinine 0.54 MG/DL Estimat Glomerular Filtration 116 ML/MIN Rate Random Glucose 97 MG/DL Calcium Level 8.8 MG/DL Total Bilirubin 0.4 MG/DL Direct Bilirubin 0.1 MG/DL Indirect Bilirubin 0.3 MG/DL Aspartate Amino Transf 33 U/L (AST/SGOT) Alanine Aminotransferase 35 U/L (ALT/SGPT) Alkaline Phosphatase 101 U/L Total Protein 6.9 GM/DL Albumin 2.8 GM/DL Microbiology Date/Time Procedure Status Source Growth 10/03/16 15:15 Gram Stain - Final Resulted Abscess Incision 10/03/16 15:15 Wound Culture Resulted Abscess Incision Pending IMAGING: Needle Aspiration CT 10/02/16 0000 Signed Impressions: Service Date/Time: Monday, October 03, 2016 14:25 - CONCLUSION: Uncomplicated with small fluid collection dorsal to the operative site. Vishal Watson MD FACR Lumbar Spine CT 09/26/16 1039 Signed Impressions: Service Date/Time: Monday, September 26, 2016 11:49 - CONCLUSION: 1. Postsurgical changes with a laminotomy left of L3 and a left-sided laminectomy at L4. 2. Tract of air in the soft tissues of the back extending from the left epidural space of L4 posteriorly to the skin surface is characteristic of the previous tube tract. 3. Very small, 1.7 cm fluid collection posterior to the L3 spinous process. I don't believe that this is sufficient enough to warrant further drainage. 4. Haziness of the epidural fat around the left L4 nerve root is almost certainly postsurgical. 5. Spinal canal and neural foramina are otherwise patent at all remaining levels. Jacob Mccollum MD Abscess Drainage CT 09/25/16 0000 Signed Impressions: Service Date/Time: Sunday, September 25, 2016 15:00 - CONCLUSION: Uncomplicated CT guided drainage of paraspinal abscess. Osman Antonio MD Lumbar Spine MRI 09/24/16 0000 Signed Impressions: Service Date/Time: Saturday, September 24, 2016 17:36 - CONCLUSION: 1. Relatively stable size of enhancing fluid collection in the dorsal soft tissues just to the left of midline. 2. Enhancing epidural component at L3-4 dorsally does appear to be slightly decreased from September 14. 3. Stable to slight increase in fluid within the L3-4 disc interspace which could be related to postoperative change. No significant adjacent marrow signal abnormalities to suggest discitis or osteomyelitis. Conus intact. Shayne Penn MD PHYSICAL EXAMINATION GENERAL: No acute distress. Awake, alert and oriented. HEENT: No icterus. Oropharynx moist mucosa without lesions. NECK: Supple without adenopathy. LUNGS: Clear to auscultation. HEART: Regular rate and rhythm. No murmurs, rubs or gallops. ABDOMEN: Bowel sounds present. Soft. BACK: swelling over surgical incision at the lumbar. No erythema. No visible drainage. EXTREMITIES: No clubbing, cyanosis or edema. PIC site has no sign of infection. SKIN: No rash. PSYCHIATRIC: Patient calm and cooperative. IMPRESSION 1. Lumbar spine epidural abscess. The patient is status post redo laminectomy. Culture grew out Enterobacter cloacae. 2. Recurrence of drainage from the lumbar region/wound. Now with visible bulge at the area of incision. 3. Fever. ? etiology. Improved. 4. Leukopenia and thrombocytopenia. ? med related. Levaquin stopped. WBC higher. Platelet count higher. 5. BRIAN - need to consider CSF leak. RECOMMENDATIONS 1. Continue ceftriaxone. Previous plan until October 30 for epidural abscess. 2. Monitor blood counts. Follow Hematology rec for leukopenia/Thrombocytopenia. 3. Follow culture of repeat aspirate of the lumbar area. 4. Monitor temp. 5. Neurosurgery also following. Eitan Yoon MD October 03, 2016 17:25
[2016-10-03] MEDS: DOCUSATE SODIUM 100 MG CAP PO SCH (21:00)
[2016-10-03] MEDS: LURASIDONE 40 MG TAB PO SCH (21:30)
[2016-10-04] VITALS: BP 114/75; PULSE 75; RESP 20; TEMP 97.4; O2SAT 94
[2016-10-04 04:00] VITALS: BP 103/55; PULSE 76; RESP 20; TEMP 98.6; O2SAT 93
[2016-10-04] MEDS: ACETAMINOPHEN/HYDROcodone 325 MG/10 MG TAB PO PRN ×4 (06:16→19:20)
[2016-10-04] MEDS: GABAPENTIN 300 MG CAP PO SCH ×3 (08:53→17:27)
[2016-10-04] MEDS: buPROPion HCL 100 MG TAB PO SCH (08:53)
[2016-10-04] MEDS: cefTRIAXone INJ 2,000 MG in SODIUM CHLORIDE 0.9% INJ 100 ML IV SCH (08:53)
[2016-10-04] MEDS: PROPRANOLOL HCL 10 MG TAB PO SCH ×2 (08:54→21:00)
[2016-10-04] MEDS: ESCITALOPRAM OXALATE 10 MG TAB PO SCH (08:55)
[2016-10-04] MEDS: PANTOPRAZOLE SOD 40 MG DELAYED RELEASE TAB PO SCH (08:55)
[2016-10-04] MEDS: SENNOSIDES 8.6 MG TAB PO SCH (08:57)
[2016-10-04] MEDS: FLUTICASONE PROPIONATE 50 MCG/ACT 16 GM NASAL SPRAY EACH NARE SCH (08:57)
[2016-10-04] MEDS: SODIUM CHLORIDE 0.9% FLUSH 10 ML FLUSH IV FLUSH SCH ×2 (08:58→21:56)
[2016-10-04 09:05] VITALS: BP 115/79; PULSE 72; RESP 20; TEMP 97.6; O2SAT 95
[2016-10-04] MEDS: MORPHINE SULFATE 4 MG/ML INJ IV PRN ×3 (09:13→23:23)
[2016-10-04 12:05] VITALS: BP 108/80; PULSE 75; RESP 20; TEMP 97.6; O2SAT 96
--- NOTE | 2016-10-04 12:50 | HHI.PR ---
Subjective Remarks Patient in bed. Says she has less pain. S/P CT guided aspiration yesterday. No fever or chills. No n/v/d/c. Says she has diarrhea and soem abdominal cramps associated. Objective Vitals Vital Signs Date Time Temp Pulse Resp B/P Pulse Ox O2 Delivery O2 Flow Rate FiO2 10/04/16 12:05 97.6 75 20 108/80 96 10/04/16 09:05 97.6 72 20 115/79 95 10/04/16 04:00 98.6 76 20 103/55 93 10/04/16 00:00 97.4 75 20 114/75 94 10/03/16 22:00 97.6 79 20 96/61 93 10/03/16 17:16 96.6 65 18 134/81 99 10/03/16 16:20 75 18 110/74 95 10/03/16 15:50 68 18 118/85 95 10/03/16 15:35 98.2 64 18 117/75 91 I/O 10/03/16 10/03/16 10/03/16 10/04/16 10/04/16 10/04/16 07:00 15:00 23:00 07:00 15:00 23:00 Intake Total 0 ml 240 ml Balance 0 ml 240 ml Intake Oral 0 ml 240 ml # Voids 2 3 1 2 # Bowel Movements 1 0 Result Diagram: 10/03/16 0713 10/02/16 0540 Imaging Last Impressions Lumbar Spine CT 10/03/16 0000 Signed Impressions: Service Date/Time: Monday, October 03, 2016 14:25 - CONCLUSION: 1. Small residual fluid collection sitting above the operative site in the subcutaneous tissues. This will be aspirated out under CT guidance. 2. There has been no other interval change from 09/26/2016. Vishal Watson MD FACR Needle Aspiration CT 10/02/16 0000 Signed Impressions: Service Date/Time: Monday, October 03, 2016 14:25 - CONCLUSION: Uncomplicated with small fluid collection dorsal to the operative site. Vishal Watson MD FACR Chest X-Ray 09/28/16 0000 Signed Impressions: Service Date/Time: Wednesday, September 28, 2016 13:23 - CONCLUSION: No acute disease. Osman Antonio MD Abscess Drainage CT 09/25/16 0000 Signed Impressions: Service Date/Time: Sunday, September 25, 2016 15:00 - CONCLUSION: Uncomplicated CT guided drainage of paraspinal abscess. Osman Antonio MD Lumbar Spine MRI 09/24/16 0000 Signed Impressions: Service Date/Time: Saturday, September 24, 2016 17:36 - CONCLUSION: 1. Relatively stable size of enhancing fluid collection in the dorsal soft tissues just to the left of midline. 2. Enhancing epidural component at L3-4 dorsally does appear to be slightly decreased from September 14. 3. Stable to slight increase in fluid within the L3-4 disc interspace which could be related to postoperative change. No significant adjacent marrow signal abnormalities to suggest discitis or osteomyelitis. Conus intact. Shayne Penn MD Objective Remarks GENERAL: NAD, sitting up, RN about to change dressing SKIN: dressing over incision d/c/i, 3-4 cm fluid collection on her back. CARDIOVASCULAR: Regular rate and rhythm. No murmur appreciated. RESPIRATORY: No accessory muscle use. Clear to auscultation. Breath sounds equal bilaterally. MUSCULOSKELETAL: Back with dressing on, fluid collection 5x6 cm getting bigger on her back, dry, no surrounding erythema, no drainage noted. No LE edema. NEUROLOGICAL: Awake and alert. No obvious cranial nerve deficits. Normal speech. PSYCHIATRIC: Appropriate mood and affect; insight and judgment normal. Has left foot drop at baseline. A/P Problem List: (1) Spinal epidural abscess ICD Code: G06.1 Status: Acute (2) Schizoaffective disorder ICD Code: F25.9 Status: Acute (3) Postoperative fever ICD Code: R50.82 Status: Acute (4) Foot drop ICD Code: M21.379 Status: Acute Assessment and Plan The pt is status post L3 L4 L5 hemilaminectomies with L3-L4 and L4-L5 medial facetectomy and foraminotomy, L4-L5 microdiscectomy, lumbar wound incision and debridement subcutaneous abscess evacuation. She returns to the hospital for leakage from the surgical site as well as fevers. Neurosurgery following. MRI showed: Relatively stable size of enhancing fluid collection in the dorsal soft tissues just to the left of midline; Enhancing epidural component at L3-4 dorsally does appear to be slightly decreased from September 14; Stable to slight increase in fluid within the L3-4 disc interspace which could be related to postoperative change; No significant adjacent marrow signal abnormalities to suggest discitis or osteomyelitis; Conus intact. - Continue IV antibiotics. On ceftriaxone 2 g IV daily. - blood cultures negative x2 days. Pt was febrile overnight Tmax 101. repeat blood cx neg x 1 - neurosurgery recommended CT-guided aspiration of spinal fluid for cx. - ID following and recommends continuing Rocephin until October 30 as previous treatment plan for epidural abscess. Monitor blood cultures. CXR ordered. Urinalysis ordered. ID Added ciprofloxacin. Consider drug fever if negative cultures. wound cultures neg 72hours. Patient had spike of fevers 101 on 09/28. Repeat blood cx NTD. New fluid collection at the surgical site, neurosurgery Dr Desouza evaluated the patient and s/p CT guided aspiration on 10/03/16. Discussed with Dr Desouza, drain was not placed because was minimal fluid and no need for drain. - physical therapy has evaluated. Recommend home with no PT. - on norco for pain control with morphine for breakthrough - gabapentin 600mg TID Pancytopenia: discussed with Dr Car VARMA. Consult hem/onc. patient is also on abx. Per Dr Philip hem /onc if persistent might consider changing rocephyn, Dr Car VARMA was notified. Foot drop: the patient complained of left foot drop secondary to the initial surgery. - Follow up with neurosurgery. - Continue physical therapy. Schizoaffective disorder: mood is stable at this time. - continue home meds. PPx: SCDs. Discharge Planning awaiting final blood cx results. Notify ID if pt continues to spike fevers. Patient with spike of fevers on 09/28 ( 101), repeat blood cx 09/28 NTD. Patient is noted with new fluid collection , continue abx per IDF. Dr. Desouza neurosurgery ff, s/p CT guided aspiration 10/03/16 Also noted pancytopenia consulted hem/onc ff, recommends changing Rocephin if persists Brittany Stewart MD Oct 04, 2016 12:50
[2016-10-04] MEDS: LACTOBACILLUS ACIDOPHILUS TAB PO SCH ×2 (14:30→21:55)
[2016-10-04] MEDS ORDERED: DICYCLOMINE HCL 20 MG TAB PO PRN (14:30)
[2016-10-04 16:11] VITALS: BP 110/89; PULSE 61; RESP 20; TEMP 97.5; O2SAT 96
[2016-10-04 16:36] LABS: C. DIFF EPI 027 PRESUMPTIVE NEGATIVE (NEGATIVE); C. DIFF TOXIN PCR NEGATIVE (NEGATIVE)
[2016-10-04 20:00] VITALS: BP 106/67; PULSE 66; RESP 20; TEMP 98.3; O2SAT 96
[2016-10-04] MEDS: DOCUSATE SODIUM 100 MG CAP PO SCH (21:00)
[2016-10-04] MEDS: DIAZEPAM 5 MG TAB PO PRN (21:56)
[2016-10-04] MEDS: LURASIDONE 40 MG TAB PO SCH (21:56)
[2016-10-05] VITALS: BP 104/71; PULSE 94; RESP 20; TEMP 97.4; O2SAT 94
[2016-10-05 04:00] VITALS: BP 110/71; PULSE 63; RESP 20; TEMP 97.8; O2SAT 95
[2016-10-05] MEDS: ACETAMINOPHEN/HYDROcodone 325 MG/10 MG TAB PO PRN ×5 (05:54→21:40)
[2016-10-05 06:06] LABS: AUTOMATED NEUTROPHIL # 1.2 TH/MM3 (1.8-7.7); BASOPHIL % 0.5 % (0.0-2.0); EOSINOPHIL # 0.1 TH/MM3 (0-0.4); EOSINOPHIL % 2.4 % (0.0-4.0); HEMO FLAGS DIFF FINAL; LYMPH % 40.7 % (9.0-44.0); LYMPHOCYTE # 1.2 TH/MM3 (1.0-4.8); MEAN CELL VOLUME 90.2 FL (80.0-100.0); MEAN CORPUSCULAR HEMOGLOBIN 29.9 PG (27.0-34.0); MEAN CORPUSCULAR HGB CONC 33.2 % (32.0-36.0); MONO % 13.4 % (0.0-8.0); PLATELET COUNT 140 TH/MM3 (150-450); RED CELL DISTRIBUTION WIDTH 13.4 % (11.6-17.2); WHITE BLOOD COUNT 2.8 TH/MM3 (4.0-11.0)
[2016-10-05 06:53] LABS: POTASSIUM 4.4 MEQ/L (3.5-5.1)
--- NOTE | 2016-10-05 08:13 | HHI.PR ---
Subjective Remarks Had diarrhea in the morning. No fever or chills. Abd cramps improved. Pain overall controlled. No n/v. She is ambulating. Objective Vitals Vital Signs Date Time Temp Pulse Resp B/P Pulse Ox O2 Delivery O2 Flow Rate FiO2 10/05/16 04:00 97.8 63 20 110/71 95 10/05/16 00:00 97.4 94 20 104/71 94 10/04/16 20:00 98.3 66 20 106/67 96 10/04/16 16:11 97.5 61 20 110/89 96 10/04/16 12:05 97.6 75 20 108/80 96 10/04/16 09:05 97.6 72 20 115/79 95 I/O 10/04/16 10/04/16 10/04/16 10/05/16 10/05/16 10/05/16 07:00 15:00 23:00 07:00 15:00 23:00 Intake Total 480 ml 480 ml Balance 480 ml 480 ml Intake Oral 480 ml 480 ml # Voids 2 5 1 # Bowel Movements 0 2 0 Result Diagram: 10/05/16 0545 10/05/16 0545 Imaging Last Impressions Lumbar Spine CT 10/03/16 0000 Signed Impressions: Service Date/Time: Monday, October 03, 2016 14:25 - CONCLUSION: 1. Small residual fluid collection sitting above the operative site in the subcutaneous tissues. This will be aspirated out under CT guidance. 2. There has been no other interval change from 09/26/2016. Vishal Watson MD FACR Needle Aspiration CT 10/02/16 0000 Signed Impressions: Service Date/Time: Monday, October 03, 2016 14:25 - CONCLUSION: Uncomplicated with small fluid collection dorsal to the operative site. Vishal Watson MD FACR Chest X-Ray 09/28/16 0000 Signed Impressions: Service Date/Time: Wednesday, September 28, 2016 13:23 - CONCLUSION: No acute disease. Osman Antonio MD Abscess Drainage CT 09/25/16 0000 Signed Impressions: Service Date/Time: Sunday, September 25, 2016 15:00 - CONCLUSION: Uncomplicated CT guided drainage of paraspinal abscess. Osman Antonio MD Lumbar Spine MRI 09/24/16 0000 Signed Impressions: Service Date/Time: Saturday, September 24, 2016 17:36 - CONCLUSION: 1. Relatively stable size of enhancing fluid collection in the dorsal soft tissues just to the left of midline. 2. Enhancing epidural component at L3-4 dorsally does appear to be slightly decreased from September 14. 3. Stable to slight increase in fluid within the L3-4 disc interspace which could be related to postoperative change. No significant adjacent marrow signal abnormalities to suggest discitis or osteomyelitis. Conus intact. Shayne Penn MD Objective Remarks GENERAL: NAD, sitting up, RN about to change dressing SKIN: dressing over incision d/c/i, 3-4 cm fluid collection on her back. CARDIOVASCULAR: Regular rate and rhythm. No murmur appreciated. RESPIRATORY: No accessory muscle use. Clear to auscultation. Breath sounds equal bilaterally. MUSCULOSKELETAL: Back with dressing on c/d/di. No LE edema. NEUROLOGICAL: Awake and alert. No obvious cranial nerve deficits. Normal speech. PSYCHIATRIC: Appropriate mood and affect; insight and judgment normal. Has left foot drop at baseline. A/P Problem List: (1) Spinal epidural abscess ICD Code: G06.1 Status: Acute (2) Schizoaffective disorder ICD Code: F25.9 Status: Acute (3) Postoperative fever ICD Code: R50.82 Status: Acute (4) Foot drop ICD Code: M21.379 Status: Acute Assessment and Plan The pt is status post L3 L4 L5 hemilaminectomies with L3-L4 and L4-L5 medial facetectomy and foraminotomy, L4-L5 microdiscectomy, lumbar wound incision and debridement subcutaneous abscess evacuation. She returns to the hospital for leakage from the surgical site as well as fevers. Neurosurgery following. MRI showed: Relatively stable size of enhancing fluid collection in the dorsal soft tissues just to the left of midline; Enhancing epidural component at L3-4 dorsally does appear to be slightly decreased from September 14; Stable to slight increase in fluid within the L3-4 disc interspace which could be related to postoperative change; No significant adjacent marrow signal abnormalities to suggest discitis or osteomyelitis; Conus intact. - Continue IV antibiotics. On ceftriaxone 2 g IV daily. - blood cultures negative x2 days. Pt was febrile overnight Tmax 101. repeat blood cx neg x 1 - neurosurgery recommended CT-guided aspiration of spinal fluid for cx. - ID following and recommends continuing Rocephin until October 30 as previous treatment plan for epidural abscess. Monitor blood cultures. CXR ordered. Urinalysis ordered. ID Added ciprofloxacin. Consider drug fever if negative cultures. wound cultures neg 72hours. Patient had spike of fevers 101 on 09/28. Repeat blood cx NTD. New fluid collection at the surgical site, neurosurgery Dr Desouza evaluated the patient and s/p CT guided aspiration on 10/03/16. Discussed with Dr Desouza, drain was not placed because was minimal fluid and no need for drain. Fluid might reaccumulate and resorb. - physical therapy has evaluated. Recommend home with no PT. - on norco for pain control with morphine for breakthrough - gabapentin 600mg TID Diarrhea: Check C diff negative. Continue probiotics, add imodium. Dicyclomine for abd spasm. Pancytopenia: discussed with Dr Car VARMA. Consult hem/onc. patient is also on abx. Per Dr Philip hem /onc if persistent might consider changing rocephyn, Dr Car VARMA was notified. Foot drop: the patient complained of left foot drop secondary to the initial surgery. - Follow up with neurosurgery. - Continue physical therapy. Schizoaffective disorder: mood is stable at this time. - continue home meds. PPx: SCDs. Discharge Planning awaiting final blood cx results. Notify ID if pt continues to spike fevers. Patient with spike of fevers on 09/28 ( 101), repeat blood cx 09/28 NTD. Patient is noted with new fluid collection , continue abx per IDF. Dr. Desouza neurosurgery ff, s/p CT guided aspiration 10/03/16 Also noted pancytopenia consulted hem/onc ff, recommends changing Rocephin if persists, Dr Car VARMA to decide. Brittany Stewart MD Oct 05, 2016 08:13 Brittany Stewart MD Oct 05, 2016 08:13
[2016-10-05] MEDS: FLUTICASONE PROPIONATE 50 MCG/ACT 16 GM NASAL SPRAY EACH NARE SCH (08:19)
[2016-10-05 08:20] VITALS: BP 109/78; PULSE 67; RESP 20; TEMP 95.7; O2SAT 96
[2016-10-05] MEDS: cefTRIAXone INJ 2,000 MG in SODIUM CHLORIDE 0.9% INJ 100 ML IV SCH (08:20)
[2016-10-05] MEDS: SODIUM CHLORIDE 0.9% FLUSH 10 ML FLUSH IV FLUSH SCH ×2 (08:21→21:42)
[2016-10-05] MEDS: GABAPENTIN 300 MG CAP PO SCH ×3 (08:21→18:17)
[2016-10-05] MEDS: SENNOSIDES 8.6 MG TAB PO SCH (08:21)
[2016-10-05] MEDS: PANTOPRAZOLE SOD 40 MG DELAYED RELEASE TAB PO SCH (08:22)
[2016-10-05] MEDS: LACTOBACILLUS ACIDOPHILUS TAB PO SCH ×2 (08:22→21:40)
[2016-10-05] MEDS: buPROPion HCL 100 MG TAB PO SCH (08:22)
[2016-10-05] MEDS: ESCITALOPRAM OXALATE 10 MG TAB PO SCH (08:22)
[2016-10-05] MEDS: PROPRANOLOL HCL 10 MG TAB PO SCH ×2 (08:22→21:40)
[2016-10-05] MEDS ORDERED: LOPERAMIDE HCL 2 MG CAP PO PRN (08:45)
[2016-10-05] MEDS: MORPHINE SULFATE 4 MG/ML INJ IV PRN ×2 (11:10→15:43)
--- NOTE | 2016-10-05 13:32 | HHI.IDPN ---
Note Infectious Disease Note ID cross cover for . This is a 60-year-old white female who was recently discharged from the hospital on IV antibiotics for treatment of epidural abscess. A culture grew out Enterobacter cloacae. She was discharged on IV antibiotics to be given by a PICC catheter. The antibiotics are to be continued until October 30, 2016. Despite antibiotics patient developed a swelling in the post op area and had low grade fevers. The patient had recent hemilaminectomy and microdiscectomy on 09/07/2016 at the L3-L4 and L4-L5 level. She also had a redo laminectomy with irrigation and debridement on 09/17/2016. A lumbar spine MRI was performed and it shows stable to slight increase in fluid within the L3-L4 disc interspace. s/ p aspiration of the lumbar fluid collection and cultures are no growth so far. Had developed bulge at the surgical site lumbar area. Developed BRIAN immediately after the procedure. Afebrile. No nausea. No dizziness. Seen by Hematology for Leukopenia/thrombocytopenia. PAST MEDICAL HISTORY 1. Schizoaffective disorder. 2. Hepatitis C. 3. Cholecystectomy. 4. Fibromyalgia. 5. Right fallopian tube resection. 6. Recent L3-L4 and L4-L5 hemilaminectomy with redo hemilaminectomy on 09/17/2016. ALLERGIES SULFA. ANTIBIOTICS Ceftriaxone. OBJECTIVE: Vital Signs Date Time Temp Pulse Resp B/P Pulse Ox O2 Delivery O2 Flow Rate FiO2 10/05/16 08:20 95.7 67 20 109/78 96 10/05/16 04:00 97.8 63 20 110/71 95 10/05/16 00:00 97.4 94 20 104/71 94 10/04/16 20:00 98.3 66 20 106/67 96 10/04/16 16:11 97.5 61 20 110/89 96 10/04/16 10/04/16 10/05/16 15:00 23:00 07:00 Intake Total 480 ml 480 ml Balance 480 ml 480 ml Intake Oral 480 ml 480 ml # Voids 5 1 # Bowel Movements 2 0 Laboratory Tests Test 10/05/16 05:45 White Blood Count 2.8 TH/MM3 Red Blood Count 4.10 MIL/MM3 Hemoglobin 12.3 GM/DL Hematocrit 37.0 % Mean Corpuscular Volume 90.2 FL Mean Corpuscular Hemoglobin 29.9 PG Mean Corpuscular Hemoglobin 33.2 % Concent Red Cell Distribution Width 13.4 % Platelet Count 140 TH/MM3 Mean Platelet Volume 7.9 FL Neutrophils (%) (Auto) 43.0 % Lymphocytes (%) (Auto) 40.7 % Monocytes (%) (Auto) 13.4 % Eosinophils (%) (Auto) 2.4 % Basophils (%) (Auto) 0.5 % Neutrophils # (Auto) 1.2 TH/MM3 Lymphocytes # (Auto) 1.2 TH/MM3 Monocytes # (Auto) 0.4 TH/MM3 Eosinophils # (Auto) 0.1 TH/MM3 Basophils # (Auto) 0.0 TH/MM3 CBC Comment DIFF FINAL Differential Comment Laboratory Tests Test 10/05/16 05:45 Sodium Level 143 MEQ/L Potassium Level 4.4 MEQ/L Chloride Level 104 MEQ/L Carbon Dioxide Level 35.0 MEQ/L Anion Gap 4 MEQ/L Blood Urea Nitrogen 9 MG/DL Creatinine 0.63 MG/DL Estimat Glomerular Filtration 97 ML/MIN Rate Random Glucose 86 MG/DL Calcium Level 9.2 MG/DL Microbiology Date/Time Procedure Status Source Growth 10/03/16 15:15 Gram Stain - Final Resulted Abscess Incision 10/03/16 15:15 Wound Culture - Preliminary Resulted Abscess Incision NO GROWTH IN 24 HOURS. IMAGING: Needle Aspiration CT 10/02/16 0000 Signed Impressions: Service Date/Time: Monday, October 03, 2016 14:25 - CONCLUSION: Uncomplicated with small fluid collection dorsal to the operative site. Vishal Watson MD FACR Lumbar Spine CT 09/26/16 1039 Signed Impressions: Service Date/Time: Monday, September 26, 2016 11:49 - CONCLUSION: 1. Postsurgical changes with a laminotomy left of L3 and a left-sided laminectomy at L4. 2. Tract of air in the soft tissues of the back extending from the left epidural space of L4 posteriorly to the skin surface is characteristic of the previous tube tract. 3. Very small, 1.7 cm fluid collection posterior to the L3 spinous process. I don't believe that this is sufficient enough to warrant further drainage. 4. Haziness of the epidural fat around the left L4 nerve root is almost certainly postsurgical. 5. Spinal canal and neural foramina are otherwise patent at all remaining levels. Jacob Mccollum MD Abscess Drainage CT 09/25/16 0000 Signed Impressions: Service Date/Time: Sunday, September 25, 2016 15:00 - CONCLUSION: Uncomplicated CT guided drainage of paraspinal abscess. Osman Antonio MD Lumbar Spine MRI 09/24/16 0000 Signed Impressions: Service Date/Time: Saturday, September 24, 2016 17:36 - CONCLUSION: 1. Relatively stable size of enhancing fluid collection in the dorsal soft tissues just to the left of midline. 2. Enhancing epidural component at L3-4 dorsally does appear to be slightly decreased from September 14. 3. Stable to slight increase in fluid within the L3-4 disc interspace which could be related to postoperative change. No significant adjacent marrow signal abnormalities to suggest discitis or osteomyelitis. Conus intact. Shayne Penn MD PHYSICAL EXAMINATION GENERAL: No acute distress. Awake, alert and oriented. HEENT: No icterus. Oropharynx moist mucosa without lesions. NECK: Supple without adenopathy. LUNGS: Clear to auscultation. HEART: Regular rate and rhythm. No murmurs, rubs or gallops. ABDOMEN: Bowel sounds present. Soft. BACK: swelling over surgical incision at the lumbar. No erythema. No visible drainage. EXTREMITIES: No clubbing, cyanosis or edema. PIC site has no sign of infection. SKIN: No rash. PSYCHIATRIC: Patient calm and cooperative. IMPRESSION 1. Lumbar spine epidural abscess. The patient is status post redo laminectomy. Culture grew out Enterobacter cloacae. 2. Recurrence of drainage from the lumbar region/wound. Now with visible bulge at the area of incision. 3. Fever. ? etiology. Improved. 4. Leukopenia and thrombocytopenia. ? med related. Levaquin stopped. WBC higher. Platelet count higher. 5. BRIAN - need to consider CSF leak. RECOMMENDATIONS 1. Continue ceftriaxone. Previous plan until October 30 for epidural abscess. 2. Monitor blood counts. Follow Hematology rec for leukopenia/Thrombocytopenia. 3. Follow culture of repeat aspirate of the lumbar area. 4. Monitor temp. 5. Neurosurgery also following. Follow cultures till negative d.w Case management about home health and continuing need of IV antibiotics. Will follow prn over the weekend. Please call on Saturday to address discharge recommendations. Jacklyn Hermosillo MD Oct 05, 2016 13:32 the L3-4 disc interspace which could be related to postoperative change. No significant adjacent marrow signal abnormalities to suggest discitis or osteomyelitis. Conus intact. Shayne Penn MD PHYSICAL EXAMINATION GENERAL: No acute distress. Awake, alert and oriented. HEENT: No icterus. Oropharynx moist mucosa without lesions. NECK: Supple without adenopathy. LUNGS: Clear to auscultation. HEART: Regular rate and rhythm. No murmurs, rubs or gallops. ABDOMEN: Bowel sounds present. Soft. BACK: swelling over surgical incision at the lumbar. No erythema. No visible drainage. EXTREMITIES: No clubbing, cyanosis or edema. PIC site has no sign of infection. SKIN: No rash. PSYCHIATRIC: Patient calm and cooperative. IMPRESSION 1. Lumbar spine epidural abscess. The patient is status post redo laminectomy. Culture grew out Enterobacter cloacae. 2. Recurrence of drainage from the lumbar region/wound. Now with visible bulge at the area of incision. 3. Fever. ? etiology. Improved. 4. Leukopenia and thrombocytopenia. ? med related. Levaquin stopped. WBC higher. Platelet count higher. 5. BRIAN - need to consider CSF leak. RECOMMENDATIONS 1. Continue ceftriaxone. Previous plan until October 30 for epidural abscess. 2. Monitor blood counts. Follow Hematology rec for leukopenia/Thrombocytopenia. 3. Follow culture of repeat aspirate of the lumbar area. 4. Monitor temp. 5. Neurosurgery also following. Jacklyn Hermosillo MD Oct 05, 2016 13:32
[2016-10-05 13:50] VITALS: BP 107/76; PULSE 59; RESP 20; TEMP 97.2; O2SAT 96
[2016-10-05 15:43] VITALS: BP 105/68; PULSE 56; RESP 20; TEMP 97.5; O2SAT 95
[2016-10-05 20:00] VITALS: BP 119/75; PULSE 62; RESP 20; TEMP 98; O2SAT 95
[2016-10-05] MEDS: DOCUSATE SODIUM 100 MG CAP PO SCH (21:00)
[2016-10-05] MEDS: LURASIDONE 40 MG TAB PO SCH (21:40)
[2016-10-06] VITALS: BP 95/58; PULSE 58; RESP 18; TEMP 97.4; O2SAT 92
[2016-10-06 06:31] VITALS: BP 101/55; PULSE 54; RESP 18; TEMP 97.7; O2SAT 94
[2016-10-06] MEDS: ACETAMINOPHEN/HYDROcodone 325 MG/10 MG TAB PO PRN ×4 (07:15→20:17)
[2016-10-06 08:00] VITALS: BP 111/80; PULSE 62; RESP 18; TEMP 97.6; O2SAT 94
[2016-10-06] MEDS: LACTOBACILLUS ACIDOPHILUS TAB PO SCH ×2 (08:09→20:18)
[2016-10-06] MEDS: buPROPion HCL 100 MG TAB PO SCH (08:09)
[2016-10-06] MEDS: GABAPENTIN 300 MG CAP PO SCH ×3 (08:10→17:42)
[2016-10-06] MEDS: PANTOPRAZOLE SOD 40 MG DELAYED RELEASE TAB PO SCH (08:10)
[2016-10-06] MEDS: ESCITALOPRAM OXALATE 10 MG TAB PO SCH (08:10)
[2016-10-06] MEDS: PROPRANOLOL HCL 10 MG TAB PO SCH ×2 (08:10→21:00)
[2016-10-06] MEDS: cefTRIAXone INJ 2,000 MG in SODIUM CHLORIDE 0.9% INJ 100 ML IV SCH (08:11)
[2016-10-06] MEDS: FLUTICASONE PROPIONATE 50 MCG/ACT 16 GM NASAL SPRAY EACH NARE SCH (08:12)
[2016-10-06] MEDS: SODIUM CHLORIDE 0.9% FLUSH 10 ML FLUSH IV FLUSH SCH ×2 (08:12→20:21)
[2016-10-06] MEDS: SENNOSIDES 8.6 MG TAB PO SCH (08:14)
--- NOTE | 2016-10-06 10:01 | HHI.PR ---
Subjective Remarks No more diarrhea. She had a soft BP in the morning. Fels tires. Denies any cp, sob, n/v/d/c. Objective Vitals Vital Signs Date Time Temp Pulse Resp B/P Pulse Ox O2 Delivery O2 Flow Rate FiO2 10/06/16 08:00 97.6 62 18 111/80 94 10/06/16 06:31 97.7 54 18 101/55 94 10/06/16 00:00 97.4 58 18 95/58 92 10/05/16 20:00 98.0 62 20 119/75 95 10/05/16 15:43 97.5 56 20 105/68 95 10/05/16 13:50 97.2 59 20 107/76 96 I/O 10/05/16 10/05/16 10/05/16 10/06/16 10/06/16 10/06/16 07:00 15:00 23:00 07:00 15:00 23:00 Intake Total 480 ml 960 ml Balance 480 ml 960 ml Intake Oral 480 ml 960 ml # Voids 1 7 1 # Bowel Movements 0 3 1 Result Diagram: 10/05/16 0545 10/05/16 0545 Imaging Last Impressions Lumbar Spine CT 10/03/16 0000 Signed Impressions: Service Date/Time: Monday, October 03, 2016 14:25 - CONCLUSION: 1. Small residual fluid collection sitting above the operative site in the subcutaneous tissues. This will be aspirated out under CT guidance. 2. There has been no other interval change from 09/26/2016. Vishal Watson MD FACR Needle Aspiration CT 10/02/16 0000 Signed Impressions: Service Date/Time: Monday, October 03, 2016 14:25 - CONCLUSION: Uncomplicated with small fluid collection dorsal to the operative site. Vishal Watson MD FACR Chest X-Ray 09/28/16 0000 Signed Impressions: Service Date/Time: Wednesday, September 28, 2016 13:23 - CONCLUSION: No acute disease. Osman Antonio MD Abscess Drainage CT 09/25/16 0000 Signed Impressions: Service Date/Time: Sunday, September 25, 2016 15:00 - CONCLUSION: Uncomplicated CT guided drainage of paraspinal abscess. Osman Antonio MD Lumbar Spine MRI 09/24/16 0000 Signed Impressions: Service Date/Time: Saturday, September 24, 2016 17:36 - CONCLUSION: 1. Relatively stable size of enhancing fluid collection in the dorsal soft tissues just to the left of midline. 2. Enhancing epidural component at L3-4 dorsally does appear to be slightly decreased from September 14. 3. Stable to slight increase in fluid within the L3-4 disc interspace which could be related to postoperative change. No significant adjacent marrow signal abnormalities to suggest discitis or osteomyelitis. Conus intact. Shayne Penn MD Objective Remarks GENERAL: NAD, sitting up, RN about to change dressing SKIN: dressing over incision d/c/i, 3-4 cm fluid collection on her back. CARDIOVASCULAR: Regular rate and rhythm. No murmur appreciated. RESPIRATORY: No accessory muscle use. Clear to auscultation. Breath sounds equal bilaterally. MUSCULOSKELETAL: Back with dressing on c/d/di. No LE edema. NEUROLOGICAL: Awake and alert. No obvious cranial nerve deficits. Normal speech. PSYCHIATRIC: Appropriate mood and affect; insight and judgment normal. Has left foot drop at baseline. A/P Problem List: (1) Spinal epidural abscess ICD Code: G06.1 Status: Acute (2) Schizoaffective disorder ICD Code: F25.9 Status: Acute (3) Postoperative fever ICD Code: R50.82 Status: Acute (4) Foot drop ICD Code: M21.379 Status: Acute Assessment and Plan The pt is status post L3 L4 L5 hemilaminectomies with L3-L4 and L4-L5 medial facetectomy and foraminotomy, L4-L5 microdiscectomy, lumbar wound incision and debridement subcutaneous abscess evacuation. She returns to the hospital for leakage from the surgical site as well as fevers. Neurosurgery following. MRI showed: Relatively stable size of enhancing fluid collection in the dorsal soft tissues just to the left of midline; Enhancing epidural component at L3-4 dorsally does appear to be slightly decreased from September 14; Stable to slight increase in fluid within the L3-4 disc interspace which could be related to postoperative change; No significant adjacent marrow signal abnormalities to suggest discitis or osteomyelitis; Conus intact. - Continue IV antibiotics. On ceftriaxone 2 g IV daily. - blood cultures negative x2 days. Pt was febrile overnight Tmax 101. repeat blood cx neg x 1 - neurosurgery recommended CT-guided aspiration of spinal fluid for cx. - ID following and recommends continuing Rocephin until October 30 as previous treatment plan for epidural abscess. Monitor blood cultures. CXR ordered. Urinalysis ordered. ID Added ciprofloxacin. Consider drug fever if negative cultures. wound cultures neg 72hours. Patient had spike of fevers 101 on 09/28. Repeat blood cx NTD. New fluid collection at the surgical site, neurosurgery Dr Desouza evaluated the patient and s/p CT guided aspiration on 10/03/16. Discussed with Dr Desouza, drain was not placed because was minimal fluid and no need for drain. Fluid might reaccumulate and resorb. - physical therapy has evaluated. Recommend home with no PT. - on norco for pain control with morphine for breakthrough - gabapentin 600mg TID Diarrhea: Check C diff negative. Continue probiotics, add imodium. Dicyclomine for abd spasm. Pancytopenia: discussed with Dr Yoon ID. Consult hem/onc. patient is also on abx. Per Dr Philip hem /onc if persistent might consider changing rocephyn, Dr Yoon ID was notified. Foot drop: the patient complained of left foot drop secondary to the initial surgery. - Follow up with neurosurgery. - Continue physical therapy. Schizoaffective disorder: mood is stable at this time. - continue home meds. PPx: SCDs. Discharge Planning awaiting final blood cx results. Notify ID if pt continues to spike fevers. Patient with spike of fevers on 09/28 ( 101), repeat blood cx 09/28 NTD. Patient is noted with new fluid collection , continue abx per IDF. Dr. Desouza neurosurgery ff, s/p CT guided aspiration 10/03/16 Also noted pancytopenia consulted hem/onc ff, recommends changing Rocephin if persists, Dr Yoon ID to decide. Monitor , Dr Yoon will reeval on Saturday and decide. She needs abx until 10/30 Brittany Stewart MD Oct 06, 2016 10:01
[2016-10-06 12:00] VITALS: BP 120/74; PULSE 58; RESP 18; TEMP 95.5; O2SAT 97
[2016-10-06] MEDS: MORPHINE SULFATE 4 MG/ML INJ IV PRN ×3 (12:39→21:43)
[2016-10-06 15:49] VITALS: BP 97/51; PULSE 65; RESP 18; TEMP 97.2; O2SAT 100
[2016-10-06 20:00] VITALS: BP 97/65; PULSE 57; RESP 18; TEMP 97.1; O2SAT 94
[2016-10-06] MEDS: LURASIDONE 40 MG TAB PO SCH (20:17)
[2016-10-06] MEDS: DOCUSATE SODIUM 100 MG CAP PO SCH (21:00)
[2016-10-07] VITALS (7 sets, daily range): BP systolic 86–113; BP diastolic 52–74; PULSE 51–67; RESP 18; TEMP 96.7–97.9; O2SAT 93–96
[2016-10-07] MEDS: ACETAMINOPHEN/HYDROcodone 325 MG/10 MG TAB PO PRN ×5 (03:25→22:52)
[2016-10-07 06:34] LABS: AUTOMATED NEUTROPHIL # 1.2 TH/MM3 (1.8-7.7); BASOPHIL % 0.5 % (0.0-2.0); EOSINOPHIL # 0.1 TH/MM3 (0-0.4); EOSINOPHIL % 2.2 % (0.0-4.0); HEMATOCRIT 37.3 % (35.0-46.0); HEMO FLAGS DIFF FINAL; LYMPH % 41.1 % (9.0-44.0); LYMPHOCYTE # 1.2 TH/MM3 (1.0-4.8); MEAN CELL VOLUME 90.2 FL (80.0-100.0); MEAN CORPUSCULAR HEMOGLOBIN 29.9 PG (27.0-34.0); MEAN CORPUSCULAR HGB CONC 33.1 % (32.0-36.0); MONO % 13.9 % (0.0-8.0); NEUT % 42.3 % (16.0-70.0); PLATELET COUNT 151 TH/MM3 (150-450); RED BLOOD COUNT 4.14 MIL/MM3 (4.00-5.30); RED CELL DISTRIBUTION WIDTH 13.4 % (11.6-17.2); WHITE BLOOD COUNT 2.8 TH/MM3 (4.0-11.0)
[2016-10-07 06:45] LABS: BICARBONATE 36.7 MEQ/L (21.0-32.0)
[2016-10-07] MEDS: FLUTICASONE PROPIONATE 50 MCG/ACT 16 GM NASAL SPRAY EACH NARE SCH (08:33)
[2016-10-07] MEDS: cefTRIAXone INJ 2,000 MG in SODIUM CHLORIDE 0.9% INJ 100 ML IV SCH (08:33)
[2016-10-07] MEDS: GABAPENTIN 300 MG CAP PO SCH ×3 (08:34→18:07)
[2016-10-07] MEDS: LACTOBACILLUS ACIDOPHILUS TAB PO SCH ×2 (08:34→20:58)
[2016-10-07] MEDS: SODIUM CHLORIDE 0.9% FLUSH 10 ML FLUSH IV FLUSH SCH ×2 (08:34→21:00)
[2016-10-07] MEDS: buPROPion HCL 100 MG TAB PO SCH (08:34)
[2016-10-07] MEDS: ESCITALOPRAM OXALATE 10 MG TAB PO SCH (08:34)
[2016-10-07] MEDS: PANTOPRAZOLE SOD 40 MG DELAYED RELEASE TAB PO SCH (08:34)
[2016-10-07] MEDS: SENNOSIDES 8.6 MG TAB PO SCH (08:35)
[2016-10-07] MEDS: PROPRANOLOL HCL 10 MG TAB PO SCH ×2 (08:37→21:00)
--- NOTE | 2016-10-07 09:00 | HHI.PR ---
Subjective Remarks Patient in the chair, says she has no diarrhea since yesterday, no more abdominal pain. Her BP was noted into a lower side, but says has no more diarrhea and she is taking good PO. Denies sob or chest pain. no fever or chills. No n/v. Pain in her back is controlled by meds. Objective Vitals Vital Signs Date Time Temp Pulse Resp B/P Pulse Ox O2 Delivery O2 Flow Rate FiO2 10/07/16 08:00 97.4 54 18 101/74 93 10/07/16 04:00 96.7 51 18 97/54 93 10/07/16 01:00 100/55 10/07/16 00:00 96.8 52 18 86/52 95 10/06/16 20:00 97.1 57 18 97/65 94 10/06/16 15:49 97.2 65 18 97/51 100 10/06/16 12:00 95.5 58 18 120/74 97 I/O 10/06/16 10/06/16 10/06/16 10/07/16 10/07/16 10/07/16 07:00 15:00 23:00 07:00 15:00 23:00 Intake Total 480 ml 480 ml 240 ml Balance 480 ml 480 ml 240 ml Intake Oral 480 ml 480 ml 240 ml # Voids 1 3 1 # Bowel Movements 1 Result Diagram: 10/07/16 0600 10/07/16 0600 Imaging Last Impressions Lumbar Spine CT 10/03/16 0000 Signed Impressions: Service Date/Time: Monday, October 03, 2016 14:25 - CONCLUSION: 1. Small residual fluid collection sitting above the operative site in the subcutaneous tissues. This will be aspirated out under CT guidance. 2. There has been no other interval change from 09/26/2016. Vishal Watson MD FACR Needle Aspiration CT 10/02/16 0000 Signed Impressions: Service Date/Time: Monday, October 03, 2016 14:25 - CONCLUSION: Uncomplicated with small fluid collection dorsal to the operative site. Vishal Watson MD FACR Chest X-Ray 09/28/16 0000 Signed Impressions: Service Date/Time: Wednesday, September 28, 2016 13:23 - CONCLUSION: No acute disease. Osman Antonio MD Abscess Drainage CT 09/25/16 0000 Signed Impressions: Service Date/Time: Sunday, September 25, 2016 15:00 - CONCLUSION: Uncomplicated CT guided drainage of paraspinal abscess. Osman Antonio MD Lumbar Spine MRI 09/24/16 0000 Signed Impressions: Service Date/Time: Saturday, September 24, 2016 17:36 - CONCLUSION: 1. Relatively stable size of enhancing fluid collection in the dorsal soft tissues just to the left of midline. 2. Enhancing epidural component at L3-4 dorsally does appear to be slightly decreased from September 14. 3. Stable to slight increase in fluid within the L3-4 disc interspace which could be related to postoperative change. No significant adjacent marrow signal abnormalities to suggest discitis or osteomyelitis. Conus intact. Shayne Penn MD Objective Remarks GENERAL: NAD, sitting up, RN about to change dressing SKIN: dressing over incision d/c/i, 3-4 cm fluid collection on her back. CARDIOVASCULAR: Regular rate and rhythm. No murmur appreciated. RESPIRATORY: No accessory muscle use. Clear to auscultation. Breath sounds equal bilaterally. MUSCULOSKELETAL: Back with dressing on c/d/di. No LE edema. NEUROLOGICAL: Awake and alert. No obvious cranial nerve deficits. Normal speech. PSYCHIATRIC: Appropriate mood and affect; insight and judgment normal. Has left foot drop at baseline. A/P Problem List: (1) Spinal epidural abscess ICD Code: G06.1 Status: Acute (2) Schizoaffective disorder ICD Code: F25.9 Status: Acute (3) Postoperative fever ICD Code: R50.82 Status: Acute (4) Foot drop ICD Code: M21.379 Status: Acute Assessment and Plan The pt is status post L3 L4 L5 hemilaminectomies with L3-L4 and L4-L5 medial facetectomy and foraminotomy, L4-L5 microdiscectomy, lumbar wound incision and debridement subcutaneous abscess evacuation. She returns to the hospital for leakage from the surgical site as well as fevers. Neurosurgery following. MRI showed: Relatively stable size of enhancing fluid collection in the dorsal soft tissues just to the left of midline; Enhancing epidural component at L3-4 dorsally does appear to be slightly decreased from September 14; Stable to slight increase in fluid within the L3-4 disc interspace which could be related to postoperative change; No significant adjacent marrow signal abnormalities to suggest discitis or osteomyelitis; Conus intact. - Continue IV antibiotics. On ceftriaxone 2 g IV daily. - blood cultures negative x2 days. Pt was febrile overnight Tmax 101. repeat blood cx neg x 1 - neurosurgery recommended CT-guided aspiration of spinal fluid for cx. - ID following and recommends continuing Rocephin until October 30 as previous treatment plan for epidural abscess. Monitor blood cultures. CXR ordered. Urinalysis ordered. ID Added ciprofloxacin. Consider drug fever if negative cultures. wound cultures neg 72hours. Patient had spike of fevers 101 on 09/28. Repeat blood cx NTD. New fluid collection at the surgical site, neurosurgery Dr Desouza evaluated the patient and s/p CT guided aspiration on 10/03/16. Discussed with Dr Desouza, drain was not placed because was minimal fluid and no need for drain. Fluid might reaccumulate and resorb. - physical therapy has evaluated. Recommend home with no PT. - on norco for pain control with morphine for breakthrough - gabapentin 600mg TID Diarrhea: Check C diff negative. Continue probiotics, add imodium. Dicyclomine for abd spasm. Pancytopenia: discussed with Dr Yoon ID. Consult hem/onc. patient is also on abx. Per Dr Philip hem /onc if persistent might consider changing rocephyn, Dr Yoon ID was notified. Foot drop: the patient complained of left foot drop secondary to the initial surgery. - Follow up with neurosurgery. - Continue physical therapy. Schizoaffective disorder: mood is stable at this time. - continue home meds. PPx: SCDs. Discharge Planning awaiting final blood cx results. Notify ID if pt continues to spike fevers. Patient with spike of fevers on 09/28 ( 101), repeat blood cx 09/28 NTD. Patient is noted with new fluid collection , continue abx per IDF. Dr. Desouza neurosurgery ff, s/p CT guided aspiration 10/03/16 Also noted pancytopenia consulted hem/onc ff, recommends changing Rocephin if persists, Dr Yoon ID to decide. Monitor , Dr Yoon will reeval on Saturday and decide. She needs abx until 10/30 Brittany Stewart MD Oct 07, 2016 09:00
[2016-10-07] MEDS ORDERED: SODIUM CHLORID 0.9% 500 ML INJ 500 ML IV ONE (12:00)
[2016-10-07] MEDS: MORPHINE SULFATE 4 MG/ML INJ IV PRN (13:55)
[2016-10-07] MEDS: LURASIDONE 40 MG TAB PO SCH (20:58)
[2016-10-07] MEDS: DOCUSATE SODIUM 100 MG CAP PO SCH (21:00)
[2016-10-08] VITALS (7 sets, daily range): BP systolic 96–130; BP diastolic 57–83; PULSE 58–69; RESP 18–20; TEMP 96.7–97.7; O2SAT 92–98
[2016-10-08] MEDS: ACETAMINOPHEN/HYDROcodone 325 MG/10 MG TAB PO PRN ×6 (04:09→23:36)
[2016-10-08 06:13] LABS: AUTOMATED NEUTROPHIL # 1.1 TH/MM3 (1.8-7.7); BASOPHIL % 0.9 % (0.0-2.0); EOSINOPHIL % 1.7 % (0.0-4.0); HEMATOCRIT 36.7 % (35.0-46.0); HEMO FLAGS DIFF FINAL; LYMPH % 38.3 % (9.0-44.0); LYMPHOCYTE # 0.9 TH/MM3 (1.0-4.8); MEAN CELL VOLUME 90.9 FL (80.0-100.0); MEAN CORPUSCULAR HEMOGLOBIN 29.5 PG (27.0-34.0); MEAN CORPUSCULAR HGB CONC 32.5 % (32.0-36.0); MONO % 14.8 % (0.0-8.0); NEUT % 44.3 % (16.0-70.0); PLATELET COUNT 133 TH/MM3 (150-450); RED BLOOD COUNT 4.03 MIL/MM3 (4.00-5.30); RED CELL DISTRIBUTION WIDTH 13.2 % (11.6-17.2); WHITE BLOOD COUNT 2.4 TH/MM3 (4.0-11.0)
[2016-10-08 06:51] LABS: BICARBONATE 36.2 MEQ/L (21.0-32.0); POTASSIUM 3.9 MEQ/L (3.5-5.1)
[2016-10-08] MEDS: FLUTICASONE PROPIONATE 50 MCG/ACT 16 GM NASAL SPRAY EACH NARE SCH (08:08)
[2016-10-08] MEDS: cefTRIAXone INJ 2,000 MG in SODIUM CHLORIDE 0.9% INJ 100 ML IV SCH (08:09)
[2016-10-08] MEDS: PANTOPRAZOLE SOD 40 MG DELAYED RELEASE TAB PO SCH (08:09)
[2016-10-08] MEDS: SODIUM CHLORIDE 0.9% FLUSH 10 ML FLUSH IV FLUSH SCH ×2 (08:09→20:25)
[2016-10-08] MEDS: LACTOBACILLUS ACIDOPHILUS TAB PO SCH ×2 (08:09→20:25)
[2016-10-08] MEDS: buPROPion HCL 100 MG TAB PO SCH (08:10)
[2016-10-08] MEDS: GABAPENTIN 300 MG CAP PO SCH ×3 (08:10→17:00)
[2016-10-08] MEDS: ESCITALOPRAM OXALATE 10 MG TAB PO SCH (08:10)
[2016-10-08] MEDS: SENNOSIDES 8.6 MG TAB PO SCH (09:00)
[2016-10-08] MEDS: PROPRANOLOL HCL 10 MG TAB PO SCH ×2 (09:00→20:25)
--- NOTE | 2016-10-08 09:04 | HHI.PR ---
Subjective Remarks In the chair. No fevr or chiolls. Pain is controlled by meds. Wearing an abdominal binder. Says no more abd pain. BM is normal, no diarrhea. She however complaints of gas. Objective Vitals Vital Signs Date Time Temp Pulse Resp B/P Pulse Ox O2 Delivery O2 Flow Rate FiO2 10/08/16 08:47 97.4 64 20 120/81 95 10/08/16 04:00 97.1 58 18 109/65 92 10/08/16 00:11 97.2 64 18 98/72 94 10/08/16 00:00 97.2 61 18 96/57 94 10/07/16 20:00 97.9 67 18 101/73 93 10/07/16 20:00 97.9 67 18 101/73 93 10/07/16 16:00 97.9 60 18 101/55 94 10/07/16 11:49 97.1 54 18 113/69 96 I/O 10/07/16 10/07/16 10/07/16 10/08/16 10/08/16 10/08/16 07:00 15:00 23:00 07:00 15:00 23:00 Intake Total 240 ml 760 ml 840 ml Balance 240 ml 760 ml 840 ml Intake Oral 240 ml 760 ml 840 ml # Voids 1 6 5 # Bowel Movements 1 Result Diagram: 10/08/16 0600 10/08/16 0600 Imaging Last Impressions Lumbar Spine CT 10/03/16 0000 Signed Impressions: Service Date/Time: Monday, October 03, 2016 14:25 - CONCLUSION: 1. Small residual fluid collection sitting above the operative site in the subcutaneous tissues. This will be aspirated out under CT guidance. 2. There has been no other interval change from 09/26/2016. Vishal Watson MD FACR Needle Aspiration CT 10/02/16 0000 Signed Impressions: Service Date/Time: Monday, October 03, 2016 14:25 - CONCLUSION: Uncomplicated with small fluid collection dorsal to the operative site. Vishal Watson MD FACR Chest X-Ray 09/28/16 0000 Signed Impressions: Service Date/Time: Wednesday, September 28, 2016 13:23 - CONCLUSION: No acute disease. Osman Antonio MD Abscess Drainage CT 09/25/16 0000 Signed Impressions: Service Date/Time: Sunday, September 25, 2016 15:00 - CONCLUSION: Uncomplicated CT guided drainage of paraspinal abscess. Osman Antonio MD Lumbar Spine MRI 09/24/16 0000 Signed Impressions: Service Date/Time: Saturday, September 24, 2016 17:36 - CONCLUSION: 1. Relatively stable size of enhancing fluid collection in the dorsal soft tissues just to the left of midline. 2. Enhancing epidural component at L3-4 dorsally does appear to be slightly decreased from September 14. 3. Stable to slight increase in fluid within the L3-4 disc interspace which could be related to postoperative change. No significant adjacent marrow signal abnormalities to suggest discitis or osteomyelitis. Conus intact. Shayne Penn MD Objective Remarks GENERAL: NAD, sitting up, RN about to change dressing SKIN: dressing over incision d/c/i, 3-4 cm fluid collection on her back. CARDIOVASCULAR: Regular rate and rhythm. No murmur appreciated. RESPIRATORY: No accessory muscle use. Clear to auscultation. Breath sounds equal bilaterally. MUSCULOSKELETAL: Back with dressing on c/d/di. No LE edema. NEUROLOGICAL: Awake and alert. No obvious cranial nerve deficits. Normal speech. PSYCHIATRIC: Appropriate mood and affect; insight and judgment normal. Has left foot drop at baseline. A/P Problem List: (1) Spinal epidural abscess ICD Code: G06.1 Status: Acute (2) Schizoaffective disorder ICD Code: F25.9 Status: Acute (3) Postoperative fever ICD Code: R50.82 Status: Acute (4) Foot drop ICD Code: M21.379 Status: Acute Assessment and Plan The pt is status post L3 L4 L5 hemilaminectomies with L3-L4 and L4-L5 medial facetectomy and foraminotomy, L4-L5 microdiscectomy, lumbar wound incision and debridement subcutaneous abscess evacuation. She returns to the hospital for leakage from the surgical site as well as fevers. Neurosurgery following. MRI showed: Relatively stable size of enhancing fluid collection in the dorsal soft tissues just to the left of midline; Enhancing epidural component at L3-4 dorsally does appear to be slightly decreased from September 14; Stable to slight increase in fluid within the L3-4 disc interspace which could be related to postoperative change; No significant adjacent marrow signal abnormalities to suggest discitis or osteomyelitis; Conus intact. - Continue IV antibiotics. On ceftriaxone 2 g IV daily. - blood cultures negative x2 days. Pt was febrile overnight Tmax 101. repeat blood cx neg x 1 - neurosurgery recommended CT-guided aspiration of spinal fluid for cx. - ID following and recommends continuing Rocephin until October 30 as previous treatment plan for epidural abscess. Monitor blood cultures. CXR ordered. Urinalysis ordered. ID Added ciprofloxacin. Consider drug fever if negative cultures. wound cultures neg 72hours. Patient had spike of fevers 101 on 09/28. Repeat blood cx NTD. New fluid collection at the surgical site, neurosurgery Dr Desouza evaluated the patient and s/p CT guided aspiration on 10/03/16. Discussed with Dr Desouza, drain was not placed because was minimal fluid and no need for drain. Fluid might reaccumulate and resorb. - physical therapy has evaluated. Recommend home with no PT. - on norco for pain control with morphine for breakthrough - gabapentin 600mg TID Diarrhea: Resolved. Check C diff negative. Continue probiotics, add imodium. Dicyclomine for abd spasm. Flatulence: simethicone as need. Pancytopenia: discussed with Dr Yoon ID. Consult hem/onc. patient is also on abx. Per Dr Philip hem /onc if persistent might consider changing rocephyn, Dr Yoon ID was notified. Foot drop: the patient complained of left foot drop secondary to the initial surgery. - Follow up with neurosurgery. - Continue physical therapy. Schizoaffective disorder: mood is stable at this time. - continue home meds. PPx: SCDs. Discharge Planning awaiting final blood cx results. Notify ID if pt continues to spike fevers. Patient with spike of fevers on 09/28 ( 101), repeat blood cx 09/28 NTD. Patient is noted with new fluid collection , continue abx per IDF. Dr. Desouza neurosurgery ff, s/p CT guided aspiration 10/03/16 Also noted pancytopenia consulted hem/onc ff, recommends changing Rocephin if persists, Dr Yoon ID to decide. Monitor , Dr Yoon will reeval on Saturday and decide. She needs abx until 10/30 Brittany Stewart MD Oct 08, 2016 09:04
[2016-10-08] MEDS ORDERED: SIMETHICONE 80 MG CHEWABLE TAB CHEW PRN (09:15)
[2016-10-08] MEDS ORDERED: ASP: Other exception documentation: ( ) PRN (09:15)
[2016-10-08] MEDS ORDERED: MISCELLANEOUS PHARMACY INFORMATION XX PRN ×2 (09:15)
[2016-10-08] MEDS: ERTAPENEM INJ 1,000 MG in SODIUM CHLORIDE 0.9% INJ 100 ML IV SCH (10:55)
--- NOTE | 2016-10-08 12:15 | HHI.IDPN ---
Note Infectious Disease Note Patient is complaining of severe pain in the right lower back and left hip radiating to the r. leg. No problems with bowel movements. Afebrile. Blood cultures are negative on last check. Wound culture from the back aspirate has no growth. Seen by Hematology for Leukopenia/thrombocytopenia. They recommended to observe and if it continues to change the antibiotic. The WBC and platelets are dropping again. PAST MEDICAL HISTORY 1. Schizoaffective disorder. 2. Hepatitis C. 3. Cholecystectomy. 4. Fibromyalgia. 5. Right fallopian tube resection. 6. Recent L3-L4 and L4-L5 hemilaminectomy with redo hemilaminectomy on 09/17/2016. ALLERGIES SULFA. ANTIBIOTICS Ceftriaxone. OBJECTIVE: Vital Signs Date Time Temp Pulse Resp B/P Pulse Ox O2 Delivery O2 Flow Rate FiO2 10/08/16 09:10 18 10/08/16 08:47 97.4 64 20 120/81 95 10/08/16 04:00 97.1 58 18 109/65 92 10/08/16 00:11 97.2 64 18 98/72 94 10/08/16 00:00 97.2 61 18 96/57 94 10/07/16 20:00 97.9 67 18 101/73 93 10/07/16 20:00 97.9 67 18 101/73 93 10/07/16 16:00 97.9 60 18 101/55 94 10/07/16 10/07/16 10/08/16 15:00 23:00 07:00 Intake Total 760 ml 840 ml Balance 760 ml 840 ml Intake Oral 760 ml 840 ml # Voids 6 5 # Bowel Movements 1 Laboratory Tests Test 10/07/16 10/08/16 06:00 06:00 White Blood Count 2.8 TH/MM3 2.4 TH/MM3 Red Blood Count 4.14 MIL/MM3 4.03 MIL/MM3 Hemoglobin 12.4 GM/DL 11.9 GM/DL Hematocrit 37.3 % 36.7 % Mean Corpuscular Volume 90.2 FL 90.9 FL Mean Corpuscular Hemoglobin 29.9 PG 29.5 PG Mean Corpuscular Hemoglobin 33.1 % 32.5 % Concent Red Cell Distribution Width 13.4 % 13.2 % Platelet Count 151 TH/MM3 133 TH/MM3 Mean Platelet Volume 7.7 FL 7.6 FL Neutrophils (%) (Auto) 42.3 % 44.3 % Lymphocytes (%) (Auto) 41.1 % 38.3 % Monocytes (%) (Auto) 13.9 % 14.8 % Eosinophils (%) (Auto) 2.2 % 1.7 % Basophils (%) (Auto) 0.5 % 0.9 % Neutrophils # (Auto) 1.2 TH/MM3 1.1 TH/MM3 Lymphocytes # (Auto) 1.2 TH/MM3 0.9 TH/MM3 Monocytes # (Auto) 0.4 TH/MM3 0.4 TH/MM3 Eosinophils # (Auto) 0.1 TH/MM3 0.0 TH/MM3 Basophils # (Auto) 0.0 TH/MM3 0.0 TH/MM3 CBC Comment DIFF FINAL DIFF FINAL Differential Comment Laboratory Tests Test 10/07/16 10/08/16 06:00 06:00 Sodium Level 143 MEQ/L 145 MEQ/L Potassium Level 4.0 MEQ/L 3.9 MEQ/L Chloride Level 102 MEQ/L 105 MEQ/L Carbon Dioxide Level 36.7 MEQ/L 36.2 MEQ/L Anion Gap 4 MEQ/L 4 MEQ/L Blood Urea Nitrogen 9 MG/DL 10 MG/DL Creatinine 0.60 MG/DL 0.64 MG/DL Estimat Glomerular Filtration 102 ML/MIN 95 ML/MIN Rate Random Glucose 83 MG/DL 86 MG/DL Calcium Level 8.8 MG/DL 9.0 MG/DL IMAGING: Needle Aspiration CT 10/02/16 0000 Signed Impressions: Service Date/Time: Monday, October 03, 2016 14:25 - CONCLUSION: Uncomplicated with small fluid collection dorsal to the operative site. Vishal Watson MD FACR Lumbar Spine CT 09/26/16 1039 Signed Impressions: Service Date/Time: Monday, September 26, 2016 11:49 - CONCLUSION: 1. Postsurgical changes with a laminotomy left of L3 and a left-sided laminectomy at L4. 2. Tract of air in the soft tissues of the back extending from the left epidural space of L4 posteriorly to the skin surface is characteristic of the previous tube tract. 3. Very small, 1.7 cm fluid collection posterior to the L3 spinous process. I don't believe that this is sufficient enough to warrant further drainage. 4. Haziness of the epidural fat around the left L4 nerve root is almost certainly postsurgical. 5. Spinal canal and neural foramina are otherwise patent at all remaining levels. Jacob Mccollum MD Abscess Drainage CT 09/25/16 0000 Signed Impressions: Service Date/Time: Sunday, September 25, 2016 15:00 - CONCLUSION: Uncomplicated CT guided drainage of paraspinal abscess. Osman Antonio MD Lumbar Spine MRI 09/24/16 0000 Signed Impressions: Service Date/Time: Saturday, September 24, 2016 17:36 - CONCLUSION: 1. Relatively stable size of enhancing fluid collection in the dorsal soft tissues just to the left of midline. 2. Enhancing epidural component at L3-4 dorsally does appear to be slightly decreased from September 14. 3. Stable to slight increase in fluid within the L3-4 disc interspace which could be related to postoperative change. No significant adjacent marrow signal abnormalities to suggest discitis or osteomyelitis. Conus intact. Shayne Penn MD PHYSICAL EXAMINATION GENERAL: Distressed by back pain. HEENT: No icterus. Oropharynx moist mucosa without lesions. NECK: Supple without adenopathy. LUNGS: Clear to auscultation. HEART: Regular rate and rhythm. No murmurs, rubs or gallops. ABDOMEN: Bowel sounds present. Soft. BACK: Severe tenderness over r. lower back and posterior R. hip. No erythema. EXTREMITIES: No clubbing, cyanosis or edema. PIC site has no sign of infection. SKIN: No rash. PSYCHIATRIC: Patient calm and cooperative. IMPRESSION 1. Lumbar spine epidural abscess. The patient is status post redo laminectomy. Culture grew out Enterobacter cloacae. 2. New severe back/r. hip pain radiating to r. leg. 3. Previous recurrence of drainage from the lumbar region/wound. Culture form aspirate is negative. 3. Fever. ? etiology. Improved. 4. Leukopenia and thrombocytopenia. Both counts are dropping again. 5. BRIAN - improved. RECOMMENDATIONS 1. STOP Ceftriaxone in light of Declining blood counts. (As per Hematology recommendation). 2. Monitor blood counts. Follow Hematology rec for leukopenia/Thrombocytopenia. 3. Start Ertapenem and see effect. Follow previous plan to treat until October 30 for epidural abscess. 4. Monitor temp. 5. Neurosurgery also following. 6. Heating pad to lower back. Notified Dr. Stewart of new pain. 7. Will need to arrange follow up with hematology for the Leukopenia/ Thrombocytopenia. 8. Also follow up with ID when discharged. 9. Repeat sed rate. Eitan Yoon MD Oct 08, 2016 12:15
[2016-10-08] MEDS: MORPHINE SULFATE 4 MG/ML INJ IV PRN ×2 (13:06→20:33)
[2016-10-08] MEDS: DOCUSATE SODIUM 100 MG CAP PO SCH (20:24)
[2016-10-08] MEDS: LURASIDONE 40 MG TAB PO SCH (20:24)
[2016-10-09 00:10] VITALS: BP 95/64; PULSE 56; RESP 20; TEMP 97.2; O2SAT 94
[2016-10-09 03:56] VITALS: BP 95/64; PULSE 56; RESP 20; TEMP 97.2; O2SAT 94
[2016-10-09 03:59] VITALS: BP 97/56; PULSE 68; RESP 20; TEMP 97.7; O2SAT 94
[2016-10-09 05:18] LABS: MEAN CELL VOLUME 90.5 FL (80.0-100.0); MEAN CORPUSCULAR HEMOGLOBIN 29.6 PG (27.0-34.0); MEAN CORPUSCULAR HGB CONC 32.8 % (32.0-36.0); PLATELET COUNT 138 TH/MM3 (150-450); RED BLOOD COUNT 3.97 MIL/MM3 (4.00-5.30); RED CELL DISTRIBUTION WIDTH 13.1 % (11.6-17.2); REVIEW FLAG FINAL; WHITE BLOOD COUNT 2.3 TH/MM3 (4.0-11.0)
[2016-10-09] MEDS: ACETAMINOPHEN/HYDROcodone 325 MG/10 MG TAB PO PRN ×2 (05:18→09:42)
[2016-10-09 05:47] LABS: WESTERGREN SEDIMENTATION RATE 29 mm/hr (0-30)
[2016-10-09 08:22] VITALS: BP 109/78; PULSE 67; RESP 20; TEMP 97.9; O2SAT 96
[2016-10-09] MEDS: FLUTICASONE PROPIONATE 50 MCG/ACT 16 GM NASAL SPRAY EACH NARE SCH (08:28)
[2016-10-09] MEDS: SENNOSIDES 8.6 MG TAB PO SCH (08:29)
[2016-10-09] MEDS: PROPRANOLOL HCL 10 MG TAB PO SCH (08:30)
[2016-10-09] MEDS: GABAPENTIN 300 MG CAP PO SCH (08:30)
[2016-10-09] MEDS: LACTOBACILLUS ACIDOPHILUS TAB PO SCH (08:31)
[2016-10-09] MEDS: ESCITALOPRAM OXALATE 10 MG TAB PO SCH (08:31)
[2016-10-09] MEDS: PANTOPRAZOLE SOD 40 MG DELAYED RELEASE TAB PO SCH (08:31)
[2016-10-09] MEDS: buPROPion HCL 100 MG TAB PO SCH (08:31)
[2016-10-09] MEDS: SODIUM CHLORIDE 0.9% FLUSH 10 ML FLUSH IV FLUSH SCH (08:38)
[2016-10-09] MEDS: ERTAPENEM INJ 1,000 MG in SODIUM CHLORIDE 0.9% INJ 100 ML IV SCH (09:34)
--- NOTE | 2016-10-09 10:20 | HHI.PR ---
Subjective Remarks Says she has back pain and she is also taking dilaudid for breakthrough pain. Says she doesn't have any pain meds at home and will follow up as OP wit pain menagement. No fever or chills, no n/v/d/c. Objective Vitals Vital Signs Date Time Temp Pulse Resp B/P Pulse Ox O2 Delivery O2 Flow Rate FiO2 10/09/16 08:22 97.9 67 20 109/78 96 10/09/16 03:59 97.7 68 20 97/56 94 10/09/16 00:10 97.2 56 20 95/64 94 10/08/16 20:58 96.7 69 20 107/75 95 10/08/16 20:38 18 10/08/16 16:27 18 10/08/16 15:00 97.7 67 20 121/83 98 10/08/16 12:00 97.5 68 20 130/72 96 I/O 10/08/16 10/08/16 10/08/16 10/09/16 10/09/16 10/09/16 07:00 15:00 23:00 07:00 15:00 23:00 Intake Total 840 ml 480 ml Balance 840 ml 480 ml Intake Oral 840 ml 480 ml # Voids 5 2 # Bowel Movements 0 Result Diagram: 10/09/16 0505 10/08/16 0600 Imaging Last Impressions Lumbar Spine CT 10/03/16 0000 Signed Impressions: Service Date/Time: Monday, October 03, 2016 14:25 - CONCLUSION: 1. Small residual fluid collection sitting above the operative site in the subcutaneous tissues. This will be aspirated out under CT guidance. 2. There has been no other interval change from 09/26/2016. Vishal Watson MD FACR Needle Aspiration CT 10/02/16 0000 Signed Impressions: Service Date/Time: Monday, October 03, 2016 14:25 - CONCLUSION: Uncomplicated with small fluid collection dorsal to the operative site. Vishal Watson MD FACR Chest X-Ray 09/28/16 0000 Signed Impressions: Service Date/Time: Wednesday, September 28, 2016 13:23 - CONCLUSION: No acute disease. Osman Antonio MD Abscess Drainage CT 09/25/16 0000 Signed Impressions: Service Date/Time: Sunday, September 25, 2016 15:00 - CONCLUSION: Uncomplicated CT guided drainage of paraspinal abscess. Osman Antonio MD Lumbar Spine MRI 09/24/16 0000 Signed Impressions: Service Date/Time: Saturday, September 24, 2016 17:36 - CONCLUSION: 1. Relatively stable size of enhancing fluid collection in the dorsal soft tissues just to the left of midline. 2. Enhancing epidural component at L3-4 dorsally does appear to be slightly decreased from September 14. 3. Stable to slight increase in fluid within the L3-4 disc interspace which could be related to postoperative change. No significant adjacent marrow signal abnormalities to suggest discitis or osteomyelitis. Conus intact. Shayne Penn MD Objective Remarks GENERAL: NAD, sitting up, RN about to change dressing SKIN: dressing over incision d/c/i, 3-4 cm fluid collection on her back. CARDIOVASCULAR: Regular rate and rhythm. No murmur appreciated. RESPIRATORY: No accessory muscle use. Clear to auscultation. Breath sounds equal bilaterally. MUSCULOSKELETAL: Back with dressing on c/d/di. No LE edema. NEUROLOGICAL: Awake and alert. No obvious cranial nerve deficits. Normal speech. PSYCHIATRIC: Appropriate mood and affect; insight and judgment normal. Has left foot drop at baseline. A/P Problem List: (1) Spinal epidural abscess ICD Code: G06.1 Status: Acute (2) Schizoaffective disorder ICD Code: F25.9 Status: Acute (3) Postoperative fever ICD Code: R50.82 Status: Acute (4) Foot drop ICD Code: M21.379 Status: Acute Assessment and Plan cussed at length with the patient. nurse, Dr Yoon, case management. Brittany Stewart MD Oct 09, 2016 10:20 leakage from the surgical site as well as fevers. Neurosurgery following. MRI showed: Relatively stable size of enhancing fluid collection in the dorsal soft tissues just to the left of midline; Enhancing epidural component at L3-4 dorsally does appear to be slightly decreased from September 14; Stable to slight increase in fluid within the L3-4 disc interspace which could be related to postoperative change; No significant adjacent marrow signal abnormalities to suggest discitis or osteomyelitis; Conus intact. - Continue IV antibiotics. On ceftriaxone 2 g IV daily. - blood cultures negative x2 days. Pt was febrile overnight Tmax 101. repeat blood cx neg x 1 - neurosurgery recommended CT-guided aspiration of spinal fluid for cx. - ID following and recommends continuing Rocephin until October 30 as previous treatment plan for epidural abscess. Monitor blood cultures. CXR ordered. Urinalysis ordered. ID Added ciprofloxacin. Consider drug fever if negative cultures. wound cultures neg 72hours. Patient had spike of fevers 101 on 09/28. Repeat blood cx NTD. New fluid collection at the surgical site, neurosurgery Dr Desouza evaluated the patient and s/p CT guided aspiration on 10/03/16. Discussed with Dr Desouza, drain was not placed because was minimal fluid and no need for drain. Fluid might reaccumulate and resorb. DC cefepime and started Ceftriaxone 2 grams IV q 24 hours Stop Treatment: Oct 30, 2016. Patient to have 3 sets of cbc x2 days starting tomorrow, and CC to her pCP and Dr Yoon. Patient to have infusion antibiotic. To follow up as OP with PCP and process consultant.s To follow up as OP with Dr Konstantin Roman ID as OP - physical therapy has evaluated. Recommend home with no PT. - on norco for pain control with morphine for breakthrough - gabapentin 600mg TID Diarrhea: Resolved. Check C diff negative. Continue probiotics, add imodium. Dicyclomine for abd spasm. Flatulence: simethicone as need. Pancytopenia: discussed with Dr Car VARMA. Consult hem/onc. patient is also on abx. Per Dr Philip hem /onc if persistent might consider changing rocephyn, Dr Yoon ID was notified. Foot drop: the patient complained of left foot drop secondary to the initial surgery. - Follow up with neurosurgery. - Continue physical therapy. Schizoaffective disorder: mood is stable at this time. - continue home meds. PPx: SCDs. Discharge Planning awaiting final blood cx results. Notify ID if pt continues to spike fevers. Patient with spike of fevers on 09/28 ( 101), repeat blood cx 09/28 NTD. Patient is noted with new fluid collection , continue abx per IDF. Dr. Desouza neurosurgery ff, s/p CT guided aspiration 10/03/16 Also noted pancytopenia consulted hem/onc ff, recommends changing Rocephin if persists. Dr Yoon ID changed antibiotic to invanz. 10/30 Ceftriaxone 2 grams IV q 24 hours Stop Treatment: Oct 30, 2016. Patient to have 3 sets of cbc x2 days starting tomorrow, and CC to her pCP and Dr Yoon. Patient to have infusion antibiotic. To follow up as OP with PCP and process consultant.s To follow up as OP with Dr Konstantin Roman ID as OP Brittany Stewart MD Oct 09, 2016 10:20
--- NOTE | 2016-10-09 10:21 | HHI.FF ---
Face to Face Verification Diagnosis: (1) Spinal epidural abscess (2) Schizoaffective disorder (3) Foot drop (4) Postoperative fever (5) History of surgical site infection (6) S/P lumbar laminectomy Physical Therapy Order: Evaluate and Treat Home Health Nursing Order: Medical education Diabetic education Medication education-adverse effect Nursing assessment with vital signs IV medication administration I have seen patient Lynn Smith on 10/09/16. My clinical findings support the need for the requested home health care services because: Ltd mobility - disease progression I certify that my clinical findings support that this patient is homebound because: Post-op weakness Brittany Stewart MD Oct 09, 2016 10:21
--- NOTE | 2016-10-09 10:24 | HHI.FF ---
Infusion Therapy Location of Infusion Therapy: Home Health Care IV Infusion Order Patient Information Patient Weight 95.5 kg Diagnosis: (1) S/P lumbar laminectomy (2) Spinal epidural abscess Coded Allergies: Sulfa (Verified Allergy, Unknown, Swelling, 09/24/16) Administer Medication Ertapenem 1 gram IV q 24 hours Stop Treatment: Oct 30, 2016 Additional Information Venous access: PICC Line Additional Instructions [x] Peripheral flush and dressing changes per protocol [x] Implanted port and central offline editor: * Implanted port: 10 ml Normal Saline followed by 5 ml Heparin 100 units/ml Heparin flush after each use and monthly to maintain. [] May leave port accessed during therapy. [] May leave peripheral site accessed for duration of therapy. [x] If patient has SOB or respiratory distress, check oxygen saturation. If less than 90% or clinical signs of respiratory distress, administer oxygen at 2 L/min. via nasal cannula and notify physician. [x] Anaphylaxis/Reaction orders: * Stop infusion. * Keep IV line open with saline flush. * Notify physician. * Monitor vital signs every 15 minutes until symptoms resolve. * Check Oxygen saturation; Oxygen at 2 L/min. via nasal cannula if less than 90% or clinical signs of respiratory distress. * Administer diphenhydramine (Benadryl) 25 mg IV STAT, (unless patient has received as pre-med). May repeat once, if necessary. * Solu-Cortef 250 mg IVP over 30-60 seconds, use 100 mg vials for each dissolution. * Epinephrine (1mg/1 ml) 0.3 mg subcutaneously or IVP now with any signs of respiratory distress. * Check with physician for new additional pre-med orders if patient is re- challenged or re-treated. [x] May remove PICC line when treatment complete, after confirming with Physician. [x] If the patient is admitted to the hospital, the ED, or transferred via [facility] , complete transfer form including medication reconciliation order sheet. Laboratory Tests Additional Information CBC every other day x 3 starting 10/10/16 then 2 x week until IV antibiotic is complete. BMP weekly. Call Results of lab to Dr. Yoon [phone]. Follow up with Infectious Disease DR Poole in 1 week. Eitan Yoon MD Oct 09, 2016 10:24
[2016-10-09] MEDS ORDERED: INVA1INJ IV (10:33)
[2016-10-09] MEDS ORDERED: LOPE2CAP92 PO (10:36)
[2016-10-09] MEDS ORDERED: LACT PO (10:36)
--- NOTE | 2016-10-09 10:40 | HHI.IDPN ---
Note Infectious Disease Note Patient is feeling much better. Afebrile. WBC remain low but platelets improved. Patient notes heating pad helped her pain. Blood cultures are negative on last check. Wound culture from the back aspirate has no growth. Seen by Hematology for Leukopenia/thrombocytopenia. They recommended to observe and if it continues to change the antibiotic. PAST MEDICAL HISTORY 1. Schizoaffective disorder. 2. Hepatitis C. 3. Cholecystectomy. 4. Fibromyalgia. 5. Right fallopian tube resection. 6. Recent L3-L4 and L4-L5 hemilaminectomy with redo hemilaminectomy on 09/17/2016. ALLERGIES SULFA. ANTIBIOTICS Ertapenem. OBJECTIVE: Vital Signs Date Time Temp Pulse Resp B/P Pulse Ox O2 Delivery O2 Flow Rate FiO2 10/09/16 08:22 97.9 67 20 109/78 96 10/09/16 03:59 97.7 68 20 97/56 94 10/09/16 00:10 97.2 56 20 95/64 94 10/08/16 20:58 96.7 69 20 107/75 95 10/08/16 20:38 18 10/08/16 16:27 18 10/08/16 15:00 97.7 67 20 121/83 98 10/08/16 12:00 97.5 68 20 130/72 96 10/08/16 10/08/16 10/09/16 15:00 23:00 07:00 Intake Total 480 ml Balance 480 ml Intake Oral 480 ml # Voids 2 # Bowel Movements 0 Laboratory Tests Test 10/08/16 10/09/16 06:00 05:05 White Blood Count 2.4 TH/MM3 2.3 TH/MM3 Red Blood Count 4.03 MIL/MM3 3.97 MIL/MM3 Hemoglobin 11.9 GM/DL 11.8 GM/DL Hematocrit 36.7 % 36.0 % Mean Corpuscular Volume 90.9 FL 90.5 FL Mean Corpuscular Hemoglobin 29.5 PG 29.6 PG Mean Corpuscular Hemoglobin 32.5 % 32.8 % Concent Red Cell Distribution Width 13.2 % 13.1 % Platelet Count 133 TH/MM3 138 TH/MM3 Mean Platelet Volume 7.6 FL 8.0 FL Neutrophils (%) (Auto) 44.3 % Lymphocytes (%) (Auto) 38.3 % Monocytes (%) (Auto) 14.8 % Eosinophils (%) (Auto) 1.7 % Basophils (%) (Auto) 0.9 % Neutrophils # (Auto) 1.1 TH/MM3 Lymphocytes # (Auto) 0.9 TH/MM3 Monocytes # (Auto) 0.4 TH/MM3 Eosinophils # (Auto) 0.0 TH/MM3 Basophils # (Auto) 0.0 TH/MM3 CBC Comment DIFF FINAL Differential Comment Erythrocyte Sedimentation Rate 29 mm/hr Laboratory Tests Test 10/08/16 06:00 Sodium Level 145 MEQ/L Potassium Level 3.9 MEQ/L Chloride Level 105 MEQ/L Carbon Dioxide Level 36.2 MEQ/L Anion Gap 4 MEQ/L Blood Urea Nitrogen 10 MG/DL Creatinine 0.64 MG/DL Estimat Glomerular Filtration 95 ML/MIN Rate Random Glucose 86 MG/DL Calcium Level 9.0 MG/DL IMAGING: Needle Aspiration CT 10/02/16 0000 Signed Impressions: Service Date/Time: Monday, October 03, 2016 14:25 - CONCLUSION: Uncomplicated with small fluid collection dorsal to the operative site. Vishal Watson MD FACR Lumbar Spine CT 09/26/16 1039 Signed Impressions: Service Date/Time: Monday, September 26, 2016 11:49 - CONCLUSION: 1. Postsurgical changes with a laminotomy left of L3 and a left-sided laminectomy at L4. 2. Tract of air in the soft tissues of the back extending from the left epidural space of L4 posteriorly to the skin surface is characteristic of the previous tube tract. 3. Very small, 1.7 cm fluid collection posterior to the L3 spinous process. I don't believe that this is sufficient enough to warrant further drainage. 4. Haziness of the epidural fat around the left L4 nerve root is almost certainly postsurgical. 5. Spinal canal and neural foramina are otherwise patent at all remaining levels. Jacob Mccollum MD Abscess Drainage CT 09/25/16 0000 Signed Impressions: Service Date/Time: Sunday, September 25, 2016 15:00 - CONCLUSION: Uncomplicated CT guided drainage of paraspinal abscess. Osman Antonio MD Lumbar Spine MRI 09/24/16 0000 Signed Impressions: Service Date/Time: Saturday, September 24, 2016 17:36 - CONCLUSION: 1. Relatively stable size of enhancing fluid collection in the dorsal soft tissues just to the left of midline. 2. Enhancing epidural component at L3-4 dorsally does appear to be slightly decreased from September 12. 3. Stable to slight increase in fluid within the L3-4 disc interspace which could be related to postoperative change. No significant adjacent marrow signal abnormalities to suggest discitis or osteomyelitis. Conus intact. Shayne Penn MD PHYSICAL EXAMINATION GENERAL: Alert and oriented. HEENT: No icterus. Oropharynx moist mucosa without lesions. NECK: Supple without adenopathy. LUNGS: Clear breath sounds. HEART: Regular rate and rhythm. No murmurs, rubs or gallops. ABDOMEN: Bowel sounds present. Soft. BACK: No tenderness currently. EXTREMITIES: No clubbing, cyanosis or edema. PIC site has no sign of infection. SKIN: No rash. PSYCHIATRIC: Patient calm and cooperative. IMPRESSION 1. Lumbar spine epidural abscess. The patient is status post redo laminectomy. Culture grew out Enterobacter cloacae. Sed rate lower. 2. New severe back/r. hip pain radiating to r. leg. Resolved. 3. Previous recurrence of drainage from the lumbar region/wound. Culture form aspirate negative. 3. Fever. ? etiology. Improved. 4. Leukopenia and thrombocytopenia. [id number] changed. 5. BRIAN - improved. RECOMMENDATIONS 1. Stopped Ceftriaxone in light of Declining blood counts. (As per Hematology recommendation). 2. Monitor blood counts. Follow Hematology rec for leukopenia/Thrombocytopenia. 3. Continue Ertapenem IV. Arrange for outpatient treatment until 10/30/16, 4. Follow up with ID Dr Poole in 1 week. Orders for IV antibiotic written and discussed with Dr. Stewart. Okay to Discharge from my standpoint. Eitan Yoon MD Oct 09, 2016 10:40
--- NOTE | 2016-10-09 10:49 | HHI.DS ---
Discharge Summary Admission Date September 24, 2016 at 16:07 Discharge Date: Oct 09, 2016 Admitting Diagnosis postsurgical fever, status post laminectomy (1) Spinal epidural abscess ICD Code: G06.1 (2) Schizoaffective disorder ICD Code: F25.9 (3) Postoperative fever ICD Code: R50.82 (4) Foot drop ICD Code: M21.379 Procedures Patient is status post L3 L4 L5 hemilaminectomies with L3-L4 and L4-L5 medial facetectomy and foraminotomy, L4-L5 microdiscectomy, lumbar wound incision and debridement subcutaneous abscess evacuation. on last admission New fluid collection at the surgical site, neurosurgery Dr Desouza evaluated the patient and s/p CT guided aspiration on 10/03/16. Brief History - From Admission The patient is a 60-year-old female with past medical history of bulging disks status post back surgery and infection who is presenting to the hospital with fevers and increased drainage from the surgical site. The patient says that many years ago she sustained bulging disks from lifting too heavy objects. Over the years and got worse and she can do activities such as mopping and vacuuming. She decided to do something about it and went for surgery on September 07. She returned to the hospital on September 14 with an infection. She had further surgery on the and was eventually discharged with a 6 weeks course of ceftriaxone per infectious disease. The patient noted over the past few days she had fevers up to 101. She has also had drainage at the site of her surgical wound. She went to her PCP today. She was referred to the hospital. The patient mentions that she has had foot drop in the left foot since the first surgery. She says she is still able to walk with a walker. She has not been working with physical therapy as an outpatient. CBC/BMP: 10/09/16 0505 10/08/16 0600 Significant Findings Laboratory Tests Test 10/07/16 10/08/16 10/09/16 06:00 06:00 05:05 White Blood Count 2.8 TH/MM3 2.4 TH/MM3 2.3 TH/MM3 (4.0-11.0) (4.0-11.0) (4.0-11.0) Monocytes (%) (Auto) 13.9 % 14.8 % (0.0-8.0) (0.0-8.0) Neutrophils # (Auto) 1.2 TH/MM3 1.1 TH/MM3 (1.8-7.7) (1.8-7.7) Carbon Dioxide Level 36.7 MEQ/L 36.2 MEQ/L (21.0-32.0) (21.0-32.0) Anion Gap 4 MEQ/L (5-15) 4 MEQ/L (5-15) Platelet Count 133 TH/MM3 138 TH/MM3 (150-450) (150-450) Lymphocytes # (Auto) 0.9 TH/MM3 (1.0-4.8) Red Blood Count 3.97 MIL/MM3 (4.00-5.30) Imaging Last Impressions Lumbar Spine CT 10/03/16 0000 Signed Impressions: Service Date/Time: Monday, October 03, 2016 14:25 - CONCLUSION: 1. Small residual fluid collection sitting above the operative site in the subcutaneous tissues. This will be aspirated out under CT guidance. 2. There has been no other interval change from 09/26/2016. Vishal Watson MD FACR Needle Aspiration CT 10/02/16 0000 Signed Impressions: Service Date/Time: Monday, October 03, 2016 14:25 - CONCLUSION: Uncomplicated with small fluid collection dorsal to the operative site. Vishal Watson MD FACR Chest X-Ray 09/28/16 0000 Signed Impressions: Service Date/Time: Wednesday, September 28, 2016 13:23 - CONCLUSION: No acute disease. Osman Antonio MD Abscess Drainage CT 09/25/16 0000 Signed Impressions: Service Date/Time: Sunday, September 25, 2016 15:00 - CONCLUSION: Uncomplicated CT guided drainage of paraspinal abscess. Osman Antonio MD Lumbar Spine MRI 09/24/16 0000 Signed Impressions: Service Date/Time: Saturday, September 24, 2016 17:36 - CONCLUSION: 1. Relatively stable size of enhancing fluid collection in the dorsal soft tissues just to the left of midline. 2. Enhancing epidural component at L3-4 dorsally does appear to be slightly decreased from September 14. 3. Stable to slight increase in fluid within the L3-4 disc interspace which could be related to postoperative change. No significant adjacent marrow signal abnormalities to suggest discitis or osteomyelitis. Conus intact. Shayne Penn MD PE at Discharge GENERAL: NAD, sitting up, RN about to change dressing SKIN: dressing over incision d/c/i, 3-4 cm fluid collection on her back. CARDIOVASCULAR: Regular rate and rhythm. No murmur appreciated. RESPIRATORY: No accessory muscle use. Clear to auscultation. Breath sounds equal bilaterally. MUSCULOSKELETAL: Back with dressing on c/d/di. No LE edema. NEUROLOGICAL: Awake and alert. No obvious cranial nerve deficits. Normal speech. PSYCHIATRIC: Appropriate mood and affect; insight and judgment normal. Has left foot drop at baseline. Hospital Course The pt is status post L3 L4 L5 hemilaminectomies with L3-L4 and L4-L5 medial facetectomy and foraminotomy, L4-L5 microdiscectomy, lumbar wound incision and debridement subcutaneous abscess evacuation. She returns to the hospital for leakage from the surgical site as well as fevers. Neurosurgery following. MRI showed: Relatively stable size of enhancing fluid collection in the dorsal soft tissues just to the left of midline; Enhancing epidural component at L3-4 dorsally does appear to be slightly decreased from September 14; Stable to slight increase in fluid within the L3-4 disc interspace which could be related to postoperative change; No significant adjacent marrow signal abnormalities to suggest discitis or osteomyelitis; Conus intact. - DC IV antibiotics. On ceftriaxone 2 g IV daily. as noted pancytopenia. - blood cultures negative x2 days. Pt was febrile overnight Tmax 101. repeat blood cx neg x 1 - neurosurgery recommended CT-guided aspiration of spinal fluid for cx. - ID following and recommends continuing Rocephin until October 30 as previous treatment plan for epidural abscess. Monitor blood cultures. CXR ordered. Urinalysis ordered. ID Added ciprofloxacin. Consider drug fever if negative cultures. wound cultures neg 72hours. Patient had spike of fevers 101 on 09/28. Repeat blood cx NTD. New fluid collection at the surgical site, neurosurgery Dr Desouza evaluated the patient and s/p CT guided aspiration on 10/03/16. Discussed with Dr Desouza, drain was not placed because was minimal fluid and no need for drain. Fluid might reaccumulate and resorb. DC Ceftriaxone because persistent thrombocytopenia. Antibiotic at DC: Ertapenem1 gram IV q 24 hours Stop Treatment: Oct 30, 2016. Patient to have 3 sets of cbc x2 days starting tomorrow, and CC to her pCP and Dr Yoon. Patient to have infusion antibiotic. To follow up as OP with PCP and [employer] consultant.s To follow up as OP with Dr Konstantin Roman ID as OP - physical therapy has evaluated. Recommend home with no PT. - on norco for pain control with morphine for breakthrough - gabapentin 600mg TID Diarrhea: Resolved. Check C diff negative. Continue probiotics, add imodium. Dicyclomine for abd spasm. Flatulence: simethicone as need. Pancytopenia: discussed with Dr Car VARMA. Consult hem/onc. patient is also on abx. Per Dr Philip hem /onc if persistent might consider changing rocephyn, Dr Yoon ID was notified. Foot drop: the patient complained of left foot drop secondary to the initial surgery. - Follow up with neurosurgery. - Continue physical therapy. Schizoaffective disorder: mood is stable at this time. - continue home meds. PPx: SCDs. Discharge Planning awaiting final blood cx results. Notify ID if pt continues to spike fevers. Patient with spike of fevers on 09/28 ( 101), repeat blood cx 09/28 NTD. Patient is noted with new fluid collection , continue abx per IDF. Dr. Desouza neurosurgery ff, s/p CT guided aspiration 10/03/16 Also noted pancytopenia consulted hem/onc ff, recommends changing Rocephin if persists. Dr Car VARMA changed antibiotic to invanz. 10/30 Antibiotic at DC: Ertapenem1 gram IV q 24 hours Stop Treatment: Oct 30, 2016. Patient to have 3 sets of cbc x2 days starting tomorrow, and CC to her pCP and Dr Yoon. Patient to have infusion antibiotic. To follow up as OP with PCP and [employer] consultant.s To follow up as OP with Dr Konstantin Roman ID as OP Pt Condition on Discharge: Stable Discharge Disposition: Disch w/ Home Health Serv Discharge Time: > 30 minutes Discharge Instructions DIET: Follow Instructions for: Heart Healthy Diet Activities you can perform: Regular-No Restrictions Follow up Referrals: Infectious Disease - 1 Week with Nicolasa Poole MD Neurosurgery - 2 Weeks with [place] Desouza MD PCP Follow-up - 3-5 Days with Claribel Rebollar M.d. New Orders: BASIC METABOLIC PROF - 1 Week CBC NO DIFF - 1 Week CBC WITH DIFF - 10/10/16 CBC WITH DIFF - 10/12/16 CBC WITH DIFF - 10/15/16 New Medications: Ertapenem Inj (Invanz Inj) 1 Gm Addvial 1 GM IV Q24H ADMINISTER IN 100ML NS Infection #11 Ref 0 INJECTION Hydromorphone (Dilaudid) 2 Mg Tab 2 MG PO Q12HR PRN breakthrough pain, severe pain #10 Ref 0 TAB Lactobacillus Acidophilus (Acidophilus/l-Sporogenes) 1 Tab Tab 1 TAB PO Q12HR PROBIOTIC #30 TAB Loperamide HCl (Hm Loperamide HCl) 2 Mg Cap 2 MG PO UNSCH PRN DIARRHEA #14 CAP Continued Medications: Bupropion HCl (Bupropion HCl) 100 Mg Tab 100 MG PO DAILY Ref 0 TAB Cholecalciferol (Vitamin D) 5,000 Unit Tab 5000 UNITS PO DAILY Diazepam (Diazepam) 5 Mg Tab 5 MG PO HS PRN ANXIETY Ref 0 TAB Docusate Sodium (Docusate Sodium) 100 Mg Cap 200 MG PO HS Prevent Constipation #60 Ref 0 CAP Escitalopram (Escitalopram) 10 Mg Tab 10 MG PO DAILY #30 Ref 0 TAB Fluticasone Nasal [place] (Fluticasone Nasal [place]) 50 Mcg/Act Naspr 2 SPR EACH NARE DAILY 50 mcg/spray Allergy Management #1 Ref 0 BOTTLE Gabapentin (Gabapentin) 300 Mg Cap 300 MG PO TID #60 Ref 0 CAP Hydrocodone-Acetaminophen (Hydrocodone-Acetaminophen) 10-325 mg Tab 2 TAB PO Q4HR PRN PAIN SCALE 6 TO 10 #90 TAB (This prescription has been renewed ) Lurasidone (Latuda) 40 Mg Tab 40 MG PO HS #30 Ref 0 TAB Pantoprazole (Pantoprazole) 40 Mg Tab 40 MG PO DAILY Reflux #30 Ref 0 TAB Propranolol (Propranolol) 10 Mg Tab 10 MG PO Q12HR #60 Ref 0 TAB Tizanidine (Tizanidine) 2 Mg Tab 2 MG PO TID Muscle Spasm Ref 0 TAB Brittany Stewart MD Oct 09, 2016 10:48
[2016-10-09] MEDS ORDERED: DILA2TAB2 PO (11:22)
[2016-10-09] MEDS ORDERED: HYDR-3583 PO (11:22)
[2016-10-09 12:38] VITALS: BP 108/70; PULSE 65; RESP 20; TEMP 97.5; O2SAT 96
== END 2016-10-09 12:47 | disposition home health service (06) | DRG 862 ==
LOC: NEPC 13:52 → NEDA 16:07 → N05A 18:14
PROVIDERS: ADMIT Hospitalist; ATTEND Hospitalist
PROC: 009U3ZZ Drainage of Spinal Canal, Percutaneous Approach (ICD-10-PCS; principal; 2016-09-26)
PROC: 009U3ZZ Drainage of Spinal Canal, Percutaneous Approach (ICD-10-PCS; 2016-10-03)
DX: T81.4XXA Infection following a procedure, initial encounter (principal); G06.1 Intraspinal abscess and granuloma; D61.811 Other drug-induced pancytopenia; K74.60 Unspecified cirrhosis of liver; T81.31XA Disruption of external operation (surgical) wound, not elsewhere classified, initial encounter; K21.9 Gastro-esophageal reflux disease without esophagitis; T36.1X5A Adverse effect of cephalosporins and other beta-lactam antibiotics, initial encounter; R19.7 Diarrhea, unspecified; R14.3 Flatulence; M25.551 Pain in right hip; M19.90 Unspecified osteoarthritis, unspecified site; M79.7 Fibromyalgia; M21.372 Foot drop, left foot; F25.9 Schizoaffective disorder, unspecified; F17.210 Nicotine dependence, cigarettes, uncomplicated; B96.89 Other specified bacterial agents as the cause of diseases classified elsewhere; Z86.19 Personal history of other infectious and parasitic diseases; Z88.2 Allergy status to sulfonamides
CPT/HCPCS: 10160; 71010; 72131; 72158; 75989; 77012; 80048; 80076; 81001; 82945; 82948; 85007; 85025; 85027; 85610; 85652; 85730; 86140; 87040; 87070; 87205; 87493; 94150; 96374; 96375; 99152; 99153; A9579; C1729; J0696; J1170; J1335; J1642; J1885; J2250; J2270; J3010; J7040

== ENCOUNTER 2017-10-16 20:44 | Inpatient (IN) | payer OTHER, MEDICAID ==
[~2017-10-16] VITALS: Ht 169.2 cm; Wt 85.3 kg
[~2017-10-16 20:44] MED LIST changes: +DILA2TAB4 PO; -DOCU100C PO; +DOCU100C15 PO; +INVA1INJ IV; +LACT PO; +LOPE2CAP2 PO
--- NOTE | 2017-10-16 21:45 | PD ---
HPI Chief Complaint: Psychiatric Symptoms Time Seen by Provider: 21:09 Travel History International Travel<30 days: No Contact w/Intl Traveler<30days: No Traveled to known affect area: No History of Present Illness HPI 61-year-old white female presents emergency department under [place] act for psychological evaluation. Patient was just discharged from [facility] and transferred here to [place] for her mental health evaluation. Patient has a history of acute hypoxic/hypercapnic respiratory failure on a ventilator from a polysubstance overdose. Patient also has a history of opiate abuse, liver cancer, chronic pain syndrome, chronic hepatitis C, acute kidney injury. She was admitted to [facility] for acute respiratory failure from a drug overdose. She was intubated and admitted to the intensive care unit. Patient was aggressively treated then weaned off the respirator. The patient now is alert and oriented. She states that she was tired of living and wanted to end her life. She states that she is no longer suicidal. She does not want to kill herself any longer. She denies any homicidal ideation. She denies any acute medical complaints at this time. [facility] Past Medical History Narrative Medical Schizoaffective disorder, depression, acute respiratory failure secondary to overdose, opiate abuse, liver cancer, chronic pain syndrome, chronic hepatitis C , acute kidney injury, epidural abscess Arthritis: Yes Cancer: No Cardiovascular Problems: No Chemotherapy: No Cerebrovascular Accident: No Diabetes: No Endocrine: No Gastrointestinal Disorders: No GERD: Yes (GERD) Genitourinary: No Hepatitis: Yes (C) Hiatal Hernia: Yes Hypertension: No Immune Disorder: Yes (FIBROMYALGIA) Musculoskeletal: Yes Neurologic: No Psychiatric: No Reproductive: No Respiratory: No Migraines: No Radiation Therapy: No Seizures: No Thyroid Disease: No Tetanus Vaccination: < 5 Years Past Surgical History Narrative Surgical Cholecystectomy, right ectopic with salpingo-oophorectomy, laparoscopy for hepatic fistula, back surgery for epidural abscess Abdominal Surgery: Yes (gall bladder removal) AICD: No Arteriovenous Shunt: No Cardiac Surgery: No Ear Surgery: No Endocrine Surgery: No Eye Surgery: No Genitourinary Surgery: Yes (hemmorhoid removal) Insulin Pump: No Joint Replacement: No Neurologic Surgery: Yes (LAMI) Oral Surgery: No Pacemaker: No Thoracic Surgery: No Other Surgery: Yes Social History Alcohol Use: No Tobacco Use: Yes Substance Use: No Allergies-Medications (Allergen,Severity, Reaction): Coded Allergies: Sulfa (Sulfonamide Antibiotics) (Unverified Allergy, Unknown, Swelling, ) Reported Meds & Prescriptions Reported Meds & Active Scripts Active Dilaudid (Hydromorphone HCl) 2 Mg Tab 2 Mg PO Q12HR PRN Hydrocodone-Acetaminophen 10-325 mg Tab 2 Tab PO Q4HR PRN Hm Loperamide HCl (Loperamide HCl) 2 Mg Cap 2 Mg PO UNSCH PRN Acidophilus/l-Sporogenes (Lactobacillus Acidophilus) 1 Tab Tab 1 Tab PO Q12HR Invanz Inj (Ertapenem) 1 Gm Addvial 1 Gm IV Q24H ADMINISTER IN 100ML NS Reported Bupropion HCl 100 Mg Tab 100 Mg PO DAILY Vitamin D (Cholecalciferol) 5,000 Unit Tab 5,000 Units PO DAILY Fluticasone Nasal [place] 50 Mcg/Act Naspr 2 Spr EACH NARE DAILY 50 mcg/spray Docusate Sodium 100 Mg Cap 200 Mg PO HS Latuda (Lurasidone) 40 Mg Tab 40 Mg PO HS Propranolol (Propranolol HCl) 10 Mg Tab 10 Mg PO Q12HR Gabapentin 300 Mg Cap 300 Mg PO TID Tizanidine (Tizanidine HCl) 2 Mg Tab 2 Mg PO TID Diazepam 5 Mg Tab 5 Mg PO HS PRN Escitalopram (Escitalopram Oxalate) 10 Mg Tab 10 Mg PO DAILY Pantoprazole (Pantoprazole Sodium) 40 Mg Tab 40 Mg PO DAILY Review of Systems General / Constitutional: No: Fever Eyes: No: Visual changes HENT: No: Headaches Cardiovascular: No: Chest Pain or Discomfort Respiratory: No: Shortness of Breath Gastrointestinal: No: Abdominal Pain Genitourinary: No: Dysuria Musculoskeletal: Positive: Pain (Chronic back pain) Skin: No Rash Neurologic: No: Weakness Psychiatric: Positive: Depression, Mood Disorder, Substance Abuse, No: Anxiety , Suicidal Ideations, Disorder of Thought, Homicidal Ideation Endocrine: No: Polydipsia Hematologic/Lymphatic: Positive: Easy Bruising Physical Exam Narrative GENERAL: Well-nourished, well-developed patient. SKIN: Warm and dry. Patient has bruising to the upper extremities HEAD: Normocephalic and atraumatic. EYES: No scleral icterus. No injection or drainage. ENT: No nasal drainage noted. Mucous membranes pink. Airway patent. NECK: Supple, trachea midline. Moves head freely without obvious discomfort. CARDIOVASCULAR: Regular rate and rhythm without murmurs, gallops, or rubs. RESPIRATORY: Breath sounds equal bilaterally. No accessory muscle use. GASTROINTESTINAL: Abdomen soft, non-tender, nondistended. EXTREMITIES: No cyanosis or edema. Mild foot drop BACK: Nontender without obvious deformity. No CVA tenderness. NEURO: Patient is alert and oriented. no sensorimotor deficits. Nonfocal. Normal speech. PSYCH: No delusions. No auditory or visual hallucinations. MDM Medical Decision Making Medical Screen Exam Complete: Yes Emergency Medical Condition: Yes Medical Record Reviewed: Yes Interpretation(s) Patient's laboratory tests have been reviewed. Differential Diagnosis MDM: High Differential diagnoses: Schizophrenia, schizoaffective disorder, bipolar, anxiety, depression, adjustment reaction, mood disorder NOS, ODD, depressive disorder NOS, substance induced mood disorder, infection,electrolyte abnormality , malingering. Narrative Course Mental health screening discussed with the patient. Psychiatric screen ordered. The patient is medically cleared for psychiatric evaluation. This is medical clearance for psychiatric evaluation Diagnosis Primary Impression: Medical clearance for psychiatric admission Condition: Stable Shayne Canchola Oct 16, 2017 21:45
[2017-10-16 22:23] VITALS: BP 114/61; PULSE 79; RESP 18; TEMP 98.2; O2SAT 98
[2017-10-16] MEDS ORDERED: DIAZ5TAB PO (23:33)
[2017-10-16] MEDS ORDERED: D 50CAP2 PO (23:33)
[2017-10-16] MEDS ORDERED: HYDR-3583 PO (23:33)
[2017-10-16] MEDS ORDERED: LURA1TAB2 PO (23:33)
[2017-10-16] MEDS ORDERED: VOLT1GEL16 TOPICAL (23:50)
[2017-10-17 05:26] VITALS: BP 124/80; PULSE 88; RESP 18; TEMP 98.1; O2SAT 97
[2017-10-17 13:52] VITALS: BP 137/87; PULSE 85; RESP 18; O2SAT 97
[2017-10-17] MEDS ORDERED: LOPERAMIDE HCL 2 MG CAP PO ONE (16:00)
--- NOTE | 2017-10-17 17:47 | PD ---
History of Present Illness Chief Complaint: Psychiatric Symptoms Time Seen by Provider: 17:00 Travel History International Travel<30 Days: No Contact w/Intl Traveler<30days: No Known affected area: No Legal Status Legal Status: Involuntary Mcgraw Act Comment: Dr. Gene Lee MD History of Present Illness: History of present illness: 61-year-old white, female with reported history of schizophrenia, depression, anxiety, liver cancer , hep C, opiate dependence, fibromyalgia, chronic pain syndrome remote hx of IV substance abuse who presents emergency department under Mcgraw act as a transfer from [facility]. On October 13, 2017 the patient took # 30 Morphine 15 mg tablets as an intentional overdose. She had previously taken Phenergan so that she would not vomit the pills. She was found unresponsive by her sister and upon arrival to [facility] was in hypoxic/hypercapnic respiratory failure on a ventilator. Patient was intubated and admitted to intensive care unit. Patient is alert. Oriented. Engaging and cooperative. Speech is clear and logical. No evidence of any hallucinations, no delusions or paranoia. Mood is depressed, hopeless. She tells me that she had been feeling "depressed and in a dark place and feeling like I had nothing to offer to anyone. I was thinking about it and planning it for a while and then one day I just did it". She is ambivalent about having survived her suicide attempt. She is requesting admission for treatment of her depression. In terms of substance abuse reports that she was an intravenous drug user and last used 20 years ago. She had substance abuse treatment in the past. She now admits to being dependent on her pain medication. FOR[facility]LY [facility], [facility] Past Medical History Arthritis: Yes Anxiety: Yes (IRINA) Depression: Yes (major depressive disorder) Cancer: Yes (Liver) Cardiovascular Problems: No Chemotherapy: No COPD: Yes Cerebrovascular Accident: No Diabetes: No Diminished Hearing: No Endocrine: No Fibromyalgia: Yes Gastrointestinal Disorders: Yes (hemorrhoidectomy) GERD: Yes (GERD) Genitourinary: No Hepatitis: Yes (C) Hiatal Hernia: Yes Hypertension: No Immune Disorder: Yes (FIBROMYALGIA) Medical other: Yes (chronic pain syndrome LBP) Musculoskeletal: Yes Neurologic: No Psychiatric: No Reproductive: No Respiratory: No Migraines: No Radiation Therapy: No Schizophrenia: Yes Seizures: No Thyroid Disease: No Tetanus Vaccination: < 5 Years Ectopic : Yes (right) Past Surgical History Abdominal Surgery: Yes (gall bladder removal) AICD: No Arteriovenous Shunt: No Cardiac Surgery: No Cholecystectomy: Yes Ear Surgery: No Endocrine Surgery: No Eye Surgery: No Genitourinary Surgery: Yes (hemmorhoid removal) Gynecologic Surgery: Yes (right salpingectomy) Insulin Pump: No Joint Replacement: No Neurologic Surgery: Yes (LAMI) Oral Surgery: No Pacemaker: No Thoracic Surgery: No Other Surgery: Yes Psychiatric History Psychiatric History Hx Psychiatric Treatment: History of at least 15 psychiatric hospitalization. Report was diagnosed as having schizophrenia due to episodes of hearing voices. Multiple previous suicide attempts by cutting. Currently sees Dr. Tanja Shaw and is prescribed Latuda and Lexapro. History of Inpatient Treatment: Yes Guns or firearms in home: No Social History Born and raised in [place]. Completed an AA degree in medical assisting. Has been 3 times and 3 times. Currently living with her sister and her mother. She moved from [place] to [place] 3 years ago. Patient is on disability for back injury and has not worked since 1989. Hx Alcohol Use: No Hx Tobacco Use: Yes Hx Substance Use: Yes Substance Use Type: Synth Opiates-Pain Pills Other Substances Used: Reports that she was addicted to IV opioids. Last used IV 20 ye years Hx of Substance Use Treatment: Yes Family Psychiatric History None reported Allergies-Medications (Allergen,Severity, Reaction): Coded Allergies: Sulfa (Sulfonamide Antibiotics) (Unverified Allergy, Unknown, Swelling, ) Reported Meds & Prescriptions Reported Meds & Active Scripts Active Reported Voltaren (Diclofenac Sodium) 1 % Gel..gram. 1 TOPICAL BID PRN Latuda (Lurasidone) 60 Mg Tab 60 Mg PO HS Diazepam 5 Mg Tab 5 Mg PO DAILY PRN Hydrocodone-Acetaminophen 10-325 mg Tab 1 Tab PO Q6H PRN D3 Maximum Strength (Cholecalciferol) 5,000 Unit Cap 5,000 Units PO DAILY Fluticasone Nasal Morton 50 Mcg/Act Naspr 2 Spr EACH NARE DAILY 50 mcg/spray Gabapentin 300 Mg Cap 300 Mg PO TID Tizanidine (Tizanidine HCl) 2 Mg Tab 2 Mg PO TID Escitalopram (Escitalopram Oxalate) 10 Mg Tab 10 Mg PO DAILY Pantoprazole (Pantoprazole Sodium) 40 Mg Tab 40 Mg PO DAILY Review of Systems Constitutional: COMPLAINS OF: Change in appetite Musculoskeletal: COMPLAINS OF: Joint pain, Back pain Psychiatric: COMPLAINS OF: Anxiety, Depression, Suicidal Ideation Mental Status Examination Appearance: Disheveled (Dressed in hospital [facility]) Consciousness: Alert Orientation: x4 Motor Activity: Normal gait Speech: Unremarkable Language: Adequate Fund of Knowledge: Adequate Attention and Concentration: Adequate Memory: Unremarkable Mood: Other (Depressed) Affect: Appropriate Thought Process & Associations: Intact, Logical, Goal directed Thought Content: Appropriate Hallucination Type: None Delusion Type: None Suicidal Ideation: No Suicidal Plan: No Suicidal Intention: No Homicidal Ideation: No Homicidal Plan: No Homicidal Intention: No Insight: Fair Judgment: Adequate [facility] Medical Decision Making Medical Record Reviewed: Yes Assessment/Plan 61-year-old white, female with reported history of schizophrenia, depression, anxiety, liver cancer , hep C, opiate dependence, fibromyalgia, chronic pain syndrome remote hx of IV substance abuse who presents emergency department under Mcgraw act as a transfer from [facility]. On October 13, 2017 the patient took # 30 Morphine 15 mg tablets as an intentional overdose. She had previously taken Phenergan so that she would not vomit the pills. Patient was treated at [facility] and after medically clear was sent here to [facility] for evaluation of Mcgraw act. The patient presents as very depressed with hopelessness. She is ambivalent about having survived her suicide attempt. She contracts for safety while here in the hospital. Patient requires inpatient psychiatric hospitalization for safety, stabilization and further treatment. We will obtain a hospitalist consult to assist with management of medical illnesses as well as pain. Orders Orders Diet Regular Basic (10/17/17 Breakfast) Diet Regular Basic (10/17/17 Lunch) Diet Regular Basic (10/17/17 Dinner) Loperamide (Imodium) (10/17/17 16:00) Results Vital Signs Date Time Temp Pulse Resp B/P (MAP) Pulse Ox O2 Delivery O2 Flow Rate FiO2 10/17/17 13:52 85 18 137/87 (104) 97 Room Air 10/17/17 05:26 98.1 88 18 124/80 (95) 97 10/16/17 22:23 98.2 79 18 114/61 (78) 98 Room Air Diagnosis Primary Impression: Medical clearance for psychiatric admission Additional Impressions: Major depressive disorder, recurrent Opiate dependence Admitting Information Admitting Physician Requests: Admit Condition: Stable Problem Qualifiers Additional Impressions: Major depressive disorder, recurrent Qualified Codes: F33.2 - Major depressive disorder, recurrent severe without psychotic features Opiate dependence Qualified Codes: F11.23 - Opioid dependence with withdrawal Vivian Damon [facility] Oct 17, 2017 17:47
[2017-10-17] MEDS ORDERED: ACETAMINOPHEN 325 MG TAB PO PRN (18:00)
[2017-10-17] MEDS ORDERED: ALUMINUM/MAGNESIUM/SIMETH 30 ML CUP PO PRN (18:00)
[2017-10-17] MEDS ORDERED: MAGNESIUM HYDROXIDE SUSP 30 ML CUP PO PRN (18:00)
[2017-10-17 18:04] VITALS: BP 148/84; PULSE 75; RESP 16; O2SAT 96
[2017-10-17] MEDS ORDERED: PILL SPLITTER OTHER PRN (18:30)
[2017-10-17] MEDS ORDERED: FLUMAZENIL 0.5 MG/5 ML VIAL IV PUSH PRN (19:45)
[2017-10-17] MEDS ORDERED: LORazepam 2 MG/ML VIAL IM PRN ×4 (19:45)
[2017-10-17] MEDS ORDERED: LORazepam 2 MG TAB PO PRN (19:45)
[2017-10-17 21:30] VITALS: BP 131/77; PULSE 79; RESP 17; TEMP 97.9; O2SAT 97
[2017-10-18 05:45] VITALS: BP 133/85; PULSE 77; RESP 18; TEMP 98.4; O2SAT 96
[2017-10-18] MEDS: PANTOPRAZOLE SOD 40 MG DELAYED RELEASE TAB PO SCH (09:40)
[2017-10-18] MEDS: GABAPENTIN 300 MG CAP PO SCH ×3 (09:40→18:32)
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
--- NOTE | 2017-10-18 12:46 | PD.PSY.CON ---
Provisional Diagnosis Admission Date Oct 17, 2017 at 17:55 [place] I. Schizoaffective disorder bipolar type, opioid dependency History of Present Illness Service Psychiatry Consult Requested By Psychiatry Reason for Consult Second opinion Primary Care Physician Unknown HPI Patient is a 61-year-old white female was initially admitted to [facility] on about 10/13 and obtunded state after overdosing on tramadol and morphine, patient was intubated and admitted to the intensive care unit. Patient was then medically cleared and transferred here under the Mcgraw act. Urine toxicology at that facility came back positive for opiates. At the present time patient sitting quietly in her room medical student Maira clark present throughout session. Patient is alert oriented tall. He geared white female appears her stated age short blond hair. She acknowledges a multiple year history of depression. Acknowledges a multiple year history of auditory hallucinations and psychosis. Since she has had increased depression over the past few months. She lives with her mother and her sister. Which is becoming somewhat untenable to her depression. Patient acknowledges initial and mid insomnia, a.m. energy, decreased concentration and attention, decreased coping skills with increased irritability , increased anhedonia, decreased appetite. Patient acknowledges auditory hallucinations of a threatening demanding nature. She denies any significant alcohol or drug use with that at this time. Her overdose on morphine was an old prescription she had for. She states she has had suicidal attempts in the past up to 8-10 of them. She denies suicidality at the present time. Patient is from [place] has been done here since around March of last year she does see a nurse practitioner locally who has been prescribing her Latuda and Lexapro. Patient states of medications to help her somewhat. She also states she has had a stay in a local [facility] in [place]. She states she has been 3 times since been from her third for a number of years. That she has 1 son who lives out of state that she is fairly close. Patient does have significant medical issues including cancer, fibromyalgia, chronic pain. At the present time patient does meet criteria for involuntary psychiatric hospitalization of the Mcgraw act L the first opinion request second opinion. I feel she does have capacity to sign for medications. We did discuss medications I will discontinue the Lexapro and start her on Cymbalta 30 mg daily we will continue the Latuda at 60 mg daily continue the medications per the med reconciliation. We will have hospitalist consult with us. Hopeless be fairly short stay and we can refer him through mental health and counseling in the community. Patient states she does have a pain doctor in the community patient gives a past history of multiple drug abuse including intravenous opiates heroin and Dilaudid, along with marijuana and alcohol. She was in detox at least once or twice out of state, is vague about rehab. Patient states she was incarcerated for a year and [place] for for fraud. The patient is 61-year-old woman, , with reported history of schizophrenia, depression, anxiety, previous psychiatric hospitalizations, opiate dependence, multiple suicidal attempts, with medical history of liver cancer , hep C, fibromyalgia, chronic pain syndrome remote, abuse who presents emergency department under Mcgraw act as a transfer from [facility]. On October 13, 2017 the patient took # 30 Morphine 15 mg tablets as an intentional overdose. She had previously taken Phenergan so that she would not vomit the pills. She was found unresponsive by her sister and upon arrival to [facility] was in hypoxic/hypercapnic respiratory failure on a ventilator. Patient was intubated and admitted to intensive care unit. Patient was consulted to me for second opinion. Patient is alert. Oriented. Engaging and cooperative. Speech is clear and logical. No evidence of any hallucinations, no delusions or paranoia. Mood is depressed, hopeless. She tells me that she had been feeling "depressed and in a dark place and feeling like I had nothing to offer to anyone. I was thinking about it and planning it for a while and then one day I just did it". Right now the patient denies suicidal ideation, she denies homicidal ideation, she denies visual and auditory hallucinations. . Review of Systems Constitutional: DENIES: Diaphoretic episodes, Fatigue, Fever, Weight gain, Weight loss, Chills, Dizziness, Change in appetite, Night Sweats Endocrine: DENIES: Abnorml menstrual pattern, Heat/cold intolerance, Polydipsia , Polyuria, Polyphagia Eyes: DENIES: Blurred vision, Diplopia, Eye inflammation, Eye pain, Vision loss , Photosensitivity, Double Vision Ears, nose, mouth, throat: DENIES: Tinnitus, Hearing loss, Vertigo, Nasal discharge, Oral lesions, Throat pain, Hoarseness, Ear Pain, Running Nose, Epistaxis, Sinus Pain, Toothache, Odynophagia Respiratory: DENIES: Apneas, Cough, Snoring, Wheezing, Hemoptysis, Sputum production, Shortness of breath Cardiovascular: DENIES: Chest pain, Palpitations, Syncope, Dyspnea on Exertion , PND, Lower Extremity Edema, Orthopnea, Claudication Genitourinary: DENIES: Abnormal vaginal bleeding, Dysmenorrhea, Dyspareunia, Sexual dysfunction, Urinary frequency, Urinary incontinence, Urgency, Hematuria , Dysuria, Nocturia, Vaginal discharge Musculoskeletal: DENIES: Joint pain, Muscle aches, Stiffness, Joint Swelling, Back pain, Neck pain Integumentary: DENIES: Abnormal pigmentation, Pruritus, Rash, Nail changes, Breast masses, Breast skin changes, Nipple discharge Hematologic/lymphatic: DENIES: Bruising, Lymphadenopathy Immunologic/allergic: DENIES: Eczema, Urticaria Neurologic: DENIES: Abnormal gait, Headache, Localized weakness, Paresthesias, Seizures, Speech Problems, Tremor, Poor Balance Psychiatric: COMPLAINS OF: Depression, DENIES: Anxiety, Confusion, Mood changes , Hallucinations, Agitation, Suicidal Ideation, Homicidal Ideation, Delusions Past Family Social History Coded Allergies: Sulfa (Sulfonamide Antibiotics) (Unverified Allergy, Unknown, Swelling, ) Reported Medications Diclofenac Sodium (Voltaren) 1 % Gel..gram., 1 TOPICAL BID Y for PAIN SCALE 6 TO 10 10/16/17 Lurasidone (Latuda) 60 Mg Tab, 60 MG PO HS, #30 TAB 0 Refills 10/16/17 Hydrocodone-Acetaminophen (Hydrocodone-Acetaminophen) 10-325 mg Tab, 1 TAB PO Q6H Y for PAIN, TAB 0 Refills 10/16/17 Cholecalciferol (D3 Maximum Strength) 5,000 Unit Cap, 5000 UNITS PO DAILY for Nutritional Supplement, #30 CAP 0 Refills 10/16/17 Fluticasone Nasal [place] (Fluticasone Nasal [place]) 50 Mcg/Act Naspr, 2 SPR EACH NARE DAILY for Allergy Management, #1 BOTTLE 0 Refills 50 mcg/spray 09/07/16 Gabapentin (Gabapentin) 300 Mg Cap, 300 MG PO TID, #60 CAP 0 Refills 08/30/16 Tizanidine (Tizanidine) 2 Mg Tab, 2 MG PO TID for Muscle Spasm, TAB 0 Refills 08/30/16 Pantoprazole (Pantoprazole) 40 Mg Tab, 40 MG PO DAILY for Reflux, #30 TAB 0 Refills 05/17/16 Discontinued Reported Medications Diazepam (Diazepam) 5 Mg Tab, 5 MG PO DAILY Y for ANXIETY, TAB 0 Refills 10/16/17 Escitalopram (Escitalopram) 10 Mg Tab, 10 MG PO DAILY, #30 TAB 0 Refills 05/17/16 Bupropion HCl (Bupropion HCl) 100 Mg Tab, 100 MG PO DAILY, TAB 0 Refills 09/14/16 Cholecalciferol (Vitamin D) 5,000 Unit Tab, 5000 UNITS PO DAILY 09/07/16 Docusate Sodium (Docusate Sodium) 100 Mg Cap, 200 MG PO HS for Prevent Constipation, #60 CAP 0 Refills 09/07/16 Lurasidone (Latuda) 40 Mg Tab, 40 MG PO HS, #30 TAB 0 Refills 09/07/16 Propranolol (Propranolol) 10 Mg Tab, 10 MG PO Q12HR, #60 TAB 0 Refills 09/07/16 Diazepam (Diazepam) 5 Mg Tab, 5 MG PO HS Y for ANXIETY, TAB 0 Refills 05/17/16 Discontinued Scripts Hydromorphone (Dilaudid) 2 Mg Tab, 2 MG PO Q12HR Y for breakthrough pain, severe pain, #10 TAB 0 Refills Prov:Brittany Stewart MD 10/09/16 Hydrocodone-Acetaminophen (Hydrocodone-Acetaminophen) 10-325 mg Tab, 2 TAB PO Q4HR Y for PAIN SCALE 6 TO 10, #90 TAB Prov:Brittany Stewart MD 10/09/16 Loperamide HCl (Hm Loperamide HCl) 2 Mg Cap, 2 MG PO UNSCH Y for DIARRHEA, #14 CAP Prov:Brittany Stewart MD 10/09/16 Lactobacillus Acidophilus (Acidophilus/l-Sporogenes) 1 Tab Tab, 1 TAB PO Q12HR for PROBIOTIC, #30 TAB Prov:Brittany Stewart MD 10/09/16 Ertapenem Inj (Invanz Inj) 1 Gm Addvial, 1 GM IV Q24H for Infection, #11 INJECTION 0 Refills ADMINISTER IN 100ML NS Prov:Brittany Stewart MD 10/09/16 Current Medications Medications (Trade) Dose Ordered Sig/Sen Route Start Time Stop Time Status Last Admin (Tylenol) 650 mg Q4H PRN PO 10/17/17 18:00 (Milk Of Magnesia Liq) 30 ml DAILY PRN PO 10/17/17 18:00 (Mag-Al Plus Susp Liq) 30 ml Q6H PRN PO 10/17/17 18:00 (Neurontin) 300 mg TID PO 10/17/17 18:00 10/18/17 09:40 (Protonix) 40 mg DAILY PO 10/18/17 09:00 10/18/17 09:40 (Zanaflex) 2 mg TID PO 10/17/17 18:00 10/18/17 09:40 (Pill Splitter) 1 ea UNSCH PRN OTHER 10/17/17 18:30 (Ativan) 1 mg Q4H PRN PO 10/17/17 19:45 (Ativan Inj) 1 mg Q4H PRN IM 10/17/17 19:45 (Ativan) 2 mg Q2H PRN PO 10/17/17 19:45 (Ativan Inj) 2 mg Q2H PRN IM 10/17/17 19:45 (Ativan Inj) 2 mg Q1H PRN IM 10/17/17 19:45 (Ativan Inj) 2 mg Q15M PRN IM 10/17/17 19:45 (Romazicon Inj) 0.2 mg Q1M PRN IV PUSH 10/17/17 19:45 (Benadryl) 50 mg HS PRN PO 10/18/17 21:00 (Atarax) 50 mg Q6H PRN PO 10/18/17 10:30 (Flonase Eagle Spr) 1 spray DAILY EACH NARE 10/19/17 09:00 (Latuda) 60 mg HS PO 10/18/17 21:00 (Cymbalta Dr) 30 mg DAILY PO 10/18/17 10:30 Patient's Strengths (min. 2) Patient verbal able access healthcare Physical Exam Vital Signs Vital Signs Date Time Temp Pulse Resp B/P (MAP) Pulse Ox O2 Delivery O2 Flow Rate FiO2 10/18/17 05:45 98.4 77 18 133/85 (101) 96 10/17/17 18:04 Room Air Lab Results Test 10/18/17 06:31 Creatinine 0.76 MG/DL Estimat Glomerular Filtration Rate 78 ML/MIN HDL Cholesterol 37.2 MG/DL Mental Status Examination Appearance: Disheveled (Dressed in [facility]) Consciousness: Alert Orientation: x4 Motor Activity: Normal gait Speech: Unremarkable Language: Adequate Fund of Knowledge: Adequate Attention and Concentration: Adequate Memory: Unremarkable Mood: Other (Depressed) Affect: Appropriate Thought Process & Associations: Intact, Logical, Goal directed Thought Content: Appropriate Hallucination Type: Auditory (Patient denies today but they are of a demand consulting command intensity) Delusion Type: None Suicidal Ideation: No Suicidal Plan: No Suicidal Intention: No Homicidal Ideation: No Homicidal Plan: No Homicidal Intention: No Insight: Fair Judgment: Adequate Assessment & Plan Problem List: (1) Schizoaffective disorder ICD Codes: F25.9 - Schizoaffective disorder, unspecified Status: Acute (2) Opiate dependence ICD Codes: F11.20 - Opioid dependence, uncomplicated Status: Acute Assessment & Plan: I have seen and examined this patient, reviewed documentation, I agree and concur with Dr. Luque's assessment and plan. Assessment & Plan Estimated LOS: days Request HC Surrog/Guard Advoc?: No Problem Qualifiers (1) Schizoaffective disorder: Qualified Codes: F25.0 - Schizoaffective disorder, bipolar type (2) Opiate dependence: Qualified Codes: F11.23 - Opioid dependence with withdrawal Jay Maldonado MD Oct 18, 2017 12:46
[2017-10-18] MEDS: DULoxetine HCl DR 30 MG CAP PO SCH (13:57)
--- NOTE | 2017-10-18 14:51 | PD.CONS ---
HPI Service [facility] Hospitalists Consult Requested By Vivian Damon Reason for Consult "Patient with chronic pain, Hep C, liver CA. Please evaluate and manage medical conditions" Primary Care Physician Unknown Diagnoses: History of Present Illness 61-year-old female with hepatocellular carcinoma, hepatitis C, cirrhosis, fibromyalgia, chronic pain, schizophrenia, anxiety, depression, multiple suicide attempts, opiate dependence, GERD, admitted to inpatient psychiatry under Mcgraw act for suicide attempt. The patient is s/p recent admission to [facility] on 10/13 after intentional overdose on 30 tabs of morphine IR 15 mg, resulting in hypoxic/hypercapnic respiratory failure and intubation in ICU. Hospitalists consulted for medical management. The patient is seen ambulating in her room. She reports 10-11 episodes of watery brown nonbloody diarrhea since her arrival to [place]. She denies being on antibiotics during previous admission. She reports some intermittent nausea but no vomiting. She is tolerating oral intake. Denies any fever/chills or abdominal pain. She also complains of some mild right lower rib cage pain, worse with cough and deep inspiration. She states she has had this pain since her previous admission. Denies any sputum production. Denies any chest pain. In regards to her liver cancer, she follows closely with Jose Antonio and is reportedly undergoing injected radioactive bead treatment, with next appointment in December. She also follows locally with oncologist Dr. Wilder and has her next appointment in January. She has no other medical complaints at this time. Review of Systems Except as stated in HPI: all other systems reviewed are Neg Past Family Social History Allergies: Coded Allergies: Sulfa (Sulfonamide Antibiotics) (Unverified Allergy, Unknown, Swelling, ) Past Medical History hepatocellular carcinoma hepatitis C cirrhosis fibromyalgia chronic pain schizophrenia anxiety depression multiple suicide attempts opiate dependence GERD Past Surgical History Liver biopsy EGD/colonoscopy Cholecystectomy Breast biopsy Tonsillectomy Back surgery Reported Medications Voltaren (Diclofenac Sodium) 1 % Gel..gram. 1 TOPICAL BID PRN Latuda (Lurasidone) 60 Mg Tab 60 Mg PO HS Hydrocodone-Acetaminophen 10-325 mg Tab 1 Tab PO Q6H PRN D3 Maximum Strength (Cholecalciferol) 5,000 Unit Cap 5,000 Units PO DAILY Fluticasone Nasal [place] 50 Mcg/Act Naspr 2 Spr EACH NARE DAILY 50 mcg/spray Gabapentin 300 Mg Cap 300 Mg PO TID Tizanidine (Tizanidine HCl) 2 Mg Tab 2 Mg PO TID Pantoprazole (Pantoprazole Sodium) 40 Mg Tab 40 Mg PO DAILY Active Ordered Medications Current Medications Medications (Trade) Dose Ordered Sig/Sen Route Start Time Stop Time Status Last Admin (Tylenol) 650 mg Q4H PRN PO 10/17/17 18:00 (Milk Of Magnesia Liq) 30 ml DAILY PRN PO 10/17/17 18:00 (Mag-Al Plus Susp Liq) 30 ml Q6H PRN PO 10/17/17 18:00 (Neurontin) 300 mg TID PO 10/17/17 18:00 10/18/17 13:57 (Protonix) 40 mg DAILY PO 10/18/17 09:00 10/18/17 09:40 (Zanaflex) 2 mg TID PO 10/17/17 18:00 10/18/17 13:57 (Pill Splitter) 1 ea UNSCH PRN OTHER 10/17/17 18:30 (Ativan) 1 mg Q4H PRN PO 10/17/17 19:45 (Ativan Inj) 1 mg Q4H PRN IM 10/17/17 19:45 (Ativan) 2 mg Q2H PRN PO 10/17/17 19:45 (Ativan Inj) 2 mg Q2H PRN IM 10/17/17 19:45 (Ativan Inj) 2 mg Q1H PRN IM 10/17/17 19:45 (Ativan Inj) 2 mg Q15M PRN IM 10/17/17 19:45 (Romazicon Inj) 0.2 mg Q1M PRN IV PUSH 10/17/17 19:45 (Benadryl) 50 mg HS PRN PO 10/18/17 21:00 (Atarax) 50 mg Q6H PRN PO 10/18/17 10:30 (Flonase Eagle Spr) 1 spray DAILY EACH NARE 10/19/17 09:00 (Latuda) 60 mg HS PO 10/18/17 21:00 (Cymbalta Dr) 30 mg DAILY PO 10/18/17 10:30 10/18/17 13:57 Family History Mother with asthma Father with dementia, COPD, Social History Smokes tobacco, 1 PPD since age 20 Prior heavy alcohol use, quit 30 years ago Prior polysubstance/IVDU, quit 35+ years ago Physical Exam Vital Signs Vital Signs Date Time Temp Pulse Resp B/P (MAP) Pulse Ox O2 Delivery O2 Flow Rate FiO2 10/18/17 05:45 98.4 77 18 133/85 (101) 96 10/17/17 21:30 97.9 79 17 131/77 (95) 97 10/17/17 18:04 75 16 148/84 (105) 96 Room Air Physical Exam GENERAL: Well-nourished, well-developed middle-aged female patient in [facility]. SKIN: Warm and dry. No rash. HEAD: Normocephalic. Atraumatic. EYES: Pupils equal and round. No scleral icterus. No injection or drainage. ENT: No nasal bleeding or discharge. Mucous membranes pink and moist. NECK: Supple. Trachea midline. CARDIOVASCULAR: Regular rate and rhythm. No murmur appreciated. RESPIRATORY: No accessory muscle use. Clear to auscultation. Breath sounds equal bilaterally. GASTROINTESTINAL: Abdomen soft, non-tender, nondistended. Normoactive bowel sounds x4. MUSCULOSKELETAL: No obvious deformities. Extremities without clubbing, cyanosis , or edema. Right lateral thorax mildly tender to palpation. NEUROLOGICAL: Awake and alert. No obvious cranial nerve deficits. Motor grossly within normal limits. Normal speech. PSYCHIATRIC: Appropriate mood and affect; insight and judgment normal. Laboratory Laboratory Tests Test 10/18/17 06:31 Creatinine 0.76 Estimat Glomerular Filtration Rate 78 HDL Cholesterol 37.2 Result Diagram: 10/18/17 0631 Assessment and Plan Assessment and Plan 61-year-old female with hepatocellular carcinoma, hepatitis C, cirrhosis, fibromyalgia, chronic pain, schizophrenia, anxiety, depression, multiple suicide attempts, opiate dependence, GERD, admitted to inpatient psychiatry under Mcgraw act for suicide attempt. The patient is s/p recent admission to [facility] on 10/13 after intentional overdose on 30 tabs of morphine IR 15 mg, resulting in hypoxic/hypercapnic respiratory failure and intubation in ICU. Hospitalists consulted for medical management. Schizophrenia, depression, suicide attempt: Presented under Mcgraw act -Continue management per psychiatry Diarrhea: Patient reporting 10-11 episodes of watery brown nonbloody diarrhea since her arrival. Afebrile. -Check stool cultures, C. difficile -Check CBC, BMP -Encourage oral hydration -If cultures negative, will give Imodium prn Right thorax pain: Suspect musculoskeletal secondary to recent chest compressions. Pain reproducible on exam. -Check CXR PA, lateral, and rib view -Doubt PE as patient not hypoxic hand pain is reproducible -Rule out pneumonia with recent intubation, checking CBC and CXR -Tylenol as needed Hepatocellular carcinoma: Follows closely with Jose Antonio,reportedly undergoing injected radioactive bead treatment -[facility] -also follows locally with oncologist Dr. Wilder and has her next appointment in January. -continue outpatient f/up Fibromyalgia/Chronic Pain: chronic -avoid opioids with recent overdose -continue Cymbalta 30mg daily, gabapentin 300mg tid, and zanaflex 2mg tid -outpatient f/up with PCP or pain management GERD: chronic -continue PPI DVT Prophylaxis: patient is ambulatory Discussed Condition With Patient, Lizbeth Her PA-C Oct 18, 2017 2:51 pm
[2017-10-18] MEDS ORDERED: ONDANSETRON ODT 4 MG TAB PO PRN (15:45)
[2017-10-18 16:36] LABS: AUTOMATED NEUTROPHIL # 2.3 TH/MM3 (1.8-7.7); BASOPHIL % 0.7 % (0.0-2.0); EOSINOPHIL % 0.9 % (0.0-4.0); HEMATOCRIT 40.1 % (35.0-46.0); HEMOGLOBIN 13.3 GM/DL (11.6-15.3); LYMPH % 6.1 % (9.0-44.0); LYMPHOCYTE # 0.2 TH/MM3 (1.0-4.8); MEAN CELL VOLUME 91.4 FL (80.0-100.0); MEAN CORPUSCULAR HEMOGLOBIN 30.3 PG (27.0-34.0); MEAN CORPUSCULAR HGB CONC 33.2 % (32.0-36.0); MONO % 19.7 % (0.0-8.0); MONOCYTE # 0.6 TH/MM3 (0-0.9); NEUT % 72.6 % (16.0-70.0); PLATELET COUNT 83 TH/MM3 (150-450); RED BLOOD COUNT 4.39 MIL/MM3 (4.00-5.30); RED CELL DISTRIBUTION WIDTH 14.1 % (11.6-17.2); WHITE BLOOD COUNT 3.1 TH/MM3 (4.0-11.0)
[2017-10-18 17:19] VITALS: BP 128/87; PULSE 88; RESP 19; TEMP 98.4; O2SAT 100
[2017-10-18 19:35] LABS: BICARBONATE 26.8 MEQ/L (21.0-32.0); CALCIUM 9.2 MG/DL (8.5-10.1); CREATININE 0.74 MG/DL (0.50-1.00)
--- NOTE | 2017-10-18 20:28 | RADRPT ---
EXAM DATE: 10/18/2017 8:08 PM EDT AGE/SEX: 61 years / Female INDICATIONS: Lower right chest pain after extubation. CLINICAL DATA: This is the patient's initial encounter. Patient reports that signs and symptoms have been present for 1 week and indicates a pain score of 7/10. MEDICAL/SURGICAL HISTORY: None. None. COMPARISON: No prior exams available for comparison. FINDINGS: PA and lateral views of the chest demonstrate the lungs to be symmetrically aerated without evidence of mass, infiltrate or effusion. The cardiomediastinal contours are unremarkable. Osseous structures are intact. CONCLUSION: No active disease. Tortuous aorta. Electronically signed by: Shayne Penn MD 10/18/2017 8:26 PM EDT
--- NOTE | 2017-10-18 20:30 | RADRPT ---
EXAM DATE: 10/18/2017 8:10 PM EDT AGE/SEX: 61 years / Female INDICATIONS: Lower right rib pain post extubation. CLINICAL DATA: This is the patient's initial encounter. Patient reports that signs and symptoms have been present for 1 week and indicates a pain score of 6/10. MEDICAL/SURGICAL HISTORY: None. None. COMPARISON: No prior exams available for comparison. FINDINGS: There is no evidence of displaced fracture. No destructive lesions or areas of periosteal thickening are seen. Expiratory view of the chest is negative for pneumothorax. The mediastinal structures ar e midline. CONCLUSION: No acute findings. Electronically signed by: Shayne Penn MD 10/18/2017 8:28 PM EDT
[2017-10-18] MEDS: LURASIDONE 40 MG TAB PO SCH (20:41)
[2017-10-18] MEDS ORDERED: diphenhydrAMINE HCL 50 MG CAP PO PRN (21:00)
[2017-10-18 22:20] LABS: BICARBONATE 27.7 MEQ/L (21.0-32.0); BLOOD UREA NITROGEN 7 MG/DL (7-18); CALCIUM 9.6 MG/DL (8.5-10.1); CHLORIDE 106 MEQ/L (98-107); GLUCOSE,RANDOM 92 MG/DL (74-106); SODIUM (NA) 143 MEQ/L (136-145)
[2017-10-18 22:21] LABS: CHOLESTEROL 134 MG/DL (120-200); TRIGLYCERIDES 119 MG/DL (42-150)
[2017-10-18 22:23] LABS: CHOLESTEROL/ HDL RATIO 3.37 RATIO; LDL CHOLESTEROL 71 MG/DL (0-99)
[2017-10-18 22:28] LABS: CREATININE 0.69 MG/DL (0.50-1.00); GLOMERULAR FILTRATION RATE 87 ML/MIN (>89); HDL CHOLESTEROL 39.7 MG/DL (40.0-60.0)
[2017-10-19 05:44] VITALS: BP 133/88; PULSE 80; RESP 16; TEMP 98.1; O2SAT 95
[2017-10-19] MEDS ORDERED: POTASSIUM CHLORIDE 20 MEQ CONTROLLED RELEASE TAB PO ONE (07:15)
[2017-10-19] MEDS: GABAPENTIN 300 MG CAP PO SCH ×3 (09:25→18:06)
[2017-10-19] MEDS: PANTOPRAZOLE SOD 40 MG DELAYED RELEASE TAB PO SCH (09:25)
[2017-10-19] MEDS: DULoxetine HCl DR 30 MG CAP PO SCH (09:25)
[2017-10-19] MEDS: FLUTICASONE PROPIONATE 50 MCG/ACT 16 GM NASAL SPRAY EACH NARE SCH (09:26)
--- NOTE | 2017-10-19 10:57 | HHI.PR ---
Subjective Remarks Follow-up visit for diarrhea, right thorax pain, fibromyalgia and chronic pain. Patient is seen and examined in her room, reports that diarrhea has improved. His only had 2 bowel movements today which were liquid. She has been able to eat and drink, no longer nauseous or vomiting. She denies any fevers, chills, shortness of breath, cough, headache, dizziness or lightheadedness. She also reports that right thorax pain has improved. Objective Vitals Vital Signs Date Time Temp Pulse Resp B/P (MAP) Pulse Ox O2 Delivery O2 Flow Rate FiO2 10/19/17 05:44 98.1 80 16 133/88 (103) 95 10/18/17 17:19 98.4 88 19 128/87 (101) 100 Result Diagram: 10/18/17 1626 10/18/17 1628 Imaging Last Impressions Ribs X-Ray 10/18/17 0000 Signed Impressions: CONCLUSION: No acute findings. Chest X-Ray 10/18/17 0000 Signed Impressions: CONCLUSION: No active disease. Tortuous aorta. Objective Remarks GENERAL: Well-nourished, well-developed middle-aged female patient in [facility]. SKIN: Warm and dry. HEAD: Normocephalic. EYES: Pupils equal and round. No scleral icterus. No injection or drainage. ENT: No nasal bleeding or discharge. Mucous membranes pink and moist. NECK: Supple. Trachea midline. CARDIOVASCULAR: Regular rate and rhythm. No murmur appreciated. RESPIRATORY: No accessory muscle use. Clear to auscultation. Breath sounds equal bilaterally. GASTROINTESTINAL: Abdomen soft, non-tender, nondistended. Normoactive bowel sounds x4. MUSCULOSKELETAL: No obvious deformities. Extremities without clubbing, cyanosis , or edema. NEUROLOGICAL: Awake and alert. No obvious cranial nerve deficits. Motor grossly within normal limits. Normal speech. A/P Assessment and Plan 61-year-old female with hepatocellular carcinoma, hepatitis C, cirrhosis, fibromyalgia, chronic pain, schizophrenia, anxiety, depression, multiple suicide attempts, opiate dependence, GERD, admitted to inpatient psychiatry under Mcgraw act for suicide attempt. The patient is s/p recent admission to [facility] on 10/13 after intentional overdose on 30 tabs of morphine IR 15 mg, resulting in hypoxic/hypercapnic respiratory failure and intubation in ICU. Hospitalists consulted for medical management. Schizophrenia, depression, suicide attempt: Presented under Mcgraw act -Continue management per psychiatry Diarrhea: Patient reporting 10-11 episodes of watery brown nonbloody diarrhea since her arrival. Afebrile. -Check stool cultures, C. difficile results pending -Check CBC with mild leukopenia, and elevated neutrophil count at 72.6, recheck tomorrow. - BMP with hypokalemia, replace with 40meq PO, recheck labs in the am -Encourage oral hydration -If cultures negative, will give Imodium prn Right thorax pain: Suspect musculoskeletal secondary to recent chest compressions. Pain reproducible on exam. - CXR PA, lateral, and rib view are negative, reports pain is improved. -Rule out pneumonia with recent intubation, recheck CBC, CXR negative -Tylenol as needed Hepatocellular carcinoma: Follows closely with Jose Antonio,reportedly undergoing injected radioactive bead treatment -has f/up appt with [facility] Antonio in December -also follows locally with oncologist Dr. Wilder and has her next appointment in January. -continue outpatient f/up Fibromyalgia/Chronic Pain: chronic -avoid opioids with recent overdose -continue Cymbalta 30mg daily, gabapentin 300mg tid, and zanaflex 2mg tid -outpatient f/up with PCP or pain management GERD: chronic -continue PPI DVT Prophylaxis: patient is ambulatory Discussed with patient, and psych techs. Yashira Alves Oct 19, 2017 10:56
--- NOTE | 2017-10-19 10:59 | HHI.PYPN ---
Subjective Remarks Patient was seen and case discussed with nursing. Patient is anxious and shy during the interview. She continues to endorse a depressed mood. However she no longer has suicidal homicidal ideation intent or plan. She says the auditory hallucinations have resolved. She is asking for switch to ibuprofen from Tylenol. Eating and sleeping well Mental Status Examination Appearance: Disheveled (Dressed in [facility]) Consciousness: Alert Orientation: x4 Motor Activity: Normal gait Speech: Unremarkable Language: Adequate Fund of Knowledge: Adequate Attention and Concentration: Adequate Memory: Unremarkable Mood: Other (Depressed) Affect: Appropriate Thought Process & Associations: Intact, Logical, Goal directed Thought Content: Appropriate Hallucination Type: Auditory (Patient denies today but they are of a demand consulting command intensity) Delusion Type: None Suicidal Ideation: No Suicidal Plan: No Suicidal Intention: No Homicidal Ideation: No Homicidal Plan: No Homicidal Intention: No Insight: Fair Judgment: Adequate Results Labs Test 10/18/17 16:26 10/18/17 16:28 White Blood Count 3.1 TH/MM3 Red Blood Count 4.39 MIL/MM3 Hemoglobin 13.3 GM/DL Hematocrit 40.1 % Mean Corpuscular Volume 91.4 FL Mean Corpuscular Hemoglobin 30.3 PG Mean Corpuscular Hemoglobin Concent 33.2 % Red Cell Distribution Width 14.1 % Platelet Count 83 TH/MM3 Mean Platelet Volume 8.0 FL Neutrophils (%) (Auto) 72.6 % Lymphocytes (%) (Auto) 6.1 % Monocytes (%) (Auto) 19.7 % Eosinophils (%) (Auto) 0.9 % Basophils (%) (Auto) 0.7 % Neutrophils # (Auto) 2.3 TH/MM3 Lymphocytes # (Auto) 0.2 TH/MM3 Monocytes # (Auto) 0.6 TH/MM3 Eosinophils # (Auto) 0.0 TH/MM3 Basophils # (Auto) 0.0 TH/MM3 CBC Comment AUTO DIFF Differential Comment AUTO DIFF CONFIRMED Platelet Estimate LOW Platelet Morphology Comment ENLARGED Red Cell Morphology Comment NORMAL Blood Urea Nitrogen 9 MG/DL Creatinine 0.74 MG/DL Random Glucose 119 MG/DL Calcium Level 9.2 MG/DL Sodium Level 142 MEQ/L Potassium Level 3.1 MEQ/L Chloride Level 106 MEQ/L Carbon Dioxide Level 26.8 MEQ/L Anion Gap 9 MEQ/L Estimat Glomerular Filtration Rate 80 ML/MIN Vitals/IOs Vital Signs Date Time Temp Pulse Resp B/P (MAP) Pulse Ox O2 Delivery O2 Flow Rate FiO2 10/19/17 05:44 98.1 80 16 133/88 (103) 95 10/17/17 18:04 Room Air Assessment & Plan Problem List: (1) Schizoaffective disorder ICD Codes: F25.9 - Schizoaffective disorder, unspecified Status: Acute (2) Opiate dependence ICD Codes: F11.20 - Opioid dependence, uncomplicated Status: Acute Assessment & Plan Change Tylenol to ibuprofen Justification for Cont. Inpt. Continue current treatment plan Request HC Surrog/Guard Advoc?: No Problem Qualifiers (1) Schizoaffective disorder: Qualified Codes: F25.0 - Schizoaffective disorder, bipolar type (2) Opiate dependence: Qualified Codes: F11.23 - Opioid dependence with withdrawal Jhonny Almeida DO Oct 19, 2017 10:59
[2017-10-19] MEDS: LORazepam 1 MG TAB PO PRN ×2 (14:31→20:23)
[2017-10-19 17:09] VITALS: BP 132/74; PULSE 78; RESP 18; TEMP 98.1; O2SAT 97
[2017-10-19] MEDS: LURASIDONE 40 MG TAB PO SCH (20:23)
[2017-10-20 05:27] VITALS: BP 138/90; PULSE 100; RESP 16; TEMP 98; O2SAT 97
[2017-10-20 08:31] LABS: AUTOMATED NEUTROPHIL # 2.5 TH/MM3 (1.8-7.7); BASOPHIL % 0.4 % (0.0-2.0); EOSINOPHIL # 0.1 TH/MM3 (0-0.4); EOSINOPHIL % 1.9 % (0.0-4.0); HEMATOCRIT 43.9 % (35.0-46.0); HEMOGLOBIN 14.7 GM/DL (11.6-15.3); LYMPH % 9.5 % (9.0-44.0); LYMPHOCYTE # 0.3 TH/MM3 (1.0-4.8); MEAN CELL VOLUME 91.1 FL (80.0-100.0); MEAN CORPUSCULAR HEMOGLOBIN 30.5 PG (27.0-34.0); MEAN CORPUSCULAR HGB CONC 33.4 % (32.0-36.0); MEAN PLATELET VOLUME 8.5 FL (7.0-11.0); MONO % 14.3 % (0.0-8.0); MONOCYTE # 0.5 TH/MM3 (0-0.9); NEUT % 73.9 % (16.0-70.0); PLATELET COUNT 103 TH/MM3 (150-450); RED BLOOD COUNT 4.81 MIL/MM3 (4.00-5.30); RED CELL DISTRIBUTION WIDTH 14.3 % (11.6-17.2); WHITE BLOOD COUNT 3.4 TH/MM3 (4.0-11.0)
[2017-10-20] MEDS: GABAPENTIN 300 MG CAP PO SCH ×3 (08:46→18:23)
[2017-10-20] MEDS: DULoxetine HCl DR 30 MG CAP PO SCH (08:47)
[2017-10-20] MEDS: PANTOPRAZOLE SOD 40 MG DELAYED RELEASE TAB PO SCH (08:47)
[2017-10-20] MEDS: IBUPROFEN 600 MG TAB PO PRN ×3 (08:47→20:15)
[2017-10-20] MEDS: FLUTICASONE PROPIONATE 50 MCG/ACT 16 GM NASAL SPRAY EACH NARE SCH (08:48)
[2017-10-20 09:00] LABS: BICARBONATE 26.7 MEQ/L (21.0-32.0); CALCIUM 9.3 MG/DL (8.5-10.1); CREATININE 0.66 MG/DL (0.50-1.00); MAGNESIUM 1.8 MG/DL (1.5-2.5)
--- NOTE | 2017-10-20 09:34 | HHI.PYPN ---
Subjective Remarks Patient was seen and case discussed with nursing. CIWA is 2. Vital signs have been stable. Patient says she is "hurting all over." She is complaining of back pain and shoulder pain. Patient says that that ibuprofen helps. Mood is 4 out of 10 today. Affect is blunted. She denies suicidal or homicidal ideation intent or plan. Keeping to herself. Patient continues to state that her hallucinations have resolved. Focused on discharge and possibly presenting herself better in the hopes of doing so Mental Status Examination Appearance: Disheveled (Dressed in [facility]) Consciousness: Alert Orientation: x4 Motor Activity: Normal gait Speech: Unremarkable Language: Adequate Fund of Knowledge: Adequate Attention and Concentration: Adequate Memory: Unremarkable Mood: Other (Depressed) Affect: Appropriate Thought Process & Associations: Intact, Logical, Goal directed Thought Content: Appropriate Hallucination Type: None Delusion Type: None Suicidal Ideation: No Suicidal Plan: No Suicidal Intention: No Homicidal Ideation: No Homicidal Plan: No Homicidal Intention: No Insight: Fair Judgment: Adequate Results Labs Test 10/19/17 13:30 10/20/17 07:26 Stool C. difficile Toxin (PCR) NEGATIVE Stl C. difficile Toxin Epiderm 027 PRESUMPTIVE NEGATIVE White Blood Count 3.4 TH/MM3 Red Blood Count 4.81 MIL/MM3 Hemoglobin 14.7 GM/DL Hematocrit 43.9 % Mean Corpuscular Volume 91.1 FL Mean Corpuscular Hemoglobin 30.5 PG Mean Corpuscular Hemoglobin Concent 33.4 % Red Cell Distribution Width 14.3 % Platelet Count 103 TH/MM3 Mean Platelet Volume 8.5 FL Neutrophils (%) (Auto) 73.9 % Lymphocytes (%) (Auto) 9.5 % Monocytes (%) (Auto) 14.3 % Eosinophils (%) (Auto) 1.9 % Basophils (%) (Auto) 0.4 % Neutrophils # (Auto) 2.5 TH/MM3 Lymphocytes # (Auto) 0.3 TH/MM3 Monocytes # (Auto) 0.5 TH/MM3 Eosinophils # (Auto) 0.1 TH/MM3 Basophils # (Auto) 0.0 TH/MM3 CBC Comment DIFF FINAL Differential Comment Blood Urea Nitrogen 12 MG/DL Creatinine 0.66 MG/DL Random Glucose 85 MG/DL Calcium Level 9.3 MG/DL Magnesium Level 1.8 MG/DL Sodium Level 143 MEQ/L Potassium Level 3.7 MEQ/L Chloride Level 107 MEQ/L Carbon Dioxide Level 26.7 MEQ/L Anion Gap 9 MEQ/L Estimat Glomerular Filtration Rate 91 ML/MIN Date/Time Source Procedure Growth Status 10/19/17 13:30 Stool Stool Pending Received Vitals/IOs Vital Signs Date Time Temp Pulse Resp B/P (MAP) Pulse Ox O2 Delivery O2 Flow Rate FiO2 10/20/17 05:27 98.0 100 16 138/90 (106) 97 10/17/17 18:04 Room Air Assessment & Plan Problem List: (1) Schizoaffective disorder ICD Codes: F25.9 - Schizoaffective disorder, unspecified Status: Acute (2) Opiate dependence ICD Codes: F11.20 - Opioid dependence, uncomplicated Status: Acute Assessment & Plan Continue current treatment plan Justification for Cont. Inpt. Patient would decompensate in a less restrictive setting Request HC Surrog/Guard Advoc?: No Problem Qualifiers (1) Schizoaffective disorder: Qualified Codes: F25.0 - Schizoaffective disorder, bipolar type (2) Opiate dependence: Qualified Codes: F11.23 - Opioid dependence with withdrawal Jhonny Almeida DO Oct 20, 2017 09:34
--- NOTE | 2017-10-20 13:03 | HHI.PR ---
Subjective Remarks Follow-up for diarrhea, right thorax pain. Patient reports overall feeling much better today. She states her bowel movement this morning was more formed. Denies any abdominal pain, nausea/vomiting, fevers or chills. Tolerating oral intake. She states her right thoracic pain is resolved. She has a facial rash, requesting antifungal cream. She has no other medical complaints at this time. Objective Vitals Vital Signs Date Time Temp Pulse Resp B/P (MAP) Pulse Ox O2 Delivery O2 Flow Rate FiO2 10/20/17 05:27 98.0 100 16 138/90 (106) 97 10/19/17 17:09 98.1 78 18 132/74 (93) 97 Result Diagram: 10/20/17 0726 10/20/17 0726 Imaging Last Impressions Ribs X-Ray 10/18/17 0000 Signed Impressions: CONCLUSION: No acute findings. Chest X-Ray 10/18/17 0000 Signed Impressions: CONCLUSION: No active disease. Tortuous aorta. Objective Remarks GENERAL: Well-nourished, well-developed elderly female patient in [facility]. SKIN: Warm and dry. Face with some erythema and satellite lesions at the nasolabial folds, cheeks, and on the chin. HEENT: Normocephalic. Atraumatic. Pupils equal and round. Mucous membranes pink and moist. CARDIOVASCULAR: Regular rate and rhythm. 2/6 systolic murmur. RESPIRATORY: No accessory muscle use. Clear to auscultation. Breath sounds equal bilaterally. GASTROINTESTINAL: Abdomen soft, non-tender, nondistended. Normoactive bowel sounds x4. MUSCULOSKELETAL: No obvious deformities. Extremities without clubbing, cyanosis , or edema. NEUROLOGICAL: Awake and alert. No obvious cranial nerve deficits. Motor grossly within normal limits. Moving all extremities spontaneously. Normal speech. Medications and IVs Current Medications Medications (Trade) Dose Ordered Sig/Sen Route Start Time Stop Time Status Last Admin (Milk Of Magnesia Liq) 30 ml DAILY PRN PO 10/17/17 18:00 (Mag-Al Plus Susp Liq) 30 ml Q6H PRN PO 10/17/17 18:00 (Neurontin) 300 mg TID PO 10/17/17 18:00 10/20/17 08:46 (Protonix) 40 mg DAILY PO 10/18/17 09:00 10/20/17 08:47 (Zanaflex) 2 mg TID PO 10/17/17 18:00 10/20/17 08:47 (Pill Splitter) 1 ea UNSCH PRN OTHER 10/17/17 18:30 (Ativan) 1 mg Q4H PRN PO 10/17/17 19:45 10/19/17 20:23 (Ativan Inj) 1 mg Q4H PRN IM 10/17/17 19:45 (Ativan) 2 mg Q2H PRN PO 10/17/17 19:45 (Ativan Inj) 2 mg Q2H PRN IM 10/17/17 19:45 (Ativan Inj) 2 mg Q1H PRN IM 10/17/17 19:45 (Ativan Inj) 2 mg Q15M PRN IM 10/17/17 19:45 (Romazicon Inj) 0.2 mg Q1M PRN IV PUSH 10/17/17 19:45 (Benadryl) 50 mg HS PRN PO 10/18/17 21:00 (Atarax) 50 mg Q6H PRN PO 10/18/17 10:30 (Flonase Eagle Spr) 1 spray DAILY EACH NARE 10/19/17 09:00 10/20/17 08:48 (Latuda) 60 mg HS PO 10/18/17 21:00 10/19/17 20:23 (Cymbalta Dr) 30 mg DAILY PO 10/18/17 10:30 10/20/17 08:47 (Zofran Odt) 4 mg Q6H PRN PO 10/18/17 15:45 (Motrin) 600 mg Q8H PRN PO 10/19/17 11:00 10/20/17 08:47 A/P Assessment and Plan 61-year-old female with hepatocellular carcinoma, hepatitis C, cirrhosis, fibromyalgia, chronic pain, schizophrenia, anxiety, depression, multiple suicide attempts, opiate dependence, GERD, admitted to inpatient psychiatry under [facility] act for suicide attempt. The patient is s/p recent admission to [facility] on 10/13 after intentional overdose on 30 tabs of morphine IR 15 mg, resulting in hypoxic/hypercapnic respiratory failure and intubation in ICU. Hospitalists consulted for medical management. Schizophrenia, depression, suicide attempt: Presented under [employer] act -Continue management per psychiatry Diarrhea: Patient reporting 10-11 episodes of watery brown nonbloody diarrhea since her arrival. Afebrile. -C. difficile negative, stool cultures pending -CBC with mild leukopenia, afebrile -BMP with hypokalemia, replaced with 40meq PO, repeat labs show improvement with K 3.7 -Encourage oral hydration -Symptoms resolving, much improved Right thorax pain: Suspect musculoskeletal secondary to recent chest compressions. Pain reproducible on exam. -CXR PA, lateral, and rib view are reviewed and negative -Tylenol as needed -Pain resolved Hepatocellular carcinoma: Follows closely with [facility] Antonio,reportedly undergoing injected radioactive bead treatment -has f/up appt with [facility] Antonio in December -also follows locally with oncologist Dr. Wilder and has her next appointment in January. -continue outpatient f/up Fibromyalgia/Chronic Pain: chronic -avoid opioids with recent overdose -continue Cymbalta 30mg daily, gabapentin 300mg tid, and zanaflex 2mg tid -outpatient f/up with PCP or pain management GERD: chronic -continue PPI Facial rash: Consistent with mild Margo dermatitis. -Started on nystatin cream bid and monitor for improvement -Consider topical steroid if no improvement DVT Prophylaxis: patient is ambulatory Lizbeth Gerber PA-C Oct 20, 2017 1:03 pm
[2017-10-20] MEDS: LORazepam 1 MG TAB PO PRN ×2 (14:22→20:15)
[2017-10-20] MEDS: NYSTATIN 100,000 UNIT/GM CREAM 15 GM TOPICAL SCH ×2 (14:22→20:16)
[2017-10-20 16:46] VITALS: BP 96/58; PULSE 81; RESP 18; TEMP 97.5; O2SAT 94
[2017-10-20] MEDS: LURASIDONE 40 MG TAB PO SCH (20:15)
[2017-10-21] MEDS: IBUPROFEN 600 MG TAB PO PRN ×3 (04:26→22:07)
[2017-10-21] MEDS: LORazepam 1 MG TAB PO PRN ×2 (04:26→22:07)
[2017-10-21 05:54] VITALS: BP 140/89; PULSE 85; RESP 16; TEMP 97.6; O2SAT 97
[2017-10-21] MEDS: DULoxetine HCl DR 30 MG CAP PO SCH ×2 (09:08→21:00)
[2017-10-21] MEDS: GABAPENTIN 300 MG CAP PO SCH ×3 (09:08→18:03)
[2017-10-21] MEDS: PANTOPRAZOLE SOD 40 MG DELAYED RELEASE TAB PO SCH (09:08)
[2017-10-21] MEDS: FLUTICASONE PROPIONATE 50 MCG/ACT 16 GM NASAL SPRAY EACH NARE SCH (09:11)
[2017-10-21] MEDS: NYSTATIN 100,000 UNIT/GM CREAM 15 GM TOPICAL SCH ×2 (09:11→21:00)
[2017-10-21] MEDS: hydrOXYzine HCL 50 MG TAB PO PRN (11:00)
--- NOTE | 2017-10-21 11:53 | HHI.PR ---
Subjective Remarks Follow-up for diarrhea, thorax pain. Patient reports again feeling better today. She has no specific medical complaints. Diarrhea resolved. Right thorax pain resolved. She believes her facial rash has improved. She is tolerating oral intake. Vital signs reviewed and stable. Discussed with RN, no acute concerns. Objective Vitals Vital Signs Date Time Temp Pulse Resp B/P (MAP) Pulse Ox O2 Delivery O2 Flow Rate FiO2 10/21/17 05:54 97.6 85 16 140/89 (106) 97 10/20/17 16:46 97.5 81 18 96/58 (71) 94 Result Diagram: 10/20/17 0726 10/20/17 0726 Imaging Last Impressions Ribs X-Ray 10/18/17 0000 Signed Impressions: CONCLUSION: No acute findings. Chest X-Ray 10/18/17 0000 Signed Impressions: CONCLUSION: No active disease. Tortuous aorta. Objective Remarks GENERAL: Well-nourished, well-developed elderly female patient in [facility]. SKIN: Warm and dry. Face with some minimal erythema and satellite lesions at the nasolabial folds, cheeks, and on the chin; overall improved. HEENT: Normocephalic. Atraumatic. Pupils equal and round. Mucous membranes pink and moist. CARDIOVASCULAR: Regular rate and rhythm. 2/6 systolic murmur. RESPIRATORY: No accessory muscle use. Clear to auscultation. Breath sounds equal bilaterally. GASTROINTESTINAL: Abdomen soft, non-tender, nondistended. Normoactive bowel sounds x4. MUSCULOSKELETAL: No obvious deformities. Extremities without clubbing, cyanosis , or edema. NEUROLOGICAL: Awake and alert. No obvious cranial nerve deficits. Motor grossly within normal limits. Moving all extremities spontaneously. Normal speech. Medications and IVs Current Medications Medications (Trade) Dose Ordered Sig/Sen Route Start Time Stop Time Status Last Admin (Milk Of Magnesia Liq) 30 ml DAILY PRN PO 10/17/17 18:00 (Mag-Al Plus Susp Liq) 30 ml Q6H PRN PO 10/17/17 18:00 (Neurontin) 300 mg TID PO 10/17/17 18:00 10/21/17 09:08 (Protonix) 40 mg DAILY PO 10/18/17 09:00 10/21/17 09:08 (Zanaflex) 2 mg TID PO 10/17/17 18:00 10/21/17 09:10 (Pill Splitter) 1 ea UNSCH PRN OTHER 10/17/17 18:30 (Ativan) 1 mg Q4H PRN PO 10/17/17 19:45 10/21/17 04:26 (Ativan Inj) 1 mg Q4H PRN IM 10/17/17 19:45 (Ativan) 2 mg Q2H PRN PO 10/17/17 19:45 (Ativan Inj) 2 mg Q2H PRN IM 10/17/17 19:45 (Ativan Inj) 2 mg Q1H PRN IM 10/17/17 19:45 (Ativan Inj) 2 mg Q15M PRN IM 10/17/17 19:45 (Romazicon Inj) 0.2 mg Q1M PRN IV PUSH 10/17/17 19:45 (Benadryl) 50 mg HS PRN PO 10/18/17 21:00 (Atarax) 50 mg Q6H PRN PO 10/18/17 10:30 (Flonase Eagle Spr) 1 spray DAILY EACH NARE 10/19/17 09:00 10/21/17 09:11 (Latuda) 60 mg HS PO 10/18/17 21:00 10/20/17 20:15 (Cymbalta Dr) 30 mg DAILY PO 10/18/17 10:30 10/21/17 09:08 (Zofran Odt) 4 mg Q6H PRN PO 10/18/17 15:45 (Motrin) 600 mg Q8H PRN PO 10/19/17 11:00 10/21/17 04:26 (Mycostatin Cream) 1 applic Q12HR TOPICAL 10/20/17 13:00 10/21/17 09:11 A/P Assessment and Plan 61-year-old female with hepatocellular carcinoma, hepatitis C, cirrhosis, fibromyalgia, chronic pain, schizophrenia, anxiety, depression, multiple suicide attempts, opiate dependence, GERD, admitted to inpatient psychiatry under Mcgraw act for suicide attempt. The patient is s/p recent admission to [facility] on 10/13 after intentional overdose on 30 tabs of morphine IR 15 mg, resulting in hypoxic/hypercapnic respiratory failure and intubation in ICU. Hospitalists consulted for medical management. Schizophrenia, depression, suicide attempt: Presented under [facility] act -Continue management per psychiatry Diarrhea: Patient reporting 10-11 episodes of watery brown nonbloody diarrhea since her arrival. Afebrile. -C. difficile negative, stool cultures pending -CBC with mild leukopenia, afebrile -BMP with hypokalemia, replaced with 40meq PO, repeat labs show improvement with K 3.7 -Encourage oral hydration -Symptoms resolved Right thorax pain: Suspect musculoskeletal secondary to recent chest compressions. Pain reproducible on exam. -CXR PA, lateral, and rib view are reviewed and negative -Tylenol as needed -Pain resolved Hepatocellular carcinoma: Follows closely with Jose Antonio,reportedly undergoing injected radioactive bead treatment -[facility] -also follows locally with oncologist Dr. Wilder and has her next appointment in January. -continue outpatient f/up Fibromyalgia/Chronic Pain: chronic -avoid opioids with recent overdose -continue Cymbalta 30mg daily, gabapentin 300mg tid, and zanaflex 2mg tid -outpatient f/up with PCP or pain management GERD: chronic -continue PPI Facial rash: Consistent with mild Margo dermatitis. -Started on nystatin cream bid and monitor for improvement -Consider topical steroid if no improvement -Rash improved DVT Prophylaxis: patient is ambulatory Discharge Planning Patient is medically stable at this time, will sign off. Please reconsult hospitalist as needed. Thank you very much for this consultation. Lizbeth Gerber PA-C Oct 21, 2017 11:53 am
--- NOTE | 2017-10-21 13:06 | HHI.PYPN ---
Subjective Remarks Patient is seen in the [facility] with floor staff, chart reviewed, patient complaint medications, patient discussed with nurse. Patient did remember me from a visit on Saturday. States it depression persists though she would not take the suicide pill today. She also acknowledges persistent auditory hallucinations was somewhat command threatening nature. She also complains of pain in multiple joints throughout her body. She states she has had good conversations with her mother and her sister. She does desire to return there when she is feeling better. For now we will increase at bedtime Latuda to 80 mg, and increase Cymbalta to 30 mg twice daily Review of Systems Except as stated in HPI: all other systems reviewed are Neg Mental Status Examination Appearance: Disheveled (Dressed in [facility]) Consciousness: Alert Orientation: x4 Motor Activity: Normal gait Speech: Unremarkable Language: Adequate Fund of Knowledge: Adequate Attention and Concentration: Adequate Memory: Unremarkable Mood: Other (Depressed) Affect: Appropriate Thought Process & Associations: Intact, Logical, Goal directed Thought Content: Appropriate Hallucination Type: None Delusion Type: None Suicidal Ideation: No Suicidal Plan: No Suicidal Intention: No Homicidal Ideation: No Homicidal Plan: No Homicidal Intention: No Insight: Fair Judgment: Adequate Results Labs Date/Time Source Procedure Growth Status 10/19/17 13:30 Stool Stool - Final NO ENTERIC PATHOGENS DETECTED BY PCR... Complete Vitals/IOs Vital Signs Date Time Temp Pulse Resp B/P (MAP) Pulse Ox O2 Delivery O2 Flow Rate FiO2 10/21/17 05:54 97.6 85 16 140/89 (106) 97 10/17/17 18:04 Room Air Assessment & Plan Problem List: (1) Schizoaffective disorder ICD Codes: F25.9 - Schizoaffective disorder, unspecified Status: Acute (2) Opiate dependence ICD Codes: F11.20 - Opioid dependence, uncomplicated Status: Acute Assessment & Plan Estimated LOS: days patient continues depressed with psychotic features, she medication adjustment above Justification for Cont. Inpt. At this time patient would decompensate the place to a lower level of care Discharge Planning Return to family home Request HC Surrog/Guard Advoc?: No Problem Qualifiers (1) Schizoaffective disorder: Qualified Codes: F25.0 - Schizoaffective disorder, bipolar type (2) Opiate dependence: Qualified Codes: F11.23 - Opioid dependence with withdrawal Jacob Luque MD Oct 21, 2017 13:06
[2017-10-21 18:11] VITALS: BP 119/66; PULSE 84; RESP 16; TEMP 98; O2SAT 98
[2017-10-21] MEDS: LURASIDONE 80 MG TAB PO SCH (21:00)
[2017-10-22 06:06] VITALS: BP 110/73; PULSE 81; RESP 18; TEMP 98.1; O2SAT 94
[2017-10-22] MEDS: FLUTICASONE PROPIONATE 50 MCG/ACT 16 GM NASAL SPRAY EACH NARE SCH (09:00)
[2017-10-22] MEDS: NYSTATIN 100,000 UNIT/GM CREAM 15 GM TOPICAL SCH ×2 (09:00→20:43)
[2017-10-22] MEDS: DULoxetine HCl DR 30 MG CAP PO SCH ×2 (09:16→20:42)
[2017-10-22] MEDS: PANTOPRAZOLE SOD 40 MG DELAYED RELEASE TAB PO SCH (09:16)
[2017-10-22] MEDS: hydrOXYzine HCL 50 MG TAB PO PRN (09:16)
[2017-10-22] MEDS: GABAPENTIN 300 MG CAP PO SCH ×3 (09:16→18:49)
[2017-10-22] MEDS: IBUPROFEN 600 MG TAB PO PRN ×2 (10:35→21:13)
[2017-10-22] MEDS: LORazepam 1 MG TAB PO PRN (12:21)
--- NOTE | 2017-10-22 15:55 | HHI.PYPN ---
Subjective Remarks Patient seen in her room with floor staff, chart reviewed, patient complains of auditory hallucinations persisting also of difficulty with pain relief. We will increase frequency of Motrin 2 every 6 hours, we just adjust of the Latuda yesterday we will give this another 24 hours and monitor Review of Systems Except as stated in HPI: all other systems reviewed are Neg Mental Status Examination Appearance: Disheveled (Dressed in [facility]) Consciousness: Alert Orientation: x4 Motor Activity: Normal gait Speech: Unremarkable Language: Adequate Fund of Knowledge: Adequate Attention and Concentration: Adequate Memory: Unremarkable Mood: Other (Depressed) Affect: Appropriate Thought Process & Associations: Intact, Logical, Goal directed Thought Content: Appropriate Hallucination Type: None Delusion Type: None Suicidal Ideation: No Suicidal Plan: No Suicidal Intention: No Homicidal Ideation: No Homicidal Plan: No Homicidal Intention: No Insight: Fair Judgment: Adequate Results Labs Date/Time Source Procedure Growth Status 10/19/17 13:30 Stool Stool - Final NO ENTERIC PATHOGENS DETECTED BY PCR... Complete Vitals/IOs Vital Signs Date Time Temp Pulse Resp B/P (MAP) Pulse Ox O2 Delivery O2 Flow Rate FiO2 10/22/17 06:06 98.1 81 18 110/73 (85) 94 Intake and Output 10/22/17 10/22/17 10/23/17 08:00 16:00 00:00 Intake Total 120 ml Balance 120 ml Assessment & Plan Problem List: (1) Schizoaffective disorder ICD Codes: F25.9 - Schizoaffective disorder, unspecified Status: Acute (2) Opiate dependence ICD Codes: F11.20 - Opioid dependence, uncomplicated Status: Acute Assessment & Plan Estimated LOS: days patient continues psychotic somewhat depressed please see medication adjustments above Justification for Cont. Inpt. At this time patient would decompensate a place a lower level of care Discharge Planning To be determined Request HC Surrog/Guard Advoc?: No Problem Qualifiers (1) Schizoaffective disorder: Qualified Codes: F25.0 - Schizoaffective disorder, bipolar type (2) Opiate dependence: Qualified Codes: F11.23 - Opioid dependence with withdrawal Jacob Luque MD Oct 22, 2017 15:55
[2017-10-22] MEDS ORDERED: IBUPROFEN 600 MG TAB PO PRN (16:00)
[2017-10-22 18:19] VITALS: BP 116/76; PULSE 78; RESP 18; TEMP 98.1; O2SAT 95
[2017-10-22] MEDS: LURASIDONE 80 MG TAB PO SCH (20:42)
[2017-10-23 06:32] VITALS: BP 101/67; PULSE 82; RESP 16; TEMP 98.3; O2SAT 95
[2017-10-23] MEDS: NYSTATIN 100,000 UNIT/GM CREAM 15 GM TOPICAL SCH ×2 (09:00→21:00)
[2017-10-23] MEDS: PANTOPRAZOLE SOD 40 MG DELAYED RELEASE TAB PO SCH (09:29)
[2017-10-23] MEDS: DULoxetine HCl DR 30 MG CAP PO SCH ×2 (09:30→21:49)
[2017-10-23] MEDS: FLUTICASONE PROPIONATE 50 MCG/ACT 16 GM NASAL SPRAY EACH NARE SCH (09:30)
[2017-10-23] MEDS: GABAPENTIN 300 MG CAP PO SCH ×3 (09:30→18:27)
[2017-10-23] MEDS: IBUPROFEN 600 MG TAB PO PRN ×3 (09:31→22:27)
[2017-10-23] MEDS: hydrOXYzine HCL 50 MG TAB PO PRN ×2 (09:32→18:28)
--- NOTE | 2017-10-23 12:36 | HHI.PYPN ---
Subjective Remarks Patient seen and [facility] with floor staff, chart reviewed, patient compliant medication. Patient stated she is feeling somewhat better the voices are diminishing she now denies suicidality or homicidality. She says she is sleeping better and appetite is better. Patient scheduled for [facility] tomorrow this time patient and feel his capacity to sign voluntary I will lift Mc[employer] act allow patient to sign voluntary continue medications no change Review of Systems Except as stated in HPI: all other systems reviewed are Neg Mental Status Examination Appearance: Disheveled (Dressed in [facility]) Consciousness: Alert Orientation: x4 Motor Activity: Normal gait Speech: Unremarkable Language: Adequate Fund of Knowledge: Adequate Attention and Concentration: Adequate Memory: Unremarkable Mood: Other (Depressed) Affect: Appropriate Thought Process & Associations: Intact, Logical, Goal directed Thought Content: Appropriate Hallucination Type: None Delusion Type: None Suicidal Ideation: No Suicidal Plan: No Suicidal Intention: No Homicidal Ideation: No Homicidal Plan: No Homicidal Intention: No Insight: Fair Judgment: Adequate Results Labs Date/Time Source Procedure Growth Status 10/19/17 13:30 Stool Stool - Final NO ENTERIC PATHOGENS DETECTED BY PCR... Complete Vitals/IOs Vital Signs Date Time Temp Pulse Resp B/P (MAP) Pulse Ox O2 Delivery O2 Flow Rate FiO2 10/23/17 06:32 98.3 82 16 101/67 (78) 95 Assessment & Plan Problem List: (1) Schizoaffective disorder ICD Codes: F25.9 - Schizoaffective disorder, unspecified Status: Acute (2) Opiate dependence ICD Codes: F11.20 - Opioid dependence, uncomplicated Status: Acute Assessment & Plan Estimated LOS: days patient's mood improving, her psychosis is resolving. She is eating and sleeping better. At this time I will lift [facility] act allow patient to sign voluntary Justification for Cont. Inpt. At this time patient would decompensate a place to a lower level of care Discharge Planning To be determined Request HC Surrog/Guard Advoc?: No Problem Qualifiers (1) Schizoaffective disorder: Qualified Codes: F25.0 - Schizoaffective disorder, bipolar type (2) Opiate dependence: Qualified Codes: F11.23 - Opioid dependence with withdrawal Jacob Luque MD Oct 23, 2017 12:36
[2017-10-23 15:25] VITALS: PULSE 69; RESP 18; TEMP 98.2; O2SAT 96
[2017-10-23 15:26] VITALS: BP 96/69; PULSE 69; RESP 18; TEMP 98.2; O2SAT 96
[2017-10-23] MEDS: LURASIDONE 80 MG TAB PO SCH (21:50)
[2017-10-24 06:08] VITALS: BP 128/82; PULSE 73; RESP 16; TEMP 97.6; O2SAT 96
[2017-10-24] MEDS: NYSTATIN 100,000 UNIT/GM CREAM 15 GM TOPICAL SCH ×2 (09:00→20:44)
[2017-10-24] MEDS: FLUTICASONE PROPIONATE 50 MCG/ACT 16 GM NASAL SPRAY EACH NARE SCH (09:31)
[2017-10-24] MEDS: PANTOPRAZOLE SOD 40 MG DELAYED RELEASE TAB PO SCH (09:32)
[2017-10-24] MEDS: DULoxetine HCl DR 30 MG CAP PO SCH ×2 (09:32→20:44)
[2017-10-24] MEDS: GABAPENTIN 300 MG CAP PO SCH ×3 (09:33→17:05)
[2017-10-24] MEDS: hydrOXYzine HCL 50 MG TAB PO PRN ×2 (09:56→17:23)
[2017-10-24] MEDS: IBUPROFEN 600 MG TAB PO PRN (13:55)
--- NOTE | 2017-10-24 15:59 | HHI.PYPN ---
Subjective Remarks Patient seen in her room with nurse, chart reviewed, patient compliant medication. Patient laying in bed with covers up to her chin with a frightened look on her face she states the auditory hallucinations persist in a quite threatening and demeaning. Giving her some vague suicidal thoughts. We will add Resporal 1 mg twice daily to medication regimen Review of Systems Except as stated in HPI: all other systems reviewed are Neg Mental Status Examination Appearance: Disheveled (Dressed in [facility]) Consciousness: Alert Orientation: x4 Motor Activity: Normal gait Speech: Unremarkable Language: Adequate Fund of Knowledge: Adequate Attention and Concentration: Adequate Memory: Unremarkable Mood: Other (Depressed) Affect: Appropriate Thought Process & Associations: Intact, Logical, Goal directed Thought Content: Appropriate Hallucination Type: None Delusion Type: None Suicidal Ideation: No Suicidal Plan: No Suicidal Intention: No Homicidal Ideation: No Homicidal Plan: No Homicidal Intention: No Insight: Fair Judgment: Adequate Results Labs Date/Time Source Procedure Growth Status 10/19/17 13:30 Stool Stool - Final NO ENTERIC PATHOGENS DETECTED BY PCR... Complete Vitals/IOs Vital Signs Date Time Temp Pulse Resp B/P (MAP) Pulse Ox O2 Delivery O2 Flow Rate FiO2 10/24/17 06:08 97.6 73 16 128/82 (97) 96 Assessment & Plan Problem List: (1) Schizoaffective disorder ICD Codes: F25.9 - Schizoaffective disorder, unspecified Status: Acute (2) Opiate dependence ICD Codes: F11.20 - Opioid dependence, uncomplicated Status: Acute Assessment & Plan Estimated LOS: days patient continues psychotic paranoid and vaguely suicidal, she medication adjustment above Justification for Cont. Inpt. At this time patient would decompensate a place to a lower level of care Discharge Planning To be determined Request HC Surrog/Guard Advoc?: No Problem Qualifiers (1) Schizoaffective disorder: Qualified Codes: F25.0 - Schizoaffective disorder, bipolar type (2) Opiate dependence: Qualified Codes: F11.23 - Opioid dependence with withdrawal Jacob Luque MD Oct 24, 2017 15:59
[2017-10-24] MEDS: risperiDONE 1 MG TAB PO SCH ×2 (17:04→21:32)
[2017-10-24 17:43] VITALS: BP 131/95; PULSE 75; RESP 20; TEMP 98.4; O2SAT 100
[2017-10-24] MEDS: LURASIDONE 80 MG TAB PO SCH (20:45)
[2017-10-25 05:39] VITALS: BP 129/87; PULSE 70; RESP 16; TEMP 97.9; O2SAT 92
[2017-10-25] MEDS: NYSTATIN 100,000 UNIT/GM CREAM 15 GM TOPICAL SCH ×2 (09:00→21:00)
[2017-10-25] MEDS: GABAPENTIN 300 MG CAP PO SCH ×2 (09:01→13:00)
[2017-10-25] MEDS: DULoxetine HCl DR 30 MG CAP PO SCH ×2 (09:02→21:54)
[2017-10-25] MEDS: PANTOPRAZOLE SOD 40 MG DELAYED RELEASE TAB PO SCH (09:02)
[2017-10-25] MEDS: risperiDONE 1 MG TAB PO SCH ×2 (09:02→21:54)
[2017-10-25] MEDS: IBUPROFEN 600 MG TAB PO PRN ×2 (09:30→22:13)
[2017-10-25] MEDS: FLUTICASONE PROPIONATE 50 MCG/ACT 16 GM NASAL SPRAY EACH NARE SCH (09:30)
[2017-10-25] MEDS: hydrOXYzine HCL 50 MG TAB PO PRN (13:06)
--- NOTE | 2017-10-25 13:40 | HHI.PYPN ---
Subjective Remarks Patient seen and [place] with nurse Armida, chart reviewed, patient compliant medication. Patient states his sleep is somewhat better along with her appetite. She states the voices are also softer. She still complains of some pain and did request that we increase her gabapentin to 400 mg 3 times daily. That is of care with me. For now continue treatment Review of Systems Except as stated in HPI: all other systems reviewed are Neg Mental Status Examination Appearance: Disheveled (Dressed in [facility]) Consciousness: Alert Orientation: x4 Motor Activity: Normal gait Speech: Unremarkable Language: Adequate Fund of Knowledge: Adequate Attention and Concentration: Adequate Memory: Unremarkable Mood: Other (Depressed) Affect: Appropriate Thought Process & Associations: Intact, Logical, Goal directed Thought Content: Appropriate Hallucination Type: None Delusion Type: None Suicidal Ideation: No Suicidal Plan: No Suicidal Intention: No Homicidal Ideation: No Homicidal Plan: No Homicidal Intention: No Insight: Fair Judgment: Adequate Results Labs Date/Time Source Procedure Growth Status 10/19/17 13:30 Stool Stool - Final NO ENTERIC PATHOGENS DETECTED BY PCR... Complete Vitals/IOs Vital Signs Date Time Temp Pulse Resp B/P (MAP) Pulse Ox O2 Delivery O2 Flow Rate FiO2 10/25/17 05:39 97.9 70 16 129/87 (101) 92 Intake and Output 10/25/17 10/25/17 10/26/17 08:00 16:00 00:00 Intake Total 360 ml Balance 360 ml Assessment & Plan Problem List: (1) Schizoaffective disorder ICD Codes: F25.9 - Schizoaffective disorder, unspecified Status: Acute (2) Opiate dependence ICD Codes: F11.20 - Opioid dependence, uncomplicated Status: Acute Assessment & Plan Estimated LOS: days patient's psychosis is slowly lifted, she is compliant with medications she slept somewhat better. Still complains of some pain we will increase gabapentin to 400 mg 3 times daily Justification for Cont. Inpt. At this time patient would decompensate a place to a lower level of care Discharge Planning Probable return home Request HC Surrog/Guard Advoc?: No Problem Qualifiers (1) Schizoaffective disorder: Qualified Codes: F25.0 - Schizoaffective disorder, bipolar type (2) Opiate dependence: Qualified Codes: F11.23 - Opioid dependence with withdrawal Jacob Luque MD Oct 25, 2017 13:40
[2017-10-25] MEDS: GABAPENTIN 400 MG CAP PO SCH (17:22)
[2017-10-25 18:14] VITALS: BP 113/81; PULSE 85; RESP 16; TEMP 97.7; O2SAT 99
[2017-10-25] MEDS: LURASIDONE 80 MG TAB PO SCH (21:54)
[2017-10-26 06:23] VITALS: BP 115/73; PULSE 79; RESP 16; TEMP 97.7; O2SAT 94
[2017-10-26] MEDS: risperiDONE 1 MG TAB PO SCH ×2 (08:30→21:04)
[2017-10-26] MEDS: FLUTICASONE PROPIONATE 50 MCG/ACT 16 GM NASAL SPRAY EACH NARE SCH (08:30)
[2017-10-26] MEDS: DULoxetine HCl DR 30 MG CAP PO SCH ×2 (08:30→21:04)
[2017-10-26] MEDS: PANTOPRAZOLE SOD 40 MG DELAYED RELEASE TAB PO SCH (08:30)
[2017-10-26] MEDS: GABAPENTIN 400 MG CAP PO SCH ×3 (08:30→18:05)
[2017-10-26] MEDS: NYSTATIN 100,000 UNIT/GM CREAM 15 GM TOPICAL SCH ×2 (08:31→21:00)
[2017-10-26] MEDS: IBUPROFEN 600 MG TAB PO PRN ×2 (10:47→21:05)
[2017-10-26] MEDS: hydrOXYzine HCL 50 MG TAB PO PRN ×2 (10:48→21:05)
--- NOTE | 2017-10-26 14:18 | HHI.PYPN ---
Subjective Remarks Reviewed electronic medical record and discussed case with staff. Follow-up was conducted in patient's room. Patient reports that she is remorseful over her suicide attempt. She states that she slept well and has a good appetite. She reports today that the auditory hallucinations are very soft. She denies having any thoughts of self harm today. Mental Status Examination Appearance: Disheveled (Dressed in [facility]) Consciousness: Alert Orientation: x4 Motor Activity: Normal gait Speech: Unremarkable Language: Adequate Fund of Knowledge: Adequate Attention and Concentration: Adequate Memory: Unremarkable Mood: Other (Depressed) Affect: Appropriate Thought Process & Associations: Intact, Logical, Goal directed Thought Content: Appropriate Hallucination Type: None Delusion Type: None Suicidal Ideation: No Suicidal Plan: No Suicidal Intention: No Homicidal Ideation: No Homicidal Plan: No Homicidal Intention: No Insight: Fair Judgment: Adequate Results Labs Date/Time Source Procedure Growth Status 10/19/17 13:30 Stool Stool - Final NO ENTERIC PATHOGENS DETECTED BY PCR... Complete Vitals/IOs Vital Signs Date Time Temp Pulse Resp B/P (MAP) Pulse Ox O2 Delivery O2 Flow Rate FiO2 10/26/17 06:23 97.7 79 16 115/73 (87) 94 Intake and Output 10/26/17 10/26/17 10/27/17 08:00 16:00 00:00 Intake Total 240 ml Balance 240 ml Assessment & Plan Problem List: (1) Schizoaffective disorder ICD Codes: F25.9 - Schizoaffective disorder, unspecified Status: Acute (2) Opiate dependence ICD Codes: F11.20 - Opioid dependence, uncomplicated Status: Acute Assessment & Plan Estimated LOS: Patient reports some improvement in her symptoms. Continue with current treatment and monitor for stabilization. Days Justification for Cont. Inpt. Moving this patient to a less restrictive environment likely result in decompensation. Discharge planning in progress. Request HC Surrog/Guard Advoc?: No Problem Qualifiers (1) Schizoaffective disorder: Qualified Codes: F25.0 - Schizoaffective disorder, bipolar type (2) Opiate dependence: Qualified Codes: F11.23 - Opioid dependence with withdrawal Grace Poole Oct 26, 2017 14:18
[2017-10-26 18:24] VITALS: BP 106/65; PULSE 86; RESP 16; TEMP 97.9; O2SAT 96
[2017-10-26] MEDS: LURASIDONE 80 MG TAB PO SCH (21:04)
[2017-10-27 05:34] VITALS: BP 105/64; PULSE 86; RESP 18; TEMP 97.9; O2SAT 93
[2017-10-27] MEDS: PANTOPRAZOLE SOD 40 MG DELAYED RELEASE TAB PO SCH (08:42)
[2017-10-27] MEDS: risperiDONE 1 MG TAB PO SCH ×2 (08:42→21:29)
[2017-10-27] MEDS: DULoxetine HCl DR 30 MG CAP PO SCH ×2 (08:43→21:29)
[2017-10-27] MEDS: IBUPROFEN 600 MG TAB PO PRN ×2 (08:43→21:30)
[2017-10-27] MEDS: hydrOXYzine HCL 50 MG TAB PO PRN ×3 (08:43→21:29)
[2017-10-27] MEDS: GABAPENTIN 400 MG CAP PO SCH ×3 (08:43→17:37)
[2017-10-27] MEDS: FLUTICASONE PROPIONATE 50 MCG/ACT 16 GM NASAL SPRAY EACH NARE SCH (08:44)
[2017-10-27] MEDS: NYSTATIN 100,000 UNIT/GM CREAM 15 GM TOPICAL SCH ×2 (08:44→21:00)
--- NOTE | 2017-10-27 10:39 | HHI.PYPN ---
Subjective Remarks Reviewed electronic medical records and discussed case with staff. Follow-up was conducted in the exam room. Patient reports that she is feeling "a little melancholy today". She states that she still hears voices however they are so low at this point that she cannot hear what they say. She does report that at her baseline she does not experience auditory hallucinations. She was recently started on Risperdal to treat the auditory hallucinations. She does report some improvement since the initiation of that medication. Mental Status Examination Appearance: Disheveled (Dressed in [facility]) Consciousness: Alert Orientation: x4 Motor Activity: Normal gait Speech: Unremarkable Language: Adequate Fund of Knowledge: Adequate Attention and Concentration: Adequate Memory: Unremarkable Mood: Other (Depressed) Affect: Appropriate Thought Process & Associations: Intact, Logical, Goal directed Thought Content: Appropriate Hallucination Type: None Delusion Type: None Suicidal Ideation: No Suicidal Plan: No Suicidal Intention: No Homicidal Ideation: No Homicidal Plan: No Homicidal Intention: No Insight: Fair Judgment: Adequate Results Labs Date/Time Source Procedure Growth Status 10/19/17 13:30 Stool Stool - Final NO ENTERIC PATHOGENS DETECTED BY PCR... Complete Vitals/IOs Vital Signs Date Time Temp Pulse Resp B/P (MAP) Pulse Ox O2 Delivery O2 Flow Rate FiO2 10/27/17 05:34 97.9 86 18 105/64 (78) 93 Intake and Output 10/27/17 10/27/17 10/28/17 08:00 16:00 00:00 Intake Total 480 ml Balance 480 ml Assessment & Plan Problem List: (1) Schizoaffective disorder ICD Codes: F25.9 - Schizoaffective disorder, unspecified Status: Acute (2) Opiate dependence ICD Codes: F11.20 - Opioid dependence, uncomplicated Status: Acute Assessment & Plan Estimated LOS: Patient has shown some improvement however, she still reports experiencing auditory hallucinations although they are decreasing in intensity. Continue with current treatment plan. She will be reevaluated by her attending psychiatrist tomorrow. Days Justification for Cont. Inpt. Moving this patient to a less restrictive environment likely result in decompensation. She is still experiencing some symptoms although they seem to be diminishing. Request HC Surrog/Guard Advoc?: No Problem Qualifiers (1) Schizoaffective disorder: Qualified Codes: F25.0 - Schizoaffective disorder, bipolar type (2) Opiate dependence: Qualified Codes: F11.23 - Opioid dependence with withdrawal Grace Poole Oct 27, 2017 10:39
[2017-10-27 18:15] VITALS: BP 114/71; PULSE 72; RESP 18; TEMP 97.3; O2SAT 94
[2017-10-27] MEDS: LURASIDONE 80 MG TAB PO SCH (21:29)
[2017-10-28 05:41] VITALS: BP 126/84; PULSE 80; RESP 18; TEMP 97.5; O2SAT 94
[2017-10-28] MEDS: NYSTATIN 100,000 UNIT/GM CREAM 15 GM TOPICAL SCH (09:00)
[2017-10-28] MEDS: risperiDONE 1 MG TAB PO SCH (09:37)
[2017-10-28] MEDS: GABAPENTIN 400 MG CAP PO SCH ×2 (09:37→13:00)
[2017-10-28] MEDS: DULoxetine HCl DR 30 MG CAP PO SCH (09:37)
[2017-10-28] MEDS: PANTOPRAZOLE SOD 40 MG DELAYED RELEASE TAB PO SCH (09:37)
[2017-10-28] MEDS: FLUTICASONE PROPIONATE 50 MCG/ACT 16 GM NASAL SPRAY EACH NARE SCH (09:39)
[2017-10-28] MEDS: IBUPROFEN 600 MG TAB PO PRN (10:31)
[2017-10-28] MEDS ORDERED: NEUR400C PO (13:21)
[2017-10-28] MEDS ORDERED: DULO1CAP2 PO (13:21)
[2017-10-28] MEDS ORDERED: RISP1 PO (13:21)
[2017-10-28] MEDS ORDERED: LURA80 PO (13:21)
[2017-10-28] MEDS ORDERED: PANT40TA3 PO (13:21)
[2017-10-28] MEDS ORDERED: FLUT50SP EACH NARE (13:21)
[2017-10-28] MEDS ORDERED: TIZA2TAB PO (13:21)
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
[2017-10-28] MEDS: hydrOXYzine HCL 50 MG TAB PO PRN (14:06)
--- NOTE | 2017-10-28 15:28 | PD.TTN ---
Patient Problems 1. Discharge planning 2. Medication compliance 3. Knowledge deficit 4. Lack of coping skills Progress Toward Goals Provider Present: Dr. Daniela Luque Provider Input: 10/28/17 if patient is having uneventful weekend and wants to go can discharge home today Nurse(s) Input: 10/28 jason batista, med compliant Psychiatric Counselors Present: Xin Kumari LCSW Psych Therapist Input: 10/28 sees [facility] and has an apt , has home to go to, not intensive treatment is covered with Medicare Xin Kumari LCSW Oct 28, 2017 15:28
== END 2017-10-28 15:24 | disposition home or self-care (01) | DRG 885 ==
LOC: NEPJ 20:44 → NEDA 10-17 17:55 → H260 10-17 20:38
PROVIDERS: ADMIT Psychiatry & Neurology Psychiatry; ATTEND Psychiatry & Neurology Psychiatry
DX: F25.9 Schizoaffective disorder, unspecified (principal); C22.0 Liver cell carcinoma; F11.20 Opioid dependence, uncomplicated; B18.2 Chronic viral hepatitis C; K21.9 Gastro-esophageal reflux disease without esophagitis; B37.2 Candidiasis of skin and nail; E87.6 Hypokalemia; F17.210 Nicotine dependence, cigarettes, uncomplicated; G89.4 Chronic pain syndrome; M79.7 Fibromyalgia; R07.89 Other chest pain; R19.7 Diarrhea, unspecified; R21 Rash and other nonspecific skin eruption
CPT/HCPCS: 71046; 71101; 80048; 80061; 83036; 83735; 85025; 87493; 87506